=== PATIENT | female | born 1950 | race Caucasian/White ===

== ENCOUNTER → 2017-07-10 12:02 | Outpatient (CLI) | payer MEDICARE, OTHER, SELFPAY ==
[2017-07-10 13:43] LABS: BUN Creatinine Ratio 22.9 (6-22); Blood Urea Nitrogen 16 mg/dL (7-17); Calcium 11.1 mg/dL (8.4-10.2); Carbon Dioxide 28 mmol/L (22-32); Chloride 105 mmol/L (98-107); Estimated Glomerular Filt Rate > 60.0 mL/min (>60); Glucose 100 mg/dL (80-110); HEMOLYSIS < 15 (0-50); Potassium 4.1 mmol/L (3.4-5.1); Sodium 143 mmol/L (137-145)
[2017-07-10 14:09] LABS: Thyroid Stimulating Hormone 0.54 uIU/mL (0.47-4.68)
[2017-07-12 15:15] LABS: Parathyroid Hormone Int 102 pg/mL (14-64)
== END ==
PROVIDERS: Family Provider Internal Medicine; PCP Internal Medicine; Visit Provider Internal Medicine Endocrinology, Diabetes & Metabolism
DX: E21.3 Hyperparathyroidism, unspecified (principal); E03.9 Hypothyroidism, unspecified
CPT/HCPCS: 36415; 80048; 83970; 84443

== ENCOUNTER → 2017-07-12 10:10 | Outpatient (CLI) | payer MEDICARE, OTHER, SELFPAY ==
[2017-07-12 15:09] LABS: Collection Time Urine 24 Hours; Creatinine 24 Hour Urine 1167 mg/day (800-1800); Creatinine Urine Random 116.7 mg/dL; Total Volume Urine 1000 mL
[2017-07-12 15:15] LABS: Calcium 24 Hour Urine 318 mg/day (100-300); Calcium Urine Random 31.8; Collection Time Urine 24 Hours; Total Volume Urine 1000 mL
== END ==
PROVIDERS: PCP Internal Medicine; Visit Provider Internal Medicine Endocrinology, Diabetes & Metabolism
DX: E03.9 Hypothyroidism, unspecified (principal)
CPT/HCPCS: 82340; 82570

== ENCOUNTER → 2017-09-03 07:07 | Outpatient (CLI) | payer MEDICARE, OTHER, SELFPAY ==
[2017-09-03 09:19] LABS: Hematocrit 38.4 % (36-46); Hemoglobin 12.9 g/dL (12.0-16.0); Mean Corpuscular HGB Conc 33.6 % (30-36); Mean Corpuscular Hemoglobin 30.3 PG (26-34); Mean Corpuscular Volume 90.1 fL (80-100); Platelet Count 134 X10^3/uL (150-400); Red Blood Cell Count 4.26 X10^6/uL (4.0-5.2); Red Cell Distribution Width 13.8 % (11.6-14.8); White Blood Cell Count 13.1 X10^3/uL (4.5-11.0)
[2017-09-03 09:20] LABS: Add Manual Diff / Slide Review YES
[2017-09-03 09:42] LABS: Alanine Aminotransferase 40 IU/L (9-52); Albumin 4.2 g/dL (3.5-5.0); Albumin Globulin Ratio 1.9 (1.0-2.8); Alkaline Phosphatase 64 U/L (38-126); Aspartate Aminotransferase 39 IU/L (14-36); Bilirubin Total 0.4 mg/dL (0.2-1.3); Blood Urea Nitrogen 14 mg/dL (7-17); Calcium 10.1 mg/dL (8.4-10.2); Carbon Dioxide 31 mmol/L (22-32); Chloride 105 mmol/L (98-107); Estimated Glomerular Filt Rate > 60.0 mL/min (>60); Globulin 2.2 g/dL (1.7-4.1); Glucose 108 mg/dL (80-110); HEMOLYSIS < 15 (0-50); Lactate Dehydrogenase 479 U/L (313-618); Sodium 141 mmol/L (137-145); Total Protein 6.4 g/dL (6.3-8.2)
[2017-09-03 10:03] LABS: Neutrophils Absolute Manual 3275 /uL (3000-5900); Total Cells Counted 100
[2017-09-03 10:04] LABS: Anisocytosis 1+
== END ==
PROVIDERS: PCP Internal Medicine; Visit Provider Internal Medicine
DX: D69.6 Thrombocytopenia, unspecified (principal); D69.3 Immune thrombocytopenic purpura
CPT/HCPCS: 36415; 80053; 83615; 85025

== ENCOUNTER → 2017-09-07 07:03 | Outpatient (CLI) | payer MEDICARE, OTHER, SELFPAY ==
--- NOTE | 2017-09-07 08:29 | DI.CT.S_ITS ---
PROCEDURE: CT CHEST ABD PEL W CON INDICATIONS: staging for CLL/SLL TECHNIQUE: After the administration of oral and intravenous contrast, 5 mm thick sections acquired from the lung apices to the symphysis. 5 mm coronal and sagittal reformats were performed, with additional 7 mm coronal MIP reformats through the lungs. For radiation dose reduction, the following was used: automated exposure control, adjustment of mA and/or kV according to patient size. COMPARISON: [facility], , PELVIC COMPLETE, 03/12/2015, 8:25. Outside Facility, , CT NECK W/WO CONTRAST, 08/13/2017, 14:43. FINDINGS: Image quality: Excellent. CHEST: Lungs and pleura: No acute airspace opacities. No pleural effusions or pneumothorax. Central and peripheral airways appear patent and normal in caliber. Mediastinum: Heart size is normal. No pericardial effusion. No mediastinal or hilar adenopathy by size criteria. Thoracic aorta and central pulmonary arteries are normal in size. Esophagus is normal in caliber. No hiatal hernia. Chest wall: No axillary or supraclavicular adenopathy by size criteria. Thyroid gland appears normal where well visualized. ABDOMEN: Solid organs: Liver is normal in size and enhancement. Gallbladder appears normal. Biliary system is non dilated. Pancreas enhances normally. Spleen is normal in size and enhancement. No adrenal nodules. Kidneys demonstrate normal size and enhancement, without hydronephrosis. Bilateral renal calculi present, nonobstructive, with the largest calculi seen on the left located at the lower third collecting system measuring up to 6 x 13 mm. Peritoneum and bowel: Bowel loops demonstrate normal wall thickness and caliber. No free fluid or air. Nodes and vessels: No retroperitoneal or mesenteric adenopathy by size criteria. Aorta and inferior vena cava are normal in size. Miscellaneous: No ventral hernias. PELVIS: Genitourinary: Bladder wall thickness is normal. Miscellaneous: No inguinal hernias or adenopathy. Bones: No suspicious bony lesions. No vertebral body compression fractures. IMPRESSION: No adenopathy seen, no visceral involvement by leukemia/lymphoma. Note is made of bilateral nonobstructed renal collecting system calculi, the largest measuring up to 6 x 13 mm at the lower third collecting system of the left kidney. Dictated by: Levar Donaldson M.D. on 09/07/2017 at 12:40 Approved by: Levar Donaldson M.D. on 09/07/2017 at 12:44
--- NOTE | 2017-09-11 15:56 | PC.NURSE ---
Pt called, asking to talk to Dr Rich about her CT results. Results printed and placed on Dr Rich's desk. Per Dr Rich, pt needs to come in to see a provider if she has any questions. This was relayed to the patient, who expressed unhappiness with this as I was told by both Dr Rich and a radiology equipment servicer that I could have a phone conversation with Dr Rich. She was upset because what I was saying and what she was told previously are not consistent. Pt states she is on vacation and is unable to come in to see a provider at this time. Encouraged her to make an appt with one of the other providers, after apologizing for the miscommunication. She states she'll call back once she's researched the other providers to make an appt.
== END ==
PROVIDERS: Family Provider Internal Medicine; PCP Internal Medicine; Visit Provider Internal Medicine Hematology & Oncology
DX: C91.10 Chronic lymphocytic leukemia of B-cell type not having achieved remission (principal); D69.6 Thrombocytopenia, unspecified; N20.0 Calculus of kidney
CPT/HCPCS: 71260; 74177; Q9967

== ENCOUNTER → 2017-09-20 08:57 | Outpatient (CLI) | payer MEDICARE, OTHER, SELFPAY ==
--- NOTE | 2017-09-20 | DI.MG.S_ITS ---
BILATERAL DIGITAL SCREENING MAMMOGRAM 3D/2D WITH CAD: 09/20/2017 CLINICAL: Routine screening. Comparison is made to exams dated: 08/30/2016 mammogram, 04/02/2014 mammogram, and 01/27/2013 mammogram - [facility]. There are scattered fibroglandular elements in both breasts. Current study was also evaluated with a Computer Aided Detection (CAD) system. No significant masses, calcifications, or other findings are seen in either breast. There has been no significant interval change. IMPRESSION: NEGATIVE There is no mammographic evidence of malignancy. A 1 year screening mammogram is recommended. This exam was interpreted at Station ID: [id number]. NOTE: For mammograms, a report in lay terms will be sent to the patient. Approximately 15% of breast malignancies will not be visualized mammographically. In the management of a palpable breast mass, a negative mammogram must not discourage biopsy of a clinically suspicious lesion. Electronically Signed By: Desi benson/ava:09/20/2017 10:36:56 letter sent: Normal Exam ACR BI-RADS Category 1: Negative [id number]
== END ==
PROVIDERS: Family Provider Internal Medicine; PCP Internal Medicine; Visit Provider Internal Medicine
DX: Z12.31 Encounter for screening mammogram for malignant neoplasm of breast (principal)
CPT/HCPCS: 77063; 77067

== ENCOUNTER → 2017-10-13 11:27 | Outpatient (CLI) | payer MEDICARE, OTHER, SELFPAY ==
[2017-10-13 12:41] LABS: Free T4, Direct Thyroxine 1.23 ng/dL (0.78-2.19)
[2017-10-13 12:55] LABS: Thyroid Stimulating Hormone 1.32 uIU/mL (0.47-4.68)
== END ==
PROVIDERS: Family Provider Internal Medicine; PCP Internal Medicine; Visit Provider Internal Medicine Endocrinology, Diabetes & Metabolism
DX: E03.9 Hypothyroidism, unspecified (principal)
CPT/HCPCS: 36415; 84439; 84443

== ENCOUNTER → 2017-10-21 11:09 | Outpatient (CLI) | payer MEDICARE, OTHER, SELFPAY | PROVIDERS: Family Provider Internal Medicine; PCP Internal Medicine; Visit Provider Physician Assistant | DX: J02.9 Acute pharyngitis, unspecified (principal) | CPT/HCPCS: 87070 ==

== ENCOUNTER → 2018-01-21 09:34 | Outpatient (CLI) | payer MEDICARE, OTHER, SELFPAY ==
[2018-01-21 10:12] LABS: Hematocrit 39.3 % (36-46); Hemoglobin 13.1 g/dL (12.0-16.0); Mean Corpuscular HGB Conc 33.4 % (30-36); Mean Corpuscular Hemoglobin 29.9 PG (26-34); Mean Corpuscular Volume 89.5 fL (80-100); Platelet Count 232 X10^3/uL (150-400); Red Blood Cell Count 4.39 X10^6/uL (4.0-5.2); Red Cell Distribution Width 13.7 % (11.6-14.8); White Blood Cell Count 16.6 X10^3/uL (4.5-11.0)
[2018-01-21 10:13] LABS: Add Manual Diff / Slide Review YES
[2018-01-21 10:49] LABS: Alanine Aminotransferase 26 IU/L (9-52); Albumin 4.3 g/dL (3.5-5.0); Albumin Globulin Ratio 1.7 (1.0-2.8); Alkaline Phosphatase 61 U/L (38-126); Aspartate Aminotransferase 31 IU/L (14-36); BUN Creatinine Ratio 21.4 (6-22); Bilirubin Total 0.3 mg/dL (0.2-1.3); Blood Urea Nitrogen 15 mg/dL (7-17); Calcium 10.7 mg/dL (8.4-10.2); Carbon Dioxide 28 mmol/L (22-32); Chloride 108 mmol/L (98-107); Estimated Glomerular Filt Rate > 60.0 mL/min (>60); Globulin 2.6 g/dL (1.7-4.1); Glucose 87 mg/dL (80-110); HEMOLYSIS < 15 (0-50); Lactate Dehydrogenase 473 U/L (313-618); Potassium 4.3 mmol/L (3.4-5.1); Sodium 147 mmol/L (137-145); Total Protein 6.9 g/dL (6.3-8.2)
[2018-01-21 10:54] LABS: Neutrophils Absolute Manual 3984 /uL (3000-5900); Smudge Cells 1+; Total Cells Counted 100
== END ==
PROVIDERS: PCP Internal Medicine; Visit Provider Internal Medicine
DX: D69.6 Thrombocytopenia, unspecified (principal); D69.3 Immune thrombocytopenic purpura
CPT/HCPCS: 36415; 80053; 83615; 85025

== ENCOUNTER → 2018-05-08 10:07 | Outpatient (CLI) | payer MEDICARE, OTHER, SELFPAY ==
--- NOTE | 2018-05-08 | DI.RAD.S_ITS ---
PROCEDURE: XR FOOT LT MIN 3V INDICATIONS: PLANTAR FASCIITIS/OCCULT FRACTURE TECHNIQUE: 3 views of the foot were acquired. COMPARISON: [facility], , FOOT 3V LEFT, 12/14/2015, 9:13. FINDINGS: Bones: Stable postsurgical changes are present within the first metatarsal. Hardware is intact without evidence of fracture or loosening. Soft tissues: No tibiotalar joint effusion. Achilles tendon appears normal. Slight prominence of soft tissues along the plantar aspect which are unchanged compared to 2016. IMPRESSION: No visualized acute fracture or dislocation. However, if clinical concern and/or pain persist, short interval imaging followup in 7-10 days is recommended, as occult injury cannot be definitively excluded. Dictated by: Marjorie Hidalgo M.D. on 05/08/2018 at 12:19 Approved by: Marjorie Hidalgo M.D. on 05/08/2018 at 12:20
== END ==
PROVIDERS: Visit Provider Internal Medicine
DX: M72.2 Plantar fascial fibromatosis (principal)
CPT/HCPCS: 73630

== ENCOUNTER → 2018-07-22 09:51 | Outpatient (CLI) | payer MEDICARE, OTHER, SELFPAY ==
--- NOTE | 2018-07-22 | DI.MRI.S_ITS ---
PROCEDURE: MR KNEE RT WO CON INDICATIONS: JOINT INJURY OF RIGHT KNEE TECHNIQUE: Noncontrast sagittal PD fast spin echo and T2 fast spin echo with fat saturation, sagittal 3-D FLASH with fat saturation; coronal T1 spin echo and PD fast spin echo with fat saturation, and axial PD fast spin echo with fat saturation through the knee. COMPARISON: None. FINDINGS: Image quality: Excellent. Menisci: Myxoid degeneration involving the body of the medial meniscus. Lateral meniscal tear involving the body with abnormal signal extending to the superior articular surface. There is also partial extrusion. Cruciate ligaments: The anterior and posterior cruciate ligaments appear intact. Medial structures: The medial collateral ligament appears intact. The posterior oblique ligament, semimembranosus tendon insertions, oblique popliteal ligament, and meniscocapsular junction appear intact. Visualized portions of the pes anserinus tendons appear normal. No abnormal bursal fluid. Lateral structures: Age indeterminate low-grade sprain of the proximal lateral collateral ligament. The long and short heads of the biceps femoris tendon appear intact. The popliteus tendon appears normal; the popliteofibular ligament appears intact. The posterosuperior and anteroinferior popliteomeniscal fascicles appear intact. The arcuate and fabellofibular ligaments appear intact, on either side of the lateral inferior geniculate artery. Iliotibial band appears normal. Anterior structures: The quadriceps and patellar tendons appear intact. Patellar alignment is normal. No femoral trochlear dysplasia or ventral trochlear prominence. No edema in the infrapatellar fat pad. Bones and cartilage: No focal marrow contusion or discrete low signal fracture line. Within the medial compartment, diffuse partial-thickness loss of femoral and tibial articular cartilage. Within the lateral compartment, near full-thickness loss of the central weightbearing tibial cartilage. There is diffuse partial-thickness loss of the femoral cartilage. Within the patellofemoral compartment, full-thickness loss of the cartilage overlying the medial patellar ridge with underlying subchondral marrow signal changes and edema. There is partial-thickness loss of the femoral trochlear cartilage. Joint space: Large joint effusion. No intra-articular loose bodies identified. No Umana's cyst IMPRESSION: Lateral meniscal tear involving the body with partial extrusion. Large joint effusion. Tricompartmental joint degeneration as above, most pronounced in the lateral and patellofemoral compartments. Dictated by: Bharath Cardenas M.D. on 07/22/2018 at 13:11 Approved by: Bharath Cardenas M.D. on 07/22/2018 at 13:18
== END ==
PROVIDERS: Family Provider Internal Medicine; PCP Internal Medicine; Visit Provider Internal Medicine
DX: S83.281A Other tear of lateral meniscus, current injury, right knee, initial encounter (principal); M25.461 Effusion, right knee; M17.11 Unilateral primary osteoarthritis, right knee; X58.XXXA Exposure to other specified factors, initial encounter
CPT/HCPCS: 73721

== ENCOUNTER 2019-01-14 11:52 | Day surgery (SDC) | payer MEDICARE, OTHER, SELFPAY ==
[2019-01-14] VITALS (9 sets, daily range): BP systolic 90–119; BP diastolic 57–81; PULSE 80–98; RESP 12–16; TEMP 36.3–37.1; O2SAT 96–99; BMI 21.5
[2019-01-14] MEDS: SODIUM CHLORIDE 0.9% 1,000 ML 200 ML IV ×2 (12:30→14:25)
--- NOTE | 2019-01-14 12:57 | PM.HP.1 ---
History of Present Illness History of Present Illness Date Patient Seen: 01/14/19 Time Patient Seen: 12:57 Chief complaint: 16403 SCREENING COLONOSCOPY Narrative: This is a 68-year-old woman who had her 1st screening colonoscopy at age 50, and was told it was normal. Since then she denies any symptoms of melena, hematochezia, or other GI complaints. She has history of CLL and thrombocytopenia, but most recently has had normal platelets and has never been treated for the CLL. She has cyst under surveillance. He also has hypothyroid for which she takes levothyroxine. Her sister recently had a colonoscopy in which many polyps were found and she was told to tell all of her family members to go with a colonoscopy. ROS: ROS positive for recent cold, ankle swelling at the end of the day, heart murmur, thirteen system review is otherwise negative other than as mentioned below and in HPI. Patient History Surgical History History of thyroidectomy Family & Social History Social History: household members spouse Tobacco & Substance use: Smoking Status Never smoker Meds Home Medications and Allergies Home Medications Medication Instructions Recorded Confirmed Type levothyroxine 100 mcg PO DAILY 09/04/17 01/14/19 History Allergies Allergy/AdvReac Type Severity Reaction Status Date / Time No Known Drug Allergies Allergy Verified 01/14/19 12:16 Exam Vital Signs (past 8 hours): - 01/14/19 12:23 Temperature 97.6 F Pulse Rate 98 H Respiratory Rate 16 Blood Pressure 119/81 Pulse Oximetry 99 Oxygen Delivery Method Room Air Assessment & Plan Assessment and plan (1) CLL (chronic lymphocytic leukemia): Current visit: Yes Status: Acute (2) Encounter for screening colonoscopy: Current visit: Yes Status: Acute Assessment & Plan narrative: Risks and benefits of screening colonoscopy and possible polypectomy were discussed with the patient including risk of bleeding, perforation, need for additional procedures, risks of anesthesia. The patient desires to proceed with her colonoscopy procedure Time Spent With Patient Time with patient: 15-24 minutes Quality VTE Deep Vein Thrombosis/Pulmonary Embolism Present on Admission: No
--- NOTE | 2019-01-14 13:26 | PM.OP.ENDO ---
Operative Date/Time/Diagnoses Date of procedure: 01/14/19 Time of procedure: 13:26 Pre-op diagnosis: Average risk for colon cancer Post-op diagnosis: same Procedure & Clinicians Study performed: Screening colonoscopy Same procedure as scheduled: Yes Surgeon: Cheyenne Hernández Procedure Notes SCOAP/Timeout: Performed Procedure in detail: The patient was brought to the room and placed in left lateral decubitus position with all bony prominences padded. A time-out was performed and then the patient was given procedural sedation starting with 4 mg of Versed and 100 mcg of fentanyl. Vitals were monitored throughout the procedure and remained stable. Once adequately sedated the procedure was begun. A rectal exam was performed revealing no abnormalities. The colonoscope was then introduced to the rectum and advanced to the cecum in the usual fashion. The cecum was identified by the appendiceal orifice, the mucosal try fold, and the ileocecal valve. The scope was then retracted while rotating side to side and examining each mucosal fold. At the conclusion procedure retroflexion was performed and small grade 2 internal hemorrhoids without stigmata of bleeding were seen. The scope was then withdrawn from the rectum the procedure was concluded. The patient tolerated the procedure well was transferred to the PACU in stable condition. Scope withdrawal time: 8 Sedation minutes: 23 Findings: internal hemorrhoids Specimen(s): none sent Complications: none Impression: Normal colon Post-procedure Recommendations: Colonscopy in 10 years Follow up: as needed Disposition: PACU
[2019-01-14] MEDS: fentaNYL 250 MCG/5 ML INJ IV (13:27)
[2019-01-14] MEDS: MIDAZOLAM 5 MG/5 ML VIAL IV (13:28)
== END 2019-01-14 15:02 | disposition home or self-care (01) ==
PROVIDERS: Family Provider Internal Medicine; PCP Internal Medicine; Visit Provider Surgery
PROC: 0DJD8ZZ Inspection of Lower Intestinal Tract, Via Natural or Artificial Opening Endoscopic (ICD-10-PCS; CPT 45378; principal; 2019-01-14 13:00)
DX: Z12.11 Encounter for screening for malignant neoplasm of colon (principal); E03.9 Hypothyroidism, unspecified; C91.10 Chronic lymphocytic leukemia of B-cell type not having achieved remission; K64.1 Second degree hemorrhoids
CPT/HCPCS: G0121; 99152; J2250; J3010

== ENCOUNTER → 2019-06-06 14:07 | Outpatient (CLI) | payer MEDICARE, OTHER, SELFPAY ==
[2019-06-06 17:05] LABS: Alanine Aminotransferase 24 IU/L (<35); Albumin 4.6 g/dL (3.5-5.0); Albumin Globulin Ratio 1.8 (1.0-2.8); Alkaline Phosphatase 77 U/L (38-126); Aspartate Aminotransferase 34 IU/L (14-36); BUN Creatinine Ratio 26.5 (6-22); Bilirubin Total 0.3 mg/dL (0.2-1.3); Blood Urea Nitrogen 18 mg/dL (7-17); Calcium 10.7 mg/dL (8.4-10.2); Carbon Dioxide 26 mmol/L (22-32); Chloride 106 mmol/L (98-107); Estimated Glomerular Filt Rate > 60.0 mL/min (>60); Globulin 2.5 g/dL (1.7-4.1); Glucose 83 mg/dL (80-110); HEMOLYSIS < 15 (0-50); Potassium 4.3 mmol/L (3.4-5.1); Sodium 139 mmol/L (137-145); Total Protein 7.1 g/dL (6.3-8.2)
[2019-06-07 08:40] LABS: Calcium 10.5 mg/dL (8.7-10.3); Parathyroid Hormone, Intact 117 pg/mL (15-65)
== END ==
PROVIDERS: Family Provider Internal Medicine; PCP Internal Medicine; Referring Provider Internal Medicine Endocrinology, Diabetes & Metabolism; Visit Provider Internal Medicine Endocrinology, Diabetes & Metabolism
DX: E21.3 Hyperparathyroidism, unspecified (principal)
CPT/HCPCS: 36415; 80053; 82306; 82310; 83970

== ENCOUNTER → 2019-08-01 13:42 | Outpatient (CLI) | payer MEDICARE, OTHER, SELFPAY | PROVIDERS: Family Provider Internal Medicine; PCP Internal Medicine; Referring Provider Internal Medicine; Visit Provider Internal Medicine | DX: M85.852 Other specified disorders of bone density and structure, left thigh (principal); Z78.0 Asymptomatic menopausal state; E21.1 Secondary hyperparathyroidism, not elsewhere classified | CPT/HCPCS: 77080 ==

== ENCOUNTER → 2019-08-16 12:41 | Outpatient (CLI) | payer MEDICARE, OTHER, SELFPAY ==
--- NOTE | 2019-08-16 12:54 | DI.MG.S_ITS ---
Patient Name: JOSE REID date: 1950 Sex: F Attending Physician: Stanley Indications: Date: 08/16/2019 12:48 At the request of: STEVEN HENNESSY Procedure: MM screening mammo BI BILATERAL DIGITAL SCREENING MAMMOGRAM 3D/2D WITH CAD: 08/16/2019 CLINICAL: Routine screening. Comparison is made to exams dated: 09/20/2017 mammogram, 08/30/2016 mammogram, and 04/02/2014 mammogram - [facility]. There are scattered fibroglandular elements in both breasts. Current study was also evaluated with a Computer Aided Detection (CAD) system. There is an oval lymph node with uniform cortical thickening in the right breast at 9 o'clock middle depth. This is increased in size. There are multiple enlarged lymph nodes in the left breast posterior depth superior region seen on the mediolateral oblique view only. These are more prominent and increased in size. No other significant masses or calcifications are seen in either breast. IMPRESSION: INCOMPLETE: NEEDS ADDITIONAL IMAGING EVALUATION The oval lymph node with uniform cortical thickening in the right breast at 9 o'clock middle depth is indeterminate. A diagnostic mammogram and ultrasound is recommended. The multiple enlarged lymph nodes in the left breast posterior depth superior region seen on the mediolateral oblique view only are indeterminate. An ultrasound is recommended. This exam was interpreted at Station ID: [id number]. NOTE: For mammograms, a report in lay terms will be sent to the patient. Approximately 15% of breast malignancies will not be visualized mammographically. In the management of a palpable breast mass, a negative mammogram must not discourage biopsy of a clinically suspicious lesion. Electronically Signed By: Hoa hunt/:08/18/2019 10:12:55 Continued Report - Page 2 of 2 Patient Name: JOSE REID date: 1950 Sex: F Attending Physician: Stanley Indications: Date: 08/16/2019 12:48 At the request of: STEVEN HENNESSY Procedure: MM screening mammo BI letter sent: Additional Imaging Needed ACR BI-RADS Category 0: Incomplete [id number]
== END ==
PROVIDERS: Family Provider Internal Medicine; PCP Internal Medicine; Referring Provider Internal Medicine; Visit Provider Internal Medicine
DX: Z12.31 Encounter for screening mammogram for malignant neoplasm of breast (principal)
CPT/HCPCS: 77063; 77067

== ENCOUNTER → 2019-08-26 08:44 | Outpatient (CLI) | payer MEDICARE, OTHER, SELFPAY ==
--- NOTE | 2019-08-26 | DI.MG.S_ITS ---
UNILATERAL RIGHT DIGITAL DIAGNOSTIC MAMMOGRAM 3D/2D WITH ADDITIONAL VIEWS: 08/26/2019 CLINICAL: Additional evaluation requested from prior study. Comparison is made to exams dated: 08/16/2019 mammogram, 09/20/2017 mammogram, and 08/30/2016 mammogram - [facility]. There are scattered fibroglandular elements in right breast. There is an 8 mm oval high density bilobed asymmetry with a circumscribed margin in the right breast at 9 o'clock middle depth. This is seen in additional views. This is increased in size. No other significant masses or calcifications are seen in the breast. IMPRESSION: INCOMPLETE: NEEDS ADDITIONAL IMAGING EVALUATION The 8 mm oval high density asymmetry in the right breast at 9 o'clock middle depth remains indeterminate, and may be an increasingly prominent lymph node or cyst. An ultrasound is recommended. This was performed immediately following this exam. This exam was interpreted at Station ID: [id number]. NOTE: For mammograms, a report in lay terms will be sent to the patient. Approximately 15% of breast malignancies will not be visualized mammographically. In the management of a palpable breast mass, a negative mammogram must not discourage biopsy of a clinically suspicious lesion. Electronically Signed By: Hoa hunt/:08/26/2019 09:17:05 ACR BI-RADS Category 0: Incomplete [id number]
--- NOTE | 2019-08-26 | DI.US.S_ITS ---
ULTRASOUND OF LEFT AXILLA: 08/26/2019 CLINICAL: Lt breast abnormal Mammo. Comparison is made to exams dated: 08/26/2019 mammogram, 08/16/2019 mammogram, 09/20/2017 mammogram, and 08/30/2016 mammogram - [facility]. Color flow and real-time ultrasound of the left axilla were performed. Cope scale images of the real-time examination were reviewed. There are multiple enlarged lymph nodes with eccentric cortical thickening in the left axillary tail. These abnormalities are increased in size and more prominent and correlate with mammography findings. Color flow imaging demonstrates that there is increased vascularity. IMPRESSION: SUSPICIOUS OF MALIGNANCY The multiple enlarged lymph nodes with eccentric cortical thickening are suspicious of malignancy. Per report, the patient has a diagnosis of early stage CLL, however, these lymph nodes have become larger since the prior study and biopsy may be warranted. An ultrasound guided biopsy and/or a surgical oncologic consultation are recommended. Findings and recommendations were discussed with the patient by Dr. Malcolm at time of exam. This exam was interpreted at Station ID: [id number]. Electronically Signed By: Hoa hunt/:08/26/2019 11:13:52 letter sent: Biopsy Required Ultrasound BI-RADS: 4 Suspicious for malignancy
--- NOTE | 2019-08-26 | DI.US.S_ITS ---
LIMITED ULTRASOUND OF RIGHT BREAST AND AXILLA: 08/26/2019 CLINICAL: Right breast abnormal Mammo. Comparison is made to exams dated: 08/26/2019 mammogram, 08/16/2019 mammogram, 09/20/2017 mammogram, 08/30/2016 mammogram, and 04/02/2014 mammogram - [facility]. Color flow and real-time ultrasound of the right breast 9 o'clock, and axilla regions were performed. Cope scale images of the real-time examination were reviewed. There are multiple enlarged lymph nodes with eccentric cortical thickening in the right axillary tail. These enlarged lymph nodes are hypoechoic, some without fatty hilum. Color flow imaging demonstrates that there is vascularity present. There also is a 0.7 cm x 0.5 cm x 0.4 cm irregular, circumscribed mass in the right breast at 9 o'clock middle depth 5 cm from the nipple. This irregular mass is hypoechoic and correlates with mammography findings. Color flow imaging demonstrates that there is vascularity present. IMPRESSION: SUSPICIOUS OF MALIGNANCY The multiple enlarged lymph nodes with eccentric cortical thickening in the right axillary tail are at a moderate suspicion for malignancy. Per report, the patient has a history of CLL which is consistent with this finding. The 0.7 cm x 0.5 cm x 0.4 cm irregular mass in the right breast at 10 o'clock middle depth is possibly an enlarged intramammary lymph node and is suspicious of malignancy in the setting of abnormal axillary nodes. An ultrasound guided biopsy of the 9:00 right breast mass is recommended. Because the patient has bilateral abnormal axillary nodes, the contralateral side is recommended for biopsy, as detailed in the accompanying left axilla report. Findings and recommendations were discussed with the patient by Dr. Malcolm at time of exam. This exam was interpreted at Station ID: [id number]. Electronically Signed By: Hoa hunt/:08/26/2019 11:21:39 letter sent: Biopsy Required Ultrasound BI-RADS: 4b Moderate suspicion of malignancy
== END ==
PROVIDERS: Family Provider Internal Medicine; PCP Internal Medicine; Referring Provider Internal Medicine; Visit Provider Internal Medicine
DX: R92.8 Other abnormal and inconclusive findings on diagnostic imaging of breast (principal); N63.11 Unspecified lump in the right breast, upper outer quadrant; R59.0 Localized enlarged lymph nodes; C91.10 Chronic lymphocytic leukemia of B-cell type not having achieved remission
CPT/HCPCS: 76642; 77065; G0279

== ENCOUNTER → 2019-09-15 09:14 | Outpatient (CLI) | payer MEDICARE, OTHER, SELFPAY ==
--- NOTE | 2019-09-15 | DI.MG.S_ITS ---
UNILATERAL RIGHT DIGITAL DIAGNOSTIC MAMMOGRAM POST-NEEDLE BIOPSY: 09/15/2019 CLINICAL: Right breast mass. No prior exams were available for comparison. There are scattered fibroglandular elements in right breast. There is a marker clip in the appropriate position in the right breast at 9 o'clock anterior depth. This marker clip placement is at the biopsy site. IMPRESSION: POST PROCEDURE MAMMOGRAM FOR MARKER PLACEMENT There was a successful marker clip placement in the right breast anterior depth. This exam was interpreted at Station ID: [id number]. NOTE: For mammograms, a report in lay terms will be sent to the patient. Approximately 15% of breast malignancies will not be visualized mammographically. In the management of a palpable breast mass, a negative mammogram must not discourage biopsy of a clinically suspicious lesion. Electronically Signed By: Bharath estrada/:09/15/2019 15:49:37 ACR BI-RADS Category Post-procedure mammogram for marker placement
--- NOTE | 2019-09-15 | PATH_ITS ---
[facility] Accession Number: [id number] . 01 Material submitted: . breast - RT BREAST 9:00 5 CM FN . 01 Diagnosis: A) BREAST, RIGHT, 9:00, NEEDLE BIOPSY: ---- Light microscopic and immunohistochemical features of Chronic Lymphocytic Leukemia / Small Lymphocytic Lymphoma (CLL/SLL) --- Benign breast parenchyma -- See comment [facility] 09/18/2019 1520 Local . 01 Comment: The patient history of chronic lymphocytic leukemia/small lymphocytic lymphoma (CLL/SLL) identified in flow cytometric analysis of a peripheral blood sample on 11/15/2016 ( [id number] from 11/15/2016); FISH demonstrated 13q deletion in 31% of cells at that time. . 01 Electronically signed: . Chelly Rm MD, Pathologist NPI- [id number] . 01 Gross description: . Received in formalin, labeled right breast, are six pieces of parker adipose tissue measuring 1.5 x 0.5 x 0.3 cm to 0.5 x 0.3 x 0.3 cm. All six pieces are entirely submitted in cassettes A1 and A2, with three pieces per cassette. Collection date and time are listed as September 15, 2019 at 9:00, presuming to be 9:00 a.m., for a total fixation time of approximately 19 hours. ([id number]) /[facility] 09/16/2019 0246 Local . 01 Microscopic: . H/E levels demonstrate fragments of benign breast tissue, clotted blood, and accumulations of lymphoid tissue. Focally, there appears to be an intact lymph node capsule. Other foci do not demonstrate association with a capsule, however, there is no evidence of infiltration into the adjacent fibroadipose tissue. The lymphoid infiltrate comprises small mature appearing lymphoid cells. There is no evidence of follicular architecture, pseudofollicles, granulomata, active inflammation or carcinoma. . In order to more fully characterize this process, immunohistochemical stains were indicated. The controls reacted appropriately. . Findings: CD3: Scattered small T-cells present; diffuse distribution (Membranous/strong) CD5: Essentially all cells positive; diffuse distribution (membranous/strong) CD10: Negative CD23: Essentially all cells positive; diffuse distribution (membranous/strong) CD20: Essentially all cells positive; diffuse distribution (membranous/strong) CyclinD1: Negative BCL2: Essentially all cells positive; diffuse distribution (membranous/strong) BCL6: Negative Ki67: Less than 3% positive (nuclear) . Interpretation: compatible with CLL/SLL . Technical Note: The immunohistochemistry stains reported were performed at [facility] ([address] [place] [address]e [address], [facility] [address]). They were developed and their performance characteristics determined by [facility]. They have not been cleared or approved by the U.S. Food and Drug Administration, although such approval is not required for analyte-specific reagents of this type. . 01 Pathologist provided ICD-10: C91.12 . 01 CPT . 412974, Z02594, C65974, 807907 Performed at: 01 [facility] [address] [place] [address] [address], [place], [place] [id number] MD Cecil Guevara MD Phone: [phone]
--- NOTE | 2019-09-15 | DI.US.S_ITS ---
ULTRASOUND GUIDED BIOPSY RIGHT BREAST WITH MARKING DEVICE INSERTED: 09/15/2019 CLINICAL: Right breast mass. PATIENT CONSENT: Risks (minor bleeding, infection, vasovagal reaction and repeat procedure), benefits and alternatives were explained to the patient and written informed consent was obtained. Correlation is made to exams dated: 09/15/2019 mammogram, 08/26/2019 ultrasound, 08/26/2019 ultrasound, 08/26/2019 mammogram, 08/16/2019 mammogram, and 09/20/2017 mammogram - [facility]. An ultrasound guided biopsy using real-time ultrasound was performed for the mass located in the right breast at 9 o'clock middle depth. The skin was prepped in the usual manner. Local anesthetic was administered to the access site. A small incision was made in the breast. The abnormality was approached from the lateral aspect. A biopsy needle was placed adjacent to the abnormality under ultrasound guidance. Once the needle was documented to be in the correct location, four specimens were obtained using an automated biopsy gun. A clip was inserted into the biopsy cavity. The specimens were sent to the laboratory for pathological analysis. IMPRESSION: ULTRASOUND GUIDED BIOPSY MALIGNANT Ultrasound guided biopsy of the mass in the right breast at 9 o'clock middle depth was successful. 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 Pathology results are concordant with imaging findings. The patient also had bilateral axillary lymphadenopathy prior to this biopsy. Given the pathology results, ultrasound guided biopsies of both axilla may be warranted. A surgical/oncologic consultation is recommended for further evaluation. This exam was interpreted at Station ID: [id number]. Bharath estrada,aty/:09/22/2019 18:18:07
== END ==
PROVIDERS: Family Provider Internal Medicine; PCP Internal Medicine; Referring Provider Internal Medicine; Visit Provider Internal Medicine
DX: C91.10 Chronic lymphocytic leukemia of B-cell type not having achieved remission (principal); N63.15 Unspecified lump in the right breast, overlapping quadrants; R59.0 Localized enlarged lymph nodes
CPT/HCPCS: 19083; 77065

== ENCOUNTER → 2020-01-08 08:10 | Outpatient (CLI) | payer MEDICARE, OTHER, SELFPAY | PROVIDERS: Family Provider Internal Medicine; PCP Internal Medicine; Referring Provider Internal Medicine; Visit Provider Internal Medicine | DX: Z03.818 Encounter for observation for suspected exposure to other biological agents ruled out (principal) | CPT/HCPCS: 36415; 86769 ==

== ENCOUNTER → 2020-03-29 07:09 | Outpatient (CLI) | payer MEDICARE, OTHER, SELFPAY ==
[2020-03-29 07:38] LABS: Hematocrit 40.1 % (36-46); Mean Corpuscular HGB Conc 32.3 % (30-36); Mean Corpuscular Hemoglobin 29.3 PG (26-34); Mean Corpuscular Volume 90.7 fL (80-100); Platelet Count 173 X10^3/uL (150-400); Red Blood Cell Count 4.42 X10^6/uL (4.0-5.2); Red Cell Distribution Width 14.5 % (11.6-14.8)
[2020-03-29 08:24] LABS: Add Manual Diff / Slide Review YES; Alanine Aminotransferase 21 IU/L (<35); Albumin 4.1 g/dL (3.5-5.0); Albumin Globulin Ratio 1.9 (1.0-2.8); Alkaline Phosphatase 64 U/L (38-126); Aspartate Aminotransferase 29 IU/L (14-36); BUN Creatinine Ratio 17.6 (6-22); Bilirubin Total 0.2 mg/dL (0.2-1.3); Bilirubin Unconjugated 0.3 mg/dL (0.0-1.1); Blood Urea Nitrogen 12 mg/dL (7-17); Calcium 10.4 mg/dL (8.4-10.2); Carbon Dioxide 31 mmol/L (22-32); Chloride 109 mmol/L (98-107); Estimated Glomerular Filt Rate > 60.0 mL/min (>60); Globulin 2.2 g/dL (1.7-4.1); Glucose 112 mg/dL (80-110); HEMOLYSIS < 15 (0-50); Lactate Dehydrogenase 450 U/L (313-618); Magnesium 2.2 mg/dL (1.6-2.3); Potassium 4.7 mmol/L (3.4-5.1); Sodium 140 mmol/L (137-145); Total Protein 6.3 g/dL (6.3-8.2); Uric Acid 5.3 mg/dL (2.5-6.2); White Blood Cell Count 44.4 X10^3/uL (4.5-11.0)
[2020-03-29 08:29] LABS: Neutrophils Absolute Manual 4440 /uL (3000-5900); RBC Morphology Normal Morphology; Total Cells Counted 100
== END ==
PROVIDERS: Family Provider Internal Medicine; PCP Internal Medicine; Referring Provider Internal Medicine Hematology & Oncology; Visit Provider Internal Medicine Hematology & Oncology
DX: C91.10 Chronic lymphocytic leukemia of B-cell type not having achieved remission (principal)
CPT/HCPCS: 36415; 80069; 80076; 83615; 83735; 84550; 85007; 85025

== ENCOUNTER → 2020-04-19 15:03 | Outpatient (CLI) | payer MEDICARE, OTHER, SELFPAY ==
--- NOTE | 2020-04-19 15:05 | DI.RAD.S_ITS ---
PROCEDURE: XR KNEE RT 3V INDICATIONS: right knee, distal thigh pain TECHNIQUE: 3 views of the knee were acquired. COMPARISON: None. FINDINGS: Bones: No acute fracture. Scattered degenerative subchondral sclerosis and spurring. Diffuse mild narrowing of the joint spaces. Sub 5 mm lucency projects in patella on the lateral view only possibly cyst or erosion. Soft tissues: Small joint effusion. Chronic corticated appearing ossicle projecting adjacent to the lateral patellofemoral joint space. IMPRESSION: Mild degenerative joint disease. Possible cyst versus erosion involving the subchondral patella. Small joint effusion If the patient's pain or other symptoms persist, consider further evaluation with MRI Dictated by: Bharath Cardenas M.D. on 04/19/2020 at 16:19 Approved by: Bharath Cardenas M.D. on 04/19/2020 at 16:21
== END ==
PROVIDERS: Family Provider Internal Medicine; PCP Family Medicine; Referring Provider Family Medicine; Visit Provider Family Medicine
DX: M79.651 Pain in right thigh (principal); M17.11 Unilateral primary osteoarthritis, right knee; M25.461 Effusion, right knee
CPT/HCPCS: 73562

== ENCOUNTER 2020-06-16 07:30 | Outpatient (RCR) | payer MEDICARE, OTHER, SELFPAY ==
--- NOTE | 2020-05-07 15:37 | PT.OIE ---
Current Diagnoses Cervicalgia (05/10/20) Pain in right leg (05/10/20) Past Medical History (Last Updated 04/08/20 @ 17:01 by Kev Mckinley MD) Hyperlipidemia Hyperparathyroidism Hypothyroidism Lower back pain Neck muscle spasm Past Surgical History (Last Reviewed 04/08/20 @ 16:57 by Kev Mckinley MD) History of thyroidectomy Visit Care Team Role Provider Type Kev Mckinley MD Attending Provider Physician Family Provider Primary Care Provider Referring Provider Specialty: Family Practice Address: [address] [place] [address], [facility] Email: [email or web address] Physical Therapy Initial Evaluation PT-OP-A Visit Information Start: 05/07/20 07:49 Freq: Status: Active Protocol: Document 05/07/20 08:15 AMB (Rec: 05/10/20 08:39 AMB [email or web address]) Out-Patient Physical Therapy Visit Information Visit Information Visit Type Initial Evaluation Visit Start Time 08:15 Visit Stop Time 09:00 Total Visit Minutes 45 Visit Number 1 PT-OP-B Current Condition Start: 05/07/20 07:49 Freq: Status: Active Protocol: Document 05/07/20 08:15 AMB (Rec: 05/07/20 08:28 AMB [id number]) Current Condition History of Current Condition Onset Date 1 year ago- progressively worsening Current Complaints R knee/neck History of Current Condition R knee- lateral quad sharp pain in lateral knee getting off of toilet. Likes to bike and gets pain, does note clicking 40% of the time with stairs. Squatting is painful- standing up from a low chair gardening is limited. 4 months ago noticed in the yard trying to climb over boulders can't step up as well. Tripped and tore R meniscus 2 years ago. Fiddles - but not necessarily painful, but driving is and rotating neck is painful- chiropractor helped for the past few years, and then stopped helping. Looking up is also painful with birding. Is getting medical acupuncture. Treatment Goals Patient/Caregiver Goals Bird, drive without neck pain. Get off low surfaces with sit to stand and bike without knee pain. Prior Functional Status Baseline Function- ADL's Independent Baseline Function- Mobility Independent Current Functional Impairments (Reported) Functional Limitations- ADL's yardwork is limited due to knee pain, driving notices having to rotate thoracic spine Personal Factors Other Personal Factors That May Effect CLL Therapy/Recovery PT-OP-C Subjective Start: 05/07/20 07:49 Freq: Status: Active Protocol: Document 05/07/20 08:15 AMB (Rec: 05/10/20 08:39 AMB [email or web address]) Patient Questionnaires Lower Extremity Functional Scale LEFS Score 52 LEFS Impairment 20 to 39% Impaired (Score 48- 62) Neck Disability Index NDI Score 13 Neck Disability Index Impairment 20 to 39% Impaired (Score 10- 19) OP-PT Pain Assessment Comments Pain Comments 6/10 lateral knee, 6-7/10 neck PT-OP-G Mobility & Gait Start: 05/07/20 07:49 Freq: Status: Active Protocol: Document 05/07/20 08:15 AMB (Rec: 05/10/20 08:54 AMB [email or web address]) OP Gait Assessment Comments Gait Comments pt ambulates in community without AD, no antalgia seen for short distances over smooth terrain PT-OP-J Posture/Palpation/Skin Start: 05/07/20 07:49 Freq: Status: Active Protocol: Document 05/07/20 08:15 AMB (Rec: 05/10/20 08:54 AMB [email or web address]) Palpation Assessment Location One Palpation Location neck Palpation Details tenderness at suboccipitals bilat, but more sore at upper traps/levator scap PT-OP-K Range of Motion Start: 05/07/20 07:49 Freq: Status: Active Protocol: Document 05/07/20 08:15 AMB (Rec: 05/10/20 08:49 AMB [email or web address]) Cervical Spine Range of Motion Cervical Spine Active Degrees Testing Position Sitting Flexion 60 Extension 15 Rotation Left 50 Rotation Right 40 Lateral Flexion Left 12 Lateral Flexion Right 20 ROM Limitations Pain PT-OP-L Special Tests Start: 05/07/20 07:49 Freq: Status: Active Protocol: Document 05/07/20 08:15 AMB (Rec: 05/10/20 08:49 AMB [email or web address]) Special Tests Knee Special Tests Shoshana Test Test Results - Anterior Draw Test Results - Posterior Draw Test Results - PT-OP-M Strength Start: 05/07/20 07:49 Freq: Status: Active Protocol: Document 05/07/20 08:15 AMB (Rec: 05/10/20 08:49 AMB [email or web address]) Knee Strength Knee Manual Muscle Testing Right Flexion (S2) 4- Good- Extension (L3) 4+ Good+ Comments slight pain with knee flexion, none with extension Left Flexion (S2) 5 Normal Extension (L3) 5 Normal PT-OP-T Assessment and Plan Start: 05/07/20 07:49 Freq: Status: Active Protocol: Document 05/07/20 08:15 AMB (Rec: 05/10/20 08:58 AMB [email or web address]) Physical Therapy Assessment Rehab Potential Rehabilitation Potential Good Evaluation Complexity Number of Personal Factors/Comorbidities 1-2 Number of Body Systems Impaired 3 Clinical Presentation at Evaluation Evolving Impairments Impairments Pain,ROM,Strength Goals Three Impairment HEP Short Term Goal (STG) Jayla will be independent and consistent with a HEP for her neck and R leg. STG Duration 5 weeks Two Impairment knee Short Term Goal (STG) Jayla will perform a partial squat (to 90 degrees of knee flexion) without knee pain. 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 LTG Duration 10 weeks One Impairment neck Short Term Goal (STG) Jayla will improve her cervical ROM to 55 degrees of rotation bilaterally. STG Duration 5 weeks Senior Care Goal (LTG) Jayla will perform all driving with 3/10 pain or less. LTG Duration 10 weeks Assessment Summary Assessment Jayla attends physical therapy with neck pain and cervical spine stiffness, and right knee pain with bending the knee to approximately 70 degrees of flexion. Both insidious onset, although previous history of R meniscus injury is interesting, but pain is more over lateral quad than at joint line. She will be traveling out of state for about a month, so her PT will be broken up, but she will benefit from stretching and manual therapy for the cervical spine and strengthening within pain free ROM of the knee. Physical Therapy Plan Frequency and Duration Frequency of Treatment 2x/Week Duration of Treatment 10 weeks Plan of Care Start Date 05/07/20 Plan of Care End Date 07/16/20 Therapeutic Interventions Therapeutic Interventions Gait Training,Home Exercise Program,Joint Mobilizations, Manual Therapy,Neuromuscular Re-education,Self-Care/Home Management,Therapeutic Activities,Therapeutic Exercises Modalities Cold Pack/Ice Massage,Electric Stimulation,Hot Packs, Ultrasound Next Visit Focus/Plan Next Note Type Treatment Note
--- NOTE | 2020-05-07 15:42 | PT.OPPOC ---
Physical, Occupational & Speech Therapy At [facility] Current Diagnoses Cervicalgia (05/10/20) Pain in right leg (05/10/20) Visit Care Team Role Provider Type Kev Mckinley MD Attending Provider Physician Family Provider Primary Care Provider Referring Provider Specialty: Family Practice Address: [address] [place] [address] Email: [email or web address] Plan Of Care PT-OP-T Assessment and Plan Start: 05/07/20 07:49 Freq: Status: Active Protocol: Document 05/07/20 08:15 AMB (Rec: 05/10/20 08:58 AMB [email or web address]) Physical Therapy Assessment Rehab Potential Rehabilitation Potential Good Evaluation Complexity Number of Personal Factors/Comorbidities 1-2 Number of Body Systems Impaired 3 Clinical Presentation at Evaluation Evolving Impairments Impairments Pain,ROM,Strength Goals Three Impairment HEP Short Term Goal (STG) Jayla will be independent and consistent with a HEP for her neck and R leg. STG Duration 5 weeks Two Impairment knee Short Term Goal (STG) Jayla will perform a partial squat (to 90 degrees of knee flexion) without knee pain. 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 LTG Duration 10 weeks One Impairment neck Short Term Goal (STG) Jayla will improve her cervical ROM to 55 degrees of rotation bilaterally. STG Duration 5 weeks Biology Faculty Member Goal (LTG) Jayla will perform all driving with 3/10 pain or less. LTG Duration 10 weeks Assessment Summary Assessment Jayla attends physical therapy with neck pain and cervical spine stiffness, and right knee pain with bending the knee to approximately 70 degrees of flexion. Both insidious onset, although previous history of R meniscus injury is interesting, but pain is more over lateral quad than at joint line. She will be traveling out of state for about a month, so her PT will be broken up, but she will benefit from stretching and manual therapy for the cervical spine and strengthening within pain free ROM of the knee. Physical Therapy Plan Frequency and Duration Frequency of Treatment 2x/Week Duration of Treatment 10 weeks Plan of Care Start Date 05/07/20 Plan of Care End Date 07/16/20 Therapeutic Interventions Therapeutic Interventions Gait Training,Home Exercise Program,Joint Mobilizations, Manual Therapy,Neuromuscular Re-education,Self-Care/Home Management,Therapeutic Activities,Therapeutic Exercises Modalities Cold Pack/Ice Massage,Electric Stimulation,Hot Packs, Ultrasound Next Visit Focus/Plan Next Note Type Treatment Note Plan of Care Dates Plan of Care Start Date 05/07/20 Plan of Care End Date 07/16/20 Electronically Signed by: Fifi Vázquez, PT 05/10/20 0493 Please Sign and Return: I have reviewed this Plan of Care and certify that the skilled therapy services above are required to meet the patient?s needs. Physician Signature Date Printed Name and Credentials Clinical Instructor Signature Printed Name and Credentials
--- NOTE | 2020-05-10 16:04 | PT.OTN ---
Current Diagnoses Cervicalgia (05/10/20) Pain in right leg (05/10/20) Physical Therapy Treatment Note PT-OP-A Visit Information Start: 05/07/20 07:49 Freq: Status: Active Protocol: Document 05/10/20 13:30 AMB (Rec: 05/10/20 16:04 AMB [id number]) Out-Patient Physical Therapy Visit Information Visit Information Visit Type Treatment Note Visit Start Time 13:30 Visit Stop Time 14:15 Total Visit Minutes 45 Visit Number 2 PT-OP-B Current Condition Start: 05/07/20 07:49 Freq: Status: Active Protocol: Document 05/07/20 08:15 AMB (Rec: 05/07/20 08:28 AMB [id number]) Current Condition History of Current Condition Onset Date 1 year ago- progressively worsening Current Complaints R knee/neck History of Current Condition R knee- lateral quad sharp pain in lateral knee getting off of toilet. Likes to bike and gets pain, does note clicking 40% of the time with stairs. Squatting is painful- standing up from a low chair gardening is limited. 4 months ago noticed in the yard trying to climb over boulders can't step up as well. Tripped and tore R meniscus 2 years ago. Fiddles - but not necessarily painful, but driving is and rotating neck is painful- chiropractor helped for the past few years, and then stopped helping. Looking up is also painful with birding. Is getting medical acupuncture. Treatment Goals Patient/Caregiver Goals Bird, drive without neck pain. Get off low surfaces with sit to stand and bike without knee pain. Prior Functional Status Baseline Function- ADL's Independent Baseline Function- Mobility Independent Current Functional Impairments (Reported) Functional Limitations- ADL's yardwork is limited due to knee pain, driving notices having to rotate thoracic spine Personal Factors Other Personal Factors That May Effect CLL Therapy/Recovery PT-OP-C Subjective Start: 05/07/20 07:49 Freq: Status: Active Protocol: Document 05/10/20 13:30 AMB (Rec: 05/10/20 16:04 AMB [id number]) OP-PT Subjective Patient Comments Patient Comments Pt has been doing squat HEP- holding it before pain starts. PT-OP-G Mobility & Gait Start: 05/07/20 07:49 Freq: Status: Active Protocol: Document 05/07/20 08:15 AMB (Rec: 05/10/20 08:54 AMB [email or web address]) OP Gait Assessment Comments Gait Comments pt ambulates in community without AD, no antalgia seen for short distances over smooth terrain PT-OP-J Posture/Palpation/Skin Start: 05/07/20 07:49 Freq: Status: Active Protocol: Document 05/07/20 08:15 AMB (Rec: 05/10/20 08:54 AMB [email or web address]) Palpation Assessment Location One Palpation Location neck Palpation Details tenderness at suboccipitals bilat, but more sore at upper traps/levator scap PT-OP-K Range of Motion Start: 05/07/20 07:49 Freq: Status: Active Protocol: Document 05/07/20 08:15 AMB (Rec: 05/10/20 08:49 AMB [email or web address]) Cervical Spine Range of Motion Cervical Spine Active Degrees Testing Position Sitting Flexion 60 Extension 15 Rotation Left 50 Rotation Right 40 Lateral Flexion Left 12 Lateral Flexion Right 20 ROM Limitations Pain PT-OP-L Special Tests Start: 05/07/20 07:49 Freq: Status: Active Protocol: Document 05/07/20 08:15 AMB (Rec: 05/10/20 08:49 AMB [email or web address]) Special Tests Knee Special Tests Shoshana Test Test Results - Anterior Draw Test Results - Posterior Draw Test Results - PT-OP-M Strength Start: 05/07/20 07:49 Freq: Status: Active Protocol: Document 05/07/20 08:15 AMB (Rec: 05/10/20 08:49 AMB [email or web address]) Knee Strength Knee Manual Muscle Testing Right Flexion (S2) 4- Good- Extension (L3) 4+ Good+ Comments slight pain with knee flexion, none with extension Left Flexion (S2) 5 Normal Extension (L3) 5 Normal PT-OP-Q Treatments Start: 05/07/20 07:49 Freq: Status: Active Protocol: Document 05/10/20 13:30 AMB (Rec: 05/10/20 16:04 AMB [id number]) Gym Equipment Shuttle Recovery Bilateral Squats Details partial ROM to avoid pain- to 70 degs Resistance 100 Shuttle Recovery Platform Stable Reps/Time 2x12 Therapeutic Exercises Sitting Exercises 1 Sitting Exercise Name upper trap stretch Reps/Minutes 30x2 Manual Therapy Treatment Soft Tissue Mobilization 1 Body Location bilat upper traps Mobilization Type Myofascial Release Comments with contract relax for rotation Taping 1 Body Location kinesiotape Comments around knee superior to lateral quad over painful area PT-OP-T Assessment and Plan Start: 05/07/20 07:49 Freq: Status: Active Protocol: Document 05/10/20 13:30 AMB (Rec: 05/10/20 16:04 AMB [email or web address]) Physical Therapy Assessment Assessment Summary Assessment Jayla will likely be out of the state for the next month, so will resume therapy in a month. At that point continue with quad/hamstring strengthening and neck stretching. Physical Therapy Plan Next Visit Focus/Plan Next Note Type Treatment Note Next Visit Plan Ask about kineseiotape tolerance, review HEP: hold squat, neck stretching
--- NOTE | 2020-06-07 11:58 | PT.OTN ---
Current Diagnoses Cervicalgia (06/07/20) Pain in right leg (06/07/20) Physical Therapy Treatment Note PT-OP-A Visit Information Start: 05/07/20 07:49 Freq: Status: Active Protocol: Document 06/07/20 07:30 AMB (Rec: 06/07/20 08:14 AMB [id number]) Out-Patient Physical Therapy Visit Information Visit Information Visit Type Treatment Note Visit Start Time 07:30 Visit Stop Time 08:15 Total Visit Minutes 45 Visit Number 3 PT-OP-B Current Condition Start: 05/07/20 07:49 Freq: Status: Active Protocol: Document 05/07/20 08:15 AMB (Rec: 05/07/20 08:28 AMB [id number]) Current Condition History of Current Condition Onset Date 1 year ago- progressively worsening Current Complaints R knee/neck History of Current Condition R knee- lateral quad sharp pain in lateral knee getting off of toilet. Likes to bike and gets pain, does note clicking 40% of the time with stairs. Squatting is painful- standing up from a low chair gardening is limited. 4 months ago noticed in the yard trying to climb over boulders can't step up as well. Tripped and tore R meniscus 2 years ago. Fiddles - but not necessarily painful, but driving is and rotating neck is painful- chiropractor helped for the past few years, and then stopped helping. Looking up is also painful with birding. Is getting medical acupuncture. Treatment Goals Patient/Caregiver Goals Bird, drive without neck pain. Get off low surfaces with sit to stand and bike without knee pain. Prior Functional Status Baseline Function- ADL's Independent Baseline Function- Mobility Independent Current Functional Impairments (Reported) Functional Limitations- ADL's yardwork is limited due to knee pain, driving notices having to rotate thoracic spine Personal Factors Other Personal Factors That May Effect CLL Therapy/Recovery PT-OP-C Subjective Start: 05/07/20 07:49 Freq: Status: Active Protocol: Document 06/07/20 07:30 AMB (Rec: 06/07/20 11:56 AMB [email or web address]) OP-PT Subjective Patient Comments Patient Comments Pt returns to physical therapy after camping trip. She notices that her neck is getting better with more rotation, it is still painful looking up, her right leg is about the same. PT-OP-G Mobility & Gait Start: 05/07/20 07:49 Freq: Status: Active Protocol: Document 05/07/20 08:15 AMB (Rec: 05/10/20 08:54 AMB [email or web address]) OP Gait Assessment Comments Gait Comments pt ambulates in community without AD, no antalgia seen for short distances over smooth terrain PT-OP-J Posture/Palpation/Skin Start: 05/07/20 07:49 Freq: Status: Active Protocol: Document 05/07/20 08:15 AMB (Rec: 05/10/20 08:54 AMB [email or web address]) Palpation Assessment Location One Palpation Location neck Palpation Details tenderness at suboccipitals bilat, but more sore at upper traps/levator scap PT-OP-K Range of Motion Start: 05/07/20 07:49 Freq: Status: Active Protocol: Document 05/07/20 08:15 AMB (Rec: 05/10/20 08:49 AMB [email or web address]) Cervical Spine Range of Motion Cervical Spine Active Degrees Testing Position Sitting Flexion 60 Extension 15 Rotation Left 50 Rotation Right 40 Lateral Flexion Left 12 Lateral Flexion Right 20 ROM Limitations Pain PT-OP-L Special Tests Start: 05/07/20 07:49 Freq: Status: Active Protocol: Document 05/07/20 08:15 AMB (Rec: 05/10/20 08:49 AMB [email or web address]) Special Tests Knee Special Tests Shoshana Test Test Results - Anterior Draw Test Results - Posterior Draw Test Results - PT-OP-M Strength Start: 05/07/20 07:49 Freq: Status: Active Protocol: Document 05/07/20 08:15 AMB (Rec: 05/10/20 08:49 AMB [email or web address]) Knee Strength Knee Manual Muscle Testing Right Flexion (S2) 4- Good- Extension (L3) 4+ Good+ Comments slight pain with knee flexion, none with extension Left Flexion (S2) 5 Normal Extension (L3) 5 Normal PT-OP-Q Treatments Start: 05/07/20 07:49 Freq: Status: Active Protocol: Document 06/07/20 07:30 AMB (Rec: 06/07/20 11:56 AMB [email or web address]) Therapeutic Exercises Sitting Exercises 3 Sitting Exercise Name partial forward lunge Comments cues to avoid knee forward of toes 2 Sitting Exercise Name sit<>stand Reps/Minutes cues for glute facilitation Comments pt plops- unable to control through full rom 1 Sitting Exercise Name upper trap stretch Reps/Minutes 30x2 Manual Therapy Treatment Soft Tissue Mobilization 1 Body Location bilat upper traps, R SCM Mobilization Type Myofascial Release Comments with contract relax for rotation PT-OP-T Assessment and Plan Start: 05/07/20 07:49 Freq: Status: Active Protocol: Document 06/07/20 07:30 AMB (Rec: 06/07/20 11:58 AMB [email or web address]) Physical Therapy Assessment Assessment Summary Assessment Jayla did well with sit to stand training, does tend to use quads more than glutes, and doesn't have good eccentric control so unable to perform without UE support. 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
--- NOTE | 2020-06-09 15:00 | PT.OTN ---
Current Diagnoses Cervicalgia (06/09/20) Pain in right leg (06/09/20) Physical Therapy Treatment Note PT-OP-A Visit Information Start: 05/07/20 07:49 Freq: Status: Active Protocol: Document 06/09/20 07:30 AMB (Rec: 06/09/20 08:14 AMB [id number]) Out-Patient Physical Therapy Visit Information Visit Information Visit Type Treatment Note Visit Start Time 07:30 Visit Stop Time 08:15 Total Visit Minutes 45 Visit Number 4 PT-OP-B Current Condition Start: 05/07/20 07:49 Freq: Status: Active Protocol: Document 05/07/20 08:15 AMB (Rec: 05/07/20 08:28 AMB [id number]) Current Condition History of Current Condition Onset Date 1 year ago- progressively worsening Current Complaints R knee/neck History of Current Condition R knee- lateral quad sharp pain in lateral knee getting off of toilet. Likes to bike and gets pain, does note clicking 40% of the time with stairs. Squatting is painful- standing up from a low chair gardening is limited. 4 months ago noticed in the yard trying to climb over boulders can't step up as well. Tripped and tore R meniscus 2 years ago. Fiddles - but not necessarily painful, but driving is and rotating neck is painful- chiropractor helped for the past few years, and then stopped helping. Looking up is also painful with birding. Is getting medical acupuncture. Treatment Goals Patient/Caregiver Goals Bird, drive without neck pain. Get off low surfaces with sit to stand and bike without knee pain. Prior Functional Status Baseline Function- ADL's Independent Baseline Function- Mobility Independent Current Functional Impairments (Reported) Functional Limitations- ADL's yardwork is limited due to knee pain, driving notices having to rotate thoracic spine Personal Factors Other Personal Factors That May Effect CLL Therapy/Recovery PT-OP-C Subjective Start: 05/07/20 07:49 Freq: Status: Active Protocol: Document 06/09/20 07:30 AMB (Rec: 06/09/20 08:14 AMB [id number]) OP-PT Subjective Patient Comments Patient Comments Pt is feeling about the same PT-OP-G Mobility & Gait Start: 05/07/20 07:49 Freq: Status: Active Protocol: Document 05/07/20 08:15 AMB (Rec: 05/10/20 08:54 AMB [email or web address]) OP Gait Assessment Comments Gait Comments pt ambulates in community without AD, no antalgia seen for short distances over smooth terrain PT-OP-J Posture/Palpation/Skin Start: 05/07/20 07:49 Freq: Status: Active Protocol: Document 05/07/20 08:15 AMB (Rec: 05/10/20 08:54 AMB [email or web address]) Palpation Assessment Location One Palpation Location neck Palpation Details tenderness at suboccipitals bilat, but more sore at upper traps/levator scap PT-OP-K Range of Motion Start: 05/07/20 07:49 Freq: Status: Active Protocol: Document 05/07/20 08:15 AMB (Rec: 05/10/20 08:49 AMB [email or web address]) Cervical Spine Range of Motion Cervical Spine Active Degrees Testing Position Sitting Flexion 60 Extension 15 Rotation Left 50 Rotation Right 40 Lateral Flexion Left 12 Lateral Flexion Right 20 ROM Limitations Pain PT-OP-L Special Tests Start: 05/07/20 07:49 Freq: Status: Active Protocol: Document 05/07/20 08:15 AMB (Rec: 05/10/20 08:49 AMB [email or web address]) Special Tests Knee Special Tests Shoshana Test Test Results - Anterior Draw Test Results - Posterior Draw Test Results - PT-OP-M Strength Start: 05/07/20 07:49 Freq: Status: Active Protocol: Document 05/07/20 08:15 AMB (Rec: 05/10/20 08:49 AMB [email or web address]) Knee Strength Knee Manual Muscle Testing Right Flexion (S2) 4- Good- Extension (L3) 4+ Good+ Comments slight pain with knee flexion, none with extension Left Flexion (S2) 5 Normal Extension (L3) 5 Normal PT-OP-Q Treatments Start: 05/07/20 07:49 Freq: Status: Active Protocol: Document 06/09/20 07:30 AMB (Rec: 06/09/20 14:58 AMB [email or web address]) Therapeutic Exercises Sidelying Exercises 2 Sidelying Exercise Name hip abd-SLR Reps/Minutes 10 1 Sidelying Exercise Name clamshell Resistance #3 t band Reps/Minutes 10 Comments L weaker than R Sitting Exercises 3 Sitting Exercise Name partial forward lunge Comments cues to avoid knee forward of toes 2 Sitting Exercise Name sit<>stand Reps/Minutes cues for glute facilitation Comments band for glut med Manual Therapy Treatment Soft Tissue Mobilization 1 Body Location bilat upper traps, R SCM Mobilization Type Myofascial Release Comments with contract relax for rotation Manual Traction Cervical Body Position Hooklying Reps/Duration 5' PT-OP-T Assessment and Plan Start: 05/07/20 07:49 Freq: Status: Active Protocol: Document 06/09/20 07:30 AMB (Rec: 06/09/20 08:14 AMB [id number]) Physical Therapy Assessment Assessment Summary Assessment Jayla does tend to have a little valgus with sit to stand. 25 chair can do without compensating. Physical Therapy Plan Next Visit Focus/Plan Next Note Type Treatment Note Next Visit Plan Progress squat/sit to stand posture and cervical R rotation
--- NOTE | 2020-06-16 08:57 | PT.OTN ---
Current Diagnoses Cervicalgia (06/16/20) Pain in right leg (06/16/20) Physical Therapy Treatment Note PT-OP-A Visit Information Start: 05/07/20 07:49 Freq: Status: Active Protocol: Document 06/16/20 07:30 AMB (Rec: 06/16/20 08:56 AMB [id number]) Out-Patient Physical Therapy Visit Information Visit Information Visit Type Treatment Note Visit Start Time 07:30 Visit Stop Time 08:15 Total Visit Minutes 45 Visit Number 5 PT-OP-B Current Condition Start: 05/07/20 07:49 Freq: Status: Active Protocol: Document 05/07/20 08:15 AMB (Rec: 05/07/20 08:28 AMB [id number]) Current Condition History of Current Condition Onset Date 1 year ago- progressively worsening Current Complaints R knee/neck History of Current Condition R knee- lateral quad sharp pain in lateral knee getting off of toilet. Likes to bike and gets pain, does note clicking 40% of the time with stairs. Squatting is painful- standing up from a low chair gardening is limited. 4 months ago noticed in the yard trying to climb over boulders can't step up as well. Tripped and tore R meniscus 2 years ago. Fiddles - but not necessarily painful, but driving is and rotating neck is painful- chiropractor helped for the past few years, and then stopped helping. Looking up is also painful with birding. Is getting medical acupuncture. Treatment Goals Patient/Caregiver Goals Bird, drive without neck pain. Get off low surfaces with sit to stand and bike without knee pain. Prior Functional Status Baseline Function- ADL's Independent Baseline Function- Mobility Independent Current Functional Impairments (Reported) Functional Limitations- ADL's yardwork is limited due to knee pain, driving notices having to rotate thoracic spine Personal Factors Other Personal Factors That May Effect CLL Therapy/Recovery PT-OP-C Subjective Start: 05/07/20 07:49 Freq: Status: Active Protocol: Document 06/16/20 07:30 AMB (Rec: 06/16/20 08:56 AMB [id number]) OP-PT Subjective Patient Comments Patient Comments Pt is feeling better. Still stiff with turning head to the right, leg is feeling better, but left leg is starting to be painful. PT-OP-G Mobility & Gait Start: 05/07/20 07:49 Freq: Status: Active Protocol: Document 05/07/20 08:15 AMB (Rec: 05/10/20 08:54 AMB [email or web address]) OP Gait Assessment Comments Gait Comments pt ambulates in community without AD, no antalgia seen for short distances over smooth terrain PT-OP-J Posture/Palpation/Skin Start: 05/07/20 07:49 Freq: Status: Active Protocol: Document 05/07/20 08:15 AMB (Rec: 05/10/20 08:54 AMB [email or web address]) Palpation Assessment Location One Palpation Location neck Palpation Details tenderness at suboccipitals bilat, but more sore at upper traps/levator scap PT-OP-K Range of Motion Start: 05/07/20 07:49 Freq: Status: Active Protocol: Document 05/07/20 08:15 AMB (Rec: 05/10/20 08:49 AMB [email or web address]) Cervical Spine Range of Motion Cervical Spine Active Degrees Testing Position Sitting Flexion 60 Extension 15 Rotation Left 50 Rotation Right 40 Lateral Flexion Left 12 Lateral Flexion Right 20 ROM Limitations Pain PT-OP-L Special Tests Start: 05/07/20 07:49 Freq: Status: Active Protocol: Document 05/07/20 08:15 AMB (Rec: 05/10/20 08:49 AMB [email or web address]) Special Tests Knee Special Tests Shoshana Test Test Results - Anterior Draw Test Results - Posterior Draw Test Results - PT-OP-M Strength Start: 05/07/20 07:49 Freq: Status: Active Protocol: Document 05/07/20 08:15 AMB (Rec: 05/10/20 08:49 AMB [email or web address]) Knee Strength Knee Manual Muscle Testing Right Flexion (S2) 4- Good- Extension (L3) 4+ Good+ Comments slight pain with knee flexion, none with extension Left Flexion (S2) 5 Normal Extension (L3) 5 Normal PT-OP-Q Treatments Start: 05/07/20 07:49 Freq: Status: Active Protocol: Document 06/16/20 07:30 AMB (Rec: 06/16/20 08:56 AMB [id number]) Therapeutic Exercises Sidelying Exercises 3 Sidelying Exercise Name IT band/ hip flexor stretch 2 Sidelying Exercise Name hip abd-SLR Reps/Minutes 10 Manual Therapy Treatment Soft Tissue Mobilization 2 Body Location bilat IT Band Intensity/Depth Moderate 1 Body Location bilat upper traps, R SCM Mobilization Type Myofascial Release Comments with contract relax for rotation Manual Traction Cervical Body Position Hooklying Reps/Duration 5' Manual Techniques 1 Type MWM cervical rotation Comments instruction in HEP PT-OP-T Assessment and Plan Start: 05/07/20 07:49 Freq: Status: Active Protocol: Document 06/16/20 07:30 AMB (Rec: 06/16/20 08:56 AMB [id number]) Physical Therapy Assessment Assessment Summary Assessment Jayla had left sided IT band pain today, most likely from trying to use the left leg more as it has been her weak leg. Rotation is coming along . Physical Therapy Plan Next Visit Focus/Plan Next Note Type Treatment Note Next Visit Plan Progress squat/sit to stand posture and cervical R rotation, recheck IT band rolling and MWM cervical rotation
--- NOTE | 2020-06-22 08:59 | PT.OPDS ---
Current Diagnoses Cervicalgia (06/16/20) Pain in right leg (06/16/20) Visit Care Team Role Provider Type Kev Mckinley MD Attending Provider Physician Family Provider Primary Care Provider Referring Provider Specialty: Family Practice Address: [address] [place] [address], [facility] Email: [email or web address] Visit Number Visit Number 5 Discharge Summary PT-OP-B Current Condition Start: 05/07/20 07:49 Freq: Status: Active Protocol: Document 05/07/20 08:15 AMB (Rec: 05/07/20 08:28 AMB [id number]) Current Condition History of Current Condition Onset Date 1 year ago- progressively worsening Current Complaints R knee/neck History of Current Condition R knee- lateral quad sharp pain in lateral knee getting off of toilet. Likes to bike and gets pain, does note clicking 40% of the time with stairs. Squatting is painful- standing up from a low chair gardening is limited. 4 months ago noticed in the yard trying to climb over boulders can't step up as well. Tripped and tore R meniscus 2 years ago. Fiddles - but not necessarily painful, but driving is and rotating neck is painful- chiropractor helped for the past few years, and then stopped helping. Looking up is also painful with birding. Is getting medical acupuncture. Treatment Goals Patient/Caregiver Goals Bird, drive without neck pain. Get off low surfaces with sit to stand and bike without knee pain. Prior Functional Status Baseline Function- ADL's Independent Baseline Function- Mobility Independent Current Functional Impairments (Reported) Functional Limitations- ADL's yardwork is limited due to knee pain, driving notices having to rotate thoracic spine Personal Factors Other Personal Factors That May Effect CLL Therapy/Recovery PT-OP-C Subjective Start: 05/07/20 07:49 Freq: Status: Active Protocol: Document 06/16/20 07:30 AMB (Rec: 06/16/20 08:56 AMB [id number]) OP-PT Subjective Patient Comments Patient Comments Pt is feeling better. Still stiff with turning head to the right, leg is feeling better, but left leg is starting to be painful. PT-OP-G Mobility & Gait Start: 05/07/20 07:49 Freq: Status: Active Protocol: Document 05/07/20 08:15 AMB (Rec: 05/10/20 08:54 AMB [email or web address]) OP Gait Assessment Comments Gait Comments pt ambulates in community without AD, no antalgia seen for short distances over smooth terrain PT-OP-J Posture/Palpation/Skin Start: 05/07/20 07:49 Freq: Status: Active Protocol: Document 05/07/20 08:15 AMB (Rec: 05/10/20 08:54 AMB [email or web address]) Palpation Assessment Location One Palpation Location neck Palpation Details tenderness at suboccipitals bilat, but more sore at upper traps/levator scap PT-OP-K Range of Motion Start: 05/07/20 07:49 Freq: Status: Active Protocol: Document 05/07/20 08:15 AMB (Rec: 05/10/20 08:49 AMB [email or web address]) Cervical Spine Range of Motion Cervical Spine Active Degrees Testing Position Sitting Flexion 60 Extension 15 Rotation Left 50 Rotation Right 40 Lateral Flexion Left 12 Lateral Flexion Right 20 ROM Limitations Pain PT-OP-L Special Tests Start: 05/07/20 07:49 Freq: Status: Active Protocol: Document 05/07/20 08:15 AMB (Rec: 05/10/20 08:49 AMB [email or web address]) Special Tests Knee Special Tests Shoshana Test Test Results - Anterior Draw Test Results - Posterior Draw Test Results - PT-OP-M Strength Start: 05/07/20 07:49 Freq: Status: Active Protocol: Document 05/07/20 08:15 AMB (Rec: 05/10/20 08:49 AMB [email or web address]) Knee Strength Knee Manual Muscle Testing Right Flexion (S2) 4- Good- Extension (L3) 4+ Good+ Comments slight pain with knee flexion, none with extension Left Flexion (S2) 5 Normal Extension (L3) 5 Normal PT-OP-T Assessment and Plan Start: 05/07/20 07:49 Freq: Status: Active Protocol: Document 06/22/20 08:58 AMB (Rec: 06/22/20 08:59 AMB [email or web address]) Physical Therapy Assessment Goals Three Impairment HEP Short Term Goal (STG) Jayla will be independent and consistent with a HEP for her neck and R leg. STG Duration MET Two Impairment knee Short Term Goal (STG) Jayla will perform a partial squat (to 90 degrees of knee flexion) without knee pain. STG Duration PROGRESS MADE Retirement Goal (LTG) Jayla will be able to ride her bike without knee pain. LTG Duration 10 weeks One Impairment neck Short Term Goal (STG) Jayla will improve her cervical ROM to 55 degrees of rotation bilaterally. STG Duration 5 weeks [employer] Professional Goal (LTG) Jayla will perform all driving with 3/10 pain or less. LTG Duration 10 weeks Assessment Summary Assessment Pt called to cancel her remaining appointments, she had been improving with both range of motion and decreasing pain prior to canceling. Physical Therapy Plan Discharge Physical Therapy Discharge Reasons Patient Request
== END 2020-06-22 13:24 | disposition home or self-care (01) ==
LOC: PHYS 07:30
PROVIDERS: Family Provider Family Medicine; PCP Family Medicine; Referring Provider Family Medicine; Visit Provider Family Medicine
DX: M54.2 Cervicalgia (principal); M79.604 Pain in right leg
CPT/HCPCS: 97110; 97140; 97162

== ENCOUNTER → 2020-07-27 06:52 | Outpatient (CLI) | payer MEDICARE, OTHER, SELFPAY ==
[2020-07-27 07:13] LABS: Hematocrit 39.8 % (36-46); Hemoglobin 12.8 g/dL (12.0-16.0); Mean Corpuscular HGB Conc 32.1 % (30-36); Mean Corpuscular Hemoglobin 29.4 PG (26-34); Mean Corpuscular Volume 91.6 fL (80-100); Platelet Count 132 X10^3/uL (150-400); Red Blood Cell Count 4.35 X10^6/uL (4.0-5.2); Red Cell Distribution Width 14.4 % (11.6-14.8)
[2020-07-27 07:15] LABS: Add Manual Diff / Slide Review YES
[2020-07-27 07:23] LABS: Alanine Aminotransferase 18 IU/L (<35); Albumin 4.1 g/dL (3.5-5.0); Albumin Globulin Ratio 1.8 (1.0-2.8); Alkaline Phosphatase 59 U/L (38-126); Aspartate Aminotransferase 32 IU/L (14-36); BUN Creatinine Ratio 20.6 (6-22); Bilirubin Total 0.4 mg/dL (0.2-1.3); Blood Urea Nitrogen 14 mg/dL (7-17); Calcium 10.3 mg/dL (8.4-10.2); Carbon Dioxide 30 mmol/L (22-32); Chloride 109 mmol/L (98-107); Estimated Glomerular Filt Rate > 60.0 mL/min (>60); Globulin 2.3 g/dL (1.7-4.1); Glucose 101 mg/dL (80-110); HEMOLYSIS < 15 (0-50); Potassium 4.5 mmol/L (3.4-5.1); Sodium 141 mmol/L (137-145); Total Protein 6.4 g/dL (6.3-8.2)
[2020-07-27 07:48] LABS: Neutrophils Absolute Manual 3582 /uL (3000-5900); Total Cells Counted 100
[2020-07-27 07:49] LABS: Platelet Estimate Decreased on smear; RBC Morphology Normal Morphology
[2020-07-27 07:50] LABS: Smudge Cells 3+
[2020-07-27 08:56] LABS: Cholesterol 217 mg/dL (140-199); HDL Cholesterol 72 mg/dL (40-60); LDL Cholesterol Calculated 129 mg/dL (<100); Triglycerides 78 mg/dL (35-150)
[2020-07-27 09:27] LABS: TSH w/ Reflex to FT4 2.68 uIU/mL (0.47-4.68)
[2020-07-27 15:17] LABS: Lactate Dehydrogenase 484 U/L (313-618)
[2020-07-28 09:15] LABS: White Blood Cell Count 59.7 X10^3/uL (4.5-11.0)
[2020-07-29 14:50] LABS: Beta-2-Microglobulin 1.8 mg/L (0.6-2.4)
== END ==
PROVIDERS: Family Provider Family Medicine; PCP Family Medicine; Referring Provider Internal Medicine Hematology & Oncology; Visit Provider Internal Medicine Hematology & Oncology
DX: C91.10 Chronic lymphocytic leukemia of B-cell type not having achieved remission (principal); E78.5 Hyperlipidemia, unspecified; E21.3 Hyperparathyroidism, unspecified; E89.0 Postprocedural hypothyroidism; C91.90 Lymphoid leukemia, unspecified not having achieved remission
CPT/HCPCS: 36415; 80053; 80061; 82232; 83615; 84443; 85007; 85025

== ENCOUNTER → 2020-10-06 10:48 | Outpatient (CLI) | payer MEDICARE, OTHER, SELFPAY ==
--- NOTE | 2020-10-06 | DI.MG.S_ITS ---
BILATERAL DIGITAL SCREENING MAMMOGRAM 3D/2D WITH CAD: 10/06/2020 CLINICAL: Routine screening. Comparison is made to exams dated: 09/15/2019 mammogram, 08/26/2019 mammogram, 08/16/2019 mammogram, and 09/20/2017 mammogram - [facility]. There are scattered fibroglandular elements in both breasts. Current study was also evaluated with a Computer Aided Detection (CAD) system. There are benign lymph nodes in both breasts. There also is a biopsy clip in the right breast. No significant masses, calcifications, or other findings are seen in either breast. There has been no significant interval change. IMPRESSION: BENIGN There is no mammographic evidence of malignancy. A 1 year screening mammogram is recommended. This exam was interpreted at Station ID: [id number]. NOTE: For mammograms, a report in lay terms will be sent to the patient. Approximately 15% of breast malignancies will not be visualized mammographically. In the management of a palpable breast mass, a negative mammogram must not discourage biopsy of a clinically suspicious lesion. Electronically Signed By: Hoa hunt/ava:10/06/2020 15:05:41 letter sent: Normal Exam ACR BI-RADS Category 2: Benign Finding(s) [id number]
== END ==
PROVIDERS: Family Provider Family Medicine; PCP Family Medicine; Referring Provider Family Medicine; Visit Provider Family Medicine
DX: Z12.31 Encounter for screening mammogram for malignant neoplasm of breast (principal)
CPT/HCPCS: 77063; 77067

== ENCOUNTER 2020-10-18 13:14 | Outpatient (RCR) | payer MEDICARE, OTHER, SELFPAY ==
--- NOTE | 2020-10-20 12:34 | ST.OPIE ---
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 Start: 10/18/20 14:17 Freq: Status: Active Protocol: Document 10/18/20 14:30 LNK (Rec: 10/20/20 11:55 [email or web address] [email or web address]) Clinical Swallow Evaluation Session Time Visit Start Time 03:30 Visit Stop Time 14:30 Total Visit Minutes 60 Visit Information Visit Number 1 Plan of Care Dates 10/18/20-01/17/21 Referral Referring Provider Kev Mckinley MD Setting Assessment Location Outpatient Care Visit Type Note Type Initial evaluation Next Note Type Next Note Type Treatment Note Patient Information Identification Type Name,Date of History pt was seen for a swallowing evaluation at the referral of her physician, Dr Mckinley. 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 She also underwent swallow therapy, which she reported to have been helpful to the pt. 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 She had radiation therapy to the right side of her neck as well. She denies reflux and injuries or surgery to her neck. Pt reported that she coughs, chokes easily on solids, liquids, and her saliva. 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 She arrived omn time for her appointment. Reported by Patient Other Symptoms Choking,Coughing Current Diet Regular,Thin liquids Baseline Feeding Method Independent in self-feeding Objective Assessment Mental Status Alert,Responsive,Cooperative Oral Integrity WFL Dentition Within normal limits Lip Function Within normal limits Tongue Function Within normal limits Jaw Function Within normal limits Hard/Soft Palate Function Within normal limits Phonation Within normal limits Food and Liquid Trials Position During Assessment Upright (90 degrees) Liquids Trialed Thin Solids Trialed Regular Administration Type Tea spoon,Cup single sip,Self- feeding Oral Phase Comments Oral structures and function WNL. No oral stasis observed. Good mastication with a rotary chew pattern. Pharyngeal Impairment Within functional limits Pharyngeal Phase Comments Audible swallow noted indicating possible dyscoordination of the laryngopharyngeal structures during swallowing. Adequate hyolaryngeal elevation upon palpation, no choking observed , no cough observed. Throat clear x3. No overt s/sx of aspiration. However, with pt's history of thyroidectomy followed by radiation treatment to the neck area, the epiglottal function is not known. A Modified Barium Swallow Study is recommended to adequately examine the laryngoppharynx and UES, to determine swallow function of the structures, aspiration risk and to assist in developing a treatment plan. Findings Swallowing Function Dysphagia unspecified Swallowing Function Comments Instrumental assessment is indicated to observe laryngopharyngeal function Comments radiation treatment to right neck area Prognosis Good Based on Cognitive status Impact on Safety and Functioning No limitations Recommendations Instrumental Assessment Yes Swallowing Treatment Yes Frequency as indicated Recommended Solids Regular Recommended Liquids Thin Education Patient/Caregiver Education Described results of evaluation,Patient expressed understanding of evaluation, Patient expressed agreement with goals & treatment plans, Patient expressed understanding of safety precautions
--- NOTE | 2020-10-20 12:35 | ST.OPPOC ---
Physical, Occupational & Speech Therapy At [facility] Visit Care Team Role Provider Type Kev Mckinley MD Attending Provider Physician Primary Care Provider Referring Provider Address: [address] [place] [address], [id number] Speech Pathology Plan of Care Plan of Care Dates 10/18/20-01/17/21 Patient History pt was seen for a swallowing evaluation at the referral of her physician, Dr Mckinley. 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 She also underwent swallow therapy, which she reported to have been helpful to the pt. 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 She had radiation therapy to the right side of her neck as well. She denies reflux and injuries or surgery to her neck. Pt reported that she coughs,chokes easily on solids, liquids, and her saliva. Electronically Signed by: GIOVANNA Laughlin 10/20/20 [id number] Please Sign and Return: I have reviewed this Plan of Care and certify that the skilled therapy services above are required to meet the patient?s needs. Physician Signature Date Printed Name and Credentials Clinical Instructor Signature Printed Name and Credentials
--- NOTE | 2021-01-19 11:40 | ST-OP ANOTE ---
Physical, Occupational & Speech Therapy At [facility] Speech Therapy Discharge Summary Pt was seen for a clinical swallow evaluation. Based on the findings, an MBSS was recommended. Pt has requested to change therapists to work with the [employer]SE WORKER that administered MBSS. Pt was discharged.
== END 2020-12-27 10:20 ==
LOC: SP 13:14
PROVIDERS: PCP Family Medicine; Referring Provider Family Medicine; Visit Provider Family Medicine
DX: J38.7 Other diseases of larynx (principal)
CPT/HCPCS: 92610

== ENCOUNTER 2020-12-13 06:55 | Emergency (ER) | payer MEDICARE, OTHER, SELFPAY ==
[2020-12-13 07:23] VITALS: BP 121/56; PULSE 93; RESP 17; TEMP 36.6; O2SAT 97; BMI 22.1
--- NOTE | 2020-12-13 07:26 | DI.RAD.S_ITS ---
PROCEDURE: XR KNEE RT 3V INDICATIONS: twist TECHNIQUE: 3 views of the knee were acquired. COMPARISON: [facility], CR, XR KNEE RT 3V, 04/19/2020, 15:04. FINDINGS: Bones: No acute fracture. Scattered degenerative subchondral sclerosis and spurring. Mild narrowing of the lateral joint space. Chronic ossicle projects adjacent to the lateral aspect of the patellofemoral joint space. Soft tissues: No joint effusion. No suspicious soft tissue calcifications. IMPRESSION: No acute findings. If the patient's pain or other symptoms persist, consider further evaluation with MRI Dictated by: Bharath Cardenas M.D. on 12/13/2020 at 7:53 Approved by: Bharath Cardenas M.D. on 12/13/2020 at 8:19
--- NOTE | 2020-12-13 08:38 | ED_ITS ---
HPI - Extremity Injury (Lower) General Chief Complaint: Extremity Injury, Lower Stated Complaint: twisted leg/knee yesterday Time Seen by Provider: 12/13/20 07:25 Source: patient and family Mode of arrival: Wheelchair History of Present Illness HPI Narrative: The patient was pursuing a 3-year-old grandchild around her car yesterday afternoon. In her actions to wild the child, she twisted her right knee. She is uncertain exactly the action/motion because the pain. She did not sense a pop or snap sensation. She presents now with right lateral knee pain. There is no associated erythema or edema. She denies right hip, thigh, or calf pain. She is ambulatory with knee pain. She has no prior history of issues with the right knee. There were no other injuries. Related Data Home Medications Medication Instructions Recorded Confirmed Flax Seed 1 tab DAILY 07/28/19 09/24/20 cholecalciferol (vitamin D3) 50 50 mcg PO DAILY 07/28/19 09/24/20 mcg (2,000 unit) capsule (Vitamin D3) Previous Rx's Medication Instructions Recorded levothyroxine 100 mcg capsule 100 mcg PO DAILY #90 cap 08/02/20 acetaminophen 300 mg-codeine 15 mg 2 tab PO Q4-6H PRN #20 tab 12/13/20 tablet Allergies Allergy/AdvReac Type Severity Reaction Status Date / Time No Known Drug Allergies Allergy Verified 12/13/20 07:26 Review of Systems Constitutional Constitutional: Denies weakness Comments: No recent illness, no other injuries. Musculoskeletal Musculoskeletal: Reports as per HPI Integumentary/Breasts Skin/Breast: Denies lesions and Denies rash Neurologic Neurologic: Denies sensory deficit and Denies weakness Patient History Medical History Cervicalgia Hyperparathyroidism Hypothyroidism Lower back pain Neck muscle spasm Surgical History History of thyroidectomy Family History Father Heart disease Family/Other Uterine cancer Social History marital status: household members: spouse occupational status: employed Smoking Status: Never smoker alcohol intake: current substance use type: does not use Smoking Status: Never smoker alcohol intake frequency: a few times a month Substance Use Type: does not use Exam Initial Vital Signs Initial Vital Signs: Vital Signs Temperature 98 F 12/13/20 07:23 Pulse Rate 93 H 12/13/20 07:23 Respiratory Rate 17 12/13/20 07:23 Blood Pressure 121/56 L 12/13/20 07:23 Pulse Oximetry 97 12/13/20 07:23 Const General: cooperative, healthy appearing, comfortable and No disheveled Skin General: no rashes or lesions noted Neuro General: patient alert, patient oriented x3 and no focal motor deficits Extrem Other: Right knee ROM 0-90 degrees. Anterior drawer is negative. Tenderness at the insertion of the LCL ligament. No joint line tenderness. No MCL tenderness. No laxity. No patellar or subpatellar pain. The right calf is nontender with no edema. Psych Mental Status: mental status grossly normal Procedures Orthopedic Splinting/Casting Injury #1: Side: right Lower Extremity Injury Location: knee Lower Extremity Immobilizer: knee immobilizer Post splinting neuro exam: intact Post splinting vascular exam: intact Placed by: Nursing Course Orders Ordered: ED Orders 12/13/20 07:26 XR knee RT 3V Stat Vital Signs Vital signs: Vital Signs - 8 hr 12/13/20 07:23 Temperature 98 F Pulse Rate 93 H Respiratory Rate 17 Blood Pressure 121/56 L Pulse Oximetry 97 MDM - Extremity Injury (Lower) Imaging Data Right knee XR:: Radiologist's Impression: [address] [address] XRay Report Signed Patient: Jayla Trevino MR#: [id number] : 1950 Acct:[id number] Age/Sex: 70 / F Date of Service: 12/13/20 Loc: ED Accession Number: [id number] ?? Procedure: XR knee RT 3V Ordering Provider: Torsten Wells MD PROCEDURE:? XR KNEE RT 3V ? INDICATIONS:? twist ? TECHNIQUE:? 3 views of the knee were acquired.? ? COMPARISON:? [facility], , XR KNEE RT 3V, 04/19/2020, 15:04. ? FINDINGS:? ? Bones:? No acute fracture. Scattered degenerative subchondral sclerosis and spurring.? Mild narrowing of the lateral joint space.? Chronic ossicle projects adjacent to the lateral aspect of the patellofemoral joint space. ? Soft tissues:? No joint effusion.? No suspicious soft tissue calcifications.? ? ? IMPRESSION:? ? No acute findings. If the patient's pain or other symptoms persist, consider further evaluation with MRI ? ? ? Dictated by: Bharath Cardenas M.D. on 12/13/2020 at 7:53 ? ? Approved by: Bharath Cardenas M.D. on 12/13/2020 at 8:19?? Discharge Plan Departure Patient Disposition: Home Clinical Impression: Sprain of lateral collateral ligament of right knee Qualifiers: Encounter type: initial encounter Qualified Code(s): S83.421A - Sprain of lateral collateral ligament of right knee, initial encounter Instructions: DI for Knee Sprain Activity Restrictions/Additional Instructions: Use the splint when up and about. You may take the splint off for rest, bathing, etc. Tylenol or Tylenol with codeine every 4 hours as needed for pain. If not improved within 3 weeks follow-up with her PCM. Return here as needed. Prescriptions: New acetaminophen-codeine 300-15 mg tablet 2 tab PO Q4-6H PRN (Reason: pain) Qty: 20 RF: 0 No Action levothyroxine 100 mcg capsule 100 mcg PO DAILY Qty: 90 RF: 3 cholecalciferol (vitamin D3) [Vitamin D3] 50 mcg (2,000 unit) Capsule 50 mcg PO DAILY RF: 0 Flax Seed 1 tab DAILY RF: 0 Referrals: Kev Mckinley MD [Primary Care Provider] -
== END 2020-12-13 09:10 | disposition home or self-care (01) ==
PROVIDERS: Emergency Provider Emergency Medicine; PCP Family Medicine
DX: S83.421A Sprain of lateral collateral ligament of right knee, initial encounter (principal); X50.1XXA Overexertion from prolonged static or awkward postures, initial encounter
CPT/HCPCS: 73562; 99282; 99283

== ENCOUNTER → 2020-12-14 10:10 | Outpatient (CLI) | payer MEDICARE, OTHER, SELFPAY ==
--- NOTE | 2020-12-14 | DI.RAD.S_ITS ---
PROCEDURE: FL BARIUM SWALLOW W SPEECH INDICATIONS: Epigastric pain COMPARISON: None. TECHNIQUE: Examination was conducted in conjunction with speech pathology per standard protocol. In the lateral projection, filming was performed of the patient swallowing. AP projection filming may also be performed with patient swallowing. COMPARISON: FINDINGS: Function: The oral preparatory phase appears normal, with proper containment. The subsequent oral propulsive phase, pharyngeal phase, and esophageal phase of swallowing also appear normal with all proffered substances. No laryngotracheal penetration or aspiration. No pathologic vallecular pooling. Morphology: Anterior cervical spine osteophytes flatten and indent the posterior esophagus. No cricopharyngeal bar is identified. No cervical esophageal webs. No Zenker's diverticulum. No strictures. IMPRESSION: Cervical osteophytes which indent the posterior esophagus, of unknown clinical significance. Please see speech pathology report for more details. Dictated by: Ambrosio Ma M.D. on 12/16/2020 at 10:10 Approved by: Ambrosio Ma M.D. on 12/16/2020 at 10:11
--- NOTE | 2020-12-14 16:02 | ST.SWALLOW ---
Visit Care Team Role Provider Type Kev Mckinley MD Primary Care Provider Physician Specialty: Family Practice Address: [address] [place] [address], [id number] Email: [email or web address] Alin Le MD Attending Provider Physician Referring Provider Specialty: Ear, Nose, Throat Address: [address] [place] [address], [address] Email: [email or web address] Modified Barium Swallow Study [employer]NI [employer]ATIONS OFFICER Modified Barium Swallow Study Start: 12/14/20 12:05 Freq: Status: Active Protocol: Document 12/14/20 12:05 FRANCESCA (Rec: 12/14/20 12:29 FRANCESCA [email or web address]) Modified Barium Swallow Study Total Time Visit Start Time 10:30 Visit Stop Time 11:10 Total Visit Minutes [address] Alin Le Reason for Referral Dysphagia Setting Setting Outpatient Care Patient Information Identification Type Name,ID Card Patient History The pt is a 70-yr-old female with a hx of dysphagia. She reported having completed MBSS ~4 yrs ago with results showing epiglottis impairment. She stated she was told by an ENT at that time that this was associated with aging. Outpatient swallow therapy was effective at the time, per pt report; however, now she again has complaints of coughing/choking on liquids, particularly when distracted during oral intake. Additionally, at nights she often feels that her airway is blocked, requiring her to sit up and cough in order to open it again. This seems to be worse when lying on her left side. 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 The pt was seen 10/18/[address] Noemi Judge, [employer]UM[employer]ATIONS OFFICER, in outpatient care for clinical bedside swallow evaluation. MBS was recommended for more thorough evaluation to guide POC. Note: The pt thought the prior MBSS was completed at [facility] and was interested in comparison, but no record of the study was found. Subjective Observations Pt arrived on time via wheelchair d/t a knee injury she sustained yesterday. She was able to bear weight for a minimal time, sufficient for A /P viewing. She was informed of purpose and procedure of the study and was agreeable to proceeding. Patient Positioning Position View Lat-A/P Imaging Lateral View Textures Administered Trials Presented Thin Liquid via Spoon,Thin Liquid via Cup,Plumwood Liquid via Spoon,Plumwood Liquid via Cup,Honey Liquid via Spoon, Dysphagia Blenderized Textures ,Regular Textures Oral Phase Source: MBSIMP (TM) (C) Bolus Specific Scoring Grid Lip Closure No Impairment (WNL) Tongue Control During Bolus Hold No Impairment (WNL) Bolus Prep/Mastication No Impairment (WNL) Bolus Transport/Lingual Motion No Impairment (WNL) A/P Lingual Propulsion Delay No Oral Residue WFL Residue Clearing No Impairment (WNL) Nasal Regurgitation No Additional Oral Phase Observations The pt has symmetrical features, WNL of strength, coordination and ROM. Dentition is complete, natural , and in good condition. Oral phase is WNL. Pharyngeal Phase Source: MBSIMP (TM) (C) Bolus Specific Scoring Grid Delayed Initiation of Pharyngeal Swallow No Soft Palate Elevation No Impairment (WNL) Tongue Base Strength/Range of Motion Minimal Impairment Residue Along the Tongue Base Yes: Trace Clearance of Residue Along Tongue Base No Impairment (WNL) Laryngeal Elevation No Impairment (WNL) Epiglottic Range of Motion Moderate Impairment Vallecular Residue Yes: Trace to moderate, increases with bolus bulk Clearance of Vallecular Residue Mild Impairment Laryngeal Vestibular Closure Minimal Impairment Pharyngeal Stripping Wave Mild Impairment Pharyngeal Contraction Minimal Impairment Posterior Pharyngeal Wall Residue Yes: Trace Clearance of Posterior Pharyngeal Wall WFL Residue Upper Esophageal Sphincter Opening Mild Impairment Residue in the Pyriform Sinuses Yes: Trace to moderate, impacted by osteophytes Clearance of Residue in the Pyriform Mild Impairment Sinuses Esophageal Clearance Upright Position Mild Impairment Pharyngoesophageal Backflow Observed No Additional Pharyngeal Phase Observations Narrow column of air was occasionally observed in the laryngeal inlet at the height of swallow, which likely accounts for the pt's experience of coughing when distracted during intake. No laryngeal penetration or tracheal aspiration was observed during this study. Hyolaryngeal elevation was WNL, but anterior propulsion was reduced. Epiglottis inverted to horizontal position with all boluses but cookie trial, during which full inversion was observed. Vallecular residue was noted with all boluses, greater with increased bolus bulk including cookie, despite improved inversion. Subsequent dry swallows were minimally effective in clearing this residue. The extension of the UES opening appeared to be complete but was reduced in duration, impacted by presence of osteophytes and resulting in trace to moderate residue at pyriform sinuses. Subsequent swallows were effective at clearing this residue. Osteophytes at C4-C5, C5-C6, and C6-C7 distorted and slowed bolus flow to and through the UES, resulting in residue at pyriform sinuses and below UES. The latter cleared independently within ~4 sec. A/P View Textures Administered Trials Presented Plumwood Liquid via Cup, Dysphagia Blenderized Textures ,Barium Tablet A/P View Observations Pharyngeal Contraction Mild Impairment Esophageal Function Slowed Clearing Additional Observations Mild left side pharyngeal bulging was observed in A/P view, indicating mild left side muscular weakness. Residue in pyriform sinuses was equal bilaterally. Slow esophageal clearing of barium paste was observed, which mostly but not entirely cleared with multiple swallows of water. A 13mm barium tablet passed quickly through the esophagus but remained above the UES, even after multiple swallows of water. While the tablet was in this position, the pt reported a sticking sensation at lower throat/upper sternum area, though the pharynx and upper esophagus were clear. Esophageal Observations Esophageal Function Mild residue of NTL. Moderate residue and slow clearing of barium paste requiring multiple swallows of water. Clinical Impressions Dysphagia Type Mild Pharyngeal Dysphagia Findings The pt presents with mild pharyngeal dysphagia secondary to reduced strength of suprahyoid and pharyngeal musculature and presence of significant osteophytes. Reduced hyolaryngeal anterior propulsion contributes to intermittent incomplete airway closure, reduced epiglottic inversion, and shortened duration of UES opening. This increases the pt's risk of aspiration, though none was observed during this study. It also contributes to pharyngeal residue. Reduced pharyngeal stripping wave was observed, which, in conjunction with impingement of osteophytes at C4-C5, C5-C6, and C6-C7, further contributes to residue in the pyriform sinuses and below the UES. Esophageal dysphagia may also be present, as slowed esophageal clearing of NTL, pudding and barium tablet was observed. Consider referral to GI for further evaluation. Rehabilitation Potential Good Patient Appropriate for Therapy Yes Recommendations Diet Liquids Order Thin Diet Order Regular Medication Recommendation As Tolerated Aspiration Precautions Recommended Precautions Upright at 90 Degrees, Alternate Liquids/Solids,Small Bites/Sips,Effortful Swallow, Double Swallow Treatment Plan Therapy Recommendations Outpatient Speech Therapy Recommended Referrals GI Consult Compensatory Strategies Recommendations Sitting Upright (90 deg), Double Swallow,Small Bites and Sips,Alternate Liquids/Solids Short Term Goals The pt will participate in outpatient dysphagia therapy targeting exercises to increase strength, coordination, and ROM of swallow musculature and safe swallow strategies to improve pharyngeal clearance and reduce risk of aspiration. Penitentiary Goals The pt will safely tolerate the least restrictive diet to meet her nutrition and hydration needs. Placement Recommendation After Discharge Outpatient Therapy
== END ==
PROVIDERS: PCP Family Medicine; Referring Provider Otolaryngology; Visit Provider Otolaryngology
DX: R13.10 Dysphagia, unspecified (principal); R10.13 Epigastric pain
CPT/HCPCS: 74230; 92611

== ENCOUNTER → 2020-12-31 09:13 | Outpatient (CLI) | payer MEDICARE, OTHER, SELFPAY ==
--- NOTE | 2020-12-31 09:19 | DI.MRI.S_ITS ---
PROCEDURE: MR BRAIN (IAC) WWO CON INDICATIONS: SUDDEN HEARLING LOSS, LEFT TECHNIQUE: Noncontrast sagittal T1 spin echo, axial FLAIR, axial gradient echo, axial diffusion and ADC through the brain. Axial thin-slice 3D CISS, coronal TruFISP, axial T1 spin echo with fat saturation through the internal auditory canals. After the administration of contrast, thin slice axial and coronal T1 spin echo with fat saturation through the internal auditory canals, and axial T1 spin echo with fat saturation through the brain. COMPARISON: None. FINDINGS: Image quality: Excellent. Cerebellopontine angles: Within the left internal auditory canal, there is an ovoid enhancing mass seen, as on series 13, image 7 and on series 14, image 7 that measures 11 mm transversely by 7 mm AP, with a craniocaudal extent of 5 mm. No additional internal auditory canal or cerebellopontine angle cistern masses can be seen. CSF spaces: Ventricles are normal in size and shape. No extra-axial fluid collections. Basal cisterns are patent. Brain: No intracranial bleeds or mass effects. Cope-white matter interface is intact. No abnormal intracranial enhancement. Diffusion weighted images demonstrate no acute ischemic insults. Brainstem appears normal. Normal intravascular flow voids are present. Skull and face: Calvarial marrow signal is normal. Orbits appear normal. Sinuses: Sinuses and mastoids are clear. 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 Dictated by: Pramod Mandujano M.D. on 12/31/2020 at 9:28 Approved by: Pramod Mandujano M.D. on 12/31/2020 at 9:32
== END ==
PROVIDERS: Family Provider Family Medicine; PCP Family Medicine; Referring Provider Otolaryngology; Visit Provider Otolaryngology
DX: D33.3 Benign neoplasm of cranial nerves (principal); H91.22 Sudden idiopathic hearing loss, left ear
CPT/HCPCS: 70553

== ENCOUNTER → 2021-01-06 12:42 | Outpatient (CLI) | payer MEDICARE, OTHER, SELFPAY ==
--- NOTE | 2021-01-06 12:49 | DI.US.S_ITS ---
PROCEDURE: US SOFT TISSUE HEAD AND NECK INDICATIONS: LEFT SUPRACLAVICULAR LUMP Additional history: Palpable supraclavicular lump. Left arm COVID-19 booster 1 month ago. TECHNIQUE: Real-time scanning was performed of the neck region of interest, with image documentation. COMPARISON: Outside Facility, RG, CT NECK W/WO CONTRAST, 08/13/2017, 14:43. FINDINGS: Enlarged lateral left supraclavicular node measuring 2.3 x 1.1 x 0.9 cm. Fatty hilum is effaced. Node is hypervascular. Enlarged medial left supraclavicular node measuring 2.4 x 1.4 x 0.8 cm. Several additional supraclavicular nodes. IMPRESSION: Enlarged left supraclavicular nodes. 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 Metastatic disease or other neoplastic process is also in the differential diagnosis. Recommend ultrasound-guided biopsy. PET/CT should also be considered. Comment: Findings were discussed with Omer on behalf of Dr. Mckinley at the time of dictation. Dictated by: Huan Garcia M.D. on 01/06/2021 at 13:47 Approved by: Huan Garcia M.D. on 01/06/2021 at 13:57
== END ==
PROVIDERS: Family Provider Family Medicine; PCP Family Medicine; Referring Provider Family Medicine; Visit Provider Family Medicine
DX: R59.0 Localized enlarged lymph nodes (principal)
CPT/HCPCS: 76536

== ENCOUNTER → 2021-01-17 16:53 | Outpatient (CLI) | payer MEDICARE, OTHER, SELFPAY ==
[2021-01-17 18:15] LABS: Hemoglobin 10.6 g/dL (12.0-16.0); Mean Corpuscular HGB Conc 31.2 % (30-36); Mean Corpuscular Hemoglobin 30.6 PG (26-34); Mean Corpuscular Volume 97.9 fL (80-100); Platelet Count 182 X10^3/uL (150-400); Red Blood Cell Count 3.48 X10^6/uL (4.0-5.2); Red Cell Distribution Width 13.8 % (11.6-14.8)
[2021-01-17 18:17] LABS: Add Manual Diff / Slide Review YES
[2021-01-17 19:07] LABS: Neutrophils Absolute Manual 5650 /uL (3000-5900); Total Cells Counted 100
[2021-01-17 19:08] LABS: RBC Morphology Normal Morphology; Smudge Cells 3+
== END ==
PROVIDERS: Family Provider Family Medicine; PCP Family Medicine; Referring Provider Internal Medicine Hematology & Oncology; Visit Provider Internal Medicine Hematology & Oncology
DX: C91.10 Chronic lymphocytic leukemia of B-cell type not having achieved remission (principal)
CPT/HCPCS: 36415; 85007; 85025

== ENCOUNTER 2021-01-18 09:17 | Outpatient (RCR) | payer MEDICARE, OTHER, SELFPAY ==
--- NOTE | 2020-12-23 16:48 | ST.OPDS ---
Visit Care Team Role Provider Type Kev Mckinley MD Family Provider Physician Primary Care Provider Address: [address] [place] [address], [id number] Alin Le MD Attending Provider Physician Referring Provider Address: [address] [place] [address], [id number] TUBE CUTTER Treatment Note TUBE CUTTER Treatment Note Start: 12/23/20 16:45 Freq: Status: Active Protocol: Document 12/23/20 16:46 LNK (Rec: 12/23/20 16:47 LNK [id number]) Speech Pathology Treatment Note Visit Type Note Type Discharge Summary General Information General Information pt was seen for a clinical swallow evaluation. based on the findings, an MBSS was recommended. Pt has requested to change therapists to work with the TUBE CUTTER that administered MBSS. Will discharge this file. Subjective Chief Complaint(s) Swallowing Assessment Progress Towards Goals Appropriate for Discharge Plan Therapy Recommendations Discharge from Speech Therapy
--- NOTE | 2021-01-18 13:41 | ST.OPIE ---
Visit Care Team Role Provider Type Kev Mckinley MD Family Provider Physician Primary Care Provider Specialty: Family Practice Address: [address] [place] [address], [address] Email: [email or web address] Alin Le MD Attending Provider Physician Referring Provider Specialty: Ear, Nose, Throat Address: [address] [place] [address], [address] Email: [email or web address] Speech-Language Pathology Initial Evaluation HOUSEKEEPING/LAUNDRY Clinical Swallow Evaluation Start: 01/19/21 13:02 Freq: Status: Active Protocol: Document 01/19/21 13:02 FRANCESCA (Rec: 01/19/21 13:40 FRANCESCA [email or web address]) Clinical Swallow Evaluation Session Time Visit Start Time 09:30 Visit Stop Time 10:15 Total Visit Minutes 45 Visit Information Visit Number [id number] Plan of Care Dates 01/18/21 - 03/21/21 Insurance Information Medicare Referral Referring Provider Dr. Alin Le Reason for Referral Dysphagia Setting Assessment Location Outpatient Care Visit Type Note Type Initial evaluation Next Note Type Next Note Type Treatment Note Patient Information Identification Type Name,ID Card History The pt is a 70-yr-old female known to this HOUSEKEEPING/LAUNDRY from MBSS administered 12/14/20, which revealed mild pharyngeal dysphagia secondary to reduced strength of suprahyoid and pharyngeal musculature and presence of significant osteophytes at C4-C7. No airway penetration or aspiration was observed, although a thin column of air was noted at the laryngeal inlet, which indicates reduced airway closure. The pt has a hx of dysphagia, having completed MBSS ~4 yrs ago with results showing epiglottis impairment. She stated she was told by an ENT at that time that this was associated with aging. Outpatient swallow therapy was effective at the time, per pt report; however, now she again has complaints of coughing/choking on liquids, particularly when distracted during oral intake. Additionally, at nights she often feels that her airway is blocked, requiring her to sit up and cough in order to open it again. This seems to be worse when lying on her left side. The pt has distant past medical history of radiation tx of enlarged thymus gland as an ; partial thyroidectomy at 19 yrs of age , which was completed in 1994; and paratid gland removal in ~1992. Subjective Observations The pt arrived on time. No new complaints or changes in swallow since date of MBSS. Reported by Patient Other Symptoms Choking,Coughing,Difficulty swallowing liquids,Food gets stuck Current Diet Regular,Thin liquids Baseline Feeding Method Independent in self-feeding Objective Assessment Mental Status Alert,Responsive,Cooperative Comment MBSS results serve as clinical evaluation of swallow. Today's session focused on review of findings, including review of MBSS video. All questions were answered and POC discussed. Pt was in agreement with targeting strengthening of pharyngeal and laryngeal musculature to improve UES opening, pharyngeal bolus clearance, and epiglottic inversion. Initiated training in exercises. Instructions were provided orally, with demonstration, and in writing. The pt returned demonstration of all and verbalized understanding. Will f/u in ~3wks, as the pt is leaving for a holiday vacation out of state tomorrow. Food and Liquid Trials Oral Phase Comments No oral trials were administered. Findings Swallowing Function Pharyngeal phase dysphagia Severity of Swallow Impairment Mildly impaired Contributing Factors to Swallow Impaired airway protection, Impairment Excessive pharyngeal residue Prognosis Good Based on Cognitive status,Family support,Duration of symptoms/ severity,Other (comment) Comment Successful dysphagia treatment in the past. Progress may be limited by the presence of osteophytes that alter and reduce bolus flow and contribute to pharyngeal residue. Impact on Safety and Functioning Risk for aspiration Recommendations Instrumental Assessment No Swallowing Treatment Yes Frequency 5 visits Duration over 3 mos Recommended Solids Regular Recommended Liquids Thin Safety Precautions/Swallowing Reduce distractions,Remain Recommendations upright (90 degrees) during all oral intake,Small bites and sips when eating,Slow rate ; swallow between bites, Multiple swallows,Alternate liquids and solids Medication Recommendations As Tolerated Education Patient/Caregiver Education Described results of evaluation,Patient expressed understanding of evaluation, Patient expressed agreement with goals & treatment plans, Patient expressed understanding of safety precautions,Patient expressed understanding of feeding recommendations Goals Short-term Goals 1. The pt will perform exercises independently to increase strength, coordination, and ROM of pharyngeal and laryngeal musculature to decrease pharyngeal residue and risk of aspiration. 2. The pt will employ safe swallow strategies independently to reduce risk of aspiration and reduce pharyngeal residue. Long-term Goals The pt will tolerate regular textures and thin liquids without overt s/sx of aspiration to improve safety and comfort with oral intake.
== END 2021-07-19 12:17 ==
LOC: SP 09:17
PROVIDERS: Family Provider Family Medicine; PCP Family Medicine; Referring Provider Otolaryngology; Visit Provider Otolaryngology
DX: R13.13 Dysphagia, pharyngeal phase (principal)
CPT/HCPCS: 92610

== ENCOUNTER → 2021-02-07 13:34 | Outpatient (CLI) | payer MEDICARE, OTHER, SELFPAY ==
[2021-02-07 16:56] LABS: COVID19 -Nasal RAPID Negative (Negative)
== END ==
PROVIDERS: Family Provider Family Medicine; PCP Family Medicine; Visit Provider Physician Assistant
DX: Z20.822 Contact with and (suspected) exposure to COVID-19 (principal); J02.9 Acute pharyngitis, unspecified
CPT/HCPCS: 87635

== ENCOUNTER → 2021-02-28 14:03 | Outpatient (CLI) | payer MEDICARE, OTHER, SELFPAY ==
[2021-02-28 16:52] LABS: Iron 63 ug/dL (37-170)
[2021-02-28 18:01] LABS: Folate > 20.0 ng/mL (2.76-20.0); Vitamin B12 392 pg/mL (239-931)
[2021-03-01 19:11] LABS: Zinc 72 ug/dL (44-115)
== END ==
PROVIDERS: Family Provider Family Medicine; PCP Family Medicine; Referring Provider Dentist; Visit Provider Dentist
DX: R68.2 Dry mouth, unspecified (principal); K14.6 Glossodynia; D64.9 Anemia, unspecified
CPT/HCPCS: 36415; 82607; 82746; 83540; 84630

== ENCOUNTER 2021-03-14 10:17 | Emergency (ER) | payer MEDICARE, OTHER, SELFPAY ==
[2021-03-14 10:36] VITALS: BP 132/61; PULSE 66; RESP 18; TEMP 36.1; O2SAT 100; BMI 22.4
[2021-03-14] MEDS: ONDANSETRON 4 MG/2 ML INJ IV (10:58)
[2021-03-14] MEDS: KETOROLAC 30 MG/ML VIAL IV (10:58)
[2021-03-14] MEDS: SODIUM CHLORIDE 0.9% 1,000 ML 1000 ML IV (10:58)
[2021-03-14 11:00] LABS: Hematocrit 35.7 % (36-46); Hemoglobin 11.1 g/dL (12.0-16.0); Mean Corpuscular HGB Conc 31.1 % (30-36); Mean Corpuscular Volume 99.9 fL (80-100); Platelet Count 167 X10^3/uL (150-400); Red Blood Cell Count 3.57 X10^6/uL (4.0-5.2); Red Cell Distribution Width 13.7 % (11.6-14.8)
[2021-03-14 11:01] LABS: Add Manual Diff / Slide Review YES; White Blood Cell Count 139.9 X10^3/uL (4.5-11.0)
[2021-03-14 11:16] LABS: Anisocytosis 1+; Neutrophils Absolute Manual 13990 /uL (3000-5900); Total Cells Counted 100
[2021-03-14 11:17] LABS: Alanine Aminotransferase 16 IU/L (<35); Albumin 4.1 g/dL (3.5-5.0); Albumin Globulin Ratio 1.7 (1.0-2.8); Alkaline Phosphatase 67 U/L (38-126); Aspartate Aminotransferase 28 IU/L (14-36); BUN Creatinine Ratio 24.1 (6-22); Bilirubin Total 0.3 mg/dL (0.2-1.3); Blood Urea Nitrogen 19 mg/dL (7-17); Calcium 10.8 mg/dL (8.4-10.2); Carbon Dioxide 25 mmol/L (22-32); Chloride 110 mmol/L (98-107); Estimated Glomerular Filt Rate > 60.0 mL/min (>60); Globulin 2.4 g/dL (1.7-4.1); Glucose 147 mg/dL (80-110); HEMOLYSIS 17 (0-50); Lipase 430 U/L (23-300); Potassium 4.8 mmol/L (3.4-5.1); Sodium 139 mmol/L (137-145); Total Protein 6.5 g/dL (6.3-8.2)
--- NOTE | 2021-03-14 12:50 | ED_ITS ---
HPI - Female Genitourinary <Zuleika Ordonez PA-C - Last Filed: 03/14/21 14:19> General Chief complaint: Urogenital-Female Stated complaint: Severe pain lower right back/ vomiting Time Seen by Provider: 03/14/21 11:01 Source: patient Mode of arrival: Wheelchair History of Present Illness HPI Narrative: 71-year-old female with past medical history CLL, hypothyroidism presents to the ED with 2 days of right-sided flank pain wrapping around to the right lower abdomen. Patient also endorses nausea, vomiting. Patient denies fever, chills, chest pain, shortness of breath, dysuria, urinary urgency, urinary frequency, diarrhea, constipation, lightheadedness, dizziness, syncope. Patient has a known diagnosis of CLL with her last WBC that she reports at 129. Patient denies history of kidney stones. Patient denies prior abdominal surgeries. Related Data Home Medications Medication Instructions Recorded Confirmed Flax Seed 1 tab DAILY 07/28/19 02/22/21 cholecalciferol (vitamin D3) 50 50 mcg PO DAILY 07/28/19 02/22/21 mcg (2,000 unit) capsule (Vitamin D3) Previous Rx's Medication Instructions Recorded levothyroxine 100 mcg capsule 100 mcg PO DAILY #90 cap 02/22/21 ondansetron 4 mg disintegrating 4 mg PO Q8H PRN 5 Days tab 03/14/21 tablet tamsulosin 0.4 mg capsule 0.4 mg PO BEDTIME #30 cap 03/14/21 tramadol 100 mg tablet 100 mg PO Q6H PRN 4 Days tab 03/14/21 Allergies Allergy/AdvReac Type Severity Reaction Status Date / Time No Known Drug Allergies Allergy Verified 03/14/21 10:41 Review of Systems <Zuleika Ordonez PA-C - Last Filed: 03/14/21 14:19> Review of Systems ROS Unobtainable: All systems reviewed & are unremarkable except as noted in HPI and below Constitutional Constitutional: Denies chills, Denies fatigue, Denies fever(s), Denies frequent falls, Denies lethargy and Denies weakness Eyes Eyes: Denies change in vision, Denies eye discharge, Denies irritation and Denies loss of vision ENT Ears, Nose, Mouth, and Throat: Denies change in voice, Denies dizziness, Denies neck pain, Denies sore throat and Denies throat swelling Cardiovascular Cardiovascular: Denies chest pain, Denies irregular heart rhythm, Denies lightheadedness, Denies palpitations, Denies dyspnea, Denies dyspnea on exertion and Denies orthopnea Respiratory Respiratory: Denies cough, Denies dyspnea, Denies dyspnea on exertion and Denies wheezing Gastrointestinal Gastrointestinal: Reports abdominal pain, Denies change in bowel habits, Denies diarrhea, Reports nausea and Reports vomiting Comments: Right-sided flank pain Genitourinary Genitourinary: Denies hematuria, Denies difficulty voiding, Denies dysuria, Denies dysuria, Denies flank pain, Denies urinary incontinence and Denies urinary urgency Musculoskeletal Musculoskeletal: Reports back pain, Denies muscle weakness, Denies neck pain, Denies numbness and Denies tingling Integumentary/Breasts Skin/Breast: Denies pruritus, Denies erythema, Denies rash and Denies wounds Neurologic Neurologic: Denies behavioral changes, Denies confusion, Denies dizziness, Denies frequent falls, Denies loss of vision, Denies numbness, Denies tingling and Denies weakness Psychiatric Psychiatric: Denies anxiety, Denies behavioral changes, Denies confusion, Denies depression, Denies homicidal ideation and Denies suicidal ideation Endocrine Endocrine: Denies fatigue, Denies flushing and Denies palpitations Hematologic/Lymphatic Hematologic/Lymphatic: Denies easy bruising Allergic/Immunologic Allergic/Immunologic: Denies urticaria, Denies throat swelling and Denies wheez ing Patient History <Zuleika Ordonez PA-C - Last Filed: 03/14/21 14:19> Medical History (Updated 03/14/21 @ 14:16 by Zuleika Ordonez PA-C) Cervicalgia Hyperparathyroidism Hypothyroidism Lower back pain Neck muscle spasm Osteoarthritis of right knee Surgical History History of thyroidectomy Family History Father Heart disease Family/Other Uterine cancer alcohol intake frequency: a few times a month Substance Use Type: does not use Exam <Zuleika Ordonez PA-C - Last Filed: 03/14/21 14:19> Initial Vital Signs Initial Vital Signs: Vital Signs Temperature 97.0 F L 03/14/21 10:36 Pulse Rate 66 03/14/21 10:36 Respiratory Rate 18 03/14/21 10:36 Blood Pressure 132/61 03/14/21 10:36 Pulse Oximetry 100 03/14/21 10:36 Const General: cooperative, healthy appearing and comfortable [facility] Head: normal to inspection Eyes General: appearance normal, both eyes and all related structures Neck Neck: normal visual inspection Chest Chest: normal inspection of the chest Resp Effort & Inspection: normal respiratory effort Auscultation: clear to auscultation bilaterally Cardio Rate: regular rate Rhythm: regular rhythm GI Inspection: normal to inspection Other: Abdomen is soft, nondistended, mildly tender to palpation in the right lower quadrant. Positive right-sided CVA tenderness. General: CVA tenderness (Right-sided) Back/Spine/Pelvis Back: normal to inspection Other: No midline tenderness to palpation. Skin General: no rashes or lesions noted Neuro General: patient alert, patient awake and patient oriented x3 Psych Appearance: grossly normal <Shelli Madsen DO - Last Filed: 03/15/21 07:07> Initial Vital Signs Initial Vital Signs: Vital Signs Temperature 97.0 F L 03/14/21 10:36 Pulse Rate 66 03/14/21 10:36 Respiratory Rate 18 03/14/21 10:36 Blood Pressure 132/61 03/14/21 10:36 Pulse Oximetry 100 03/14/21 10:36 Course <Zuleika Ordonez PA-C - Last Filed: 03/14/21 14:19> Orders Ordered: Discontinued Medications Sodium Chloride (Normal Saline 0.9%) 1,000 mls @ 1,000 mls/hr IV BOLUS ONE Stop: 03/14/21 11:48 Last Infusion: 03/14/21 13:03 Dose: 0 mls/hr Documented by: Admin: 03/14/21 10:58 Dose: 1,000 mls/hr Documented by: VEENA Ketorolac Tromethamine (Ketorolac 30 Mg/Ml Vial) 30 mg IV NOW ONE Stop: 03/14/21 10:50 Last Admin: 03/14/21 10:58 Dose: 30 mg Documented by: VEENA Ondansetron HCl (Ondansetron 4 Mg/2 Ml Inj) 4 mg IV NOW ONE Stop: 03/14/21 10:42 Last Admin: 03/14/21 10:58 Dose: 4 mg Documented by: VEENA Vital Signs Vital signs: Vital Signs - 8 hr 03/14/21 14:26 Pulse Rate 76 Respiratory Rate 98 H Blood Pressure 98/53 L Pulse Oximetry 99 <Shelli Madsen DO - Last Filed: 03/15/21 07:07> Orders Ordered: Discontinued Medications Sodium Chloride (Normal Saline 0.9%) 1,000 mls @ 1,000 mls/hr IV BOLUS ONE Stop: 03/14/21 11:48 Last Infusion: 03/14/21 13:03 Dose: 0 mls/hr Documented by: Admin: 03/14/21 10:58 Dose: 1,000 mls/hr Documented by: VEENA Ketorolac Tromethamine (Ketorolac 30 Mg/Ml Vial) 30 mg IV NOW ONE Stop: 03/14/21 10:50 Last Admin: 03/14/21 10:58 Dose: 30 mg Documented by: VEENA Ondansetron HCl (Ondansetron 4 Mg/2 Ml Inj) 4 mg IV NOW ONE Stop: 03/14/21 10:42 Last Admin: 03/14/21 10:58 Dose: 4 mg Documented by: VEENA Vital Signs Vital signs: Vital Signs - 8 hr 03/14/21 14:26 Pulse Rate 76 Respiratory Rate 98 H Blood Pressure 98/53 L Pulse Oximetry 99 MDM - Female Genitourinary <Zuleika Ordonez PA-C - Last Filed: 03/14/21 14:19> Lab Data Lab results narrative: WBC elevated to 139, known diagnosis of CLL. UA negative for UTI Result diagrams: 03/14/21 10:41 03/14/21 11:00 Labs: Lab Results 03/14/21 03/14/21 03/14/21 Range/Units 10:41 11:00 13:00 WBC 139.9 H* (4.5-11.0) X10^3/uL RBC 3.57 L (4.0-5.2) X10^6/uL Hgb 11.1 L (12.0-16.0) g/dL Hct 35.7 L (36-46) % MCV 99.9 (80-100) fL MCH 31.0 (26-34) PG MCHC 31.1 (30-36) % RDW 13.7 (11.6-14.8) % Plt Count 167 (150-400) X10^3/uL Neut % (Auto) Not Reportable Lymph % (Auto) Not Reportable [place] % (Auto) Not Reportable Eos % (Auto) Not Reportable Baso % (Auto) Not Reportable Lymph # (Auto) Not Reportable [place] # (Auto) Not Reportable Baso # (Auto) Not Reportable Total Counted 100 Seg Neutrophils % 10.0 L (38-70) % Lymphocytes % (Manual) 81.0 H (25-45) % Atypical Lymphs % 9.0 H ( - 0) % Neutrophils # (Manual) 84845 H (4572-5050) /uL RBC Morphology Not Reportable Anisocytosis 1+ H Sodium 139 (137-145) mmol/L Potassium 4.8 (3.4-5.1) mmol/L Chloride 110 H (98-107) mmol/L Carbon Dioxide 25 (22-32) mmol/L BUN 19 H (7-17) mg/dL Creatinine 0.79 (0.52-1.04) mg/dL Estimated GFR > 60.0 (>60) mL/min BUN/Creatinine Ratio 24.1 H (6-22) Glucose 147 H (80-110) mg/dL Calcium 10.8 H (8.4-10.2) mg/dL Total Bilirubin 0.3 (0.2-1.3) mg/dL AST 28 (14-36) IU/L ALT 16 (<35) IU/L Alkaline Phosphatase 67 (38-126) U/L Total Protein 6.5 (6.3-8.2) g/dL Albumin 4.1 (3.5-5.0) g/dL Globulin 2.4 (1.7-4.1) g/dL Albumin/Globulin Ratio 1.7 (1.0-2.8) Lipase 430 H (23-300) U/L Urine RBC 30-100/hpf H (0-5/HPF) Urine WBC 1-5/hpf (0-5/HPF) Ur Squamous Epith Cells None seen (0-5/HPF) Urine Bacteria None seen (None) Ur Culture Indicated? Cult not indicated Urine Dip Bedside Urine Glucose Negative Bedside Urine Bilirubin - Negative Bedside Urine Ketone +/- 5 Urine Specific [place] 1.025 Bedside Urine Occult Blood +++ Bedside Urine pH 6.0 Bedside Urine Protein + 30 Bedside Urine Urobilinogen - Negative Bedside Urine Nitrite - Negative Bedside Urine Leukocytes - Negative Esterase Imaging Data CT scan - abdomen/pelvis: Radiologist's Impression: PROCEDURE:? CT ABDOMEN PELVIS W CON ? INDICATIONS:? Right flank pain ? TECHNIQUE:? After the administration of oral and IV contrast, axial sections were acquired from the lung bases to the pubic symphysis.? Coronal and sagittal reformats were performed.? For radiation dose reduction, the following was used:? automated exposure control, adjustment of mA and/or kV according to patient size. ? COMPARISON:? Located Within [facility], CT, CT CHEST ABD PEL W CON, 09/07/2017, 8:07. ? FINDINGS:? Image quality:? Excellent.? ? Lung bases:? Unremarkable.? ? Heart:? No significant findings.? Small hiatal hernia. ? ? ABDOMEN: Liver:? Unremarkable.? ? Gallbladder:? Unremarkable.? ? Biliary ducts:? Unremarkable.? ? Pancreas:? Unremarkable.? ? Spleen:? Unremarkable.? ? Adrenal Glands:? Unremarkable.? ? Kidneys and Ureters:? Moderate right hydronephrosis.? Trace free fluid adjacent to the right kidney.? Obstructing calculus in the distal right ureter measuring 0.5 cm, (69).? No left hydronephrosis.? There is a nonobstructing calculus in the left renal pelvis measuring 0.9 cm.? Additional bilateral nonobstructing kidney stones.? Largest on the right measures 0.9 cm; and on the left 0.9 cm.? ? ? Stomach and Bowel:? Stomach, small bowel loops, and colon are unremarkable.? Peritoneum:? No abnormal intraperitoneal fluid.? No free air.? ? Ventral Wall: ? No hernia.? Abdominal Nodes:? No retroperitoneal or mesenteric adenopathy by size criteria.? Shotty mesenteric and retroperitoneal nodes.? For example right lower quadrant measuring 0.8 cm, (4/29).? Left periaortic node measuring 0.7 cm, (247).? These are more prominent. Vessels:? Aorta and inferior vena cava are normal in size.? [id number] pl aque.? ? PELVIS: Pelvic Organs:? Unremarkable.? ? Bladder:? Decompressed.? No stones.? ? Pelvic Nodes:? -Left external iliac node measuring 1.2 cm, ().? -Right pelvic sidewall node measuring 1.4 cm, ().? Additional enlarged pelvic sidewall lymph nodes.? Miscellaneous: No inguinal hernias are seen. ? ? ? Bones:? No suspicious lesion.? DDD. ? ? IMPRESSION:? 1. Obstructing calculus at the distal right ureter measuring 0.5 cm.? Moderate right hydroureteronephrosis.? ? 2. Additional nonobstructing kidney stones bilaterally. ? 3. Enlarged pelvic lymph nodes.? Shotty mesenteric and retroperitoneal lymph nodes.? These are new or increased compared to the prior CT from 2018.? These are suspic ious in this patient with history of lymphoma. ? Comment: Findings were discussed with Zuleika Ordonez at the time of dictation. ? Dictated by: Huan Garcia M.D. on 03/14/2021 at 13:15 ? ? Approved by: Huan Garcia M.D. on 03/14/2021 at 13:33 ? MDM Narrative Medical decision making narrative: 71-year-old female with past medical history CLL, hypothyroidism presents to the ED with 2 days of right-sided flank pain wrapping around to the right lower abdomen. Concern for UTI versus nephrolithiasis versus appendicitis versus musculoskeletal sprain/strain. Will order labs, lipase, UA, CT abdomen pelvis. Will give Zofran, ketorolac, IV fluids for symptoms. Will reassess. CT shows obstructing 5 mm stone in right distal ureter. UA negative for UTI. WBC 139, known diagnosis CLL, last WBC 129. Nausea and pain well controlled in the ED with ketorolac and Zofran. Will discharge patient with pain and nausea control, tamsulosin. Strict ED return precautions discussed with patient. Patient verbalized understanding. <Shelli Madsen DO - Last Filed: 03/15/21 07:07> Lab Data Labs: Lab Results 03/14/21 03/14/21 03/14/21 Range/Units 10:41 11:00 13:00 WBC 139.9 H* (4.5-11.0) X10^3/uL RBC 3.57 L (4.0-5.2) X10^6/uL Hgb 11.1 L (12.0-16.0) g/dL Hct 35.7 L (36-46) % MCV 99.9 (80-100) fL MCH 31.0 (26-34) PG MCHC 31.1 (30-36) % RDW 13.7 (11.6-14.8) % Plt Count 167 (150-400) X10^3/uL Neut % (Auto) Not Reportable Lymph % (Auto) Not Reportable [place] % (Auto) Not Reportable Eos % (Auto) Not Reportable Baso % (Auto) Not Reportable Lymph # (Auto) Not Reportable [place] # (Auto) Not Reportable Baso # (Auto) Not Reportable Total Counted 100 Seg Neutrophils % 10.0 L (38-70) % Lymphocytes % (Manual) 81.0 H (25-45) % Atypical Lymphs % 9.0 H ( - 0) % Neutrophils # (Manual) 01227 H (5910-3468) /uL RBC Morphology Not Reportable Anisocytosis 1+ H Sodium 139 (137-145) mmol/L Potassium 4.8 (3.4-5.1) mmol/L Chloride 110 H (98-107) mmol/L Carbon Dioxide 25 (22-32) mmol/L BUN 19 H (7-17) mg/dL Creatinine 0.79 (0.52-1.04) mg/dL Estimated GFR > 60.0 (>60) mL/min BUN/Creatinine Ratio 24.1 H (6-22) Glucose 147 H (80-110) mg/dL Calcium 10.8 H (8.4-10.2) mg/dL Total Bilirubin 0.3 (0.2-1.3) mg/dL AST 28 (14-36) IU/L ALT 16 (<35) IU/L Alkaline Phosphatase 67 (38-126) U/L Total Protein 6.5 (6.3-8.2) g/dL Albumin 4.1 (3.5-5.0) g/dL Globulin 2.4 (1.7-4.1) g/dL Albumin/Globulin Ratio 1.7 (1.0-2.8) Lipase 430 H (23-300) U/L Urine RBC 30-100/hpf H (0-5/HPF) Urine WBC 1-5/hpf (0-5/HPF) Ur Squamous Epith Cells None seen (0-5/HPF) Urine Bacteria None seen (None) Ur Culture Indicated? Cult not indicated Urine Dip Bedside Urine Glucose Negative Bedside Urine Bilirubin - Negative Bedside Urine Ketone +/- 5 Urine Specific [place] 1.025 Bedside Urine Occult Blood +++ Bedside Urine pH 6.0 Bedside Urine Protein + 30 Bedside Urine Urobilinogen - Negative Bedside Urine Nitrite - Negative Bedside Urine Leukocytes - Negative Esterase Discharge Plan Departure Patient Disposition: Home Clinical Impression: Kidney stone Instructions: DI for Kidney Stones Activity Restrictions/Additional Instructions: You were evaluated in the ED today for right-sided flank pain and abdominal pain. Your CT abdomen pelvis shows a 5 mm obstructing stone in the right-sided distal ureter, which is likely causing her symptoms today. You may continue to take Zofran, tramadol, tamsulosinfor your symptoms. Please return to the ED if you have worsening symptoms including pain, nausea, vomiting, fever, chills. Prescriptions: New tamsulosin 0.4 mg capsule 0.4 mg PO BEDTIME Qty: 30 0RF tramadol 100 mg tablet 100 mg PO Q6H PRN (Reason: pain) 4 Days 0RF ondansetron 4 mg tablet,disintegrating 4 mg PO Q8H PRN (Reason: nausea and vomiting) 5 Days 0RF No Action levothyroxine 100 mcg capsule 100 mcg PO DAILY Qty: 90 3RF cholecalciferol (vitamin D3) [Vitamin D3] 50 mcg (2,000 unit) Capsule 50 mcg PO DAILY 0RF Flax Seed 1 tab DAILY 0RF Referrals: Kev Mckinley MD [Primary Care Provider] - <Shelli Madsen DO - Last Filed: 03/15/21 07:07> Cosign ED Attending Juliaature Attestation: I was immediately available in the department for consultation. Documentation has been reviewed.
--- NOTE | 2021-03-14 12:53 | DI.CT.S_ITS ---
PROCEDURE: CT ABDOMEN PELVIS W CON INDICATIONS: Right flank pain TECHNIQUE: After the administration of oral and IV contrast, axial sections were acquired from the lung bases to the pubic symphysis. Coronal and sagittal reformats were performed. For radiation dose reduction, the following was used: automated exposure control, adjustment of mA and/or kV according to patient size. COMPARISON: [facility], CT, CT CHEST ABD PEL W CON, 09/07/2017, 8:07. FINDINGS: Image quality: Excellent. Lung bases: Unremarkable. Heart: No significant findings. Small hiatal hernia. ABDOMEN: Liver: Unremarkable. Gallbladder: Unremarkable. Biliary ducts: Unremarkable. Pancreas: Unremarkable. Spleen: Unremarkable. Adrenal Glands: Unremarkable. Kidneys and Ureters: Moderate right hydronephrosis. Trace free fluid adjacent to the right kidney. Obstructing calculus in the distal right ureter measuring 0.5 cm, (2/69). No left hydronephrosis. There is a nonobstructing calculus in the left renal pelvis measuring 0.9 cm. Additional bilateral nonobstructing kidney stones. Largest on the right measures 0.9 cm; and on the left 0.9 cm. Stomach and Bowel: Stomach, small bowel loops, and colon are unremarkable. Peritoneum: No abnormal intraperitoneal fluid. No free air. Ventral Wall: No hernia. Abdominal Nodes: No retroperitoneal or mesenteric adenopathy by size criteria. Shotty mesenteric and retroperitoneal nodes. For example right lower quadrant measuring 0.8 cm, (4/29). Left periaortic node measuring 0.7 cm, (2/47). These are more prominent. Vessels: Aorta and inferior vena cava are normal in size. [id number] plaque. PELVIS: Pelvic Organs: Unremarkable. Bladder: Decompressed. No stones. Pelvic Nodes: -Left external iliac node measuring 1.2 cm, (2/71). -Right pelvic sidewall node measuring 1.4 cm, (2/72). Additional enlarged pelvic sidewall lymph nodes. Miscellaneous: No inguinal hernias are seen. Bones: No suspicious lesion. DDD. IMPRESSION: 1. Obstructing calculus at the distal right ureter measuring 0.5 cm. Moderate right hydroureteronephrosis. 2. Additional nonobstructing kidney stones bilaterally. 3. Enlarged pelvic lymph nodes. Shotty mesenteric and retroperitoneal lymph nodes. These are new or increased compared to the prior CT from 2018. These are suspicious in this patient with history of lymphoma. Comment: Findings were discussed with Zuleika Ordonez at the time of dictation. Dictated by: Huan Garcia M.D. on 03/14/2021 at 13:15 Approved by: Huan Garcia M.D. on 03/14/2021 at 13:33
[2021-03-14 13:30] LABS: Bacteria Urine None Seen; Culture Indicated Urine Cult Not Indicated; RBC Urine 30-100/HPF (0-5/HPF); Squamous Epithelial Cell Urine None Seen (0-5/HPF); WBC Urine 1-5/HPF (0-5/HPF)
[2021-03-14 14:26] VITALS: BP 98/53; PULSE 76; RESP 98; O2SAT 99
== END 2021-03-14 14:27 | disposition home or self-care (01) ==
PROVIDERS: Emergency Medicine; Emergency Provider Student in an Organized Health Care Education/Training Program; Family Provider Family Medicine; PCP Family Medicine
DX: N13.2 Hydronephrosis with renal and ureteral calculous obstruction (principal)
CPT/HCPCS: 36415; 74177; 80053; 81003; 81015; 83690; 85007; 85025; 96361; 96374; 96375; 99284; J1885; J2405

== ENCOUNTER 2021-03-15 09:13 | Emergency (ER) | payer MEDICARE, OTHER, SELFPAY ==
[2021-03-15 09:17] VITALS: BP 116/56; PULSE 72; RESP 15; TEMP 36.9; O2SAT 99; BMI 22.4
--- NOTE | 2021-03-15 09:41 | ED_ITS ---
HPI - Female Genitourinary General Chief complaint: Urogenital-Female Stated complaint: Kidney stone- getting worse. Here yesterday Time Seen by Provider: 03/15/21 09:39 Source: patient Mode of arrival: Wheelchair Limitations: no limitations History of Present Illness HPI Narrative: This is a 71-year-old female comes emergency department with complaint of right flank pain that is worsening. Patient was seen here yesterday diagnosed with a 5 mm stone without hydro, no signs of infection in her urine and normal renal function. Patient does have a history of CLL and hypothyroidism. Her white count was noted to be that 139 trending upwards and had been 1 29 most recently according to patient and 119 in our system. Patient denies fevers or chills overnight. She states her pain was well controlled when she left it was present but low level at 2-3 and tolerable into the evening she took her tamsulosin and tramadol 2 tablets at every 4-6 hour intervals but that about 3:00 a.m. woke up and was not able to control her pain. She has been nauseated but not had vomiting. She has been afebrile. She denies any chest pain or shortness of breath. Her pain has consented to be in the right flank without any change in location. She has been urinating without issue no dysuria urgency or frequency. No issues with bowel movements or urination. Patient states she came his she could not control her pain at home. She has not had prior kidney stones. Related Data Home Medications Medication Instructions Recorded Confirmed Flax Seed 1 tab DAILY 07/28/19 02/22/21 cholecalciferol (vitamin D3) 50 50 mcg PO DAILY 07/28/19 02/22/21 mcg (2,000 unit) capsule (Vitamin D3) Previous Rx's Medication Instructions Recorded levothyroxine 100 mcg capsule 100 mcg PO DAILY #90 cap 02/22/21 ondansetron 4 mg disintegrating 4 mg PO Q8H PRN 5 Days tab 03/14/21 tablet tamsulosin 0.4 mg capsule 0.4 mg PO BEDTIME #30 cap 03/14/21 tramadol 100 mg tablet 100 mg PO Q6H PRN 4 Days tab 03/14/21 meloxicam 7.5 mg tablet 7.5 mg PO BID #20 tab 03/15/21 oxycodone 5 mg tablet 5 mg PO Q4H PRN #10 tab 03/15/21 Allergies Allergy/AdvReac Type Severity Reaction Status Date / Time No Known Drug Allergies Allergy Verified 03/15/21 09:22 Review of Systems Review of Systems ROS Unobtainable: All systems reviewed & are unremarkable except as noted in HPI and below Patient History Medical History Cervicalgia Hyperparathyroidism Hypothyroidism Lower back pain Neck muscle spasm Osteoarthritis of right knee Surgical History History of thyroidectomy Family History Father Heart disease Family/Other Uterine cancer alcohol intake frequency: a few times a month Substance Use Type: does not use Exam Narrative Exam Narrative: GENERAL: Alert and oriented x three, female in moderate distress. HEENT: Head normocephalic, atraumatic, EOMI, pupils reactive, face symmetric, moist mucous membranes NECK: Supple, full range of motion CARDIOVASCULAR: Regular rate and rhythm without murmurs, rubs or gallops. RESPIRATORY: Breath sounds equal bilaterally, no wheezes rales or rhonchi. ABDOMEN: Soft, nontender. Nondistended. Normoactive bowel sounds all 4 quadrants. No guarding or rebound, rigidity, no mass : No CVA tenderness EXTREMITIES: Normal range of motion, no clubbing or edema. Neurovascularly intact NEUROLOGICAL: Cranial nerves II through XII grossly intact. Moving all extremities SKIN: Warm, dry, no petechiae, no rashes or lesions. Initial Vital Signs Initial Vital Signs: Vital Signs Temperature 98.4 F 03/15/21 09:17 Pulse Rate 72 03/15/21 09:17 Respiratory Rate 15 03/15/21 09:17 Blood Pressure 116/56 L 03/15/21 09:17 Pulse Oximetry 99 03/15/21 09:17 Course Orders Ordered: ED Orders 03/15/21 10:45 US abdomen limited Stat Discontinued Medications Ketorolac Tromethamine (Ketorolac 30 Mg/Ml Vial) 30 mg IV NOW ONE Stop: 03/15/21 09:56 Last Admin: 03/15/21 10:16 Dose: 30 mg Documented by: MELIA Ondansetron HCl (Ondansetron 4 Mg/2 Ml Inj) 4 mg IV Q6HR PRN PRN Reason: Nausea And Vomiting Last Admin: 03/15/21 10:17 Dose: 4 mg Documented by: MELIA Reevaluation(s) Reevaluation #1: Patient feels much better after pain medications. Noted that her pancreatic enzyme had elevated but she is asymptomatic her ultrasound does not show any acute changes she has had prior cholecystectomy. We discussed that this could be related to her CLL and elevated leukocytosis and she is going to follow up with her oncologist regarding this. We discussed ways to better manage her pain and some different options for pain management at home which patient is comfortable with. Vital Signs Vital signs: Vital Signs - 8 hr 03/15/21 12:19 Pulse Rate 71 Blood Pressure 107/56 L Pulse Oximetry 98 MDM - Female Genitourinary Lab Data Result diagrams: 03/15/21 09:45 03/15/21 09:45 Labs: Lab Results 03/15/21 03/15/21 Range/Units 09:45 09:45 WBC 123.6 H* (4.5-11.0) X10^3/uL RBC 3.21 L (4.0-5.2) X10^6/uL Hgb 9.9 L (12.0-16.0) g/dL Hct 32.0 L (36-46) % MCV 99.7 (80-100) fL MCH 31.0 (26-34) PG MCHC 31.1 (30-36) % RDW 13.6 (11.6-14.8) % Plt Count 163 (150-400) X10^3/uL Neut % (Auto) Not Reportable Lymph % (Auto) Not Reportable Converse % (Auto) Not Reportable Eos % (Auto) Not Reportable Baso % (Auto) Not Reportable Lymph # (Auto) Not Reportable Converse # (Auto) Not Reportable Baso # (Auto) Not Reportable Total Counted 100 Seg Neutrophils % 8.0 L (38-70) % Lymphocytes % (Manual) 87.0 H (25-45) % Atypical Lymphs % 4.0 H ( - 0) % Monocytes % (Manual) 1.0 L (2-11) % Neutrophils # (Manual) 9888 H (3637-0490) /uL Smudge Cells 3+ H RBC Morphology Normal morphology Sodium 139 (137-145) mmol/L Potassium 4.2 (3.4-5.1) mmol/L Chloride 108 H (98-107) mmol/L Carbon Dioxide 29 (22-32) mmol/L BUN 18 H (7-17) mg/dL Creatinine 0.85 (0.52-1.04) mg/dL Estimated GFR > 60.0 (>60) mL/min BUN/Creatinine Ratio 21.2 (6-22) Glucose 127 H (80-110) mg/dL Calcium 10.5 H (8.4-10.2) mg/dL Total Bilirubin 0.3 (0.2-1.3) mg/dL AST 24 (14-36) IU/L ALT 14 (<35) IU/L Alkaline Phosphatase 52 (38-126) U/L Total Protein 5.9 L (6.3-8.2) g/dL Albumin 3.8 (3.5-5.0) g/dL Globulin 2.1 (1.7-4.1) g/dL Albumin/Globulin Ratio 1.8 (1.0-2.8) Lipase 1131 H D (23-300) U/L Imaging Data renal US: Radiologist's Impression: [address] [address] Ultrasound Report Signed Patient: Jayla Trevino MR#: [id number] : 1950 Acct:[id number] Age/Sex: 71 / F Date of Service: 03/15/21 Loc: ED Accession Number: [id number] ?? Procedure: US renal complete Ordering Provider: Shelli Madsen D.O. PROCEDURE:? US RENAL COMPLETE ? INDICATIONS:? KNOWN HYDRONEPHROSIS/OBSTRUCTING STONE. WORSENING SYMPTOMS. ? TECHNIQUE:? Real-time scanning was performed of the kidneys and bladder, with image documentation.? ? COMPARISON:? [facility], CT, CT ABDOMEN PELVIS W CON, 03/14/2021, 12:53. ? FINDINGS:? ? Kidneys:? Kidneys are normal in size.? Right kidney measures 11.4 cm long; left kidney measures 10.4 cm long.? Right renal cortical thickness is 1.3 cm; left renal cortical thickness is 1.2 cm.? Renal cortical echotexture is normal.? ? Multiple punctate right-sided kidney stones are seen.? On the left, there also several stones seen, with the largest measuring 1 cm. ? There is moderate right-sided hydronephrosis.? The right proximal ureter is dilated to 2.7 cm.? The mid right ureter is dilated to 1 cm. There is trace to mild right kidney perinephric fluid seen.? ? No left-sided hydronephrosis is seen. ? On the left, there is a potential cyst seen.? However, no cysts can be seen on the recent prior CT examination and this is regarded to be artifactual.? ? Bladder:? Pre-void bladder volume is 14 mL.? Post-void residual measurement was not obtained.? Pre-void images demonstrate no intraluminal masses or stones.? On pre-void images, neither of the ureteral jets are noted with color Doppler int errogation.? (Of note, ureteral jets may not be detectable in up to 25% of cases due to insufficient differences in specific gravity between ureteral and bladder urine).? ? Miscellaneous:? No free pelvic fluid.? IMPRESSION:? Moderate right-sided hydronephrosis, with hydronephrosis also seen. ? Bilateral nonobstructing kidney stones are seen. ? ? Dictated by: Pramod Mandujano M.D. on 03/15/2021 at 10:13 ? ? Approved by: Pramod Mandujano M.D. on 03/15/2021 at 10:17?? US - abdomen: Radiologist's Impression: Close Abdomen Ultrasound (Signed) Pramod Mandujano - 03/15/21 Renal Ultrasound (Signed) Pramod Mandujano - 03/15/21 Abdomen/Pelvis CT (Signed) Huan Garcia - 03/14/21 Head/Neck Ultrasound (Signed) Huan Garcia - 01/06/21 MRI Orbit/Face/Neck/IAC (Signed) Pramod Mandujano - 12/31/20 Modified Barium Swallow (Signed) Ambrosio Ma - 12/14/20 Knee X-Ray (Signed) Bharath Cardenas - 12/13/20 Mammogram Screening (Signed) Hoa Sloan - 10/06/20 Knee X-Ray (Signed) Bharath Cardenas - 04/19/20 Outside DI 09/26/19 Outside DI 09/26/19 Mammogram Diagnostic (Signed) Bharath Cardenas - 09/15/19 Breast Biopsy Ultrasound (Signed) Bharath Cardenas - 09/15/19 Mammogram, Additional Views (Signed) Hoa Sloan - 08/26/19 Breast Ultrasound (Signed) LutherHoa - 08/26/19 Breast Ultrasound (Signed) LutherHoa - 08/26/19 Mammogram Screening (Signed) LutherHoa - 08/16/19 Bone Densitometry 08/01/19 Telemetry Strips 01/14/19 Knee MRI (Signed) Bharath Cardenas - 07/22/18 Foot X-Ray (Signed) HidalgoMarjorie - 05/08/18 Mammogram Screening (Signed) Desi Sung - 09/20/17 Chest/Abdomen/Pelvis CT (Signed) Levar Donaldson - 09/07/17 Oncology Outside DI 08/13/17 Oncology Outside DI 08/13/17 Launch?Image [address] [address] Ultrasound Report Signed Patient: Jayla Trevino MR#: [id number] : 1950 Acct:[id number] Age/Sex: 71 / F Date of Service: 03/15/21 Loc: ED Accession Number: [id number] ?? Procedure: US abdomen limited Ordering Provider: Shelli Madsen D.O. PROCEDURE: US ABDOMEN LIMITED ? INDICATIONS:? pancreatitis ? TECHNIQUE:? Real-time focused scanning was performed of the abdomen, with image documentat ion.? ? COMPARISON:? [facility], US, US RENAL COMPLETE, 03/15/2021, 10:15.? [facility], CT, CT ABDOMEN PELVIS W CON, 03/14/2021, 12:53. ? FINDINGS:? The liver is normal in size and demonstrates no focal lesions. ? No findings of gallstones or sludge are seen.? The gallbladder wall is not thi ckened, measuring 3 mm or less.? No specific pericholecystic fluid is seen.? The sonographic Gill sign is negative. ? There is no biliary dilatation, the common bile duct measures 5 mm.? ? The pancreas is not well seen, yet demonstrates no significant abnormality. ? IMPRESSION:? Pancreas not well seen, yet demonstrating no significant ultrasound abnormality. ? ? Dictated by: Pramod Mandujano M.D. on 03/15/2021 at 10:54 ? ? Approved by: Pramod Mandujano M.D. on 03/15/2021 at 10:55?? [facility] Narrative Medical decision making narrative: This is a 71-year-old female with known kidney stone yesterday that was [address] KUB without hydro. Patient had normal renal function urine was negative for any signs of infection. Patient has had trouble with pain management at home. She was given prescription Zofran but the pharmacy was out. She has been taking tamsulosin and tramadol 2 tablets every 4-6 hours without ability to control her pain. Plan to repeat labs, renal ultrasound to avoid radiation and if these are all stable adjustments in her medication for pain management. Patient's renal function is stable. Her white count is slightly improved. Lipase has increased but she does not have any symptoms. Abdominal ultrasound shows no acute changes for right upper quadrant and her CT renal ultrasound andreia ws some mild hydro. Patient is pain managed with a single dose of Toradol. She states she often does not respond well to narcotics so discussed trying Tylenol, meloxicam and oxycodone p.o. as needed for pain management with plan to return if worsening. She is also going to reach out to her oncologist to update them about her elevated lipase and white count to see if they would like to see her s ooner. Discharge Plan Departure Patient Disposition: Home Clinical Impression: Kidney stone on right side, Elevated pancreatic enzyme Instructions: DI for Kidney Stones Activity Restrictions/Additional Instructions: Follow-up with Urology recheck. Referral is included below. Your pancreatic enzyme or lipase is elevated today. Discuss share this information with your oncologist, your white blood cell count is also quite elevated. We did perform ultrasound today of the abdomen which did not show any blockage or changes to the pancreas, ducts or gallbladder region. CT KUB yesterday also did not show any changes. You may take Tylenol up to a 1000 mg every 8 hours. You may take meloxicam 1 tablet every 12 hours as needed for pain. If in adequate add 1-2 tablets of oxycodone every 6 hours. This medication can make you sleepy do not drive, perform hazardous activities or make any major decisions while taking it. This medication will make you constipated please take a stool softener once to twice daily until stools are soft and regular. Take Zofran 1 tablet every 6 hours as needed. Continue tamsulosin daily. Please return for fevers, worsening pain or inability to control your back or abdominal pain, persistent vomiting, lightheadedness or passing out, black or bloody or other new or concerning symptoms. Prescriptions: New meloxicam 7.5 mg tablet 7.5 mg PO BID Qty: 20 0RF oxycodone 5 mg tablet 5 mg PO Q4H PRN (Reason: pain) Qty: 10 0RF No Action levothyroxine 100 mcg capsule 100 mcg PO DAILY Qty: 90 3RF cholecalciferol (vitamin D3) [Vitamin D3] 50 mcg (2,000 unit) Capsule 50 mcg PO DAILY 0RF Flax Seed 1 tab DAILY 0RF tamsulosin 0.4 mg capsule 0.4 mg PO BEDTIME Qty: 30 0RF tramadol 100 mg tablet 100 mg PO Q6H PRN (Reason: pain) 4 Days 0RF ondansetron 4 mg tablet,disintegrating 4 mg PO Q8H PRN (Reason: nausea and vomiting) 5 Days 0RF Referrals: Kev Mckinley MD [Primary Care Provider] - Henok Shipley MD [Physician] -
--- NOTE | 2021-03-15 09:55 | DI.US.S_ITS ---
PROCEDURE: US RENAL COMPLETE INDICATIONS: KNOWN HYDRONEPHROSIS/OBSTRUCTING STONE. WORSENING SYMPTOMS. TECHNIQUE: Real-time scanning was performed of the kidneys and bladder, with image documentation. COMPARISON: [facility], CT, CT ABDOMEN PELVIS W MIRELLA, 03/14/2021, 12:53. FINDINGS: Kidneys: Kidneys are normal in size. Right kidney measures 11.4 cm long; left kidney measures 10.4 cm long. Right renal cortical thickness is 1.3 cm; left renal cortical thickness is 1.2 cm. Renal cortical echotexture is normal. Multiple punctate right-sided kidney stones are seen. On the left, there also several stones seen, with the largest measuring 1 cm. There is moderate right-sided hydronephrosis. The right proximal ureter is dilated to 2.7 cm. The mid right ureter is dilated to 1 cm. There is trace to mild right kidney perinephric fluid seen. No left-sided hydronephrosis is seen. On the left, there is a potential cyst seen. However, no cysts can be seen on the recent prior CT examination and this is regarded to be artifactual. Bladder: Pre-void bladder volume is 14 mL. Post-void residual measurement was not obtained. Pre-void images demonstrate no intraluminal masses or stones. On pre-void images, neither of the ureteral jets are noted with color Doppler interrogation. (Of note, ureteral jets may not be detectable in up to 25% of cases due to insufficient differences in specific gravity between ureteral and bladder urine). Miscellaneous: No free pelvic fluid. IMPRESSION: Moderate right-sided hydronephrosis, with hydronephrosis also seen. Bilateral nonobstructing kidney stones are seen. Dictated by: Pramod Mandujano M.D. on 03/15/2021 at 10:13 Approved by: Pramod Mandujano M.D. on 03/15/2021 at 10:17
[2021-03-15 10:11] LABS: Hemoglobin 9.9 g/dL (12.0-16.0); Mean Corpuscular HGB Conc 31.1 % (30-36); Mean Corpuscular Volume 99.7 fL (80-100); Platelet Count 163 X10^3/uL (150-400); Red Blood Cell Count 3.21 X10^6/uL (4.0-5.2); Red Cell Distribution Width 13.6 % (11.6-14.8)
[2021-03-15 10:13] LABS: Add Manual Diff / Slide Review YES; White Blood Cell Count 123.6 X10^3/uL (4.5-11.0)
[2021-03-15 10:16] LABS: Alanine Aminotransferase 14 IU/L (<35); Albumin 3.8 g/dL (3.5-5.0); Albumin Globulin Ratio 1.8 (1.0-2.8); Alkaline Phosphatase 52 U/L (38-126); Aspartate Aminotransferase 24 IU/L (14-36); BUN Creatinine Ratio 21.2 (6-22); Bilirubin Total 0.3 mg/dL (0.2-1.3); Blood Urea Nitrogen 18 mg/dL (7-17); Calcium 10.5 mg/dL (8.4-10.2); Carbon Dioxide 29 mmol/L (22-32); Chloride 108 mmol/L (98-107); Estimated Glomerular Filt Rate > 60.0 mL/min (>60); Globulin 2.1 g/dL (1.7-4.1); Glucose 127 mg/dL (80-110); HEMOLYSIS < 15 (0-50); Potassium 4.2 mmol/L (3.4-5.1); Sodium 139 mmol/L (137-145); Total Protein 5.9 g/dL (6.3-8.2)
[2021-03-15] MEDS: KETOROLAC 30 MG/ML VIAL IV (10:16)
[2021-03-15] MEDS: ONDANSETRON 4 MG/2 ML INJ IV (10:17)
[2021-03-15 10:34] LABS: Lipase 1131 U/L (23-300)
[2021-03-15 10:36] LABS: Neutrophils Absolute Manual 9888 /uL (3000-5900); Total Cells Counted 100
[2021-03-15 10:37] LABS: RBC Morphology Normal Morphology; Smudge Cells 3+
--- NOTE | 2021-03-15 10:45 | DI.US.S_ITS ---
PROCEDURE: US ABDOMEN LIMITED INDICATIONS: pancreatitis TECHNIQUE: Real-time focused scanning was performed of the abdomen, with image documentation. COMPARISON: [facility], US, US RENAL COMPLETE, 03/15/2021, 10:15. [facility], CT, CT ABDOMEN PELVIS W CON, 03/14/2021, 12:53. FINDINGS: The liver is normal in size and demonstrates no focal lesions. No findings of gallstones or sludge are seen. The gallbladder wall is not thickened, measuring 3 mm or less. No specific pericholecystic fluid is seen. The sonographic Gill sign is negative. There is no biliary dilatation, the common bile duct measures 5 mm. The pancreas is not well seen, yet demonstrates no significant abnormality. IMPRESSION: Pancreas not well seen, yet demonstrating no significant ultrasound abnormality. Dictated by: Pramod Mandujano M.D. on 03/15/2021 at 10:54 Approved by: Pramod Mandujano M.D. on 03/15/2021 at 10:55
[2021-03-15 12:19] VITALS: BP 107/56; PULSE 71; O2SAT 98
== END 2021-03-15 12:19 | disposition home or self-care (01) ==
PROVIDERS: Emergency Provider Emergency Medicine; Family Provider Family Medicine; PCP Family Medicine
DX: N13.2 Hydronephrosis with renal and ureteral calculous obstruction (principal); R74.8 Abnormal levels of other serum enzymes
CPT/HCPCS: 76705; 76770; 80053; 83690; 85007; 85025; 96374; 96375; 99283; 99284; J1885; J2405

== ENCOUNTER → 2021-03-17 12:18 | Outpatient (CLI) | payer MEDICARE, OTHER, SELFPAY ==
--- NOTE | 2021-03-17 12:24 | DI.RAD.S_ITS ---
PROCEDURE: XR KUB INDICATIONS: possible kidney stones. TECHNIQUE: One view of the abdomen acquired. COMPARISON: [facility], CT, CT ABDOMEN PELVIS W CON, 03/14/2021, 12:53. FINDINGS: Surgical changes and devices: None. Bowel: Bowel gas pattern is normal. Soft tissues: The obstructing calculus at the distal right ureter is probably seen and appears unchanged in position. Bilateral kidney stones are again seen. These appear to be unchanged in location. No suspicious abdominal calcifications. Visualized solid organ contours appear normal in size. Bones: No suspicious bony lesions. Minimal scoliosis. IMPRESSION: Suspect persistent obstructing distal right ureteral calculus. Additional nonobstructing kidney stones. If clinically indicated consider CT KUB for further evaluation. Dictated by: Huan Garcia M.D. on 03/17/2021 at 15:34 Approved by: Huan Garcia M.D. on 03/17/2021 at 15:38
== END ==
PROVIDERS: Family Provider Family Medicine; PCP Family Medicine; Referring Provider Specialist; Visit Provider Specialist
DX: N20.2 Calculus of kidney with calculus of ureter (principal)
CPT/HCPCS: 74018

== ENCOUNTER → 2021-03-18 08:40 | Outpatient (CLI) | payer MEDICARE, OTHER, SELFPAY ==
[2021-03-18 09:30] LABS: COVID19 -Nasal RAPID Negative (Negative)
== END ==
PROVIDERS: Family Provider Family Medicine; PCP Family Medicine; Visit Provider Specialist
DX: Z20.822 Contact with and (suspected) exposure to COVID-19 (principal)
CPT/HCPCS: 87635; C9803

== ENCOUNTER 2021-03-19 10:58 | Emergency (ER) | payer MEDICARE, OTHER, SELFPAY ==
[2021-03-19 11:11] VITALS: BP 124/58; PULSE 79; RESP 18; TEMP 36.8; O2SAT 98; BMI 22.4
--- NOTE | 2021-03-19 11:12 | ED.ABDPAIN ---
HPI - Abdominal Pain General Chief Complaint: Urogenital-Female Stated Complaint: Kidney stone Time Seen by Provider: 03/19/21 11:06 History of Present Illness HPI narrative: 71-year-old female history of CLL hypothyroidism recently diagnosed with 5 mm right-sided kidney stone on 03/14/2021. She was seen again the following day on March 15 for increasing pain. She is scheduled to have a stent with Urology in 2 days. She has been taking oxycodone meloxicam tramadol parker yellow sign. She has been given nausea medication as well. She said that she has only been taking the oxycodone and meloxicam to help with pain but this morning it is no longer helping. She said the previous 2 days she had mild ache but and is tolerable. This morning it is not. She took 1 oxycodone morning around 7:30 a.m. and she says it did not help. She has known CLL with a rising WBC Related Data Home Medications Medication Instructions Recorded Confirmed Flax Seed 1 tab DAILY 07/28/19 02/22/21 cholecalciferol (vitamin D3) 50 50 mcg PO DAILY 07/28/19 02/22/21 mcg (2,000 unit) capsule (Vitamin D3) Previous Rx's Medication Instructions Recorded levothyroxine 100 mcg capsule 100 mcg PO DAILY #90 cap 02/22/21 tamsulosin 0.4 mg capsule 0.4 mg PO BEDTIME #30 cap 03/14/21 meloxicam 7.5 mg tablet 7.5 mg PO BID #20 tab 03/15/21 oxycodone 5 mg tablet 5 mg PO Q4H PRN #10 tab 03/15/21 oxycodone 5 mg tablet 5 mg PO Q6H PRN #12 tab 03/18/21 sulfamethoxazole 800 1 tab PO BID 7 Days #14 tab 03/19/21 mg-trimethoprim 160 mg tablet (Bactrim DS) Allergies Allergy/AdvReac Type Severity Reaction Status Date / Time No Known Drug Allergies Allergy Verified 03/19/21 11:14 Review of Systems Review of Systems Narrative: GENERAL: Denies chills, fatigue, malaise, fever, sweats, travel HEENT: Denies sinus pain, ear pain, sore throat, difficulty swallowing, neck pain RESPIRATORY: Denies dyspnea, cough, wheezing, hemoptysis, sputum. CARDIOVASCULAR: Denies chest pain, palpitations, orthopnea, edema GASTROINTESTINAL: Denies nausea, vomiting, abdominal pain, diarrhea, constipation, melena. : See HPI MUSCULOSKELETAL: Denies weakness, joint pain, or bony pain SKIN: No rash, no erythema, no pruritus NEUROLOGIC: Denies weakness, dizziness, headache, numbness, change in speech, confusion PSYCHIATRIC: No concerning psychosocial issues. 12 point review of systems is negative except for those stated above and HPI Patient History Medical History Cervicalgia Hyperparathyroidism Hypothyroidism Lower back pain Neck muscle spasm Osteoarthritis of right knee Surgical History History of thyroidectomy Family History Father Heart disease Family/Other Uterine cancer Social History marital status: household members: spouse occupational status: employed Smoking Status: Never smoker alcohol intake: current substance use type: does not use Smoking Status: Never smoker alcohol intake frequency: a few times a month Substance Use Type: does not use Exam Initial Vital Signs Initial Vital Signs: Vital Signs Temperature 98.2 F 03/19/21 11:11 Pulse Rate 79 03/19/21 11:11 Respiratory Rate 18 03/19/21 11:11 Blood Pressure 124/58 L 03/19/21 11:11 Pulse Oximetry 98 03/19/21 11:11 GENERAL: 71-year-old female and in no acute distress. HEENT: Head atraumatic,EOMI, pupils reactive, face symmetric, moist mucous membranes CARDIOVASCULAR: Regular rate and rhythm without murmurs, rubs or gallops. RESPIRATORY: Breath sounds equal bilaterally, no wheezes rales or rhonchi. ABDOMEN: Soft, nontender. Normoactive bowel sounds all 4 quadrants. No guarding or rebound. EXTREMITIES: Normal range of motion, no clubbing or edema. Neurovascularly intact : Right flank pain tender to touch NEUROLOGICAL: Alert and oriented x4.Normal gait and speech. SKIN: Warm, dry, no laceration, no petechiae, no rashes or lesions. Course Orders Ordered: ED Orders 03/19/21 11:30 Complete Blood Count AUTO DIFF Stat Comprehensive Metabolic Panel Stat LDH [Lactate Dehydrogenase] Stat Lipase Stat Uric Acid Stat 03/19/21 12:35 Urine Culture Stat Urine Microscopic Stat Discontinued Medications Hydromorphone HCl (Hydromorphone 0.5 Mg Inj) 0.5 mg IV NOW ONE Stop: 03/19/21 15:13 Last Admin: 03/19/21 15:31 Dose: Not Given Documented by: TRENTON Sodium Chloride (Normal Saline 0.9%) 1,000 mls @ 1,000 mls/hr IV CONT NEIL Last Infusion: 03/19/21 13:36 Dose: 0 mls/hr Documented by: Admin: 03/19/21 11:23 Dose: 1,000 mls/hr Documented by: SULAIMAN Ketorolac Tromethamine (Ketorolac 30 Mg/Ml Vial) 30 mg IV NOW ONE Stop: 03/19/21 11:14 Last Admin: 03/19/21 11:22 Dose: 30 mg Documented by: SULAIMAN Ondansetron HCl (Ondansetron 4 Mg/2 Ml Inj) 4 mg IV NOW ONE Stop: 03/19/21 11:15 Last Admin: 03/19/21 11:23 Dose: 4 mg Documented by: SULAIMAN Vital Signs Vital signs: Vital Signs - 8 hr 03/19/21 11:11 03/19/21 11:44 03/19/21 12:00 Temperature 98.2 F Pulse Rate 79 75 79 Respiratory Rate 18 Blood Pressure 124/58 L 111/58 L Pulse Oximetry 98 98 96 03/19/21 12:30 03/19/21 15:29 Temperature Pulse Rate 72 74 Respiratory Rate 18 Blood Pressure 103/54 L 103/57 L Pulse Oximetry 97 99 MDM - Abdominal Pain Lab Data Result diagrams: 03/19/21 11:30 03/19/21 11:30 Labs: Lab Results 03/19/21 03/19/21 03/19/21 Range/Units 11:30 11:30 11:30 WBC 122.9 H* (4.5-11.0) X10^3/uL RBC 3.40 L (4.0-5.2) X10^6/uL Hgb 10.5 L (12.0-16.0) g/dL Hct 33.7 L (36-46) % MCV 99.1 (80-100) fL MCH 30.8 (26-34) PG MCHC 31.1 (30-36) % RDW 13.6 (11.6-14.8) % Plt Count 194 (150-400) X10^3/uL Neut % (Auto) Not Reportable Lymph % (Auto) Not Reportable Bledsoe % (Auto) Not Reportable Eos % (Auto) Not Reportable Baso % (Auto) Not Reportable Lymph # (Auto) Not Reportable Bledsoe # (Auto) Not Reportable Baso # (Auto) Not Reportable Total Counted 100 Seg Neutrophils % 6.0 L (38-70) % Lymphocytes % (Manual) 93.0 H (25-45) % Monocytes % (Manual) 1.0 L (2-11) % Eosinophils % (Manual) 0.0 L (2-4) % Basophils % (Manual) 0.0 (0-1) % Neutrophils # (Manual) 7374 H (5199-4938) /uL Smudge Cells 3+ H RBC Morphology Not Reportable Sodium 138 (137-145) mmol/L Potassium 4.7 (3.4-5.1) mmol/L Chloride 107 (98-107) mmol/L Carbon Dioxide 29 (22-32) mmol/L BUN 20 H (7-17) mg/dL Creatinine 0.98 (0.52-1.04) mg/dL Estimated GFR 55.9 L (>60) mL/min BUN/Creatinine Ratio 20.4 (6-22) Glucose 122 H (80-110) mg/dL Uric Acid 5.4 (2.5-6.2) mg/dL Calcium 11.0 H (8.4-10.2) mg/dL Total Bilirubin 0.4 (0.2-1.3) mg/dL AST 31 (14-36) IU/L ALT 17 (<35) IU/L Alkaline Phosphatase 65 (38-126) U/L Lactate Dehydrogenase (313-618) U/L Total Protein 6.2 L (6.3-8.2) g/dL Albumin 3.9 (3.5-5.0) g/dL Globulin 2.3 (1.7-4.1) g/dL Albumin/Globulin Ratio 1.7 (1.0-2.8) Lipase 67 D (23-300) U/L Urine RBC (0-5/HPF) Urine WBC (0-5/HPF) Urine Bacteria (None) Urine Mucus (Negative) Ur Culture Indicated? 03/19/21 03/19/21 Range/Units 11:30 12:35 WBC (4.5-11.0) X10^3/uL RBC (4.0-5.2) X10^6/uL Hgb (12.0-16.0) g/dL Hct (36-46) % MCV (80-100) fL MCH (26-34) PG MCHC (30-36) % RDW (11.6-14.8) % Plt Count (150-400) X10^3/uL Neut % (Auto) Lymph % (Auto) Bledsoe % (Auto) Eos % (Auto) Baso % (Auto) Lymph # (Auto) Bledsoe # (Auto) Baso # (Auto) Total Counted Seg Neutrophils % (38-70) % Lymphocytes % (Manual) (25-45) % Monocytes % (Manual) (2-11) % Eosinophils % (Manual) (2-4) % Basophils % (Manual) (0-1) % Neutrophils # (Manual) (1764-8516) /uL Smudge Cells RBC Morphology Sodium (137-145) mmol/L Potassium (3.4-5.1) mmol/L Chloride (98-107) mmol/L Carbon Dioxide (22-32) mmol/L BUN (7-17) mg/dL Creatinine (0.52-1.04) mg/dL Estimated GFR (>60) mL/min BUN/Creatinine Ratio (6-22) Glucose (80-110) mg/dL Uric Acid (2.5-6.2) mg/dL Calcium (8.4-10.2) mg/dL Total Bilirubin (0.2-1.3) mg/dL AST (14-36) IU/L ALT (<35) IU/L Alkaline Phosphatase (38-126) U/L Lactate Dehydrogenase 425 (313-618) U/L Total Protein (6.3-8.2) g/dL Albumin (3.5-5.0) g/dL Globulin (1.7-4.1) g/dL Albumin/Globulin Ratio (1.0-2.8) Lipase (23-300) U/L Urine RBC 30-100/hpf H (0-5/HPF) Urine WBC 5-10/hpf H (0-5/HPF) Urine Bacteria Occasional (0-1) (None) Urine Mucus 1+ H (Negative) Ur Culture Indicated? Specimen cultured Point of care testing: Urine Dip Bedside Urine Glucose Negative Bedside Urine Bilirubin - Negative Bedside Urine Ketone +/- 5 Urine Specific Peggs 1.030 Bedside Urine Occult Blood +++ Bedside Urine pH 6.0 Bedside Urine Protein +/- 15 Bedside Urine Urobilinogen - Negative Bedside Urine Nitrite - Negative Bedside Urine Leukocytes - Negative Esterase MDM Narrative Medical decision making narrative: PATIENT INITIALLY SAID TORADOL WAS WORKING FOR PAIN WITH AND TOLD NURSING STAFF HER PAIN WITH OUT OF CONTROL OFFER DILAUDID AND DECLINED. Patient is found have mild UTI. She has CLL which seems to be closely followed with her home administrator she is quite aware that her WBC count is rising. She has appointment with oncology next week. Discussed case with Dr. Laboy on-call Urology, states that she called the office yesterday he still to prescription of oxycodone 12 tablets yesterday. She is scheduled to have a stent in 2 days. I discussed with her that I will not be giving her any more pain medications. She says that she has 8 tablets he left. We did discuss proper pain management recommend that she take the medication every 4 hours I think maybe she was behind on her pain medicine today. She understands and agrees. She has already had ultrasound and CT this week at this time no need for reimaging. Kidney function remained stable. Discharge Plan Departure Patient Disposition: Home Clinical Impression: Kidney stone, Acute UTI Instructions: DI for Kidney Stones, DI for Urinary Tract Infection (UTI) Activity Restrictions/Additional Instructions: *You have been diagnosed with kidney stone, UTI *What to do: At this time recommend pain control with medication in till your stent on Sunday. It is also noted that have a mild infection. Please continue to follow-up with your oncologist in regards to your CLL *Continue to take medications as directed Bactrim 1 tab twice a day for 7 days--> SENT TO [facility], PLEASE START TODAY *Follow up with your primary care provider in 2-3 days or call [phone] Follow-up with urology on Sunday as scheduled *Return to ER if you should have increasing pain, fever, or any new, worsening or concerning symptoms Prescriptions: New sulfamethoxazole-trimethoprim [Bactrim DS] 800-160 mg tablet 1 tab PO BID 7 Days Qty: 14 0RF No Action oxycodone 5 mg tablet 5 mg PO Q6H PRN (Reason: pain) Qty: 12 0RF levothyroxine 100 mcg capsule 100 mcg PO DAILY Qty: 90 3RF cholecalciferol (vitamin D3) [Vitamin D3] 50 mcg (2,000 unit) Capsule 50 mcg PO DAILY 0RF Flax Seed 1 tab DAILY 0RF tamsulosin 0.4 mg capsule 0.4 mg PO BEDTIME Qty: 30 0RF meloxicam 7.5 mg tablet 7.5 mg PO BID Qty: 20 0RF oxycodone 5 mg tablet 5 mg PO Q4H PRN (Reason: pain) Qty: 10 0RF Referrals: Kev Mckinley MD [Primary Care Provider] - Henok Shipley MD [Physician] - Wade Laboy MD [Physician] -
[2021-03-19] MEDS: KETOROLAC 30 MG/ML VIAL IV (11:22)
[2021-03-19] MEDS: ONDANSETRON 4 MG/2 ML INJ IV (11:23)
[2021-03-19] MEDS: SODIUM CHLORIDE 0.9% 1,000 ML 1000 ML IV (11:23)
[2021-03-19 11:44] VITALS: PULSE 75; O2SAT 98
[2021-03-19 11:47] LABS: Hematocrit 33.7 % (36-46); Hemoglobin 10.5 g/dL (12.0-16.0); Mean Corpuscular HGB Conc 31.1 % (30-36); Mean Corpuscular Hemoglobin 30.8 PG (26-34); Mean Corpuscular Volume 99.1 fL (80-100); Platelet Count 194 X10^3/uL (150-400); Red Cell Distribution Width 13.6 % (11.6-14.8)
[2021-03-19 12:00] VITALS: BP 111/58; PULSE 79; O2SAT 96
[2021-03-19 12:04] LABS: Add Manual Diff / Slide Review YES
[2021-03-19 12:05] LABS: White Blood Cell Count 122.9 X10^3/uL (4.5-11.0)
[2021-03-19 12:14] LABS: Lactate Dehydrogenase 425 U/L (313-618)
[2021-03-19 12:15] LABS: Uric Acid 5.4 mg/dL (2.5-6.2)
[2021-03-19 12:16] LABS: Alanine Aminotransferase 17 IU/L (<35); Albumin 3.9 g/dL (3.5-5.0); Albumin Globulin Ratio 1.7 (1.0-2.8); Alkaline Phosphatase 65 U/L (38-126); Aspartate Aminotransferase 31 IU/L (14-36); BUN Creatinine Ratio 20.4 (6-22); Bilirubin Total 0.4 mg/dL (0.2-1.3); Blood Urea Nitrogen 20 mg/dL (7-17); Carbon Dioxide 29 mmol/L (22-32); Chloride 107 mmol/L (98-107); Estimated Glomerular Filt Rate 55.9 mL/min (>60); Globulin 2.3 g/dL (1.7-4.1); Glucose 122 mg/dL (80-110); HEMOLYSIS < 15 (0-50); Lipase 67 U/L (23-300); Potassium 4.7 mmol/L (3.4-5.1); Sodium 138 mmol/L (137-145); Total Protein 6.2 g/dL (6.3-8.2)
[2021-03-19 12:30] VITALS: BP 103/54; PULSE 72; O2SAT 97
[2021-03-19 12:54] LABS: Neutrophils Absolute Manual 7374 /uL (3000-5900); Total Cells Counted 100
[2021-03-19 12:55] LABS: Smudge Cells 3+
[2021-03-19 13:23] LABS: Bacteria Urine Occasional (0-1); Mucus Urine 1+ (Negative); RBC Urine 30-100/HPF (0-5/HPF); WBC Urine 5-10/HPF (0-5/HPF)
[2021-03-19 13:24] LABS: Culture Indicated Urine Specimen Cultured
[2021-03-19 15:29] VITALS: BP 103/57; PULSE 74; RESP 18; O2SAT 99
== END 2021-03-19 15:32 | disposition home or self-care (01) ==
PROVIDERS: Emergency Provider Emergency Medicine; Family Provider Family Medicine; PCP Family Medicine
DX: N20.0 Calculus of kidney (principal); N39.0 Urinary tract infection, site not specified
CPT/HCPCS: 36415; 80053; 81003; 81015; 83615; 83690; 84550; 85007; 85025; 87086; 96361; 96374; 96375; 99284; J1885; J2405

== ENCOUNTER 2021-03-21 07:38 | Day surgery (SDC) | payer MEDICARE, OTHER, SELFPAY ==
[2021-03-21] VITALS (9 sets, daily range): BP systolic 113–129; BP diastolic 63–83; PULSE 75–96; RESP 12–16; TEMP 36.7–37.1; O2SAT 96–100; BMI 49.9
--- NOTE | 2021-03-21 | DI.RAD.S_ITS ---
PROCEDURE: XR ABDOMEN 1V INDICATIONS: RIGHT STENT TECHNIQUE: Single fluoroscopic spot film of the right upper quadrant was obtained COMPARISON: None. FINDINGS: Single low resolution intraoperative fluoroscopic spot film shows the renal portion of a double-J ureteral stent projecting over the renal shadow with guidewire in place. IMPRESSION: Fluoroscopic guidance Approved by: Timbo Roman M.D. on 03/21/2021 at 12:04
[2021-03-21] MEDS: LACTATED RINGERS 1,000 ML 42 ML IV (08:15)
--- NOTE | 2021-03-21 09:36 | PM.PREOP ---
Pre-operative Note COVID-19 Criteria for continued procedure: Expected advancement of disease process, Possibility delay results in more complex future surgery or treatment, Continuing or worsening of significant or severe pain, Deterioration of the patient's condition or overall health, Delay expected to result in less-positive ultimate med/surg outcome and Non-surgical alternatives not available or appropriate per current SOC Interval Note History & Physical reviewed/Exam performed by Physician: Yes Changes to H&P: No
--- NOTE | 2021-03-21 09:39 | P.HP_ITS ---
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 She presented to [facility] Emergency Department for further evaluation. CT KUB indicated that there was an obstructing 5 mm right distal ureteral calculus. Also seen, were bilateral 9 mm nonobstructing renal calculi. Urinalysis was clear. She struggled with recurrent colic and presented again on 03/19/2021. Urinalysis again was negative in subsequent culture was negative. And set an opioid pain medication regimens were adjusted and patient was counseled accordingly in preparation for presentation today for definitive intervention. Explained radiographic findings and for rationale for ureteroscopic laser lithotripsy (see below). Patient History Medical History (Updated 03/21/21 @ 09:41 by Henok Shipley MD) Bilateral nephrolithiasis Cervicalgia Hyperparathyroidism Hypothyroidism Lower back pain Neck muscle spasm Osteoarthritis of right knee Renal colic on right side Right ureteral calculus Surgical History History of thyroidectomy Family & Social History Family History Father Heart disease Family/Other Uterine cancer Social History: household members spouse Tobacco & Substance use: Smoking Status Never smoker alcohol intake current alcohol intake frequency a few times a month Substance Use Type does not use Meds Home Medications and Allergies Home Medications Medication Instructions Recorded Confirmed Type Flax Seed 1 tab DAILY 07/28/19 02/22/21 History cholecalciferol (vitamin D3) 50 50 mcg PO DAILY 07/28/19 02/22/21 History mcg (2,000 unit) capsule (Vitamin D3) levothyroxine 100 mcg capsule 100 mcg PO DAILY #90 cap 02/22/21 02/22/21 Rx tamsulosin 0.4 mg capsule 0.4 mg PO BEDTIME #30 cap 03/14/21 Rx meloxicam 7.5 mg tablet 7.5 mg PO BID #20 tab 03/15/21 Rx oxycodone 5 mg tablet 5 mg PO Q4H PRN #10 tab 03/15/21 Rx oxycodone 5 mg tablet 5 mg PO Q6H PRN #12 tab 03/18/21 Rx sulfamethoxazole 800 1 tab PO BID 7 Days #14 tab 03/19/21 Rx mg-trimethoprim 160 mg tablet (Bactrim DS) Allergies Allergy/AdvReac Type Severity Reaction Status Date / Time No Known Drug Allergies Allergy Verified 03/21/21 07:49 Review of Systems Review of Systems ROS: Yes All systems reviewed with the patient and are negative except as otherwise documented Exam Vital Signs (past 8 hours): - 03/21/21 08:01 Temperature 98.5 F Pulse Rate 80 Respiratory Rate 16 Blood Pressure 123/83 Pulse Oximetry 100 Oxygen Delivery Method Room Air Assessment & Plan Assessment and plan (1) Right ureteral calculus: Status: Acute (2) Renal colic on right side: Status: Acute (3) Bilateral nephrolithiasis: Status: Acute Plan 1. Cystoscopy/right ureteroscopic laser lithotripsy/possible placement right ureteral stent. 2. Consideration and discussion of treatment of bilateral 9 mm ureteral calculi- future. Reviewed findings and discussed impression and options. Explained rationale and indications for ureteroscopy and laser lithotripsy of stone remains in distal ureter. Explained the common side effects, possible complications, perioperative limitations/restrictions, and reasonable expectations of outcomes and recovery following ureteroscopic laser lithotripsy. The patient had several appropriate clarifying questions and concerns which were addressed to her satisfaction at the encounter. She indicates a desire to proceed. Time Spent With Patient Critical Care time: I spent a total of [] minutes of critical care time on this patient's care today; this time is exclusive of procedural time.
[2021-03-21] MEDS: CEFAZOLIN 2 GM/20 ML SYRINGE IV (09:44)
--- NOTE | 2021-03-21 09:56 | SUR.OPER ---
Lithotomy on padded OR bed, head on pillow, arms secured on padded arm boards at <90 degrees abduction. Legs secured in padded yellow fins stirrups.
[2021-03-21] MEDS: IOPAMIDOL 15 ML VIAL INJ (10:08)
[2021-03-21] MEDS: BELLADONNA/OPIUM SUPPOSITORIES 1 EACH PR (10:08)
--- NOTE | 2021-03-21 10:31 | SUR.OPER ---
LASER ENERGY 1.279, FREQ 40/14 POWER 8 TIME 2.40
--- NOTE | 2021-03-21 10:46 | P.OP_ITS ---
Operative Date/Time/Diagnoses Date of procedure: 03/21/21 Time of procedure: 10:46 Pre-op diagnosis: 1. Obstructing 5 mm right distal ureteral calculus. 2. Intractable right renal colic. Procedure & Clinicians Procedure: 1. Cystoscopy/right ureteroscopic laser lithotripsy/. 2. Cystoscopy placement right ureteral stent (6 Cuban by 22-32 cm multi- length). Same procedure as scheduled: Yes Indications: 1. Obstructing 5 mm right distal ureteral calculus. 2. Intractable right renal colic. Surgeon: Henok Shipley Click Yes if Unassisted: Yes Anesthesia Type: General Operative Notes Findings: 1. Urethra-moderate cortical was surrounding atrophic vaginitis. 2. Bladder-Normal bladder urothelium. Normal ureteral orifices bilaterally. 3. Right ureter-index calculus encountered just above the right ureterovesical junction. There was moderately severe surrounding edema and mucosal inflammation. Closure Type: not applicable Specimen(s): none sent Applied: other (Six Cuban by 22-32 cm multi-length stent.) Estimated Blood Loss (mL): 0 Blood products transfused: none Procedure in detail: The patient was positioned supine was administered general anesthesia. She was then repositioned semi lithotomy and the lower abdomen, genitalia, and groin were then prepped and draped in sterile fashion. Twenty-two Cuban panendoscope with impassable urinary tract with the findings as described above. A 0.35 hybrid guidewire was then selected and advanced in the right collecting system under direct and fluoroscopic guidance. Over this, a 12 Cuban by 6 cm balloon dilating catheter was a selected and advanced over the guidewire, again under direct and fluoroscopic guidance. The balloon was positioned across the right ureterovesical junction and was inflated 18 atmospheres and maintained for 5 minutes. After which the balloon was deflated and backloaded off the guidewire. The panendoscope was then backloaded off the guidewire. Next, semi rigid ureteral scope was repaired advanced lower urinary tract and then proximally into the right ureter with the findings as described above. A 200 micron laser fiber was then requested and all operating personnel and patient were fitted with laser safety eyewear. Laser lithotripsy was then commenced and the stone fragmented readily. Most, if not all fragments were cleared from the distal ureter with combined mechanical and hydrostatic forces. The ureteral scope was then removed and the panendoscope was front loaded on the guidewire. A 6 Cuban by 22-32 cm multi-length stent was then selected and advanced over the hybrid guidewire under direct and fluoroscopic guidance. A RETRIEVAL LINE WAS LEFT attached. The bladder is then drained completely and all instrumentation was removed. The patient was repositioned in supine, was awakened, and and then was transported to recovery in stable condition. Complications: none Post-operative Condition: stable Disposition: PACU Plan for aftercare: Discharge home.
[2021-03-21] MEDS: HYDROCODONE/ACET 5/325 TABLET 1 TAB PO (11:02)
--- NOTE | 2021-03-21 12:08 | SUR.PHASEII ---
All nursing care and charted by Erin GIBSON supervised by Sherry Mandujano RN. Dr Shipley in to see patient and update on surgery while patient in PACU
[2021-03-24 15:09] LABS: Ca oxalate dihydrate 90 % (.); Hydroxyapatite 10 % (.)
== END 2021-03-21 11:50 | disposition home or self-care (01) ==
PROVIDERS: Family Provider Family Medicine; PCP Family Medicine; Referring Provider Specialist; Visit Provider Specialist
PROC: (CPT 52356; principal; 2021-03-21 09:15)
DX: N20.1 Calculus of ureter (principal); N95.2 Postmenopausal atrophic vaginitis; E03.9 Hypothyroidism, unspecified
CPT/HCPCS: 52356; 74018; 76000; 82365; C1771; J0690; J1100; J2405; J2704; J3010

== ENCOUNTER → 2021-03-29 11:09 | Outpatient (CLI) | payer MEDICARE, OTHER, SELFPAY ==
[2021-03-29 11:34] LABS: Hematocrit 34.2 % (36-46); Hemoglobin 11.1 g/dL (12.0-16.0); Mean Corpuscular HGB Conc 32.4 % (30-36); Mean Corpuscular Hemoglobin 31.4 PG (26-34); Platelet Count 235 X10^3/uL (150-400); Red Blood Cell Count 3.53 X10^6/uL (4.0-5.2); Red Cell Distribution Width 13.5 % (11.6-14.8)
[2021-03-29 11:42] LABS: Add Manual Diff / Slide Review YES; White Blood Cell Count 151.5 X10^3/uL (4.5-11.0)
[2021-03-29 11:46] LABS: Alanine Aminotransferase 22 IU/L (<35); Albumin 4.3 g/dL (3.5-5.0); Albumin Globulin Ratio 1.7 (1.0-2.8); Alkaline Phosphatase 67 U/L (38-126); Aspartate Aminotransferase 46 IU/L (14-36); BUN Creatinine Ratio 19.8 (6-22); Bilirubin Total 0.4 mg/dL (0.2-1.3); Blood Urea Nitrogen 18 mg/dL (7-17); Calcium 10.8 mg/dL (8.4-10.2); Carbon Dioxide 27 mmol/L (22-32); Chloride 105 mmol/L (98-107); Estimated Glomerular Filt Rate > 60.0 mL/min (>60); Globulin 2.6 g/dL (1.7-4.1); Glucose 96 mg/dL (80-110); HEMOLYSIS 32 (0-50); Lactate Dehydrogenase 660 U/L (313-618); Sodium 134 mmol/L (137-145); Total Protein 6.9 g/dL (6.3-8.2)
[2021-03-29 11:48] LABS: Lipase 104 U/L (23-300)
[2021-03-29 11:48] LABS: Potassium 6.5 mmol/L (3.4-5.1)
[2021-03-29 11:58] LABS: Neutrophils Absolute Manual 7575 /uL (3000-5900); Total Cells Counted 100
[2021-03-29 11:59] LABS: RBC Morphology Normal Morphology; Smudge Cells 2+
--- NOTE | 2021-03-29 12:32 | PC.NURSE ---
critical lab results: Received critical WBC 151.5 from See in lab Received critical potassium result 6.5 This RN informed Sam sales supervisor. Sam notified Dr. Wray. According to Sam, Dr. Wray would like the labs redrawn to verify accuracy and pt to see Dr. Sánchez on . Orders entered. Sam attempted to contact pt, left message with Joe to have pt call [facility] Joe clayton to deliver message.
--- NOTE | 2021-03-29 12:57 | PC.NURSE ---
Critical K+ of 6.5: patient reached by this nurse per cell phone and informed that she needs to come in for a redraw and to wait at the hospital for results. She was informed that K+ is critical for her heart function and if the second lab continues to show high K+ she will have to go to the ER. Patient voiced understanding and that she will come up to [facility] to wait for her results.
--- NOTE | 2021-03-29 13:00 | PC.NURSE ---
WBC 151.5: PATIENT WAS INFORMED OF THIS RESULT AND THAT DR TOSCANO RECOMMENDS SHE COME TO AN APPT WITH DR LIVE ON 04/02. PATIENT RESPONDED THAT SHE IS TRANSFERRING HER CARE TO [facility] AND WILL NOT MEET WITH DR LIVE. SCHEDULERS INFORMED BY ANA M BAEZ TO CANCEL THE APPT.
[2021-03-29 13:39] LABS: Hematocrit 35.4 % (36-46); Hemoglobin 11.3 g/dL (12.0-16.0); Platelet Count 248 X10^3/uL (150-400); Red Blood Cell Count 3.65 X10^6/uL (4.0-5.2); Red Cell Distribution Width 13.5 % (11.6-14.8)
[2021-03-29 13:42] LABS: Add Manual Diff / Slide Review NO; Alanine Aminotransferase 23 IU/L (<35); Albumin 4.6 g/dL (3.5-5.0); Albumin Globulin Ratio 1.8 (1.0-2.8); Alkaline Phosphatase 84 U/L (38-126); Aspartate Aminotransferase 32 IU/L (14-36); Bilirubin Total 0.3 mg/dL (0.2-1.3); Blood Urea Nitrogen 16 mg/dL (7-17); Calcium 11.2 mg/dL (8.4-10.2); Carbon Dioxide 27 mmol/L (22-32); Chloride 106 mmol/L (98-107); Estimated Glomerular Filt Rate > 60.0 mL/min (>60); Globulin 2.5 g/dL (1.7-4.1); Glucose 118 mg/dL (80-110); HEMOLYSIS < 15 (0-50); Potassium 4.9 mmol/L (3.4-5.1); Sodium 136 mmol/L (137-145); Total Protein 7.1 g/dL (6.3-8.2); White Blood Cell Count 159.9 X10^3/uL (4.5-11.0)
== END ==
PROVIDERS: Internal Medicine Hematology & Oncology; Internal Medicine Medical Oncology; Family Provider Family Medicine; PCP Family Medicine; Referring Provider Family Medicine; Visit Provider Family Medicine
DX: R74.8 Abnormal levels of other serum enzymes (principal); C91.10 Chronic lymphocytic leukemia of B-cell type not having achieved remission; N20.1 Calculus of ureter
CPT/HCPCS: 36415; 80053; 83615; 83690; 85007; 85025; 99211

== ENCOUNTER → 2021-05-07 08:41 | Outpatient (CLI) | payer MEDICARE, OTHER, SELFPAY ==
[2021-05-07 09:34] LABS: Calcium 10.7 mg/dL (8.4-10.2); Uric Acid 5.5 mg/dL (2.5-6.2)
[2021-05-09 13:20] LABS: Calcium 10.9 mg/dL (8.7-10.3); Parathyroid Hormone, Intact 117 pg/mL (15-65)
== END ==
PROVIDERS: Family Provider Family Medicine; PCP Family Medicine; Referring Provider Specialist; Visit Provider Specialist
DX: N20.1 Calculus of ureter (principal); N20.0 Calculus of kidney
CPT/HCPCS: 36415; 82310; 83970; 84550

== ENCOUNTER → 2021-05-09 09:42 | Outpatient (CLI) | payer MEDICARE, OTHER, SELFPAY ==
--- NOTE | 2021-05-09 09:45 | DI.RAD.S_ITS ---
PROCEDURE: XR KUB INDICATIONS: Kidney stone TECHNIQUE: One view of the abdomen acquired. COMPARISON: [facility], CT, CT ABDOMEN PELVIS W CON, 03/14/2021, 12:53. [facility], CR, XR KUB, 03/17/2021, 12:20. [facility], CR, XR ABDOMEN 1V, 03/21/2021, 11:40. FINDINGS: Surgical changes and devices: None. Bowel: Bowel gas pattern is normal. Soft tissues: Calcific densities projecting over the left renal pelvis in the inferior pole of the left kidney which correspond to stones identified by prior CT scan obtained March 14, 2021 are not significantly changed in position compared to prior exams. Calcific density projecting over the upper pole of the right kidney which corresponds to stone identified by prior CT scan is not significantly changed compared to prior examinations. Stone projecting over the expected course of the distal right ureter is stable compared to prior exams. Visualized solid organ contours appear normal in size. Bones: No suspicious bony lesions. IMPRESSION: Stable examination. Distal right ureteral stone, left renal pelvic stone and bilateral renal cortical stones are unchanged in position compared to prior exams. Dictated by: Sahara Guzmán MD, PhD on 05/09/2021 at 10:27 Approved by: Sahara Guzmán MD, PhD on 05/09/2021 at 10:33
== END ==
PROVIDERS: Family Provider Family Medicine; PCP Family Medicine; Referring Provider Specialist; Visit Provider Specialist
DX: N20.2 Calculus of kidney with calculus of ureter (principal)
CPT/HCPCS: 74018

== ENCOUNTER → 2021-05-16 11:14 | Outpatient (CLI) | payer MEDICARE, OTHER, SELFPAY ==
[2021-05-16 12:31] LABS: Hematocrit 35.5 % (36-46); Mean Corpuscular Hemoglobin 30.3 PG (26-34); Mean Corpuscular Volume 97.8 fL (80-100); Platelet Count 196 X10^3/uL (150-400); Red Blood Cell Count 3.63 X10^6/uL (4.0-5.2); Red Cell Distribution Width 13.9 % (11.6-14.8)
[2021-05-16 12:34] LABS: Add Manual Diff / Slide Review YES
[2021-05-16 12:44] LABS: Alanine Aminotransferase 20 IU/L (<35); Albumin 4.4 g/dL (3.5-5.0); Albumin Globulin Ratio 1.9 (1.0-2.8); Alkaline Phosphatase 77 U/L (38-126); Aspartate Aminotransferase 31 IU/L (14-36); BUN Creatinine Ratio 16.7 (6-22); Bilirubin Total 0.3 mg/dL (0.2-1.3); Blood Urea Nitrogen 12 mg/dL (7-17); Calcium 10.6 mg/dL (8.4-10.2); Carbon Dioxide 29 mmol/L (22-32); Chloride 106 mmol/L (98-107); Estimated Glomerular Filt Rate > 60.0 mL/min (>60); Globulin 2.3 g/dL (1.7-4.1); Glucose 95 mg/dL (80-110); HEMOLYSIS < 15 (0-50); Lactate Dehydrogenase 465 U/L (313-618); Potassium 3.7 mmol/L (3.4-5.1); Sodium 141 mmol/L (137-145); Total Protein 6.7 g/dL (6.3-8.2); Uric Acid 5.1 mg/dL (2.5-6.2)
[2021-05-16 12:52] LABS: Neutrophils Absolute Manual 8082 /uL (3000-5900); RBC Morphology Normal Morphology; Smudge Cells 2+; Total Cells Counted 50
[2021-05-16 13:35] LABS: White Blood Cell Count 134.7 X10^3/uL (4.5-11.0)
== END ==
PROVIDERS: Family Provider Family Medicine; PCP Family Medicine; Referring Provider Internal Medicine Hematology & Oncology; Visit Provider Internal Medicine Hematology & Oncology
DX: C91.10 Chronic lymphocytic leukemia of B-cell type not having achieved remission (principal)
CPT/HCPCS: 36415; 80053; 83615; 84550; 85007; 85025

== ENCOUNTER → 2021-06-02 11:29 | Outpatient (CLI) | payer MEDICARE, OTHER, SELFPAY ==
--- NOTE | 2021-06-02 | DI.RAD.S_ITS ---
PROCEDURE: XR ABDOMEN 1V INDICATIONS: Calculus of kidney TECHNIQUE: One view of the abdomen acquired. COMPARISON: [facility], CR, XR KUB, 03/17/2021, 12:20. [facility], CR, XR ABDOMEN 1V, 03/21/2021, 11:40. FINDINGS: Left inferior pole renal calculi, one measuring 1.2 cm and the other measuring 1.0 cm. No renal calculi on the right. No evidence of ureteral calculus.. IMPRESSION: 2 lower pole calculi in the left kidney. Dictated by: Ambrosio Ma M.D. on 06/02/2021 at 15:27 Approved by: Ambrosio Ma M.D. on 06/02/2021 at 15:29
== END ==
PROVIDERS: Family Provider Family Medicine; PCP Family Medicine; Referring Provider Physician Assistant Surgical; Visit Provider Physician Assistant Surgical
DX: N20.0 Calculus of kidney (principal)
CPT/HCPCS: 74018

== ENCOUNTER → 2021-06-08 09:00 | Outpatient (CLI) | payer MEDICARE, OTHER, SELFPAY ==
[2021-06-08 13:50] LABS: COVID-19 CEPHEID PCR (VTM/NP) Negative (Negative)
== END ==
PROVIDERS: Family Provider Family Medicine; PCP Family Medicine; Visit Provider Family Medicine Sleep Medicine
DX: Z20.822 Contact with and (suspected) exposure to COVID-19 (principal)
CPT/HCPCS: C9803; U0003; U0005

== ENCOUNTER → 2021-06-22 11:02 | Outpatient (CLI) | payer MEDICARE, OTHER, SELFPAY ==
--- NOTE | 2021-06-22 | DI.MRI.S_ITS ---
PROCEDURE: MR BRAIN (IAC) WWO CON INDICATIONS: Benign neoplasm of cranial nerves TECHNIQUE: Noncontrast sagittal T1 spin echo, axial FLAIR, axial gradient echo, axial diffusion and ADC through the brain. Axial thin-slice 3D CISS, coronal TruFISP, axial T1 spin echo with fat saturation through the internal auditory canals. After the administration of contrast, thin slice axial and coronal T1 spin echo with fat saturation through the internal auditory canals, and axial T1 spin echo with fat saturation through the brain. COMPARISON: [facility], MR, MR BRAIN (IAC) WWO CON, 12/31/2020, 9:34. FINDINGS: Image quality: Excellent. Cerebellopontine angles: Stable enhancing mass lesion in the left IAC meatus measuring 11 x 7 x 5 mm. Right internal auditory canal and 7th and 8th cranial nerve complex unremarkable. CSF spaces: Ventricles are normal in size and shape. No extra-axial fluid collections. Basal cisterns are patent. Brain: No intracranial bleeds or mass effects. Cope-white matter interface is intact. No abnormal intracranial enhancement. Diffusion weighted images demonstrate no acute ischemic insults. Brainstem appears normal. Normal intravascular flow voids are present. Skull and face: Calvarial marrow signal is normal. Orbits appear normal. Sinuses: Sinuses and mastoids are clear. IMPRESSION: Stable left vestibular schwannoma Approved by: Timbo Roman M.D. on 06/22/2021 at 13:36
== END ==
PROVIDERS: Family Provider Family Medicine; PCP Family Medicine; Referring Provider Otolaryngology; Visit Provider Otolaryngology
DX: D33.3 Benign neoplasm of cranial nerves (principal)
CPT/HCPCS: 70553; A9579

== ENCOUNTER → 2021-08-16 08:21 | Outpatient (CLI) | payer MEDICARE, OTHER, SELFPAY ==
--- NOTE | 2021-08-16 | DI.US.S_ITS ---
PROCEDURE: US RETROPERITONEAL COMP INDICATIONS: CALCULUS OF KIDNEY TECHNIQUE: Real-time scanning was performed of the kidneys and bladder, with image documentation. COMPARISON: [facility], CR, XR ABDOMEN 1V, 06/02/2021, 11:43. [facility], CT, CT ABDOMEN PELVIS W CON, 03/14/2021, 12:53. [facility], CR, XR ABDOMEN 1V, 08/16/2021, 8:48. [facility], US, US ABDOMEN LIMITED, 03/15/2021, 11:34. FINDINGS: Kidneys: Kidneys are normal in size. Right kidney measures 10.6 cm long; left kidney measures 11 cm long. Right renal cortical thickness is 1.6 cm; left renal cortical thickness is 1.5 cm. Renal cortical echotexture is normal. No hydronephrosis. No suspicious solid mass lesions. There is a 9 mm lateral right kidney stone seen. Bladder: Pre-void bladder volume is 72 mL. Post-void residual is 5 mL. Pre-void images demonstrate no intraluminal masses or stones. On pre-void images, both ureteral jets are noted with color Doppler interrogation. (Of note, ureteral jets may not be detectable in up to 25% of cases due to insufficient differences in specific gravity between ureteral and bladder urine). Miscellaneous: No free pelvic fluid. IMPRESSION: 9 mm nonobstructing right-sided kidney stone. Negative for hydronephrosis on either side. Dictated by: Pramod Mandujano M.D. on 08/16/2021 at 9:01 Approved by: Pramod Mandujano M.D. on 08/16/2021 at 9:03
== END ==
PROVIDERS: Family Provider Family Medicine; PCP Family Medicine; Referring Provider Urology; Visit Provider Urology
DX: N20.0 Calculus of kidney (principal)
CPT/HCPCS: 76770

== ENCOUNTER → 2021-08-16 08:51 | Outpatient (CLI) | payer MEDICARE, OTHER, SELFPAY ==
--- NOTE | 2021-08-16 | DI.RAD.S_ITS ---
PROCEDURE: XR ABDOMEN 1V INDICATIONS: Calculus of kidney TECHNIQUE: One view of the abdomen acquired. COMPARISON: [facility], CR, XR ABDOMEN 1V, 06/02/2021, 11:43. FINDINGS: Surgical changes and devices: None. Bowel: Bowel gas pattern is normal. Soft tissues: The calcifications visualized over the expected location of the left kidney on the comparison plain film dated June 02, 2021 are no longer visualized. A 7 mm calcification is projected over the right upper quadrant which may represent a right renal calculus. No calcifications are visualized in the expected course of the lower renal tracks or the bladder. Bones: No suspicious bony lesions. IMPRESSION: 1. Previously visualized left upper quadrant calcifications no longer visualized. 2. Questionable 7 mm right renal calculus. Dictated by: Desi Sung M.D. on 08/16/2021 at 12:57 Approved by: Desi Sung M.D. on 08/16/2021 at 12:57
== END ==
PROVIDERS: Family Provider Family Medicine; PCP Family Medicine; Referring Provider Physician Assistant Surgical; Visit Provider Physician Assistant Surgical
DX: N20.0 Calculus of kidney (principal)
CPT/HCPCS: 74018; 76770

== ENCOUNTER → 2021-09-20 06:58 | Outpatient (CLI) | payer MEDICARE, OTHER, SELFPAY ==
[2021-09-21 07:10] LABS: Calcium 9.1 mg/dL (8.7-10.3); Parathyroid Hormone, Intact 63 pg/mL (15-65)
== END ==
PROVIDERS: Family Provider Family Medicine; PCP Family Medicine; Referring Provider Physician Assistant; Visit Provider Physician Assistant
DX: E21.0 Primary hyperparathyroidism (principal)
CPT/HCPCS: 36415; 82310; 83970

== ENCOUNTER → 2021-10-11 07:54 | Outpatient (CLI) | payer MEDICARE, OTHER, SELFPAY ==
--- NOTE | 2021-10-11 | DI.MG.S_ITS ---
BILATERAL DIGITAL SCREENING MAMMOGRAM 3D/2D WITH CAD POST LUMPECTOMY: 10/11/2021 CLINICAL: Routine screening. Comparison is made to exams dated: 10/06/2020 mammogram, 08/16/2019 mammogram, and 09/20/2017 mammogram - [facility]. There are scattered areas of fibroglandular density in both breasts (category b / 25%-50% glandular tissue). Current study was also evaluated with a Computer Aided Detection (CAD) system. There are irregular shaped axillary nodes in axillae that are increased in size and increased in number. The right breast has post-operative findings. No significant masses, calcifications, or other findings are seen in either breast. IMPRESSION: BENIGN There is no mammographic evidence of breast malignancy in the breast tissue. A 1 year screening mammogram is recommended. There are irregular shaped axillary nodes in axillae that are increased in size and increased in number. Recommend clinical evaluation and if needed, CT chest for this patient with history of lymphoma. This exam was interpreted at Station ID: [id number]. NOTE: For mammograms, a report in lay terms will be sent to the patient. Approximately 15% of breast malignancies will not be visualized mammographically. In the management of a palpable breast mass, a negative mammogram must not discourage biopsy of a clinically suspicious lesion. Electronically Signed By: Immanuel Reddy M.D. lc/:10/11/2021 09:11:43 letter sent: Clinical Evaluation ACR BI-RADS Category 2: Benign Finding(s) 3342F
== END ==
PROVIDERS: Family Provider Family Medicine; PCP Family Medicine; Referring Provider Family Medicine; Visit Provider Family Medicine
DX: Z12.31 Encounter for screening mammogram for malignant neoplasm of breast (principal)
CPT/HCPCS: 77063; 77067

== ENCOUNTER → 2021-10-31 08:00 | Outpatient (CLI) | payer MEDICARE, OTHER, SELFPAY ==
--- NOTE | 2021-10-31 08:02 | DI.ECHO.S_ITS ---
[place] +---------+ [facility] +---------+ : : [address] : : : : [id number] : : : : Phone: [phone]+ Echocardiogram Report + + :Name: JOSE REID Study Date: 10/31/2021 Height: 70 in : :[facility] ReadingLocation: Weight: 155 lb : : Gender: Female BSA: 1.9 m2 : :: 1950 Age: 71 yrs BP: 123/72 mmHg: :Reason For Study: SYSTOLIC MURMUR : :Ordering Physician: ADEBAYO, : :STEVEN Performed By: Latrice Kuo : :Referring: STEVEN FIORE : + + Interpretation Summary The ejection fraction is estimated to be 60-65%. There is mild tricuspid regurgitation. The right ventricular systolic pressure is estimated to be at least 26 mmHg based on an estimated right atrial pressure of 3 mm Hg. Procedure: A two-dimensional transthoracic echocardiogram with color flow and Doppler was performed. The study quality was technically adequate. There is no prior echocardiogram noted for this patient. The patient was in sinus rhythm with heart rates between 76-85 bpm during the exam. Left Ventricle: The left ventricle is normal in size and wall thickness. The ejection fraction is estimated to be 60-65%. Left ventricular wall motion is normal. Right Ventricle: The right ventricle is normal in size and function. Atria: The left atrium is moderately dilated. Right atrial size is normal. There is no Doppler evidence for an interatrial shunt. Mitral Valve: The mitral valve is normal in structure and function. There is trace mitral regurgitation. Aortic Valve: A bicuspid aortic valve cannot be excluded. There is no aortic valve stenosis. No aortic regurgitation is present. Tricuspid Valve: The tricuspid valve is normal in structure and function. There is mild tricuspid regurgitation. The right ventricular systolic pressure is estimated to be at least 26 mmHg based on an estimated right atrial pressure of 3 mm Hg. Pulmonic Valve: The pulmonic valve leaflets are thin and pliable; valve motion is normal. There is trace pulmonic regurgitation. Great Vessels: The aortic root is normal size. The ascending aorta is moderately enlarged. The IVC is of normal diameter and collapses greater than 50% with a sniff. This suggests a low right atrial pressure of 3 mm Hg. Pericardium/ Pleura There is no pericardial effusion. There is no pleural effusion. MMode/2D Measurements & Calculations LVIDd: 4.0 cm LVOT diam: 2.3 cm LVIDs: 2.8 cm Ao root diam: 3.6 cm FS: 30.0 % asc Aorta Diam: 4.2 cm IVSd: 1.1 cm Ao Arch Diam (Prox Trans): 2.8 cm LVPWd: 0.81 cm LV rivero. diameter/BSA (cm/m^2): 2.1 LV sys. diameter/BSA (cm/m^2): 1.5 LA A2 area: 24.8 cm2 RA long axis: 4.9 cm LA A4 area: 20.3 cm2 RA area: 13.4 cm2 LA length (vol): 5.3 cm RA vol: 31.3 ml LA vol: 81.0 ml RA : 16.7 ml/m2 LA vol index: 43.3 ml/m2 IVC diam: 1.7 cm RVD1 (basal): 2.7 cm TAPSE: 2.4 cm Doppler Measurements & Calculations Ao V2 max: 319.7 cm/sec LVOT Max Eligio: 111.9 cm/sec Ao V2 mean: 236.9 cm/sec LV V1 max P.0 mmHg Ao max P.9 mmHg LV V1 VTI: 24.7 cm Ao mean P.9 mmHg MARK(I,D): 1.3 cm2 Ao V2 VTI: 76.3 cm MARK(V,D): 1.5 cm2 sev ratio: 0.32 MARK indexed to BSA (cm^2/m^2): 0.72 MV E max eligio: 101.3 cm/sec TR max eligio: 241.4 cm/sec MV A max eligio: 97.7 cm/sec TR max P.3 mmHg MV E/A: 1.0 PA V2 max: 98.9 cm/sec Med Peak E' Eligio: 6.1 cm/sec PA V2 mean: 69.6 cm/sec E/E' med: 16.7 PA mean P.2 mmHg Lat Peak E' Eligio: 4.8 cm/sec PA pr(Accel): 31.0 mmHg E/E' lat: 21.1 E/e' average: 18.9 MV dec time: 0.24 sec SV(LVOT): 102.5 ml Reading Physician:02:57 PM
== END ==
PROVIDERS: Family Provider Family Medicine; PCP Family Medicine; Referring Provider Family Medicine; Visit Provider Family Medicine
DX: I07.1 Rheumatic tricuspid insufficiency (principal); I77.89 Other specified disorders of arteries and arterioles; R01.1 Cardiac murmur, unspecified
CPT/HCPCS: 93306

== ENCOUNTER → 2021-11-14 10:09 | Outpatient (CLI) | payer MEDICARE, OTHER, SELFPAY ==
[2021-11-14 12:40] LABS: Hematocrit 32.7 % (36-46); Hemoglobin 10.1 g/dL (12.0-16.0); Mean Corpuscular Hemoglobin 30.8 PG (26-34); Mean Corpuscular Volume 99.6 fL (80-100); Platelet Count 231 X10^3/uL (150-400); Red Blood Cell Count 3.28 X10^6/uL (4.0-5.2); Red Cell Distribution Width 14.4 % (11.6-14.8)
[2021-11-14 12:43] LABS: Add Manual Diff / Slide Review YES; White Blood Cell Count 129.5 X10^3/uL (4.5-11.0)
[2021-11-14 12:54] LABS: Anisocytosis 2+; Neutrophils Absolute Manual 14245 /uL (3000-5900); Total Cells Counted 100
[2021-11-14 13:08] LABS: Alanine Aminotransferase 16 IU/L (<35); Albumin 4.3 g/dL (3.5-5.0); Albumin Globulin Ratio 1.8 (1.0-2.8); Alkaline Phosphatase 73 U/L (38-126); Aspartate Aminotransferase 29 IU/L (14-36); BUN Creatinine Ratio 21.5 (6-22); Bilirubin Total 0.4 mg/dL (0.2-1.3); Blood Urea Nitrogen 17 mg/dL (7-17); Calcium 9.2 mg/dL (8.4-10.2); Carbon Dioxide 27 mmol/L (22-32); Chloride 107 mmol/L (98-107); Estimated Glomerular Filt Rate > 60 mL/min (>60); Globulin 2.4 g/dL (1.7-4.1); Glucose 90 mg/dL (80-110); HEMOLYSIS < 15 (0-50); Lactate Dehydrogenase 524 U/L (313-618); Potassium 3.8 mmol/L (3.4-5.1); Sodium 141 mmol/L (137-145); Total Protein 6.7 g/dL (6.3-8.2)
[2021-11-14 15:46] LABS: Vitamin D 25 Hydroxy (D3) 52.4 ng/mL (30.0-100.0)
[2021-11-14 16:03] LABS: TSH w/ Reflex to FT4 2.46 uIU/mL (0.47-4.68)
[2021-11-16 14:48] LABS: Calcium 8.8 mg/dL (8.7-10.3); Parathyroid Hormone, Intact 61 pg/mL (15-65)
== END ==
PROVIDERS: Family Provider Family Medicine; PCP Family Medicine; Referring Provider Family Medicine; Visit Provider Family Medicine
DX: E89.0 Postprocedural hypothyroidism (principal); E21.3 Hyperparathyroidism, unspecified; C91.10 Chronic lymphocytic leukemia of B-cell type not having achieved remission; E83.52 Hypercalcemia; N20.0 Calculus of kidney
CPT/HCPCS: 36415; 80053; 82306; 82310; 83615; 83970; 84443; 84550; 85007; 85025

== ENCOUNTER → 2021-12-28 09:53 | Outpatient (CLI) | payer MEDICARE, OTHER, SELFPAY ==
--- NOTE | 2021-12-28 | DI.RAD.S_ITS ---
PROCEDURE: XR ABDOMEN MIN 2V INDICATIONS: Calculus of kidney TECHNIQUE: 2 views of the abdomen were acquired. COMPARISON: [facility], , XR ABDOMEN 1V, 08/16/2021, 8:48. FINDINGS: Surgical changes and devices: None. Bowel: No pneumoperitoneum. The bowel gas pattern is normal. Mildly increased quantity of solid stool. Soft tissues: There is 8 mm calcification projecting over the upper pole of the right kidney, stable in morphology and position compared to the prior study. No other definite intrarenal calculi. Organ shadows are normal size. Bones: No suspicious bony abnormalities. IMPRESSION: 1. Stable right upper pole intrarenal calculus. Dictated by: Hoa Sloan M.D. on 12/28/2021 at 16:36 Approved by: Hoa Sloan M.D. on 12/28/2021 at 16:39
== END ==
PROVIDERS: Family Provider Family Medicine; PCP Family Medicine; Referring Provider Urology; Visit Provider Urology
DX: N20.0 Calculus of kidney (principal)
CPT/HCPCS: 74019

== ENCOUNTER → 2022-01-25 12:43 | Outpatient (CLI) | payer MEDICARE, OTHER, SELFPAY ==
--- NOTE | 2022-01-25 12:47 | DI.RAD.S_ITS ---
PROCEDURE: XR FOOT LT MIN 3V INDICATIONS: Left foot pain TECHNIQUE: 3 views of the foot were acquired. COMPARISON: [facility], CR, XR FOOT LT MIN 3V, 05/08/2018, 10:15. [facility], CR, FOOT 3V LEFT, 12/14/2015, 9:13. FINDINGS: Bones: 5th digit proximal phalanx shaft fracture. Possible fracture at the 3rd digit proximal phalanx distal aspect seen only on 1 projection. Screws at the 1st metatarsal. No suspicious bony lesions. Small plantar calcaneal spur. Soft tissues: No tibiotalar joint effusion. Achilles tendon appears normal. IMPRESSION: 5th digit proximal phalanx fracture. Possible fracture at the 3rd digit proximal phalanx. Follow-up radiographs in 10-14 days would be helpful. Dictated by: Huan Garcia M.D. on 01/25/2022 at 13:15 Approved by: Huan Garcia M.D. on 01/25/2022 at 13:18
== END ==
PROVIDERS: Family Provider Family Medicine; PCP Family Medicine; Referring Provider Physician Assistant Medical; Visit Provider Physician Assistant Medical
DX: S92.512A Displaced fracture of proximal phalanx of left lesser toe(s), initial encounter for closed fracture (principal); M77.32 Calcaneal spur, left foot; X58.XXXA Exposure to other specified factors, initial encounter
CPT/HCPCS: 73630

== ENCOUNTER → 2022-02-28 06:55 | Outpatient (CLI) | payer MEDICARE, OTHER, SELFPAY ==
[2022-02-28 07:38] LABS: Hematocrit 26.7 % (36-46); Hemoglobin 8.8 g/dL (12.0-16.0); Mean Corpuscular HGB Conc 32.9 % (30-36); Mean Corpuscular Hemoglobin 34.4 PG (26-34); Mean Corpuscular Volume 104.5 fL (80-100); Platelet Count 206 X10^3/uL (150-400); Red Blood Cell Count 2.55 X10^6/uL (4.0-5.2)
[2022-02-28 07:39] LABS: Add Manual Diff / Slide Review YES
[2022-02-28 08:09] LABS: Neutrophils Absolute Manual 7280 /uL (3000-5900); RBC Morphology Normal Morphology; Smudge Cells 2+; Total Cells Counted 100
[2022-02-28 08:11] LABS: White Blood Cell Count 145.6 X10^3/uL (4.5-11.0)
[2022-02-28 08:31] LABS: Reticulocyte Count, Percent 2.9 % (1.1-2.6)
== END ==
PROVIDERS: Family Provider Family Medicine; PCP Family Medicine; Referring Provider Family Medicine; Visit Provider Family Medicine
DX: R06.9 Unspecified abnormalities of breathing (principal); R06.09 Other forms of dyspnea
CPT/HCPCS: 36415; 85007; 85025; 85045; 86880

== ENCOUNTER → 2022-03-06 06:57 | Outpatient (CLI) | payer MEDICARE, OTHER, SELFPAY ==
[2022-03-06 09:05] LABS: Reticulocyte Count, Percent 2.9 % (1.1-2.6)
[2022-03-06 09:08] LABS: Hematocrit 26.4 % (36-46); Hemoglobin 8.5 g/dL (12.0-16.0); Mean Corpuscular HGB Conc 32.1 % (30-36); Mean Corpuscular Hemoglobin 33.5 PG (26-34); Mean Corpuscular Volume 104.4 fL (80-100); Platelet Count 250 X10^3/uL (150-400); Red Blood Cell Count 2.53 X10^6/uL (4.0-5.2); Red Cell Distribution Width 13.9 % (11.6-14.8)
[2022-03-06 09:10] LABS: Add Manual Diff / Slide Review YES
[2022-03-06 09:21] LABS: Alanine Aminotransferase 20 IU/L (<35); Albumin 4.1 g/dL (3.5-5.0); Albumin Globulin Ratio 2.2 (1.0-2.8); Alkaline Phosphatase 65 U/L (38-126); Aspartate Aminotransferase 21 IU/L (14-36); BUN Creatinine Ratio 22.1 (6-22); Bilirubin Total 0.4 mg/dL (0.2-1.3); Blood Urea Nitrogen 17 mg/dL (7-17); Calcium 8.9 mg/dL (8.4-10.2); Carbon Dioxide 28 mmol/L (22-32); Chloride 106 mmol/L (98-107); Estimated Glomerular Filt Rate > 60 mL/min (>60); Globulin 1.9 g/dL (1.7-4.1); Glucose 78 mg/dL (80-110); HEMOLYSIS < 15 (0-50); Lactate Dehydrogenase 182 U/L (120-246); Potassium 3.8 mmol/L (3.4-5.1); Sodium 141 mmol/L (137-145)
[2022-03-06 09:24] LABS: White Blood Cell Count 170.6 X10^3/uL (4.5-11.0)
[2022-03-06 09:27] LABS: Macrocytosis 1+; Neutrophils Absolute Manual 6824 /uL (3000-5900); Smudge Cells 1+; Total Cells Counted 100
[2022-03-08 08:18] LABS: Haptoglobin 69 mg/dL (42-346)
== END ==
PROVIDERS: Family Provider Family Medicine; PCP Family Medicine; Referring Provider Internal Medicine Hematology & Oncology; Visit Provider Internal Medicine Hematology & Oncology
DX: C91.10 Chronic lymphocytic leukemia of B-cell type not having achieved remission (principal)
CPT/HCPCS: 36415; 80053; 83010; 83615; 85007; 85025; 85045

== ENCOUNTER → 2022-03-09 07:39 | Outpatient (CLI) | payer MEDICARE, OTHER, SELFPAY ==
[2022-03-09 08:07] LABS: Reticulocyte Count, Percent 2.9 % (1.1-2.6)
[2022-03-09 08:10] LABS: Hematocrit 31.3 % (36-46); Hemoglobin 9.3 g/dL (12.0-16.0); Mean Corpuscular HGB Conc 29.6 % (30-36); Mean Corpuscular Hemoglobin 31.8 PG (26-34); Mean Corpuscular Volume 107.3 fL (80-100); Platelet Count 258 X10^3/uL (150-400); Red Blood Cell Count 2.91 X10^6/uL (4.0-5.2)
[2022-03-09 08:12] LABS: Add Manual Diff / Slide Review YES; White Blood Cell Count 185.1 X10^3/uL (4.5-11.0)
[2022-03-09 08:19] LABS: Alanine Aminotransferase 24 IU/L (<35); Albumin Globulin Ratio 1.8 (1.0-2.8); Alkaline Phosphatase 69 U/L (38-126); Aspartate Aminotransferase 31 IU/L (14-36); BUN Creatinine Ratio 27.8 (6-22); Bilirubin Total 0.3 mg/dL (0.2-1.3); Blood Urea Nitrogen 20 mg/dL (7-17); Calcium 8.9 mg/dL (8.4-10.2); Carbon Dioxide 30 mmol/L (22-32); Chloride 108 mmol/L (98-107); Estimated Glomerular Filt Rate > 60 mL/min (>60); Globulin 2.2 g/dL (1.7-4.1); Glucose 83 mg/dL (80-110); HEMOLYSIS < 15 (0-50); Lactate Dehydrogenase 213 U/L (120-246); Potassium 4.6 mmol/L (3.4-5.1); Sodium 141 mmol/L (137-145); Total Protein 6.2 g/dL (6.3-8.2)
[2022-03-09 08:26] LABS: Neutrophils Absolute Manual 12957 /uL (3000-5900); Total Cells Counted 100
[2022-03-09 08:27] LABS: Macrocytosis 1+
[2022-03-10 04:19] LABS: Haptoglobin 94 mg/dL (42-346)
== END ==
PROVIDERS: Family Provider Family Medicine; PCP Family Medicine; Referring Provider Internal Medicine Hematology & Oncology; Visit Provider Internal Medicine Hematology & Oncology
DX: D64.9 Anemia, unspecified (principal); C91.10 Chronic lymphocytic leukemia of B-cell type not having achieved remission; R06.09 Other forms of dyspnea
CPT/HCPCS: 36415; 80053; 83010; 83615; 85007; 85025; 85045; 86880

== ENCOUNTER → 2022-03-13 06:54 | Outpatient (CLI) | payer MEDICARE, OTHER, SELFPAY ==
[2022-03-13 08:21] LABS: Hemoglobin 9.3 g/dL (12.0-16.0); Mean Corpuscular HGB Conc 32.2 % (30-36); Mean Corpuscular Hemoglobin 33.4 PG (26-34); Mean Corpuscular Volume 103.9 fL (80-100); Platelet Count 227 X10^3/uL (150-400); Red Blood Cell Count 2.79 X10^6/uL (4.0-5.2); Red Cell Distribution Width 13.9 % (11.6-14.8)
[2022-03-13 08:23] LABS: Add Manual Diff / Slide Review YES
[2022-03-13 08:28] LABS: Reticulocyte Count, Percent 2.4 % (1.1-2.6)
[2022-03-13 08:39] LABS: White Blood Cell Count 179.2 X10^3/uL (4.5-11.0)
[2022-03-13 09:06] LABS: Macrocytosis 1+; Neutrophils Absolute Manual 14336 /uL (3000-5900); Smudge Cells 1+; Total Cells Counted 100
[2022-03-13 09:10] LABS: Alanine Aminotransferase 35 IU/L (<35); Albumin 3.9 g/dL (3.5-5.0); Alkaline Phosphatase 58 U/L (38-126); Aspartate Aminotransferase 24 IU/L (14-36); BUN Creatinine Ratio 19.4 (6-22); Bilirubin Total 0.4 mg/dL (0.2-1.3); Blood Urea Nitrogen 18 mg/dL (7-17); Calcium 9.3 mg/dL (8.4-10.2); Carbon Dioxide 31 mmol/L (22-32); Chloride 99 mmol/L (98-107); Estimated Glomerular Filt Rate > 60 mL/min (>60); Glucose 70 mg/dL (80-110); HEMOLYSIS < 15 (0-50); Lactate Dehydrogenase 183 U/L (120-246); Potassium 3.7 mmol/L (3.4-5.1); Sodium 141 mmol/L (137-145); Total Protein 5.9 g/dL (6.3-8.2)
[2022-03-14 19:06] LABS: Haptoglobin 102 mg/dL (42-346)
== END ==
PROVIDERS: Family Provider Family Medicine; PCP Family Medicine; Referring Provider Internal Medicine Hematology & Oncology; Visit Provider Internal Medicine Hematology & Oncology
DX: C91.10 Chronic lymphocytic leukemia of B-cell type not having achieved remission (principal)
CPT/HCPCS: 36415; 80053; 83010; 83615; 85007; 85025; 85045

== ENCOUNTER → 2022-03-16 06:54 | Outpatient (CLI) | payer MEDICARE, OTHER, SELFPAY ==
[2022-03-16 08:20] LABS: Hematocrit 30.2 % (36-46); Hemoglobin 9.6 g/dL (12.0-16.0); Mean Corpuscular HGB Conc 31.9 % (30-36); Mean Corpuscular Volume 103.7 fL (80-100); Platelet Count 202 X10^3/uL (150-400); Red Blood Cell Count 2.91 X10^6/uL (4.0-5.2)
[2022-03-16 08:32] LABS: Add Manual Diff / Slide Review YES; White Blood Cell Count 185.1 X10^3/uL (4.5-11.0)
[2022-03-16 08:41] LABS: Reticulocyte Count, Percent 1.4 % (1.1-2.6)
[2022-03-16 08:44] LABS: Alanine Aminotransferase 25 IU/L (<35); Alkaline Phosphatase 64 U/L (38-126); Aspartate Aminotransferase 22 IU/L (14-36); BUN Creatinine Ratio 22.1 (6-22); Bilirubin Total 0.3 mg/dL (0.2-1.3); Blood Urea Nitrogen 19 mg/dL (7-17); Calcium 9.3 mg/dL (8.4-10.2); Carbon Dioxide 28 mmol/L (22-32); Chloride 104 mmol/L (98-107); Estimated Glomerular Filt Rate > 60 mL/min (>60); Glucose 70 mg/dL (80-110); HEMOLYSIS < 15 (0-50); Lactate Dehydrogenase 195 U/L (120-246); Potassium 3.6 mmol/L (3.4-5.1); Sodium 138 mmol/L (137-145)
[2022-03-16 08:51] LABS: Neutrophils Absolute Manual 16659 /uL (3000-5900); RBC Morphology Normal Morphology; Total Cells Counted 100
[2022-03-17 07:10] LABS: Haptoglobin 111 mg/dL (42-346)
== END ==
PROVIDERS: Family Provider Family Medicine; PCP Family Medicine; Referring Provider Internal Medicine Hematology & Oncology; Visit Provider Internal Medicine Hematology & Oncology
DX: C91.10 Chronic lymphocytic leukemia of B-cell type not having achieved remission (principal)
CPT/HCPCS: 36415; 80053; 83010; 83615; 85007; 85025; 85045

== ENCOUNTER → 2022-03-20 06:50 | Outpatient (CLI) | payer MEDICARE, OTHER, SELFPAY ==
[2022-03-20 08:32] LABS: Reticulocyte Count, Percent 1.1 % (1.1-2.6)
[2022-03-20 08:51] LABS: Hemoglobin 10.2 g/dL (12.0-16.0); Mean Corpuscular HGB Conc 31.8 % (30-36); Mean Corpuscular Hemoglobin 32.8 PG (26-34); Platelet Count 176 X10^3/uL (150-400); Red Cell Distribution Width 13.7 % (11.6-14.8)
[2022-03-20 08:54] LABS: Alanine Aminotransferase 23 IU/L (<35); Albumin Globulin Ratio 1.7 (1.0-2.8); Alkaline Phosphatase 63 U/L (38-126); Aspartate Aminotransferase 23 IU/L (14-36); Bilirubin Total 0.3 mg/dL (0.2-1.3); Blood Urea Nitrogen 20 mg/dL (7-17); Calcium 9.1 mg/dL (8.4-10.2); Carbon Dioxide 28 mmol/L (22-32); Chloride 103 mmol/L (98-107); Estimated Glomerular Filt Rate > 60 mL/min (>60); Globulin 2.3 g/dL (1.7-4.1); Glucose 77 mg/dL (80-110); HEMOLYSIS < 15 (0-50); Lactate Dehydrogenase 175 U/L (120-246); Potassium 3.5 mmol/L (3.4-5.1); Sodium 139 mmol/L (137-145); Total Protein 6.3 g/dL (6.3-8.2)
[2022-03-20 09:23] LABS: Add Manual Diff / Slide Review YES
[2022-03-20 09:30] LABS: Neutrophils Absolute Manual 8800 /uL (3000-5900); Total Cells Counted 100
[2022-03-20 09:31] LABS: Smudge Cells 2+
[2022-03-20 09:32] LABS: RBC Morphology See
[2022-03-21 20:09] LABS: Haptoglobin 114 mg/dL (42-346)
== END ==
PROVIDERS: Family Provider Family Medicine; PCP Family Medicine; Referring Provider Internal Medicine Hematology & Oncology; Visit Provider Internal Medicine Hematology & Oncology
DX: C91.10 Chronic lymphocytic leukemia of B-cell type not having achieved remission (principal)
CPT/HCPCS: 36415; 80053; 83010; 83615; 85007; 85025; 85045

== ENCOUNTER → 2022-03-21 06:51 | Outpatient (CLI) | payer MEDICARE, OTHER, SELFPAY ==
[2022-03-21 07:25] LABS: Hematocrit 31.3 % (36-46); Hemoglobin 10.1 g/dL (12.0-16.0); Mean Corpuscular HGB Conc 32.3 % (30-36); Mean Corpuscular Hemoglobin 33.1 PG (26-34); Mean Corpuscular Volume 102.4 fL (80-100); Platelet Count 162 X10^3/uL (150-400); Red Blood Cell Count 3.05 X10^6/uL (4.0-5.2); Red Cell Distribution Width 13.8 % (11.6-14.8)
[2022-03-21 07:49] LABS: Add Manual Diff / Slide Review YES; White Blood Cell Count 175.9 X10^3/uL (4.5-11.0)
[2022-03-21 07:51] LABS: Anisocytosis 1+; Neutrophils Absolute Manual 14072 /uL (3000-5900); Total Cells Counted 100
== END ==
PROVIDERS: Family Provider Family Medicine; PCP Family Medicine; Referring Provider Internal Medicine Hematology & Oncology; Visit Provider Internal Medicine Hematology & Oncology
DX: D64.9 Anemia, unspecified (principal); C91.10 Chronic lymphocytic leukemia of B-cell type not having achieved remission
CPT/HCPCS: 36415; 85007; 85025

== ENCOUNTER → 2022-03-27 07:14 | Outpatient (CLI) | payer MEDICARE, OTHER, SELFPAY ==
--- NOTE | 2022-03-27 07:20 | DI.NM.S_ITS ---
PROCEDURE: NM AVIS PERF SPECT REST & STR Rest and exercise myocardial perfusion SPECT with gated imaging and ejection fraction RADIOPHARMACEUTICAL: 11.4 mCi Tc-99m sestamibi IV at rest and 25.2 mCi Tc-99m sestamibi IV at peak exercise. A 3-gbc-utkxzkid was performed. INDICATIONS: Exertional dyspnea TECHNIQUE: Radiopharmaceutical was injected at peak stress test, and also at rest. SPECT images were obtained. SPECT myocardial perfusion images were displayed in short axis, horizontal long axis, and vertical long axis views. Gated images were reviewed using Mobile [employer]ie software. COMPARISON: None. CARDIAC STRESS: A standard José Luis treadmill exercise tolerance test was performed by the patient under the supervision of an attending staff. The patient exercised for 5 minutes and 01 seconds; 7.0 METS; functional aerobic impairment (KIMBERLI) is +10% %. Hemodynamic data: There is normal blood pressure and heart rate response to exercise stress. Patient achieved 99% of maximum predicted heart rate at peak exercise. Maximum blood pressure 148/92. Symptoms: Patient denied chest pain during exercise. EKG: No diagnostic EKG changes of ischemia; no ectopy. FINDINGS: Raw data: There is good myocardial labeling by radiotracer. No significant motion artifacts. Gean-wq-koven ratio is 0.43 (normal is less than 0.38 for sestamibi tracer, and less than 0.50 for thallium tracer). Left ventricle function: Gated images demonstrate normal left ventricle wall thickening. No segmental wall motion abnormality. No transient ischemic dilation; TID is 0.83 (normal less than 1.3). The left ventricle resting end-diastolic volume is 74 mL. Left ventricle stress ejection fraction is >75%; normal values are above 45%. Myocardial perfusion: There is normal distribution of activity in the left and right ventricular myocardium. No fixed or reversible perfusion defects. IMPRESSION: Low risk study. No evidence of exercise-induced ischemia or scar on ECG and SPECT imaging. Hyperdynamic LV function. Normal hemodynamic response. Slightly reduced exercise capacity. Dictated by: Erica Richey D.O. on 03/27/2022 at 16:49 Approved by: Erica Richey D.O. on 03/27/2022 at 16:54
[2022-03-27 08:25] LABS: Hemoglobin 10.4 g/dL (12.0-16.0); Mean Corpuscular HGB Conc 31.6 % (30-36); Mean Corpuscular Hemoglobin 32.2 PG (26-34); Mean Corpuscular Volume 101.7 fL (80-100); Platelet Count 174 X10^3/uL (150-400); Red Blood Cell Count 3.24 X10^6/uL (4.0-5.2); Red Cell Distribution Width 13.7 % (11.6-14.8)
[2022-03-27 08:27] LABS: Add Manual Diff / Slide Review YES; White Blood Cell Count 156.7 X10^3/uL (4.5-11.0)
[2022-03-27 08:31] LABS: Reticulocyte Count, Percent 0.8 % (1.1-2.6)
[2022-03-27 08:44] LABS: Neutrophils Absolute Manual 9402 /uL (3000-5900); Smudge Cells 1+; Total Cells Counted 100
[2022-03-27 08:53] LABS: Alanine Aminotransferase 26 IU/L (<35); Albumin 4.1 g/dL (3.5-5.0); Alkaline Phosphatase 69 U/L (38-126); Aspartate Aminotransferase 24 IU/L (14-36); BUN Creatinine Ratio 30.8 (6-22); Bilirubin Total 0.2 mg/dL (0.2-1.3); Blood Urea Nitrogen 24 mg/dL (7-17); Calcium 9.5 mg/dL (8.4-10.2); Carbon Dioxide 30 mmol/L (22-32); Chloride 103 mmol/L (98-107); Estimated Glomerular Filt Rate > 60 mL/min (>60); Globulin 2.1 g/dL (1.7-4.1); Glucose 103 mg/dL (80-110); HEMOLYSIS < 15 (0-50); Lactate Dehydrogenase 232 U/L (120-246); Potassium 4.3 mmol/L (3.4-5.1); Sodium 138 mmol/L (137-145); Total Protein 6.2 g/dL (6.3-8.2)
[2022-03-28 03:36] LABS: Haptoglobin 116 mg/dL (42-346)
== END ==
PROVIDERS: Family Provider Family Medicine; PCP Family Medicine; Referring Provider Family Medicine; Visit Provider Family Medicine
DX: C91.10 Chronic lymphocytic leukemia of B-cell type not having achieved remission (principal); R06.09 Other forms of dyspnea
CPT/HCPCS: 36415; 78452; 80053; 83010; 83615; 85007; 85025; 85045; 93017; A9502

== ENCOUNTER → 2022-03-31 07:01 | Outpatient (CLI) | payer MEDICARE, OTHER, SELFPAY ==
[2022-03-31 08:17] LABS: Hematocrit 34.8 % (36-46); Hemoglobin 11.1 g/dL (12.0-16.0); Mean Corpuscular Hemoglobin 32.3 PG (26-34); Platelet Count 189 X10^3/uL (150-400); Red Blood Cell Count 3.44 X10^6/uL (4.0-5.2); Red Cell Distribution Width 13.7 % (11.6-14.8)
[2022-03-31 08:20] LABS: Alanine Aminotransferase 23 IU/L (<35); Albumin 4.2 g/dL (3.5-5.0); Albumin Globulin Ratio 1.9 (1.0-2.8); Alkaline Phosphatase 63 U/L (38-126); Aspartate Aminotransferase 24 IU/L (14-36); BUN Creatinine Ratio 23.9 (6-22); Bilirubin Total 0.3 mg/dL (0.2-1.3); Blood Urea Nitrogen 22 mg/dL (7-17); Calcium 9.1 mg/dL (8.4-10.2); Carbon Dioxide 32 mmol/L (22-32); Chloride 102 mmol/L (98-107); Estimated Glomerular Filt Rate > 60 mL/min (>60); Globulin 2.2 g/dL (1.7-4.1); Glucose 69 mg/dL (80-110); HEMOLYSIS < 15 (0-50); Potassium 3.8 mmol/L (3.4-5.1); Sodium 139 mmol/L (137-145); Total Protein 6.4 g/dL (6.3-8.2)
[2022-03-31 08:27] LABS: Lactate Dehydrogenase 269 U/L (120-246)
[2022-03-31 08:28] LABS: Reticulocyte Count, Percent 0.6 % (1.1-2.6)
[2022-03-31 09:01] LABS: White Blood Cell Count 177.4 X10^3/uL (4.5-11.0)
[2022-03-31 09:02] LABS: Add Manual Diff / Slide Review YES
[2022-03-31 10:53] LABS: Neutrophils Absolute Manual 7096 /uL (3000-5900); Total Cells Counted 100
[2022-03-31 10:55] LABS: Smudge Cells 1+
[2022-04-02 05:13] LABS: Haptoglobin 113 mg/dL (42-346)
== END ==
PROVIDERS: Family Provider Family Medicine; PCP Family Medicine; Referring Provider Internal Medicine Hematology & Oncology; Visit Provider Internal Medicine Hematology & Oncology
DX: C91.10 Chronic lymphocytic leukemia of B-cell type not having achieved remission (principal)
CPT/HCPCS: 36415; 80053; 83010; 83615; 85007; 85025; 85045

== ENCOUNTER → 2022-04-03 06:56 | Outpatient (CLI) | payer MEDICARE, OTHER, SELFPAY ==
[2022-04-03 08:03] LABS: Hematocrit 36.4 % (36-46); Hemoglobin 11.7 g/dL (12.0-16.0); Mean Corpuscular HGB Conc 32.2 % (30-36); Mean Corpuscular Volume 99.6 fL (80-100); Platelet Count 159 X10^3/uL (150-400); Red Blood Cell Count 3.66 X10^6/uL (4.0-5.2); Red Cell Distribution Width 13.4 % (11.6-14.8)
[2022-04-03 08:04] LABS: Add Manual Diff / Slide Review YES
[2022-04-03 08:25] LABS: Neutrophils Absolute Manual 6996 /uL (3000-5900); Total Cells Counted 100
[2022-04-03 08:26] LABS: RBC Morphology Normal Morphology; Smudge Cells 1+
[2022-04-03 08:29] LABS: White Blood Cell Count 174.9 X10^3/uL (4.5-11.0)
== END ==
PROVIDERS: Family Provider Family Medicine; PCP Family Medicine; Referring Provider Internal Medicine Hematology & Oncology; Visit Provider Internal Medicine Hematology & Oncology
DX: C91.10 Chronic lymphocytic leukemia of B-cell type not having achieved remission (principal)
CPT/HCPCS: 36415; 85007; 85025

== ENCOUNTER → 2022-04-06 07:14 | Outpatient (CLI) | payer MEDICARE, OTHER, SELFPAY ==
[2022-04-06 08:36] LABS: Hematocrit 37.3 % (36-46); Mean Corpuscular HGB Conc 32.2 % (30-36); Mean Corpuscular Hemoglobin 31.9 PG (26-34); Platelet Count 129 X10^3/uL (150-400); Red Blood Cell Count 3.77 X10^6/uL (4.0-5.2); Red Cell Distribution Width 13.6 % (11.6-14.8)
[2022-04-06 08:52] LABS: Add Manual Diff / Slide Review YES; White Blood Cell Count 153.3 X10^3/uL (4.5-11.0)
[2022-04-06 09:27] LABS: Neutrophils Absolute Manual 4599 /uL (3000-5900); Total Cells Counted 100
[2022-04-06 09:28] LABS: RBC Morphology Normal Morphology
[2022-04-06 09:29] LABS: Smudge Cells 2+
== END ==
PROVIDERS: Family Provider Family Medicine; PCP Family Medicine; Referring Provider Internal Medicine Hematology & Oncology; Visit Provider Internal Medicine Hematology & Oncology
DX: C91.10 Chronic lymphocytic leukemia of B-cell type not having achieved remission (principal)
CPT/HCPCS: 36415; 85007; 85025

== ENCOUNTER → 2022-04-10 06:57 | Outpatient (CLI) | payer MEDICARE, OTHER, SELFPAY ==
[2022-04-10 08:10] LABS: Add Manual Diff / Slide Review YES; Hematocrit 37.6 % (36-46); Hemoglobin 11.7 g/dL (12.0-16.0); Mean Corpuscular HGB Conc 31.1 % (30-36); Mean Corpuscular Hemoglobin 30.8 PG (26-34); Mean Corpuscular Volume 98.9 fL (80-100); Platelet Count 93 X10^3/uL (150-400); Red Cell Distribution Width 13.5 % (11.6-14.8)
[2022-04-10 08:25] LABS: Neutrophils Absolute Manual 2668 /uL (3000-5900); RBC Morphology Normal Morphology; Smudge Cells 1+; Total Cells Counted 100
[2022-04-10 08:57] LABS: White Blood Cell Count 133.4 X10^3/uL (4.5-11.0)
== END ==
PROVIDERS: Family Provider Family Medicine; PCP Family Medicine; Referring Provider Internal Medicine Hematology & Oncology; Visit Provider Internal Medicine Hematology & Oncology
DX: C91.10 Chronic lymphocytic leukemia of B-cell type not having achieved remission (principal)
CPT/HCPCS: 36415; 85007; 85025

== ENCOUNTER → 2022-04-11 14:14 | Outpatient (CLI) | payer MEDICARE, OTHER, SELFPAY ==
--- NOTE | 2022-04-11 14:22 | DI.CT.S_ITS ---
PROCEDURE: CT KIDNEY URETER BLADDER (KUB) INDICATIONS: lleft sided kidney pain TECHNIQUE: Axial sections were acquired from the lung bases to the pubic symphysis. Coronal and sagittal reformats were performed. For radiation dose reduction, the following was used: automated exposure control, adjustment of mA and/or kV according to patient size. COMPARISON: , CT, CT CHEST ABD PEL W CON, 09/07/2017, 8:07. CT, CT ABDOMEN PELVIS W CON, 03/14/2021, 12:53. FINDINGS: Image quality: Excellent. Lung bases: Left lower lobe nodule measuring 1 cm on series 3 image 10. It is new since 2021. Heart: No significant findings. URINARY: Right Kidney: Right superior renal pole calcification 9 mm Hounsfield units 691. 3 mm mid pole calcification is present, 5 mm inferior pole calcification 429 Hounsfield units. No obstruction. Right Ureter: No hydroureter. Left Kidney: There are 2 punctate inferior pole calcifications. No obstruction. Left Ureter: No hydroureter. Bladder: Normal wall thickness. No stones. ABDOMEN: Liver: Unremarkable. Gallbladder: Unremarkable. Biliary ducts: Unremarkable. Pancreas: Unremarkable. Spleen: Unremarkable. Adrenal Glands: Unremarkable. Stomach and Bowel: Stomach, small bowel loops, and colon are unremarkable. Peritoneum: No abnormal intraperitoneal fluid. No free air. Ventral Wall: No hernia. Abdominal Nodes: Multiple lymph nodes are present within the right lower quadrant, the largest measuring 1 cm in short axis. They are minimally more prominent in size (approximately 1 mm) and number. There are scattered retroaortic and aortic caval lymph nodes appearing slightly more prominent and numerous compared to prior exam. The largest measures 10 mm on series 2, image 36 in the posterior left periaortic region previously measuring 7 mm. .. Vessels: Aorta and inferior vena cava are normal in size. PELVIS: Pelvic Organs: Unremarkable. Pelvic Nodes: There is a left iliac node on series 2, image 77 measuring 1.9 cm compared to 1.7 cm. The anterior left iliac node on series 2, image 73 measures 1.6 cm compared to 1.2 cm. Right pelvic sidewall node on series 2, image 74 is increased in size measuring 5.4 cm compared to 1.4 cm. Miscellaneous: No inguinal hernias are seen. Bones: Punctate foci of sclerosis are noted within the lumbar spine as well as sacrum, unchanged. IMPRESSION: Interval development of left lower lobe pulmonary nodule since 2021. In addition, there is shoddy lymph nodes as well as defined adenopathy within the abdomen and pelvis which has overall increased in size and number compared to prior exam. Findings are concerning with malignancy with interval development of possible pulmonary metastatic focus. Dictated by: Marjorie Hidalgo M.D. on 04/11/2022 at 16:10 Approved by: Marjorie Hidalgo M.D. on 04/11/2022 at 16:25
== END ==
PROVIDERS: Family Provider Family Medicine; PCP Family Medicine; Referring Provider Family Medicine; Visit Provider Family Medicine
DX: N20.0 Calculus of kidney (principal)
CPT/HCPCS: 74176

== ENCOUNTER → 2022-04-17 06:46 | Outpatient (CLI) | payer MEDICARE, OTHER, SELFPAY ==
[2022-04-17 07:34] LABS: Hematocrit 36.7 % (36-46); Hemoglobin 11.3 g/dL (12.0-16.0); Mean Corpuscular HGB Conc 30.9 % (30-36); Mean Corpuscular Volume 97.2 fL (80-100); Platelet Count 189 X10^3/uL (150-400); Red Blood Cell Count 3.77 X10^6/uL (4.0-5.2); Red Cell Distribution Width 13.7 % (11.6-14.8)
[2022-04-17 07:36] LABS: Add Manual Diff / Slide Review YES
[2022-04-17 08:19] LABS: RBC Morphology Normal Morphology; Smudge Cells 1+; White Blood Cell Count 115.8 X10^3/uL (4.5-11.0)
[2022-04-17 09:46] LABS: Neutrophils Absolute Manual 1158 /uL (3000-5900); Total Cells Counted 100
== END ==
PROVIDERS: Family Provider Family Medicine; PCP Family Medicine; Referring Provider Internal Medicine Hematology & Oncology; Visit Provider Internal Medicine Hematology & Oncology
DX: C91.10 Chronic lymphocytic leukemia of B-cell type not having achieved remission (principal)
CPT/HCPCS: 36415; 85007; 85025

== ENCOUNTER → 2022-04-21 10:47 | Outpatient (CLI) | payer MEDICARE, OTHER, SELFPAY ==
--- NOTE | 2022-04-21 10:48 | DI.CT.S_ITS ---
PROCEDURE: CT CHEST W CON INDICATIONS: pulmonary nodule TECHNIQUE: After the administration of intravenous contrast, 5 mm thick sections acquired from the pulmonary apices to the posterior costophrenic angles. 1 mm axial lung, 5 mm thick coronal and sagittal reformats and 7 mm axial MIP were acquired. For radiation dose reduction, the following was used: automated exposure control, adjustment of mA and/or kV according to patient size. COMPARISON: [facility], CT, CT ABDOMEN PELVIS W CON, 03/14/2021, 12:53. [facility], CT, CT KIDNEY URETER BLADDER (KUB), 04/11/2022, 14:16. FINDINGS: Image quality: Excellent. Lungs and pleura: -Left lower lobe nodular opacities, (3/294). -Left lower lobe pulmonary nodule or nodular opacity 0.8 cm, (3/256). Minimal thickening at the right minor fissure. Central airways are clear. No pleural effusions or pneumothorax. Mediastinum: Heart size is normal. Aortic valvular calcifications. Mild coronary artery calcifications. No pericardial effusion. Enlarged mediastinal and hilar at lymph nodes. For example: -Precarinal lymph node 1.2 cm, (2/28). -Left hilar node measuring 1.3 cm, (2/33). Ascending aorta measures 3.9 cm, (5/24). Esophagus is normal in caliber. Tiny hiatal hernia. Bones and chest wall: No suspicious bony lesions. No vertebral body compression fractures. Thyroid gland appears atrophic. Small nodules posterior to the right upper back, (2/4). Left breast clip. Supraclavicular and bilateral axillary adenopathy. -Left supraclavicular node measuring 1.3 cm, (2/9). -Right axillary node measuring 1.5 cm, (2/28). -Left axillary node measuring 1.2 cm, (2/17). Abdomen: Upper abdominal adenopathy. Midline upper abdominal node measuring at 0.9 cm, (2/63). Right kidney stones. IMPRESSION: 1. Axillary, supraclavicular, mediastinal, hilar, and upper abdominal adenopathy. Etiology is uncertain. Lymphoma could have this appearance. Ultrasound guided axillary biopsy could be considered. 2. Nodular opacities or pulmonary nodules in the left lung. Indeterminate for metastatic disease. Infectious/inflammatory etiology could have a similar appearance. Dictated by: Huan Garcia M.D. on 04/21/2022 at 13:54 Approved by: Huan Garcia M.D. on 04/21/2022 at 14:11
== END ==
PROVIDERS: Family Provider Family Medicine; PCP Family Medicine; Referring Provider Family Medicine; Visit Provider Family Medicine
DX: R91.8 Other nonspecific abnormal finding of lung field (principal); R59.1 Generalized enlarged lymph nodes
CPT/HCPCS: 71260; Q9967

== ENCOUNTER → 2022-05-02 07:23 | Outpatient (CLI) | payer MEDICARE, OTHER, SELFPAY ==
[2022-05-02 08:34] LABS: Hematocrit 37.5 % (36-46); Mean Corpuscular Hemoglobin 30.1 PG (26-34); Mean Corpuscular Volume 93.9 fL (80-100); Platelet Count 129 X10^3/uL (150-400); Red Blood Cell Count 3.99 X10^6/uL (4.0-5.2); Red Cell Distribution Width 13.7 % (11.6-14.8)
[2022-05-02 08:37] LABS: Add Manual Diff / Slide Review YES
[2022-05-02 08:41] LABS: White Blood Cell Count 109.4 X10^3/uL (4.5-11.0)
[2022-05-02 08:53] LABS: Neutrophils Absolute Manual 5470 /uL (3000-5900); Total Cells Counted 100
[2022-05-02 08:54] LABS: RBC Morphology Normal Morphology; Smudge Cells 1+
== END ==
PROVIDERS: Family Provider Family Medicine; PCP Family Medicine; Referring Provider Internal Medicine Hematology & Oncology; Visit Provider Internal Medicine Hematology & Oncology
DX: C91.10 Chronic lymphocytic leukemia of B-cell type not having achieved remission (principal)
CPT/HCPCS: 36415; 85007; 85025

== ENCOUNTER → 2022-06-09 07:15 | Outpatient (CLI) | payer MEDICARE, OTHER, SELFPAY ==
--- NOTE | 2022-06-09 | DI.MRI.S_ITS ---
PROCEDURE: MR BRAIN (IAC) WWO CON INDICATIONS: Benign neoplasm of cranial nerves TECHNIQUE: Noncontrast sagittal T1 spin echo, axial FLAIR, axial gradient echo, axial diffusion and ADC through the brain. Axial thin-slice 3D CISS, coronal TruFISP, axial T1 spin echo with fat saturation through the internal auditory canals. After the administration of contrast, thin slice axial and coronal T1 spin echo with fat saturation through the internal auditory canals, and axial and coronal and sagittal T1 spin echo with fat saturation through the brain. COMPARISON: [facility], MR, MR BRAIN (IAC) WWO CON, 12/31/2020, 9:34. [facility], MR, MR IAC (BRAIN) WWO CON, 06/22/2021, 11:10. FINDINGS: Image quality: Excellent. Cerebellopontine angles: There is again seen an enhancing mass centered within the left internal auditory canal and emanating into the left cerebellopontine angle cistern. This measures 14 x 11 mm in greatest axial dimension, with extent of 10 mm. This is increased in size compared to prior, when measured 11 x 7 x 5 mm. CSF spaces: Ventricles are normal in size and shape. No extra-axial fluid collections. Basal cisterns are patent. Brain: No intracranial bleeds or mass effects. Cope-white matter interface is intact. No abnormal intracranial enhancement. Diffusion weighted images demonstrate no acute ischemic insults. Brainstem appears normal. Normal intravascular flow voids are present. Skull and face: Calvarial marrow signal is normal. Orbits appear normal. Sinuses: Sinuses and mastoids are clear. IMPRESSION: Growing left vestibular schwannoma. Dictated by: Pramod Mandujano M.D. on 06/09/2022 at 9:33 Approved by: Pramod Mandujano M.D. on 06/09/2022 at 9:35
== END ==
PROVIDERS: Family Provider Family Medicine; PCP Family Medicine; Referring Provider Otolaryngology; Visit Provider Otolaryngology
DX: D33.3 Benign neoplasm of cranial nerves (principal)
CPT/HCPCS: 70553; A9579

== ENCOUNTER → 2022-06-26 11:24 | Outpatient (CLI) | payer MEDICARE, OTHER, SELFPAY ==
[2022-06-26 13:04] LABS: Hematocrit 33.6 % (36-46); Hemoglobin 10.5 g/dL (12.0-16.0); Mean Corpuscular HGB Conc 31.2 % (30-36); Mean Corpuscular Hemoglobin 32.7 PG (26-34); Mean Corpuscular Volume 104.6 fL (80-100); Platelet Count 225 X10^3/uL (150-400); Red Blood Cell Count 3.21 X10^6/uL (4.0-5.2); Red Cell Distribution Width 15.7 % (11.6-14.8)
[2022-06-26 13:06] LABS: Add Manual Diff / Slide Review YES
[2022-06-26 13:08] LABS: White Blood Cell Count 113.2 X10^3/uL (4.5-11.0)
[2022-06-26 13:40] LABS: Neutrophils Absolute Manual 9056 /uL (3000-5900); Total Cells Counted 100
[2022-06-26 13:41] LABS: Macrocytosis 1+
[2022-06-26 13:42] LABS: Smudge Cells 2+
== END ==
PROVIDERS: Family Provider Family Medicine; PCP Family Medicine; Referring Provider Family Medicine; Visit Provider Family Medicine
DX: C91.10 Chronic lymphocytic leukemia of B-cell type not having achieved remission (principal); D64.9 Anemia, unspecified
CPT/HCPCS: 36415; 85007; 85025

== ENCOUNTER → 2022-06-27 13:56 | Outpatient (CLI) | payer MEDICARE, OTHER, SELFPAY ==
[2022-06-27 15:01] LABS: Alanine Aminotransferase 19 IU/L (<35); Albumin 4.1 g/dL (3.5-5.0); Alkaline Phosphatase 72 U/L (38-126); Aspartate Aminotransferase 30 IU/L (14-36); Bilirubin Direct 0.1 mg/dL (0.0-0.4); Bilirubin Total 0.5 mg/dL (0.2-1.3); Bilirubin Unconjugated 0.4 mg/dL (0.0-1.1); Globulin 2.1 g/dL (1.7-4.1); HEMOLYSIS < 15 (0-50); Lactate Dehydrogenase 233 U/L (120-246); Total Protein 6.2 g/dL (6.3-8.2)
[2022-06-28 04:12] LABS: Haptoglobin < 10 mg/dL (42-346)
== END ==
PROVIDERS: Family Provider Family Medicine; PCP Family Medicine; Referring Provider Internal Medicine Hematology & Oncology; Visit Provider Internal Medicine Hematology & Oncology
DX: C91.10 Chronic lymphocytic leukemia of B-cell type not having achieved remission (principal)
CPT/HCPCS: 36415; 80076; 82248; 83010; 83615; 85045

== ENCOUNTER → 2022-06-28 15:20 | Outpatient (CLI) | payer MEDICARE, OTHER, SELFPAY ==
[2022-06-29 22:03] LABS: Hep C Virus Ab w/Reflex Quant NEGATIVE s/c (NEGATIVE)
== END ==
PROVIDERS: Family Provider Family Medicine; PCP Family Medicine; Referring Provider Internal Medicine Hematology & Oncology; Visit Provider Internal Medicine Hematology & Oncology
DX: C91.10 Chronic lymphocytic leukemia of B-cell type not having achieved remission (principal)
CPT/HCPCS: 36415; 86704; 86706; 86803; 87340

== ENCOUNTER → 2022-06-29 13:29 | Outpatient (CLI) | payer MEDICARE, OTHER, SELFPAY ==
[2022-06-29 14:01] LABS: Estimated Glomerular Filt Rate > 60 mL/min (>60)
== END ==
PROVIDERS: Family Provider Family Medicine; PCP Family Medicine; Referring Provider Radiology Diagnostic Radiology; Visit Provider Radiology Diagnostic Radiology
DX: R91.1 Solitary pulmonary nodule (principal)
CPT/HCPCS: 36415; 82565

== ENCOUNTER → 2022-06-30 09:52 | Outpatient (CLI) | payer MEDICARE, OTHER, SELFPAY ==
--- NOTE | 2022-06-30 | DI.CT.S_ITS ---
PROCEDURE: CT CHEST ABD PEL W CON INDICATIONS: Chronic lymphocytic leukemia of B-cell type TECHNIQUE: After the administration of oral and intravenous contrast, axial sections acquired from the supraclavicular neck to the pubic symphysis. Coronal and sagittal reformats were performed. For radiation dose reduction, the following was used: automated exposure control, adjustment of mA and/or kV according to patient size. COMPARISON: [facility], CT, CT KIDNEY URETER BLADDER (KUB), 04/11/2022, 14:16. [facility], CT, CT CHEST ABD PEL W CON, 09/07/2017, 8:07. FINDINGS: Image quality: Excellent. CHEST: Lower Neck: Bilateral supraclavicular adenopathy. Left supraclavicular node measuring 1.1 cm, (2/7). Thyroid: Within normal limits. Axillae: Bilateral axillary adenopathy. -Right axillary node measuring 1.3 cm, (2/23). -Left axillary node measuring 1.4 cm, (2/19). Chest Wall: Right breast clip. Lungs and Airways: Right minor fissure nodules x2 measuring 0.4 cm, unchanged since 2018 suggesting a benign etiology. No acute airspace opacity. Airways are clear. Pleura: No pneumothorax or pleural effusions. Heart: Heart size is normal. LAD coronary artery calcifications. No pericardial effusion. Thoracic Vessels: Ascending aorta measures 3.6 cm, (3/23). Mediastinum and Aydee: Subcarinal node measuring 1.3 cm, (2/26). Esophagus: No wall thickening. Small hiatal hernia. ABDOMEN: Liver: No focal lesion. Gallbladder: Unremarkable. Biliary ducts: Unremarkable. Pancreas: Unremarkable. Spleen: Within normal limits. Measures 11.5 cm. Adrenal Glands: Unremarkable. Kidneys and Ureters: No hydronephrosis. At least 3 nonobstructing at right kidney stones and 1 on the left. Small low-density right renal cysts. Stomach and Bowel: Stomach is not distended. No small bowel obstruction. Normal appendix. Peritoneum: No abnormal intraperitoneal fluid. No free air. Ventral Wall: No hernia. Abdominal Nodes: Mesenteric and retroperitoneal adenopathy. -Enlarged right lower quadrant node measuring 1.1 cm, (2/92), unchanged. -Intra-aortic caval node measuring 0.9 cm, (2/77), unchanged. Vessels: Aorta and inferior vena cava are normal in size. Moderate plaque. PELVIS: Pelvic Organs: Unremarkable. Bladder: Unremarkable. Pelvic Nodes: Adenopathy is present. -Right pelvic sidewall node measuring 1.7 cm, (2/113), previously 1.6 cm. -Left pelvic sidewall node measuring 1.7 cm, (2/113), previously 1.6 cm. Miscellaneous: No inguinal hernias are seen. Bones: No suspicious lesion. IMPRESSION: 1. Supraclavicular, axillary, and mediastinal adenopathy. 2. Retroperitoneal and mesenteric adenopathy, unchanged. 3. Pelvic adenopathy is slightly increased in size. Dictated by: Huan Garcia M.D. on 06/30/2022 at 14:44 Approved by: Huan Garcia M.D. on 06/30/2022 at 15:03
== END ==
PROVIDERS: Family Provider Family Medicine; PCP Family Medicine; Referring Provider Internal Medicine Hematology & Oncology; Visit Provider Internal Medicine Hematology & Oncology
DX: C91.10 Chronic lymphocytic leukemia of B-cell type not having achieved remission (principal); R59.1 Generalized enlarged lymph nodes
CPT/HCPCS: 71260; 74177; Q9967

== ENCOUNTER → 2022-08-01 06:47 | Outpatient (CLI) | payer MEDICARE, OTHER, SELFPAY ==
[2022-08-01 07:59] LABS: Hematocrit 37.3 % (36-46); Hemoglobin 12.1 g/dL (12.0-16.0); Mean Corpuscular HGB Conc 32.5 % (30-36); Mean Corpuscular Hemoglobin 31.9 PG (26-34); Mean Corpuscular Volume 98.2 fL (80-100); Platelet Count 206 X10^3/uL (150-400)
[2022-08-01 09:11] LABS: Add Manual Diff / Slide Review YES; White Blood Cell Count 40.9 X10^3/uL (4.5-11.0)
[2022-08-01 09:13] LABS: Neutrophils Absolute Manual 4090 /uL (3000-5900); Total Cells Counted 100
[2022-08-01 09:15] LABS: RBC Morphology Normal Morphology; Smudge Cells 1+
== END ==
PROVIDERS: Family Provider Family Medicine; PCP Family Medicine; Referring Provider Internal Medicine Hematology & Oncology; Visit Provider Internal Medicine Hematology & Oncology
DX: C91.10 Chronic lymphocytic leukemia of B-cell type not having achieved remission (principal)
CPT/HCPCS: 36415; 85007; 85025

== ENCOUNTER → 2022-08-04 06:30 | Outpatient (CLI) | payer MEDICARE, OTHER, SELFPAY ==
[2022-08-04 08:04] LABS: Hematocrit 36.3 % (36-46); Hemoglobin 12.1 g/dL (12.0-16.0); Mean Corpuscular HGB Conc 33.3 % (30-36); Mean Corpuscular Hemoglobin 32.1 PG (26-34); Mean Corpuscular Volume 96.5 fL (80-100); Platelet Count 196 X10^3/uL (150-400); Red Blood Cell Count 3.76 X10^6/uL (4.0-5.2); Red Cell Distribution Width 14.1 % (11.6-14.8)
[2022-08-04 08:15] LABS: Add Manual Diff / Slide Review YES; White Blood Cell Count 32.2 X10^3/uL (4.5-11.0)
[2022-08-04 08:35] LABS: Neutrophils Absolute Manual 3220 /uL (3000-5900); Total Cells Counted 100
[2022-08-04 08:37] LABS: Smudge Cells 1+
[2022-08-04 08:38] LABS: RBC Morphology Norm
== END ==
PROVIDERS: Family Provider Family Medicine; PCP Family Medicine; Referring Provider Internal Medicine Hematology & Oncology; Visit Provider Internal Medicine Hematology & Oncology
DX: C91.10 Chronic lymphocytic leukemia of B-cell type not having achieved remission (principal)
CPT/HCPCS: 36415; 85007; 85025

== ENCOUNTER → 2022-08-09 06:38 | Outpatient (CLI) | payer MEDICARE, OTHER, SELFPAY ==
[2022-08-09 07:17] LABS: Hematocrit 38.6 % (36-46); Hemoglobin 12.7 g/dL (12.0-16.0); Mean Corpuscular HGB Conc 32.9 % (30-36); Mean Corpuscular Hemoglobin 31.8 PG (26-34); Mean Corpuscular Volume 96.4 fL (80-100); Platelet Count 180 X10^3/uL (150-400); Red Cell Distribution Width 13.9 % (11.6-14.8); White Blood Cell Count 24.1 X10^3/uL (4.5-11.0)
[2022-08-09 07:20] LABS: Add Manual Diff / Slide Review YES
[2022-08-09 08:34] LABS: Neutrophils Absolute Manual 4820 /uL (3000-5900); RBC Morphology Normal Morphology; Total Cells Counted 100
== END ==
PROVIDERS: Family Provider Family Medicine; PCP Family Medicine; Referring Provider Internal Medicine Hematology & Oncology; Visit Provider Internal Medicine Hematology & Oncology
DX: C91.10 Chronic lymphocytic leukemia of B-cell type not having achieved remission (principal)
CPT/HCPCS: 36415; 85007; 85025

== ENCOUNTER → 2022-08-15 06:49 | Outpatient (CLI) | payer MEDICARE, OTHER, SELFPAY ==
[2022-08-15 08:15] LABS: Hemoglobin 12.5 g/dL (12.0-16.0); Mean Corpuscular HGB Conc 33.6 % (30-36); Mean Corpuscular Hemoglobin 31.5 PG (26-34); Mean Corpuscular Volume 93.6 fL (80-100); Platelet Count 123 X10^3/uL (150-400); Red Blood Cell Count 3.95 X10^6/uL (4.0-5.2); Red Cell Distribution Width 13.9 % (11.6-14.8); White Blood Cell Count 14.1 X10^3/uL (4.5-11.0)
[2022-08-15 08:23] LABS: Add Manual Diff / Slide Review YES
[2022-08-15 08:39] LABS: Neutrophils Absolute Manual 2679 /uL (3000-5900); RBC Morphology Normal Morphology; Total Cells Counted 100
== END ==
PROVIDERS: Family Provider Family Medicine; PCP Family Medicine; Referring Provider Internal Medicine Hematology & Oncology; Visit Provider Internal Medicine Hematology & Oncology
DX: C91.10 Chronic lymphocytic leukemia of B-cell type not having achieved remission (principal)
CPT/HCPCS: 36415; 85007; 85025

== ENCOUNTER → 2022-09-09 10:48 | Outpatient (CLI) | payer MEDICARE, OTHER, SELFPAY | PROVIDERS: Family Provider Family Medicine; PCP Family Medicine; Visit Provider Physician Assistant | DX: J02.9 Acute pharyngitis, unspecified (principal); R55 Syncope and collapse | CPT/HCPCS: 87070 ==

== ENCOUNTER → 2022-10-19 07:29 | Outpatient (CLI) | payer MEDICARE, OTHER, SELFPAY ==
--- NOTE | 2022-10-19 | DI.MG.S_ITS ---
BILATERAL DIGITAL SCREENING MAMMOGRAM 3D/2D WITH CAD: 10/19/2022 CLINICAL: Routine screening. Comparison is made to exams dated: 10/11/2021 mammogram, 10/06/2020 mammogram, and 08/16/2019 mammogram - [facility]. There are scattered areas of fibroglandular density in both breasts (category b / 25%-50% glandular tissue). Current study was also evaluated with a Computer Aided Detection (CAD) system. There is a biopsy clip in the right breast. There are enlarged and morphologically abnormal lymph nodes seen in the bilateral axilla, left greater than right, which have increased in size since prior mammogram. No significant masses, calcifications, or other findings are seen in either breast. IMPRESSION: BENIGN Status post right breast needle biopsy. No mammographic evidence of malignancy. A 1 year screening mammogram is recommended. Morphologically abnormal lymph nodes in the axillae, increased since prior mammogram and consistent with history of lymphoma. Recommend clinical evaluation. Based on the Tyrer Cuzick model (a risk assessment model) the patient's lifetime risk is 3.1% and her 10 year risk is 2.3%. According to the ACR, ACS, and NCCN guidelines, an annual breast MRI exam along with mammogram is recommended if the patient's lifetime risk is 20% or greater. This exam was interpreted at Station ID: [id number]. NOTE: For mammograms, a report in lay terms will be sent to the patient. Approximately 15% of breast malignancies will not be visualized mammographically. In the management of a palpable breast mass, a negative mammogram must not discourage biopsy of a clinically suspicious lesion. Electronically Signed By: Fioan garciab/:10/19/2022 09:53:08 letter sent: Normal Exam ACR BI-RADS Category 2: Benign Finding(s) 3342F
== END ==
PROVIDERS: Family Provider Family Medicine; PCP Family Medicine; Referring Provider Family Medicine; Visit Provider Family Medicine
DX: Z12.31 Encounter for screening mammogram for malignant neoplasm of breast (principal)
CPT/HCPCS: 77063; 77067

== ENCOUNTER → 2022-11-21 06:32 | Outpatient (CLI) | payer MEDICARE, OTHER, SELFPAY ==
[2022-11-21 08:26] LABS: Hematocrit 38.1 % (36-46); Hemoglobin 12.7 g/dL (12.0-16.0); Mean Corpuscular HGB Conc 33.2 % (30-36); Mean Corpuscular Hemoglobin 29.7 PG (26-34); Mean Corpuscular Volume 89.5 fL (80-100); Platelet Count 131 X10^3/uL (150-400); Red Blood Cell Count 4.26 X10^6/uL (4.0-5.2); Red Cell Distribution Width 15.4 % (11.6-14.8); White Blood Cell Count 15.9 X10^3/uL (4.5-11.0)
[2022-11-21 08:32] LABS: Add Manual Diff / Slide Review YES
[2022-11-21 08:50] LABS: Alanine Aminotransferase 18 IU/L (<35); Albumin 3.9 g/dL (3.5-5.0); Albumin Globulin Ratio 2.2 (1.0-2.8); Alkaline Phosphatase 53 U/L (38-126); Aspartate Aminotransferase 24 IU/L (14-36); BUN Creatinine Ratio 21.6 (6-22); Bilirubin Total 0.2 mg/dL (0.2-1.3); Blood Urea Nitrogen 16 mg/dL (7-17); Calcium 9.6 mg/dL (8.4-10.2); Carbon Dioxide 29 mmol/L (22-32); Chloride 109 mmol/L (98-107); Estimated Glomerular Filt Rate > 60 mL/min (>60); Globulin 1.8 g/dL (1.7-4.1); Glucose 61 mg/dL (80-110); HEMOLYSIS < 15 (0-50); Lactate Dehydrogenase 183 U/L (120-246); Potassium 3.9 mmol/L (3.4-5.1); Sodium 141 mmol/L (137-145); Total Protein 5.7 g/dL (6.3-8.2); Uric Acid 5.1 mg/dL (2.5-6.2)
[2022-11-21 08:56] LABS: Neutrophils Absolute Manual 2862 /uL (3000-5900); RBC Morphology Normal Morphology; Total Cells Counted 100
== END ==
PROVIDERS: Family Provider Family Medicine; PCP Family Medicine; Referring Provider Internal Medicine Hematology & Oncology; Visit Provider Internal Medicine Hematology & Oncology
DX: D59.10 Autoimmune hemolytic anemia, unspecified (principal); C91.10 Chronic lymphocytic leukemia of B-cell type not having achieved remission
CPT/HCPCS: 36415; 80053; 83615; 84550; 85007; 85025

== ENCOUNTER 2023-01-26 02:59 | Inpatient (IN) | payer MEDICARE, OTHER, SELFPAY ==
[2023-01-26] VITALS (22 sets, daily range): BP systolic 88–131; BP diastolic 51–70; PULSE 61–96; RESP 7–21; TEMP 36.1–36.6; O2SAT 91–100; BMI 22.1
[2023-01-26] MEDS: HYDROMORPHONE 0.5 MG INJ IV (03:26)
[2023-01-26] MEDS: ONDANSETRON 4 MG/2 ML INJ IV ×3 (03:26→20:07)
[2023-01-26 03:28] LABS: Hematocrit 41.1 % (36-46); Hemoglobin 13.8 g/dL (12.0-16.0); Mean Corpuscular HGB Conc 33.5 % (30-36); Mean Corpuscular Hemoglobin 29.5 PG (26-34); Platelet Count 156 X10^3/uL (150-400); Red Blood Cell Count 4.67 X10^6/uL (4.0-5.2); Red Cell Distribution Width 14.2 % (11.6-14.8); White Blood Cell Count 28.4 X10^3/uL (4.5-11.0)
[2023-01-26 03:29] LABS: Add Manual Diff / Slide Review YES
[2023-01-26 03:50] LABS: Alanine Aminotransferase 54 IU/L (<35); Albumin 4.3 g/dL (3.5-5.0); Albumin Globulin Ratio 1.8 (1.0-2.8); Alkaline Phosphatase 75 U/L (38-126); Aspartate Aminotransferase 105 IU/L (14-36); BUN Creatinine Ratio 26.3 (6-22); Blood Urea Nitrogen 20 mg/dL (7-17); Calcium 10.1 mg/dL (8.4-10.2); Carbon Dioxide 26 mmol/L (22-32); Chloride 105 mmol/L (98-107); Estimated Glomerular Filt Rate > 60 mL/min (>60); Globulin 2.4 g/dL (1.7-4.1); Glucose 178 mg/dL (80-110); HEMOLYSIS < 15 (0-50); Sodium 140 mmol/L (137-145); Total Protein 6.7 g/dL (6.3-8.2)
[2023-01-26 03:59] LABS: Neutrophils Absolute Manual 7668 /uL (3000-5900); Platelet Estimate Adequate on smear; RBC Morphology Normal Morphology; Smudge Cells 3+; Total Cells Counted 100
--- NOTE | 2023-01-26 04:05 | DI.CT.S_ITS ---
PROCEDURE: CT ABDOMEN PELVIS W CON INDICATIONS: abd and flank pain TECHNIQUE: After the administration of oral and IV contrast, axial sections were acquired from the lung bases to the pubic symphysis. Coronal and sagittal reformats were performed. For radiation dose reduction, the following was used: automated exposure control, adjustment of mA and/or kV according to patient size. COMPARISON: [facility], CT, CT ABDOMEN PELVIS W CON, 03/14/2021, 12:53. FINDINGS: Image quality: Excellent. Lung bases: Unremarkable. Heart: No significant findings. ABDOMEN: Liver: A mildly heterogeneous enhancement, with peripheral regions of hyperattenuation. Gallbladder: The gallbladder is distended, without radiopaque stones. Biliary ducts: No biliary dilation. Pancreas: Diffuse peripancreatic fat stranding adjacent free fluid. No ductal dilation. Homogeneous enhancement. Spleen: Size is within normal limits. Adrenal Glands: No adrenal nodules. Kidneys and Ureters: No hydronephrosis. No solid mass. No complex renal cystic lesion which requires follow up. Small burden of bilateral nonobstructing nephrolithiasis. Stomach and Bowel: Normal colonic caliber, without significant wall thickening. Peritoneum: No abnormal intraperitoneal fluid. No free air. Ventral Wall: No hernia. Abdominal Nodes: Enlarged right lower quadrant lymph nodes, slightly progressed from prior. Enlarging retroperitoneal lymph nodes. Vessels: Aorta and inferior vena cava are normal in size. PELVIS: Pelvic Organs: Unremarkable. Bladder: Unremarkable. Pelvic Nodes: Pelvic adenopathy, progressed from prior. Miscellaneous: No inguinal hernias are seen. Bones: No aggressive osseous abnormality. IMPRESSION: Acute interstitial pancreatitis. No vascular complication. No acute peripancreatic collection. Progressed lymphoma, with growing retroperitoneal, right lower quadrant and pelvic adenopathy. Dictated by: Nabeel Dorado M.D. on 01/26/2023 at 8:36 Approved by: Nabeel Dorado M.D. on 01/26/2023 at 8:41
[2023-01-26] MEDS: HYDROMORPHONE 1 MG INJ IV (04:12)
[2023-01-26 04:22] LABS: Bacteria Urine None Seen; Culture Indicated Urine Cult Not Indicated; Hyaline Casts Urine 1-5/LPF; RBC Urine 1-5/HPF (0-5/HPF); Squamous Epithelial Cell Urine 0-1 /HPF (0-5/HPF); WBC Urine 1-5/HPF (0-5/HPF)
--- NOTE | 2023-01-26 04:38 | ED.ABDPAIN ---
HPI - Abdominal Pain General Chief Complaint: Abdominal Pain Stated Complaint: abd pain, vomiting, back pain, possible kidney sto Time Seen by Provider: 01/26/23 03:06 Source: patient and family Mode of arrival: Ambulatory History of Present Illness HPI narrative: This is a 72-year-old female with a history of CLL and kidney stones. She presents with 5 hours of right flank pain and epigastric pain. It is accompanied by nausea and vomiting. She is not had fever. Has not had any changes in her bowel habits or urinary symptoms. Patient is concerned that she may have a recurrence of kidney stones. Says that she drinks only small amounts of alcohol. Patient still has a gallbladder. Related Data Home Medications Medication Instructions Recorded Confirmed Flax Seed 1 tab DAILY 07/28/19 09/09/22 Previous Rx's Medication Instructions Recorded levothyroxine 100 mcg tablet See Rx Instructions .Route 08/07/22 .COMPLEX #90 tabs Allergies Allergy/AdvReac Type Severity Reaction Status Date / Time cinnamon Allergy Intermediate swelling, Uncoded 09/09/22 10:46 tingling, rash, burning kiwi Allergy Mild rash Uncoded 09/09/22 10:46 Patient History Medical History Bilateral nephrolithiasis Cervicalgia Hyperparathyroidism Hypothyroidism Lower back pain Neck muscle spasm Osteoarthritis of right knee Renal colic on right side Right ureteral calculus Schwannoma of cranial nerve Surgical History History of thyroidectomy Family History Father Heart disease Family/Other Uterine cancer Social History marital status: household members: spouse occupational status: employed Smoking Status: Never smoker alcohol intake: current substance use type: does not use Smoking Status: Never smoker alcohol intake frequency: a few times a month Substance Use Type: does not use Exam Initial Vital Signs Initial Vital Signs: Vital Signs Pulse Rate 94 H 01/26/23 03:06 Blood Pressure 131/69 01/26/23 03:06 Pulse Oximetry 98 01/26/23 03:06 Oxygen Delivery Method Room Air 01/26/23 03:06 Const General: acute distress HENMT Head: normocephalic and atraumatic Mouth: moist mucous membranes Neck Neck: supple Resp Effort & Inspection: normal respiratory effort Auscultation: clear to auscultation bilaterally Cardio Rate: regular rate Rhythm: regular rhythm Heart Sounds: S1 normal, S2 normal and no murmurs GI Inspection: normal to inspection Palpation: soft, No pulsatile mass and tender (Epigastrium is tender with voluntary guarding, has right-sided CVAT) Back/Spine/Pelvis Back: normal to inspection Skin General: no rashes or lesions noted, dry skin and warm Neuro General: patient alert, patient oriented x3 and moves all extremities Psych Appearance: grossly normal Course Orders Ordered: ED Orders 01/26/23 03:17 Complete Blood Count AUTO DIFF Stat Comprehensive Metabolic Panel Stat Lipase Stat 01/26/23 03:59 Urine Microscopic Stat 01/26/23 04:05 CT abdomen pelvis w con Stat Sodium Chloride (Normal Saline 0.9%) 1,000 mls @ 125 mls/hr IV CONT NEIL Last Admin: 01/26/23 05:50 Dose: 125 mls/hr Discontinued Medications Hydromorphone HCl (Hydromorphone 0.5 Mg Inj) 0.5 mg IV NOW ONE Stop: 01/26/23 03:14 Last Admin: 01/26/23 03:26 Dose: 0.5 mg Documented By: OLINDA Hydromorphone HCl (Hydromorphone 1 Mg Inj) 1 mg IV NOW ONE Stop: 01/26/23 04:06 Last Admin: 01/26/23 04:12 Dose: 1 mg Documented By: OLINDA Ondansetron HCl (Ondansetron 4 Mg/2 Ml Inj) 4 mg IV NOW ONE Stop: 01/26/23 03:14 Last Admin: 01/26/23 03:26 Dose: 4 mg Documented By: OLINDA Reevaluation(s) Reevaluation #1: After IV fluids Dilaudid and ondansetron the patient is feeling better. Advised her of workup findings and recommendation for admission she is in agreement Consultations Consultation #1: D/W Hospitalist Dr Garcia at 0600. Accepts admission Vital Signs Vital signs: Vital Signs - 8 hr 01/26/23 03:06 01/26/23 03:06 01/26/23 03:09 Temperature 97 F L Pulse Rate 94 H 93 H Respiratory Rate 18 Blood Pressure 131/69 131/69 Pulse Oximetry 98 97 Oxygen Delivery Method Room Air Room Air Oxygen Flow Rate 01/26/23 03:30 01/26/23 03:30 01/26/23 04:00 Temperature Pulse Rate 96 H 72 Respiratory Rate 15 Blood Pressure 125/68 Pulse Oximetry 95 91 Oxygen Delivery Method Room Air Nasal Cannula Oxygen Flow Rate 2 01/26/23 04:30 01/26/23 05:02 01/26/23 05:03 Temperature Pulse Rate 67 68 69 Respiratory Rate 21 12 Blood Pressure Pulse Oximetry 95 95 96 Oxygen Delivery Method Nasal Cannula Nasal Cannula Nasal Cannula Oxygen Flow Rate 2 2 2 01/26/23 05:03 01/26/23 05:30 01/26/23 05:30 Temperature Pulse Rate 73 Respiratory Rate 14 Blood Pressure 109/63 107/64 Pulse Oximetry 100 Oxygen Delivery Method Oxygen Flow Rate 01/26/23 06:00 Temperature Pulse Rate 66 Respiratory Rate 16 Blood Pressure Pulse Oximetry 100 Oxygen Delivery Method Oxygen Flow Rate MDM - Abdominal Pain Medical Records Medical records narrative: Reviewed previous abdominopelvic CT from June of 2025 Lab Data Lab results narrative: WBCs 28.4, this is consistent with her known CLL, has a platelet count of 156 and normal hemoglobin. Chemistries normal bilirubin and alkaline phosphatase transaminases only slightly elevated, lipase is greater than 51,000. Dip urinalysis is unremarkable. 01/26/23 03:17 01/26/23 03:17 Labs: Lab Results 01/26/23 01/26/23 Range/Units 03:17 03:59 WBC 28.4 H (4.5-11.0) X10^3/uL RBC 4.67 (4.0-5.2) X10^6/uL Hgb 13.8 (12.0-16.0) g/dL Hct 41.1 (36-46) % MCV 88.0 (80-100) fL MCH 29.5 (26-34) PG MCHC 33.5 (30-36) % RDW 14.2 (11.6-14.8) % Plt Count 156 (150-400) X10^3/uL Neut % (Auto) Not Reportable Lymph % (Auto) Not Reportable [place] % (Auto) Not Reportable Eos % (Auto) Not Reportable Baso % (Auto) Not Reportable Lymph # (Auto) Not Reportable [place] # (Auto) Not Reportable Baso # (Auto) Not Reportable Total Counted 100 Seg Neutrophils % 27.0 L (38-70) % Lymphocytes % (Manual) 61.0 H (25-45) % Atypical Lymphs % 10.0 H ( - 0) % Monocytes % (Manual) 2.0 (2-11) % Neutrophils # (Manual) 7668 H (1988-9684) /uL Smudge Cells 3+ H Platelet Estimate Adequate on smear RBC Morphology Normal morphology Sodium 140 (137-145) mmol/L Potassium 4.0 (3.4-5.1) mmol/L Chloride 105 (98-107) mmol/L Carbon Dioxide 26 (22-32) mmol/L BUN 20 H (7-17) mg/dL Creatinine 0.76 (0.52-1.04) mg/dL Estimated GFR > 60 (>60) mL/min BUN/Creatinine Ratio 26.3 H (6-22) Glucose 178 H (80-110) mg/dL Calcium 10.1 (8.4-10.2) mg/dL Total Bilirubin 1.0 (0.2-1.3) mg/dL AST 105 H (14-36) IU/L ALT 54 H (<35) IU/L Alkaline Phosphatase 75 (38-126) U/L Total Protein 6.7 (6.3-8.2) g/dL Albumin 4.3 (3.5-5.0) g/dL Globulin 2.4 (1.7-4.1) g/dL Albumin/Globulin Ratio 1.8 (1.0-2.8) Lipase 40587 H (23-300) U/L Urine RBC 1-5/hpf D (0-5/HPF) Urine WBC 1-5/hpf (0-5/HPF) Ur Squamous Epith Cells 0-1 /hpf (0-5/HPF) Urine Bacteria None seen (None) Hyaline Casts 1-5/lpf (None) Ur Culture Indicated? Cult not indicated Point of care testing: Urine Dip Bedside Urine Glucose Negative Bedside Urine Bilirubin - Negative Bedside Urine Ketone - Negative Urine Specific [place] 1.025 Bedside Urine Occult Blood + Bedside Urine pH 6.0 Bedside Urine Protein + 30 Bedside Urine Urobilinogen - Negative Bedside Urine Nitrite - Negative Bedside Urine Leukocytes - Negative Esterase Imaging Data CT scan - abdomen/pelvis: My Impression: Independent review of CT abdomen and pelvis, inflammatory changes around the pancreas Radiologist's Impression: Preliminary radiology read? extensive peripancreatic inflammatory changes compatible with acute pancreatitis. No CT findings of pancreatic necrosis or secondary complications at present. Enlarged right lower quadrant lymph nodes. This is a nonspecific finding which can be seen in the setting of mesenteric adenitis. No evidence of colitis, diverticulitis, bowel obstruction, obstructive uropathy or acute appendicitis.? MDM Narrative Medical decision making narrative: 72-year-old his female with a history of CLL and kidney stones presenting with epigastric and right flank pain as well as nausea and vomiting. Differential diagnosis includes cholecystitis, pancreatitis, ureteral stone, pyelonephritis for bowel obstruction. Aortic aneurysm was also considered. Workup is remarkable for inflammatory changes around the pancreas on CT without gallstones and a very elevated lipase. Clinical picture is consistent with acute pancreatitis. Patient is presently nontoxic appearing, she had been given IV fluids Dilaudid ondansetron. She will be admitted to the hospitalist service for further evaluation. Of note, at this point the etiology of her pancreatitis is unclear as she reports only minimal alcohol use and gallstones are not seen on imaging today. Patient will be admitted to the hospitalist service for further evaluation and care. Discharge Plan Departure Patient Disposition: Admitted As Inpatient Clinical Impression: Acute pancreatitis Qualifiers: Pancreatitis type: idiopathic Acute pancreatitis complication: no infection or necrosis Qualified Code(s): K85.00 - Idiopathic acute pancreatitis without necrosis or infection Admit Date/Time: 01/26/23 06:02 Admit Provider: Juan Hollingsworth
[2023-01-26 04:56] LABS: Lipase 51880 U/L (23-300)
[2023-01-26] MEDS: SODIUM CHLORIDE 0.9% 1,000 ML 125 ML IV (05:50)
--- NOTE | 2023-01-26 06:19 | PM.HP.1 ---
History of Present Illness History of Present Illness Date Patient Seen: 01/26/23 Chief complaint: abd pain, vomiting, back pain, poss kidney stone Narrative: 72 y/o presented to ED with epigastric pain, nausea, and was diagnosed with acute pancreatitis. Doesn't appear to be gallstone and denies ETOH. No prior Hx of pancreatitis. [facility] Medical History Bilateral nephrolithiasis Cervicalgia Hyperparathyroidism Hypothyroidism Lower back pain Neck muscle spasm Osteoarthritis of right knee Renal colic on right side Right ureteral calculus Schwannoma of cranial nerve Surgical History History of thyroidectomy Family History Father Heart disease Family/Other Uterine cancer Social History marital status: household members: spouse occupational status: employed Smoking Status: Never smoker alcohol intake: current substance use type: does not use Meds Home Medications and Allergies Home Medications Medication Instructions Recorded Confirmed Type Flax Seed 1 tab DAILY 07/28/19 09/09/22 History levothyroxine 100 mcg tablet See Rx Instructions .Route 08/07/22 09/09/22 Rx .COMPLEX #90 tabs Allergies Allergy/AdvReac Type Severity Reaction Status Date / Time cinnamon Allergy Intermediate swelling, Uncoded 09/09/22 10:46 tingling, rash, burning kiwi Allergy Mild rash Uncoded 09/09/22 10:46 Review of Systems Review of Systems Narrative: Unable to get ROS , pt not ready for televisit Exam Vital Signs (past 8 hours): - 01/26/23 03:06 01/26/23 03:06 01/26/23 03:09 Temperature 97 F L Pulse Rate 94 H 93 H Respiratory Rate 18 Blood Pressure 131/69 131/69 Pulse Oximetry 98 97 Oxygen Delivery Method Room Air Room Air Oxygen Flow Rate 01/26/23 03:30 01/26/23 03:30 01/26/23 04:00 Temperature Pulse Rate 96 H 72 Respiratory Rate 15 Blood Pressure 125/68 Pulse Oximetry 95 91 Oxygen Delivery Method Room Air Nasal Cannula Oxygen Flow Rate 2 01/26/23 04:30 01/26/23 05:02 01/26/23 05:03 Temperature Pulse Rate 67 68 69 Respiratory Rate 21 12 Blood Pressure Pulse Oximetry 95 95 96 Oxygen Delivery Method Nasal Cannula Nasal Cannula Nasal Cannula Oxygen Flow Rate 2 2 2 01/26/23 05:03 01/26/23 05:30 01/26/23 05:30 Temperature Pulse Rate 73 Respiratory Rate 14 Blood Pressure 109/63 107/64 Pulse Oximetry 100 Oxygen Delivery Method Oxygen Flow Rate 01/26/23 06:00 Temperature Pulse Rate 66 Respiratory Rate 16 Blood Pressure Pulse Oximetry 100 Oxygen Delivery Method Oxygen Flow Rate Oxygen Delivery Method Nasal Cannula Oxygen Flow Rate 2 Narrative Exam Narrative: pt not ready fo televisit Objective Labs 01/26/23 03:17 01/26/23 03:17 Labs: Laboratory Results - last 24 hr 01/26/23 01/26/23 03:17 03:59 WBC 28.4 H RBC 4.67 Hgb 13.8 Hct 41.1 MCV 88.0 MCH 29.5 MCHC 33.5 RDW 14.2 Plt Count 156 Neut % (Auto) Not Reportable Lymph % (Auto) Not Reportable [place] % (Auto) Not Reportable Eos % (Auto) Not Reportable Baso % (Auto) Not Reportable Lymph # (Auto) Not Reportable [place] # (Auto) Not Reportable Baso # (Auto) Not Reportable Total Counted 100 Seg Neutrophils % 27.0 L Lymphocytes % (Manual) 61.0 H Atypical Lymphs % 10.0 H Monocytes % (Manual) 2.0 Neutrophils # (Manual) 7668 H Smudge Cells 3+ H Platelet Estimate Adequate on smear RBC Morphology Normal morphology Sodium 140 Potassium 4.0 Chloride 105 Carbon Dioxide 26 BUN 20 H Creatinine 0.76 Estimated GFR > 60 BUN/Creatinine Ratio 26.3 H Glucose 178 H Calcium 10.1 Total Bilirubin 1.0 AST 105 H ALT 54 H Alkaline Phosphatase 75 Total Protein 6.7 Albumin 4.3 Globulin 2.4 Albumin/Globulin Ratio 1.8 Lipase 89174 H Urine RBC 1-5/hpf D Urine WBC 1-5/hpf Ur Squamous Epith Cells 0-1 /hpf Urine Bacteria None seen Hyaline Casts 1-5/lpf Ur Culture Indicated? Cult not indicated Assessment & Plan Assessment and plan (1) Acute pancreatitis: Qualifiers: Acute pancreatitis complication: no infection or necrosis Pancreatitis type: idiopathic Qualified Code(s): K85.00 - Idiopathic acute pancreatitis without necrosis or infection Status: Acute Plan: IVFs, trial of clear liquids for diner, pain management, antiemetics - checking lipids - likely idiopathic (2) Hypothyroidism: Qualifiers: Hypothyroidism type: postoperative Qualified Code(s): E89.0 - Postprocedural hypothyroidism Status: Acute Plan: levothyroxine (3) CLL (chronic lymphocytic leukemia): Status: Acute
[2023-01-26] MEDS: HYDROMORPHONE 0.5 MG INJ 1 MG IV ×7 (06:43→22:58)
[2023-01-26] MEDS: LACTATED RINGERS 1,000 ML 200 ML IV ×2 (06:45→12:42)
[2023-01-26] MEDS: LEVOTHYROXINE 100 MCG TABLET PO (06:51)
[2023-01-26 07:43] LABS: Cholesterol 240 mg/dL (140-199); HDL Cholesterol 71 mg/dL (40-60); LDL Cholesterol Calculated 153 mg/dL (<100); Triglycerides 79 mg/dL (35-150)
--- NOTE | 2023-01-26 08:06 | P.HP_ITS ---
History of Present Illness History of Present Illness Date Patient Seen: 01/26/23 Chief complaint: abd pain, vomiting, back pain, poss kidney stone Narrative: Jayla Trevino is a 72yo F with PMH of CLL, kidney stones, and hypothyroidism who presented to ED with epigastric pain, nausea, and was diagnosed with acute pancreatitis. She denies alcohol use. Still has her gallbladder. Lipase up to 51,000. CT abd showed peripancreatic inflammation and distended gallbladder. US showed dilated CBD. MRCP showed no choledocholithiasis but cholelithiasis. Dr. Noland general surgery consulted for lap jatinder. Patient currently feeling much better with IV pain meds. She has IVF running. No real appetite. [facility] Medical History Schwannoma of cranial nerve Bilateral nephrolithiasis Renal colic on right side Right ureteral calculus Osteoarthritis of right knee Cervicalgia Hypothyroidism Lower back pain Neck muscle spasm Hyperparathyroidism Surgical History History of thyroidectomy Family History Father Heart disease Family/Other Uterine cancer Social History marital status: household members: spouse occupational status: employed Smoking Status: Never smoker alcohol intake: current substance use type: does not use Meds Home Medications and Allergies Home Medications Medication Instructions Recorded Confirmed Type Flax Seed 1 tab PO DAILY 07/28/19 01/26/23 History levothyroxine 100 mcg tablet See Rx Instructions .Route 08/07/22 01/26/23 Rx .COMPLEX #90 tabs Allergies Allergy/AdvReac Type Severity Reaction Status Date / Time cinnamon Allergy Intermediate swelling, Uncoded 09/09/22 10:46 tingling, rash, burning kiwi Allergy Mild rash Uncoded 09/09/22 10:46 Review of Systems Review of Systems Narrative: All other systems reviewed with the patient and are negative unless otherwise stated. Exam Vital Signs (past 8 hours): - 01/26/23 03:06 01/26/23 03:06 01/26/23 03:09 Temperature 97 F L Pulse Rate 94 H 93 H Respiratory Rate 18 Blood Pressure 131/69 131/69 Pulse Oximetry 98 97 Oxygen Delivery Method Room Air Room Air Oxygen Flow Rate 01/26/23 03:30 01/26/23 03:30 01/26/23 04:00 Temperature Pulse Rate 96 H 72 Respiratory Rate 15 Blood Pressure 125/68 Pulse Oximetry 95 91 Oxygen Delivery Method Room Air Nasal Cannula Oxygen Flow Rate 2 01/26/23 04:30 01/26/23 05:02 01/26/23 05:03 Temperature Pulse Rate 67 68 69 Respiratory Rate 21 12 Blood Pressure Pulse Oximetry 95 95 96 Oxygen Delivery Method Nasal Cannula Nasal Cannula Nasal Cannula Oxygen Flow Rate 2 2 2 01/26/23 05:03 01/26/23 05:30 01/26/23 05:30 Temperature Pulse Rate 73 Respiratory Rate 14 Blood Pressure 109/63 107/64 Pulse Oximetry 100 Oxygen Delivery Method Oxygen Flow Rate 01/26/23 06:00 01/26/23 06:00 01/26/23 06:30 Temperature Pulse Rate 66 Respiratory Rate 16 Blood Pressure 118/65 119/67 Pulse Oximetry 100 Oxygen Delivery Method Oxygen Flow Rate 01/26/23 06:30 01/26/23 07:00 01/26/23 07:00 Temperature Pulse Rate 61 75 Respiratory Rate 13 14 Blood Pressure 101/58 L Pulse Oximetry 100 96 Oxygen Delivery Method Nasal Cannula Nasal Cannula Oxygen Flow Rate 2 2 Oxygen Delivery Method Nasal Cannula Oxygen Flow Rate 2 Narrative Exam Narrative: GEN: no acute distress HEENT: moist mucous membranes, PERRL NECK: trachea midline, no JVD CV: regular rate and rhythm, no murmurs PULM: clear bilaterally ABD: soft, epigastric tenderness, nondistended, no organomegaly EXT: warm and well perfused with no edema NEURO: awake, alert, oriented, no focal deficits Objective Labs 01/26/23 03:17 01/26/23 03:17 Labs: Laboratory Results - last 24 hr 01/26/23 01/26/23 03:17 03:59 WBC 28.4 H RBC 4.67 Hgb 13.8 Hct 41.1 MCV 88.0 MCH 29.5 MCHC 33.5 RDW 14.2 Plt Count 156 Neut % (Auto) Not Reportable Lymph % (Auto) Not Reportable [place] % (Auto) Not Reportable Eos % (Auto) Not Reportable Baso % (Auto) Not Reportable Lymph # (Auto) Not Reportable [place] # (Auto) Not Reportable Baso # (Auto) Not Reportable Total Counted 100 Seg Neutrophils % 27.0 L Lymphocytes % (Manual) 61.0 H Atypical Lymphs % 10.0 H Monocytes % (Manual) 2.0 Neutrophils # (Manual) 7668 H Smudge Cells 3+ H Platelet Estimate Adequate on smear RBC Morphology Normal morphology Sodium 140 Potassium 4.0 Chloride 105 Carbon Dioxide 26 BUN 20 H Creatinine 0.76 Estimated GFR > 60 BUN/Creatinine Ratio 26.3 H Glucose 178 H Calcium 10.1 Total Bilirubin 1.0 AST 105 H ALT 54 H Alkaline Phosphatase 75 Total Protein 6.7 Albumin 4.3 Globulin 2.4 Albumin/Globulin Ratio 1.8 Triglycerides 79 Cholesterol 240 H LDL Cholesterol, Calc 153 H HDL Cholesterol 71 H Lipase 67103 H Urine RBC 1-5/hpf D Urine WBC 1-5/hpf Ur Squamous Epith Cells 0-1 /hpf Urine Bacteria None seen Hyaline Casts 1-5/lpf Ur Culture Indicated? Cult not indicated Assessment & Plan Assessment and plan (1) Acute pancreatitis: Qualifiers: Acute pancreatitis complication: no infection or necrosis Pancreatitis type: idiopathic Qualified Code(s): K85.00 - Idiopathic acute pancreatitis without necrosis or infection Status: Acute Plan: -diagnosed with lipase of 51k and CT with peripancreatic inflammation -MRCP without choledocho but cholelithiasis -Dr. Noland gen surg to possibly do lap jatinder on 01/27 -clear liquid diet -IV pain meds -IVF 150cc/hr -etiology possibly due to passed gallstone, lipids ok, no alcohol use -trend lipase (2) Hypothyroidism: Qualifiers: Hypothyroidism type: postoperative Qualified Code(s): E89.0 - Postprocedural hypothyroidism Status: Acute Plan: levothyroxine TSH normal (3) CLL (chronic lymphocytic leukemia): Status: Acute Plan: followed by Dr. Reyes at [facility] WBC 28 which is pretty good per patient for her CT with enlarged LN's through abdomen consistent with lymphoma Plan Dispo: Home in 2-3 days pending lap jatinder and improvement in pancreatitis.
--- NOTE | 2023-01-26 08:13 | DI.US.S_ITS ---
PROCEDURE: US ABDOMEN LIMITED INDICATIONS: ACUTE PANCREATITIS. ?GALLSTONES/BILIARY DISEASE TECHNIQUE: Real-time scanning was performed of the abdominal and retroperitoneal organs, with image documentation. COMPARISON: [facility], , US ABDOMEN LIMITED, 03/15/2021, 11:34. FINDINGS: Liver: Liver is normal in size and homogeneous in echotexture. Gallbladder: Gallstones are present. No wall thickening. No pericholecystic edema. Negative sonographic Gill's sign. Gallbladder distension. Biliary ducts: Intrahepatic bile ducts are non-dilated. Extrahepatic bile duct caliber measures 9.6 mm. Normal is 6-7 mm or less in diameter, or 10 mm or less post-cholecystectomy. Pancreas: Visualized portions of the pancreas are sonographically normal. Miscellaneous: Peripancreatic fluid. IMPRESSION: Cholelithiasis. Common bile duct distention. Findings may indicate choledocholithiasis. Consider MRCP. Gallbladder distension but no secondary evidence of acute cholecystitis. Early acute cholecystitis not excluded. Dictated by: Nabeel Dorado M.D. on 01/26/2023 at 9:09 Approved by: Nabeel Dorado M.D. on 01/26/2023 at 9:11
--- NOTE | 2023-01-26 09:24 | DI.MRI.S_ITS ---
PROCEDURE: MR ABDOMEN WO/W CON INDICATIONS: r/o choledocho, acute pancreatitis, CBD dilation on US TECHNIQUE: Coronal HASTE, axial 2D FLASH in- and [id number]; axial breath-hold T2 FSE with fat saturation from the hepatic dome to the iliac crests. Oblique coronal thin-slice and radial thick slab HASTE through the biliary system. Dynamic axial VIBE during administration of contrast. Post-contrast coronal VIBE or 2D FLASH with fat saturation from the hepatic dome to the iliac crests. Optional diffusion weighted imaging and ADC may be performed. COMPARISON: None. FINDINGS: Image quality: Diagnostic. Gallbladder: Cholelithiasis. No gallbladder wall thickening. Gallbladder hydrops. Biliary ducts: No biliary dilation. Pancreas: No ductal dilation. Diffuse peripancreatic fat stranding. OTHER: Lung bases: Axillary adenopathy and hilar adenopathy. Liver: No solid mass. Spleen: Enlarged. Adrenal Glands: No adrenal nodules. Kidneys and Ureters: No hydronephrosis. No solid mass. No complex renal cystic lesion which requires follow up. Stomach and Bowel: Normal colonic caliber, without significant wall thickening. Small duodenal diverticulum. Peritoneum: No abnormal intraperitoneal fluid. No free air. Ventral Wall: No hernia. Abdominal Nodes: Retroperitoneal and right lower quadrant lymphadenopathy. Vessels: Aorta and inferior vena cava are normal in size. Bones: Diffuse restricted diffusion of the bones. IMPRESSION: Acute interstitial pancreatitis. Cholelithiasis without choledocholithiasis or definite acute cholecystitis. Axillary, hilar, retroperitoneal and right lower quadrant adenopathy and splenomegaly, consistent with lymphoma. Diffuse restricted diffusion of the bones, suggestive of a pathologic entity such as lymphomatous involvement. Dictated by: Nabeel Dorado M.D. on 01/26/2023 at 11:07 Approved by: Nabeel Dorado M.D. on 01/26/2023 at 11:11
[2023-01-26] MEDS: LORazepam 0.5 MG TABLET PO (09:57)
[2023-01-26 10:06] LABS: TSH w/ Reflex to FT4 2.58 uIU/mL (0.47-4.68)
--- NOTE | 2023-01-26 10:22 | PC.NURSE ---
Patient taken to MRI with DI tech at 1010.
[2023-01-26 12:07] LABS: Magnesium 2.1 mg/dL (1.6-2.3)
--- NOTE | 2023-01-26 14:15 | PM.CN ---
History of Present Illness Consult details Date Patient Seen: 01/26/23 Time Patient Seen: 14:15 Chief complaint: abd pain, vomiting, back pain, poss kidney stone Reason for consult: Gallstone pancreatitis Requesting provider: Fredy Benz Narrative: Sudden onset of N/V/epigastric and back pain. Pain persistent and worse with palpation. Work up included CT abd that shows CT evidence of pancreatitis, MRCP shows no CBD stones, and US shows gallstones but no acute cholecystitis. Meds Home Medications and Allergies Home Medications Medication Instructions Recorded Confirmed Type Flax Seed 1 tab PO DAILY 07/28/19 01/26/23 History levothyroxine 100 mcg tablet See Rx Instructions .Route 08/07/22 01/26/23 Rx .COMPLEX #90 tabs Allergies Allergy/AdvReac Type Severity Reaction Status Date / Time cinnamon Allergy Intermediate swelling, Uncoded 09/09/22 10:46 tingling, rash, burning kiwi Allergy Mild rash Uncoded 09/09/22 10:46 Review of Systems Review of Systems ROS: Yes All systems reviewed with the patient and are negative except as otherwise documented Exam Vital Signs (past 8 hours): - 01/26/23 06:30 01/26/23 06:30 01/26/23 07:00 Temperature Pulse Rate 61 75 Respiratory Rate 13 14 Blood Pressure 119/67 Pulse Oximetry 100 96 Oxygen Delivery Method Nasal Cannula Nasal Cannula Oxygen Flow Rate 2 2 01/26/23 07:00 01/26/23 07:30 01/26/23 07:30 Temperature Pulse Rate 78 Respiratory Rate 12 Blood Pressure 101/58 L 100/58 L Pulse Oximetry 99 Oxygen Delivery Method Nasal Cannula Oxygen Flow Rate 2 01/26/23 08:00 01/26/23 08:00 01/26/23 08:30 Temperature Pulse Rate 75 Respiratory Rate 13 Blood Pressure 98/59 L 108/62 Pulse Oximetry 99 Oxygen Delivery Method Nasal Cannula Oxygen Flow Rate 2 01/26/23 08:30 01/26/23 09:00 01/26/23 09:00 Temperature Pulse Rate 79 74 Respiratory Rate 7 L 18 Blood Pressure 116/69 Pulse Oximetry 99 99 Oxygen Delivery Method Nasal Cannula Nasal Cannula Oxygen Flow Rate 2 2 01/26/23 09:30 01/26/23 09:30 01/26/23 11:03 Temperature Pulse Rate 79 82 Respiratory Rate Blood Pressure 108/61 Pulse Oximetry 96 96 Oxygen Delivery Method Nasal Cannula Nasal Cannula Oxygen Flow Rate 2 2 01/26/23 11:04 01/26/23 11:04 01/26/23 11:36 Temperature 97 F L Pulse Rate 80 82 Respiratory Rate 15 Blood Pressure 88/51 L 103/58 L Pulse Oximetry 98 95 Oxygen Delivery Method Nasal Cannula Oxygen Flow Rate 2 1 Oxygen Delivery Method Nasal Cannula Oxygen Flow Rate 1 Const General: cooperative and ill appearing Nutritional Appearance: average body habitus Orientation: alert, awake and oriented x3 HENMI Head: normocephalic and atraumatic Eyes General: appearance normal, both eyes and all related structures Conjunctivae: conjunctivae normal Sclera: sclerae normal Neck Neck: trachea midline Resp Effort & Inspection: normal respiratory effort and able to speak in complete sentences Cardio Rate: tachycardic Rhythm: regular rhythm GI Inspection: no abdominal wall ecchymosis and distended Palpation: soft and tender Skin General: atrophy Neuro General: patient alert, patient awake and patient oriented x3 Psych Mental Status: mental status grossly normal Affect: normal affect Attitude: cooperative Judgment: judgment good Objective Labs 01/26/23 03:17 01/26/23 03:17 Labs: Laboratory Results - last 24 hr 01/26/23 01/26/23 01/26/23 03:17 03:59 06:18 WBC 28.4 H RBC 4.67 Hgb 13.8 Hct 41.1 MCV 88.0 MCH 29.5 MCHC 33.5 RDW 14.2 Plt Count 156 Neut % (Auto) Not Reportable Lymph % (Auto) Not Reportable [place] % (Auto) Not Reportable Eos % (Auto) Not Reportable Baso % (Auto) Not Reportable Lymph # (Auto) Not Reportable [place] # (Auto) Not Reportable Baso # (Auto) Not Reportable Total Counted 100 Seg Neutrophils % 27.0 L Lymphocytes % (Manual) 61.0 H Atypical Lymphs % 10.0 H Monocytes % (Manual) 2.0 Neutrophils # (Manual) 7668 H Smudge Cells 3+ H Platelet Estimate Adequate on smear RBC Morphology Normal morphology Sodium 140 Potassium 4.0 Chloride 105 Carbon Dioxide 26 BUN 20 H Creatinine 0.76 Estimated GFR > 60 BUN/Creatinine Ratio 26.3 H Glucose 178 H Calcium 10.1 Magnesium 2.1 Total Bilirubin 1.0 AST 105 H ALT 54 H Alkaline Phosphatase 75 Total Protein 6.7 Albumin 4.3 Globulin 2.4 Albumin/Globulin Ratio 1.8 Triglycerides 79 Cholesterol 240 H LDL Cholesterol, Calc 153 H HDL Cholesterol 71 H Lipase 48316 H TSH 2.58 Urine RBC 1-5/hpf D Urine WBC 1-5/hpf Ur Squamous Epith Cells 0-1 /hpf Urine Bacteria None seen Hyaline Casts 1-5/lpf Ur Culture Indicated? Cult not indicated PFSH Medical History Schwannoma of cranial nerve Bilateral nephrolithiasis Renal colic on right side Right ureteral calculus Osteoarthritis of right knee Cervicalgia Hypothyroidism Lower back pain Neck muscle spasm Hyperparathyroidism Surgical History History of thyroidectomy Family History Father Heart disease Family/Other Uterine cancer Social History marital status: household members: spouse occupational status: employed Tobacco & Substance Use Smoking Status: Never smoker alcohol intake: current substance use type: does not use Assessment & Plan Assessment & Plan narrative: Gallstone pancreatitis that is still active Plan: Low fat diet, re evaluate in am for possible lap jatinder. Time Spent With Patient Time with patient: less than 30 minutes
[2023-01-26] MEDS: LACTATED RINGERS 1,000 ML 150 ML IV (19:52)
[2023-01-27] MEDS: LACTATED RINGERS 1,000 ML 150 ML IV ×4 (02:24→23:26)
[2023-01-27] MEDS: HYDROMORPHONE 0.5 MG INJ IV ×8 (02:26→21:23)
[2023-01-27 03:45] VITALS: BP 119/66; PULSE 96; RESP 16; TEMP 36.4; O2SAT 94
[2023-01-27 05:25] LABS: Alanine Aminotransferase 44 IU/L (<35); Albumin 3.4 g/dL (3.5-5.0); Albumin Globulin Ratio 1.8 (1.0-2.8); Alkaline Phosphatase 45 U/L (38-126); Aspartate Aminotransferase 40 IU/L (14-36); BUN Creatinine Ratio 28.6 (6-22); Bilirubin Total 0.7 mg/dL (0.2-1.3); Blood Urea Nitrogen 18 mg/dL (7-17); Calcium 8.8 mg/dL (8.4-10.2); Carbon Dioxide 31 mmol/L (22-32); Chloride 104 mmol/L (98-107); Estimated Glomerular Filt Rate > 60 mL/min (>60); Globulin 1.9 g/dL (1.7-4.1); Glucose 131 mg/dL (80-110); HEMOLYSIS < 15 (0-50); Potassium 4.3 mmol/L (3.4-5.1); Sodium 137 mmol/L (137-145); Total Protein 5.3 g/dL (6.3-8.2)
[2023-01-27 05:26] LABS: Hemoglobin 12.3 g/dL (12.0-16.0); Mean Corpuscular HGB Conc 33.2 % (30-36); Mean Corpuscular Hemoglobin 29.4 PG (26-34); Mean Corpuscular Volume 88.7 fL (80-100); Platelet Count 145 X10^3/uL (150-400); Red Blood Cell Count 4.17 X10^6/uL (4.0-5.2); Red Cell Distribution Width 14.3 % (11.6-14.8); White Blood Cell Count 23.2 X10^3/uL (4.5-11.0)
[2023-01-27 05:40] LABS: Add Manual Diff / Slide Review YES
[2023-01-27 05:42] LABS: Lipase 6622 U/L (23-300)
[2023-01-27 05:47] LABS: RBC Morphology Normal Morphology; Total Cells Counted 100
[2023-01-27 06:06] LABS: Neutrophils Absolute Manual 3944 /uL (3000-5900)
[2023-01-27] MEDS: LEVOTHYROXINE 100 MCG TABLET PO (06:24)
--- NOTE | 2023-01-27 06:37 | PM.CALLCOV.1 ---
Call Coverage Note Note Date of Patient Contact: 01/27/23 Narrative of Care Provided: Pancreatitis still too active to do lap jatinder today. Elevated CBC, lipase with continued pain and tachycardia. Continue supportive care and re evaluate each day.
[2023-01-27 08:00] VITALS: BP 102/59; PULSE 106; RESP 16; TEMP 37; O2SAT 95
--- NOTE | 2023-01-27 12:02 | CM.DANOTE ---
DCP Assessment Note Pt is a 72yo F here following acute pancreatitis. Per surgeon note, pancreatitis too active to do lap jatinder today. PCP Deniz Mckinley Payer Medicare and Martin AREA DEVELOPMENT MANAGER reviewed EMR. Per RN, indep in room. AREA DEVELOPMENT MANAGER entered room and introduced self and role. Pt sitting up in bed. Pt accompanied by spouse Joe ([phone]). Pt is indep with IADLs/ADLs at baseline and drives. 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 Pt is eager to go home. Pt reports no discharge needs at this time. Plan: home with spouse when medically stable. No CM needs identified at this time. CM team will follow as needed. DIANE Bautista Discharge Planning/Care Management CM Discharge Assessment Start: 01/27/23 11:59 Freq: Status: Active Protocol: Document 01/27/23 12:00 (Rec: 01/27/23 12:02 [id number]) Discharge Planning Assessment Assigned Director Validation DIANE Brambila DPOA/Assigned Designee Name Joe Trevino (spouse) Contact Information [phone] Advance Directives? Yes Advance Directives on File No History Provided By Patient,Medical Record Prior Living Arrangements House Household Members spouse Type of transporation used prior to Drives own vehicle admit Independent with ADL's Yes Is patient alert and oriented? Yes Barriers to Discharge No Discharge Plan Home Transportation Arrangement family in POV Referrals Initiated None needed Whiteboard Updated in Patient Room with Yes name and ext. # of Director Validation Review Status In Process Next Review Type Continued Stay Review
--- NOTE | 2023-01-27 13:48 | P.PN_ITS ---
Subjective Subjective Interval history: Patient feeling better today with less abd pain. Lipase down to 6k. Gen surg wants to wait on lap jatinder until pancreatitis more improved. Exam Narrative Exam Narrative: GEN: no acute distress HEENT: moist mucous membranes, PERRL NECK: trachea midline, no JVD CV: regular rate and rhythm, no murmurs PULM: clear bilaterally ABD: soft, epigastric tenderness, nondistended, no organomegaly EXT: warm and well perfused with no edema NEURO: awake, alert, oriented, no focal deficits Objective Labs 01/27/23 04:35 01/27/23 04:35 Labs: Laboratory Results - last 24 hr 01/27/23 04:35 WBC 23.2 H RBC 4.17 Hgb 12.3 Hct 37.0 MCV 88.7 MCH 29.4 MCHC 33.2 RDW 14.3 Plt Count 145 L Neut % (Auto) Not Reportable Lymph % (Auto) Not Reportable [place] % (Auto) Not Reportable Eos % (Auto) Not Reportable Baso % (Auto) Not Reportable Lymph # (Auto) Not Reportable [place] # (Auto) Not Reportable Baso # (Auto) Not Reportable Total Counted 100 Seg Neutrophils % 17.0 L Lymphocytes % (Manual) 78.0 H Atypical Lymphs % 4.0 H Monocytes % (Manual) 1.0 L Neutrophils # (Manual) 3944 WBC Morphology Comment RBC Morphology Normal morphology Sodium 137 Potassium 4.3 Chloride 104 Carbon Dioxide 31 BUN 18 H Creatinine 0.63 Estimated GFR > 60 BUN/Creatinine Ratio 28.6 H Glucose 131 H Calcium 8.8 Total Bilirubin 0.7 AST 40 H ALT 44 H Alkaline Phosphatase 45 Total Protein 5.3 L Albumin 3.4 L Globulin 1.9 Albumin/Globulin Ratio 1.8 Lipase 6622 H [facility] Medical History Schwannoma of cranial nerve Bilateral nephrolithiasis Renal colic on right side Right ureteral calculus Osteoarthritis of right knee Cervicalgia Hypothyroidism Lower back pain Neck muscle spasm Hyperparathyroidism Surgical History History of thyroidectomy Family History Father Heart disease Family/Other Uterine cancer Social History marital status: household members: spouse occupational status: employed Smoking Status: Never smoker alcohol intake: current substance use type: does not use Assessment & Plan Assessment and plan (1) Acute pancreatitis: Qualifiers: Acute pancreatitis complication: no infection or necrosis Pancreatitis type: idiopathic Qualified Code(s): K85.00 - Idiopathic acute pancreatitis without necrosis or infection Status: Acute Plan: -diagnosed with lipase of 51k and CT with peripancreatic inflammation -MRCP without choledocho but cholelithiasis -Dr. Noland gen surg to possibly do lap jatinder this admission -clear liquid diet -IV pain meds -IVF 150cc/hr -etiology possibly due to passed gallstone, lipids ok, no alcohol use -trend lipase, now down to 6k (2) Hypothyroidism: Qualifiers: Hypothyroidism type: postoperative Qualified Code(s): E89.0 - Postprocedural hypothyroidism Status: Acute Plan: levothyroxine TSH normal (3) CLL (chronic lymphocytic leukemia): Status: Acute Plan: followed by Dr. Reyes at [facility] WBC 28 which is pretty good per patient for her CT with enlarged LN's through abdomen consistent with lymphoma patient asked that I speak with on-call leukemia specialist at [facility] to discuss her hospitalization, they were paged but no call back yet Plan Dispo: Home in 2-3 days pending lap jatinder and improvement in pancreatitis. Quality VTE Deep Vein Thrombosis/Pulmonary Embolism Present on Admission: No
[2023-01-27 20:46] VITALS: BP 124/67; PULSE 104; RESP 16; TEMP 37.4; O2SAT 96
[2023-01-27] MEDS: SENNOSIDES 8.6 MG TABLET PO (21:19)
[2023-01-27] MEDS: MELATONIN 3 MG TABLET 6 MG PO (21:19)
[2023-01-28] VITALS (7 sets, daily range): BP systolic 117–138; BP diastolic 65–79; PULSE 103–110; RESP 17–20; TEMP 35.9–38.8; O2SAT 93–96
[2023-01-28] MEDS: HYDROMORPHONE 0.5 MG INJ IV ×4 (01:05→11:27)
[2023-01-28] MEDS: LACTATED RINGERS 1,000 ML 150 ML IV ×3 (04:38→23:23)
[2023-01-28 05:03] LABS: Add Manual Diff / Slide Review NO; Basophils Absolute Auto 300 /uL (0-100); Basophils Percent Auto 1.4 % (0-2); Eosinophils Absolute Auto 0 /uL (0-450); Eosinophils Percent Auto 0.1 % (2-4); Hematocrit 35.3 % (36-46); Hemoglobin 11.7 g/dL (12.0-16.0); Lymphocytes Absolute Auto 9900 /uL (1100-4500); Lymphocytes Percent Auto 42.1 % (25-40); Mean Corpuscular HGB Conc 33.1 % (30-36); Mean Corpuscular Hemoglobin 29.3 PG (26-34); Mean Corpuscular Volume 88.5 fL (80-100); Monocytes Absolute Auto 700 /uL (0-900); Monocytes Percent Auto 2.9 % (3-14); Neutrophils Absolute Auto 12600 /uL (1500-7000); Neutrophils Percent Auto 53.5 % (50-75); Platelet Count 145 X10^3/uL (150-400); Red Blood Cell Count 3.99 X10^6/uL (4.0-5.2); Red Cell Distribution Width 14.3 % (11.6-14.8); White Blood Cell Count 23.6 X10^3/uL (4.5-11.0)
[2023-01-28 05:17] LABS: Alanine Aminotransferase 30 IU/L (<35); Albumin 3.1 g/dL (3.5-5.0); Albumin Globulin Ratio 1.4 (1.0-2.8); Alkaline Phosphatase 44 U/L (38-126); Aspartate Aminotransferase 30 IU/L (14-36); BUN Creatinine Ratio 22.8 (6-22); Bilirubin Total 1.1 mg/dL (0.2-1.3); Blood Urea Nitrogen 13 mg/dL (7-17); Calcium 8.8 mg/dL (8.4-10.2); Carbon Dioxide 30 mmol/L (22-32); Chloride 101 mmol/L (98-107); Estimated Glomerular Filt Rate > 60 mL/min (>60); Globulin 2.2 g/dL (1.7-4.1); Glucose 113 mg/dL (80-110); HEMOLYSIS < 15 (0-50); Lipase 1027 U/L (23-300); Sodium 133 mmol/L (137-145); Total Protein 5.3 g/dL (6.3-8.2)
--- NOTE | 2023-01-28 06:15 | PM.CALLCOV.1 ---
Call Coverage Note Note Date of Patient Contact: 01/28/23 Narrative of Care Provided: clinical indicators continue to demonstrate severe pancreatitis, surgery is contraindicated at this time. Added celebrex and gabapentin for improved pain control. Protonix and low fat diet for nutrition and GI protection. CRP will be a better indicator to trend than CBC given her CLL diagnosis. Should have have repeat CT scan prior to surgery or at 7-10 day interval to eval the condition of the pancreas
[2023-01-28] MEDS: CELECOXIB 200 MG CAPSULE PO ×2 (08:19→20:03)
[2023-01-28] MEDS: PANTOPRAZOLE DR 40 MG TABLET PO (08:19)
[2023-01-28] MEDS: LEVOTHYROXINE 100 MCG TABLET PO (08:19)
--- NOTE | 2023-01-28 11:32 | CM.DPC ---
DCP Cont. Reviewed EMR and team rounds for status updates. Pt continues to have severe pancreatitis, lipase still too high for surgery. Pending possible surgery tomorrow, 01/29. Cont. to monitor for evolving needs.
--- NOTE | 2023-01-28 11:39 | P.PN_ITS ---
Subjective Subjective Date Patient Seen: 01/28/23 Interval history: Pt notes abdominal bloating and moderate discomfort. No N/V. Did not tolerate low fat dieet. D/w Dr Noland states pancreas still too inflamed and timing of lap jatinder remains to be determined (during admission or in1-2 weeks as outpatient) Exam Vital Signs (past 8 hours): - 01/28/23 04:32 Temperature 96.7 F L Pulse Rate 107 H Respiratory Rate 17 Blood Pressure 117/65 Pulse Oximetry 93 Fraction of Inspired Oxygen 21 Oxygen Delivery Method Room Air Oxygen Flow Rate 0 Narrative Exam Narrative: Gen: alert, NAD, sitting in chair Lungs: clear CV: regular, + systolic murmur Abd: sig distended, + bowel sounds, mild tenderness epigastric Ext: no edema neuro: nl affect and speech Objective Labs 01/28/23 04:20 01/28/23 04:20 Labs: Laboratory Results - last 24 hr 01/28/23 04:20 WBC 23.6 H RBC 3.99 L Hgb 11.7 L Hct 35.3 L MCV 88.5 MCH 29.3 MCHC 33.1 RDW 14.3 Plt Count 145 L Neut % (Auto) 53.5 Lymph % (Auto) 42.1 H [place] % (Auto) 2.9 L Eos % (Auto) 0.1 L Baso % (Auto) 1.4 Neut # (Auto) 78536 H Lymph # (Auto) 9900 H [place] # (Auto) 700 Eos # (Auto) 0 Baso # (Auto) 300 H Sodium 133 L Potassium 4.0 Chloride 101 Carbon Dioxide 30 BUN 13 Creatinine 0.57 Estimated GFR > 60 BUN/Creatinine Ratio 22.8 H Glucose 113 H Calcium 8.8 Total Bilirubin 1.1 AST 30 ALT 30 Alkaline Phosphatase 44 Total Protein 5.3 L Albumin 3.1 L Globulin 2.2 Albumin/Globulin Ratio 1.4 Lipase 1027 H D PFSH Medical History Schwannoma of cranial nerve Bilateral nephrolithiasis Renal colic on right side Right ureteral calculus Osteoarthritis of right knee Cervicalgia Hypothyroidism Lower back pain Neck muscle spasm Hyperparathyroidism Surgical History History of thyroidectomy Family History Father Heart disease Family/Other Uterine cancer Social History marital status: household members: spouse occupational status: employed Smoking Status: Never smoker alcohol intake: current substance use type: does not use Assessment & Plan Assessment & Plan narrative: (1) Acute pancreatitis: Qualifiers: Acute pancreatitis complication: no infection or necrosis Pancreatitis type: idiopathic Qualified Code(s): K85.00 - Idiopathic acute pancreatitis without necrosis or infection Status: Acute Plan: -diagnosed with lipase of 51k and CT with peripancreatic inflammation -MRCP without choledocho but cholelithiasis -Dr. Noland gen surg to possibly do lap jatinder this admission -clear liquid diet -IV pain meds -IVF 150cc/hr -etiology possibly due to passed gallstone, lipids ok, no alcohol use -trend lipase, now down to 1k (2) Hypothyroidism: Qualifiers: Hypothyroidism type: postoperative Qualified Code(s): E89.0 - Postprocedural hypothyroidism Status: Acute Plan: levothyroxine TSH normal (3) CLL (chronic lymphocytic leukemia): Status: Acute Plan: followed by Dr. Reyes at [facility] WBC 28 which is pretty good per patient for her CT with enlarged LN's through abdomen consistent with lymphoma DVT prevention: enoxaprin Quality VTE Deep Vein Thrombosis/Pulmonary Embolism Present on Admission: No
[2023-01-28] MEDS: OXYCODONE IR 5 MG TABLET PO ×3 (12:53→20:05)
[2023-01-28] MEDS: polyethylene glycoL 3350 17 GM POWD.PACK PO (12:53)
[2023-01-28] MEDS: ENOXAPARIN 40 MG/0.4 ML SYRINGE SUBCUT (12:54)
[2023-01-28] MEDS: SENNOSIDES 8.6 MG TABLET PO (12:54)
--- NOTE | 2023-01-28 16:33 | P.PN_ITS ---
Subjective Subjective Date Patient Seen: 01/28/23 Time Patient Seen: 16:33 Exam Vital Signs (past 8 hours): - 01/28/23 12:00 01/28/23 16:03 Temperature 98.9 F 98.8 F Pulse Rate 103 H 105 H Respiratory Rate 20 Blood Pressure 120/77 127/79 Pulse Oximetry 93 96 Fraction of Inspired Oxygen 21 Oxygen Delivery Method Room Air Oxygen Flow Rate 0 Narrative Exam Narrative: patient remains uncomfortable, tachy, with abdominal pain. Tolerating liquids. Objective Labs 01/28/23 04:20 01/28/23 04:20 Labs: Laboratory Results - last 24 hr 01/28/23 04:20 WBC 23.6 H RBC 3.99 L Hgb 11.7 L Hct 35.3 L MCV 88.5 MCH 29.3 MCHC 33.1 RDW 14.3 Plt Count 145 L Neut % (Auto) 53.5 Lymph % (Auto) 42.1 H [place] % (Auto) 2.9 L Eos % (Auto) 0.1 L Baso % (Auto) 1.4 Neut # (Auto) 57195 H Lymph # (Auto) 9900 H [place] # (Auto) 700 Eos # (Auto) 0 Baso # (Auto) 300 H Sodium 133 L Potassium 4.0 Chloride 101 Carbon Dioxide 30 BUN 13 Creatinine 0.57 Estimated GFR > 60 BUN/Creatinine Ratio 22.8 H Glucose 113 H Calcium 8.8 Total Bilirubin 1.1 AST 30 ALT 30 Alkaline Phosphatase 44 Total Protein 5.3 L Albumin 3.1 L Globulin 2.2 Albumin/Globulin Ratio 1.4 Lipase 1027 H D PFSH Medical History Schwannoma of cranial nerve Bilateral nephrolithiasis Renal colic on right side Right ureteral calculus Osteoarthritis of right knee Cervicalgia Hypothyroidism Lower back pain Neck muscle spasm Hyperparathyroidism Surgical History History of thyroidectomy Family History Father Heart disease Family/Other Uterine cancer Social History marital status: household members: spouse occupational status: employed Smoking Status: Never smoker alcohol intake: current substance use type: does not use Assessment & Plan Assessment & Plan narrative: Severe case of gallstone pancreatitis. Discussed that the removal of gallbladder is preventive of future episodes but will not quicken the recovery from this episode and might worsen it. Plan: Low fat diet. Ok to discharge home if tolerating po. Follow up Surgery for elective lap jatinder 1-2 weeks. Time Spent With Patient Time with patient: less than 30 minutes Quality VTE Deep Vein Thrombosis/Pulmonary Embolism Present on Admission: No
--- NOTE | 2023-01-28 19:23 | PC.NURSE ---
Spoke with provider before shift change regarding patient's pain, which had been controlled by IV dilaudid and PO oxycodone. At this time, no pharmacies are open. Pt had elevated HR of 110 and fever of 101.9 orally. Provider ordered tylenol and pt not discharged due to VS and pain control. Relayed information to patient.
[2023-01-28] MEDS: ACETAMINOPHEN 325 MG TABLET 650 MG PO (20:02)
[2023-01-29] VITALS: BP 115/71; PULSE 88; RESP 16; TEMP 37; O2SAT 95
[2023-01-29] MEDS: OXYCODONE IR 5 MG TABLET PO ×4 (00:14→09:40)
[2023-01-29] MEDS: ACETAMINOPHEN 325 MG TABLET 650 MG PO ×2 (03:07→09:40)
[2023-01-29 05:13] LABS: Add Manual Diff / Slide Review NO; Basophils Absolute Auto 100 /uL (0-100); Basophils Percent Auto 0.4 % (0-2); Eosinophils Absolute Auto 0 /uL (0-450); Eosinophils Percent Auto 0.1 % (2-4); Hematocrit 32.6 % (36-46); Lymphocytes Absolute Auto 10400 /uL (1100-4500); Lymphocytes Percent Auto 53.4 % (25-40); Mean Corpuscular HGB Conc 33.9 % (30-36); Mean Corpuscular Hemoglobin 29.7 PG (26-34); Mean Corpuscular Volume 87.6 fL (80-100); Monocytes Absolute Auto 600 /uL (0-900); Monocytes Percent Auto 3.2 % (3-14); Neutrophils Absolute Auto 8400 /uL (1500-7000); Neutrophils Percent Auto 42.9 % (50-75); Platelet Count 137 X10^3/uL (150-400); Red Blood Cell Count 3.72 X10^6/uL (4.0-5.2); Red Cell Distribution Width 13.9 % (11.6-14.8); White Blood Cell Count 19.6 X10^3/uL (4.5-11.0)
[2023-01-29 05:22] LABS: Alanine Aminotransferase 22 IU/L (<35); Albumin 2.7 g/dL (3.5-5.0); Albumin Globulin Ratio 1.2 (1.0-2.8); Alkaline Phosphatase 47 U/L (38-126); Aspartate Aminotransferase 23 IU/L (14-36); BUN Creatinine Ratio 19.1 (6-22); Bilirubin Total 1.4 mg/dL (0.2-1.3); Blood Urea Nitrogen 9 mg/dL (7-17); Calcium 8.7 mg/dL (8.4-10.2); Carbon Dioxide 28 mmol/L (22-32); Chloride 103 mmol/L (98-107); Estimated Glomerular Filt Rate > 60 mL/min (>60); Globulin 2.3 g/dL (1.7-4.1); Glucose 105 mg/dL (80-110); HEMOLYSIS < 15 (0-50); Potassium 3.5 mmol/L (3.4-5.1); Sodium 133 mmol/L (137-145)
[2023-01-29 05:23] LABS: Lipase 196 U/L (23-300)
[2023-01-29 06:00] VITALS: BP 114/68; PULSE 16; RESP 16; TEMP 37; O2SAT 93
[2023-01-29] MEDS: LEVOTHYROXINE 100 MCG TABLET PO (06:42)
[2023-01-29] MEDS: LACTATED RINGERS 1,000 ML 150 ML IV (06:42)
[2023-01-29] MEDS: PANTOPRAZOLE DR 40 MG TABLET PO (06:42)
[2023-01-29 08:00] VITALS: BP 113/72; PULSE 89; RESP 16; TEMP 36.3; O2SAT 94
[2023-01-29] MEDS: ENOXAPARIN 40 MG/0.4 ML SYRINGE SUBCUT (09:41)
[2023-01-29] MEDS: CELECOXIB 200 MG CAPSULE PO (09:41)
[2023-01-29] MEDS: POTASSIUM CHLORIDE 20 MEQ TAB 40 MEQ PO (09:41)
--- NOTE | 2023-01-29 10:03 | PM.DS.1 ---
History of Present Illness History of Present Illness Date Patient Seen: 01/29/23 Time Patient Seen: 10:04 Chief complaint: abd pain, vomiting, back pain, poss kidney stone Narrative: Per admitting provider, Jayla Trevino is a 72yo F with PMH of CLL, kidney stones, and hypothyroidism who presented to ED with epigastric pain, nausea, and was diagnosed with acute pancreatitis. She denies alcohol use. Still has her gallbladder. Lipase up to 51,000. CT abd showed peripancreatic inflammation and distended gallbladder. US showed dilated CBD. MRCP showed no choledocholithiasis but cholelithiasis. Dr. Noland general surgery consulted for lap clarissa. Patient currently feeling much better with IV pain meds. She has IVF running. No real appetite. Discharge Providers Provider Date of admission: 01/26/23 06:02 Discharge Date: 01/29/23 Primary care physician: Kev Mckinley MD Consults: 01/26/23 11:35 Consult to General Surgery Routine Comment: Consulting Provider: Yanely Noland Reason for consultation: pancreatitis, gallstones Discharge provider: Santo Sterling DO Summary Hospital Course Discharge Diagnosis: (1) Acute pancreatitis, secondary to gallstones. (2) Hypothyroidism: (3) CLL (chronic lymphocytic leukemia): Hospital Course: This is a 72 year old female who was admitted with gallstone pancreatitis. She was managed conservatively with IV fluids and bowel rest initially. MRCP did not show acute obstruction. She did develop a fever over her admission, though no exact etiology could be found and clinically she was improving. Her pain was adequately controlled on oral mediations and she was tolerating a diet. Patient wished to discharge home on given improvement in pain and diet tolerance. She was given return precautions given slight bilirubin rise on day of discharge. Outpatient follow up is recommended with general surgery, as gallbladder was not removed this admission per their consultation. Time Spent with Patient Time spent: Greater than 30 minutes Exam Vital Signs (past 8 hours): - 01/29/23 06:00 01/29/23 08:00 Temperature 98.6 F 97.4 F L Pulse Rate 16 L 89 Respiratory Rate 16 16 Blood Pressure 114/68 113/72 Pulse Oximetry 93 94 Oxygen Flow Rate 0 0 Fraction of Inspired Oxygen 21 Oxygen Delivery Method Room Air Oxygen Flow Rate 0 Narrative Exam Narrative: Gen: alert, NAD, sitting in chair Lungs: clear CV: regular, + 3-4/6 harsh systolic murmur Abd: soft, non-distended, no tenderness. Ext: no edema neuro: nl affect and speech Objective Labs 01/29/23 04:35 01/29/23 04:35 Labs: Laboratory Results - last 24 hr 01/29/23 04:35 WBC 19.6 H RBC 3.72 L Hgb 11.0 L Hct 32.6 L MCV 87.6 MCH 29.7 MCHC 33.9 RDW 13.9 Plt Count 137 L Neut % (Auto) 42.9 L Lymph % (Auto) 53.[address] [place] % (Auto) 3.2 Eos % (Auto) 0.1 L Baso % (Auto) 0.4 Neut # (Auto) 8400 H Lymph # (Auto) [address] [place] # (Auto) 600 Eos # (Auto) 0 Baso # (Auto) 100 Sodium 133 L Potassium 3.5 Chloride 103 Carbon Dioxide 28 BUN 9 Creatinine 0.47 L Estimated GFR > 60 BUN/Creatinine Ratio 19.1 Glucose 105 Calcium 8.7 Total Bilirubin 1.4 H AST 23 ALT 22 Alkaline Phosphatase 47 C-Reactive Protein 17.0 H Total Protein 5.0 L Albumin 2.7 L Globulin 2.3 Albumin/Globulin Ratio 1.2 Lipase 196 D [facility] Medical History Schwannoma of cranial nerve Bilateral nephrolithiasis Renal colic on right side Right ureteral calculus Osteoarthritis of right knee Cervicalgia Hypothyroidism Lower back pain Neck muscle spasm Hyperparathyroidism Surgical History History of thyroidectomy Family History Father Heart disease Family/Other Uterine cancer Social History marital status: household members: spouse occupational status: employed Smoking Status: Never smoker alcohol intake: current substance use type: does not use Discharge Plan Discharge Plan Patient Disposition: Home Provider Discharge Comment: You were admitted to the hospital with gallstone pancreatitis. You should have your gallbladder removed in the near future, please follow up with surgeons per their instructions. You are tolerating a diet at the moment, but if symptoms worsen again or pain worsens do not hesitate to return for evaluation. Discharge orders & Medications Prescriptions: New oxycodone 5 mg tablet 5 mg PO Q4H PRN (Reason: pain) 1 Days Qty: 6 0RF celecoxib 200 mg capsule 200 mg PO BID 30 Days Qty: 60 0RF gabapentin 300 mg capsule 300 mg PO BEDTIME 30 Days Qty: 30 0RF oxycodone 5 mg tablet 5 mg PO Q4H PRN (Reason: pain) 7 Days Qty: 30 0RF pantoprazole 40 mg tablet,delayed release (DR/EC) 40 mg PO DAILY 30 Days Qty: 30 0RF Continued levothyroxine 100 mcg tablet See Rx Instructions .ROUTE .COMPLEX Qty: 90 0RF Dose Instruction: TAKE ONE TABLET BY MOUTH ONE TIME DAILY Rx Instructions: TAKE ONE TABLET BY MOUTH ONE TIME DAILY Flax Seed 1 tab PO DAILY Follow up/Referrals: Yanely Noland MD [Physician] - 1 Week (Gallstone pancreatitis, for Lap Clarissa) Kev Mckinley MD [Primary Care Provider] - Diet/Activity/Treatments Diet: Diet as Tolerated and Low-fat Activity: As tolerated no restrictions Visit Report/Discharge Packet Instructions: DI for Pancreatitis Stand Alone Forms: Patient Portal/API, Stroke Signs & Symptoms Discharge Data Primary Care Provider: Kev Mckinley Quality VTE Deep Vein Thrombosis/Pulmonary Embolism Present on Admission: No
--- NOTE | 2023-01-29 10:16 | CM.DPNOTE ---
DCP Note SHEET MUSIC SALESPERSON reviewed EMR. Per provider in rounds, likely to dc home today with spouse. SHEET MUSIC SALESPERSON entered room and reintroduced self and role. Pt resting in bed with at bedside. SHEET MUSIC SALESPERSON provided copy of IMM rights. Pt confirms eager to dc home, no CM needs. Plan: dc home today with spouse support. No CM needs. CM team will continue to follow as needed. DIANE Bautista
--- NOTE | 2023-01-30 10:37 | PM.OP.1 ---
Operative Date/Time/Diagnoses Date of procedure: 01/30/23 Time of procedure: 10:37 Pre-op diagnosis: Abscess left thigh Post-op diagnosis: same Procedure & Clinicians Procedure: Incision and drainage of left thigh abscess Same procedure as scheduled: Yes Indications: Left thigh abscess Surgeon: Yanely Noland Click Yes if Unassisted: Yes Anesthesia Type: MAC +/- and Local Operative Notes Findings: Left thigh abscess with predominant necrotic center. Cavity measures 2 cm x 3 cm with a 1 cm depth Closure Type: not applicable Specimen(s): none sent Estimated Blood Loss (mL): 10 Blood products transfused: none Procedure in detail: Preop diagnosis: Left thigh abscess Postop diagnosis: Same Operative procedure: I and D of left thigh abscess and removal of skin tags x1 Surgeon: Marissa Noland MD Anesthetic: Mac local Procedure: Patient placed in a frog-leg supine position prepped and draped in sterile fashion. 0.25% Marcaine with epinephrine was used for local anesthetic. The abscess area was sharply incised for necrotic tissue removal and evacuation of any remaining pus. Hemostasis achieved with direct pressure. Wound is 3 cm x 2 cm x 1 cm packed with dry 2 x 2 gauze and placement of dressing over the top. Patient was awakened and taken to recovery room in stable condition. Needle, instrument, sponge counts were correct Specimen: None Blood loss: 10 mL Complications: none Post-operative Condition: stable Disposition: PACU
== END 2023-01-29 11:40 | disposition home or self-care (01) | DRG 439 ==
LOC: ED 05:37 → AC 06:03
PROVIDERS: Internal Medicine; Student in an Organized Health Care Education/Training Program; Surgery; Admitting Provider Internal Medicine; Emergency Provider Emergency Medicine; Family Provider Family Medicine; PCP Family Medicine; Referring Provider Emergency Medicine; Visit Provider Internal Medicine
DX: K85.10 Biliary acute pancreatitis without necrosis or infection (principal); C91.10 Chronic lymphocytic leukemia of B-cell type not having achieved remission; E89.0 Postprocedural hypothyroidism
CPT/HCPCS: 36415; 74177; 74183; 76705; 80053; 80061; 81003; 81015; 83690; 83735; 84443; 85007; 85025; 86140; 94760; 94762; 96374; 96375; 96376; 99284; 99285; J1170; J1650; J2405; Q9967

== ENCOUNTER 2023-02-02 06:31 | Day surgery (SDC) | payer MEDICARE, OTHER, SELFPAY ==
[2023-01-26 11:35] VITALS: BMI 22.1
[2023-02-02] VITALS (8 sets, daily range): BP systolic 83–127; BP diastolic 53–78; PULSE 78–100; RESP 12–16; TEMP 36.3–37.4; O2SAT 94–100
--- NOTE | 2023-02-02 | PATH_ITS ---
[facility] Accession Number: [id number] No. of containers..01 Tissue . 01 Material submitted: . gallbladder - GALL BLADDER . 01 Diagnosis: Gallbladder, Cholecystectomy: Chronic cholecystitis and cholelithiasis. MRV 02/09/2023 1354 Local . 01 Electronically signed: . Lyndsey Gong MD, Pathologist NPI- [id number] . 01 Gross description: . The specimen is received in formalin and labeled with the patient's name, , and gallbladder, and consists of an intact gallbladder measuring 9.1 x 5.4 x 3.6 cm. The cystic duct margin is inked blue. No pericystic lymph node is identified. The mucosa is filled with dark green viscous bile with multiple yellow bosselated calculi measuring up to 0.3 cm in greatest dimension, not grossly obstructing the cystic duct. The mucosa is green and velvety with yellow areas of discoloration. No polyps or lesions are identified. The piper average 0.2 cm thick. Shader And Toner sections to include the cystic duct margin and full-thickness sections are submitted in cassette A1. ([id number]) /[facility] 02/03/2023 1230 Local . 01 Pathologist provided ICD-10: K80.10 . 01 CPT . 840929 Specimen Comment: A courtesy copy of this report has been sent to [phone] Performed at: 01 [facility] [address] [place] [address], [place], [place] [id number] MD Cecil Guevara MD Phone: [phone]
[2023-02-02] MEDS: LACTATED RINGERS 1,000 ML 42 ML IV ×2 (07:19→08:20)
--- NOTE | 2023-02-02 07:39 | PM.PREOP ---
Pre-operative Note Interval Note History & Physical reviewed/Exam performed by Physician: Yes Changes to H&P: Yes H&P completed within 30 days and has changed as indicated here:: Epigastric pain has resolved.
--- NOTE | 2023-02-02 08:09 | SUR.OPER ---
Supine on padded OR bed, head on pillow, safety belt at thigh, bilateral arms secured on padded arm board <90 degrees abduction. Legs uncrossed. Tape over blanket to secure lower legs.
[2023-02-02] MEDS: BUPIVACAINE 0.5% (PF) 30 ML, EPINEPHrine 0.15 MG INJ (08:21)
[2023-02-02] MEDS: ONDANSETRON 4 MG/2 ML INJ IV (08:49)
--- NOTE | 2023-02-02 08:52 | PM.OP.1 ---
Operative Date/Time/Diagnoses Date of procedure: 02/02/23 Time of procedure: 08:53 Pre-op diagnosis: Gallstone pancreatitis Post-op diagnosis: same Procedure & Clinicians Procedure: Laparoscopic cholecystectomy Same procedure as scheduled: Yes Indications: Gallstone pancreatitis Surgeon: Yanely Noland Click Yes if Unassisted: Yes Anesthesia Type: General and Local Operative Notes Findings: Normal-appearing gallbladder. Mild pancreatic ascites Closure Type: primary Specimen(s): other (Gallbladder) Estimated Blood Loss (mL): 10 Blood products transfused: none Procedure in detail: Preop diagnosis: Gallstone pancreatitis Postop diagnosis: Same Operative procedure: Laparoscopic cholecystectomy Surgeon: Marissa Noland MD Findings: Normal-appearing gallbladder, mild pancreatic ascites Procedure: Patient placed in a supine position. Prepped and draped sterile fashion to expose her abdomen. Infraumbilical port site was placed using open technique a 12 mm port. Insufflation began all other ports were placed under direct vision including a 10 mm port in the midepigastrium and 2 5 mm ports in the right lateral abdomen. Gallbladder was grasped pushed cephalad for exposure. Cystic duct was identified, clipped once distally twice proximally and transected. Cystic artery was identified clipped once distally once proximally and transected. Gallbladder was removed from the fossa bed with electrocautery and excellent hemostasis. There was no entry into the gallbladder during the procedure, no spillage of bile or stones. Gallbladder was placed into an Endo-Catch bag and pulled through the infraumbilical port site intact. I then suctioned and irrigated the right upper quadrant of the abdomen relieving some of the pancreatic ascites, no evidence of necrosis. I then removed all ports and began closure. Closure consisted of interrupted 0 Vicryl for fascial closure. Skin was closed running 4-0 Vicryl. Steri-Strips and sterile dressings were placed. Patient was awakened, extubated, taken to recovery room in stable condition. Needle, instrument, sponge counts were correct. Blood loss: 10 mL Specimen: Gallbladder Complications: none Post-operative Condition: stable Disposition: same day surgery
[2023-02-02] MEDS: OXYCODONE IR 5 MG TABLET PO (09:51)
== END 2023-02-02 10:00 | disposition home or self-care (01) ==
PROVIDERS: Family Provider Family Medicine; PCP Family Medicine; Referring Provider Surgery; Visit Provider Surgery
PROC: 0FT44ZZ Resection of Gallbladder, Percutaneous Endoscopic Approach (ICD-10-PCS; CPT 47562; principal; 2023-02-02 07:45)
DX: K80.10 Calculus of gallbladder with chronic cholecystitis without obstruction (principal); R18.8 Other ascites
CPT/HCPCS: 47562; J0171; J1100; J2405; J2704; J3010; J3490

== ENCOUNTER → 2023-02-13 11:03 | Outpatient (CLI) | payer MEDICARE, OTHER, SELFPAY ==
[2023-01-26 11:35] VITALS: BMI 22.1
[2023-02-13 11:18] LABS: Add Manual Diff / Slide Review YES; Hematocrit 38.9 % (36-46); Hemoglobin 12.9 g/dL (12.0-16.0); Mean Corpuscular HGB Conc 33.1 % (30-36); Mean Corpuscular Hemoglobin 29.6 PG (26-34); Mean Corpuscular Volume 89.3 fL (80-100); Platelet Count 144 X10^3/uL (150-400); Red Blood Cell Count 4.35 X10^6/uL (4.0-5.2); Red Cell Distribution Width 14.5 % (11.6-14.8); White Blood Cell Count 18.7 X10^3/uL (4.5-11.0)
[2023-02-13 11:28] LABS: Alanine Aminotransferase 20 IU/L (<35); Albumin Globulin Ratio 1.6 (1.0-2.8); Alkaline Phosphatase 71 U/L (38-126); Aspartate Aminotransferase 29 IU/L (14-36); BUN Creatinine Ratio 22.4 (6-22); Bilirubin Total 0.5 mg/dL (0.2-1.3); Blood Urea Nitrogen 17 mg/dL (7-17); Calcium 9.7 mg/dL (8.4-10.2); Carbon Dioxide 32 mmol/L (22-32); Chloride 103 mmol/L (98-107); Estimated Glomerular Filt Rate > 60 mL/min (>60); Globulin 2.5 g/dL (1.7-4.1); Glucose 109 mg/dL (80-110); HEMOLYSIS < 15 (0-50); Potassium 4.8 mmol/L (3.4-5.1); Sodium 139 mmol/L (137-145); Total Protein 6.5 g/dL (6.3-8.2)
[2023-02-13 11:30] LABS: Neutrophils Absolute Manual 6171 /uL (3000-5900); RBC Morphology Normal Morphology; Total Cells Counted 100
== END ==
PROVIDERS: Family Provider Family Medicine; PCP Family Medicine; Referring Provider Family Medicine; Visit Provider Family Medicine
DX: D64.9 Anemia, unspecified (principal)
CPT/HCPCS: 36415; 80053; 85007; 85025

== ENCOUNTER → 2023-02-22 09:47 | Outpatient (CLI) | payer MEDICARE, OTHER, SELFPAY ==
[2023-01-26 11:35] VITALS: BMI 22.1
--- NOTE | 2023-02-22 09:49 | DI.RAD.S_ITS ---
Bone Density Report Name: JOSE REID Age: 73 Sex: Female Ethnicity: White Date of : 1950 Indication: osteopenia; history of glucocorticoids; Referring Provider: STEVEN FIORE Study: Bone densitometry was performed. Exam Date: February 22, 2023 Accession number: [id number] Bone Density: Region BMD T-score Z-score Classification AP Spine(L1-L4) 0.858 -1.7 0.6 Osteopenia Femoral Neck (Left) 0.599 -2.3 -0.3 Osteopenia Total Hip (Left) 0.735 -1.7 0.0 Osteopenia Femoral Neck (Right) 0.620 -2.1 -0.1 Osteopenia Total Hip (Right) 0.723 -1.8 -0.1 Osteopenia Total Hip Mean 0.729 -1.8 -0.1 Osteopenia World Health Organization criteria for BMD impression classify patients as: Normal (T-score at or above -1.0), Osteopenia (T-score between -1.0 and -2.5), or Osteoporosis (T-score at or below -2.5). 10-year Fracture Risk(1): Major Osteoporotic Fracture 19% Hip Fracture 5.9% Reported Risk Factors: [place] (), Neck BMD=0.599, BMI=20.8, glucocorticoids (1) FRAX(R) Version 3.08. Fracture probability calculated for an untreated patient. Fracture probability may be lower if the patient has received treatment. Previous Exams: -- Region Exam Age BMD T-score BMD Change BMD Change Date g/cm2 vs Baseline vs Previous -- AP Spine (L1-L4) 02/22/2023 73 0.858 -1.7 -0.163 (-15.9%)# -0.062 (-6.7%)# 08/01/2019 69 0.920 -1.2 -0.101 (-9.9%)* -0.101 (-9.9%)* 06/23/2015 65 1.021 -0.2 Total Hip(Left) 02/22/2023 73 0.735 -1.7 -0.065 (-8.1%)# -0.013 (-1.7%)# 08/01/2019 69 0.748 -1.6 -0.052 (-6.5%)* -0.052 (-6.5%)* 06/23/2015 65 0.800 -1.2 Total Hip(Right) 02/22/2023 73 0.723 -1.8 -0.052 (-6.7%)# -0.014 (-1.9%)# 08/01/2019 69 0.737 -1.7 -0.038 (-4.9%)* -0.038 (-4.9%)* 06/23/2015 65 0.775 -1.4 -- *Denotes significance at 95% confidence level, LSC for AP Spine = 0.022 g/cm2, LSC for Total Hip = 0.027 g/cm2 # Denotes dissimilar scan types or analysis methods Impression: The patient has low bone mass, based on the Left Femoral Neck T-score. The patient has an estimated ten-year risk of hip fracture of 5.9% and an estimated ten-year risk of major fracture of 19%, based on the WHO FRAX algorithm. The patient has risk factors, including: history of glucocorticoid therapy. No significant bone loss was observed. Discussion: BONE DENSITY IS LOW AT ONE OR MORE SKELETAL SITES. THE PATIENT'S BMD AND CLINICAL RISK FACTORS CONTRIBUTE TO THIS PATIENT'S INCREASED RISK OF FRACTURE. This patient's lowest T-score is low at one or more skeletal sites. It meets the World Health Organization's (WHO) criteria for low bone mass (T-score between -1.0 and -2.5). The patient's 10-year risk of hip fracture as calculated by FRAX exceeds the threshold where pharmacological therapy is recommended by the National Osteoporosis Foundation (NOF). However, all treatment decisions require clinical judgment and consideration of individual patient factors, including patient preferences, comorbidities, previous drug use, risk factors not captured in the FRAX model (e.g., frailty, falls, vitamin D deficiency, increased bone turnover, interval significant decline in bone density) and possible under or overestimation of fracture risk by FRAX. The patient should follow a healthful lifestyle (good nutrition with adequate calcium and vitamin D, and appropriate weight-bearing exercise). Follow-Up: Consider a repeat BMD and Vertebral Fracture Assessment (VFA) exam in 2 years or sooner if medically necessary, to reassess this patient's status. Reported by: QUENTIN ESPINOZA M.D. on 02/22/2023 10:16:00 AM.
== END ==
LOC: RAD 09:48
PROVIDERS: Family Provider Family Medicine; PCP Family Medicine; Referring Provider Family Medicine; Visit Provider Family Medicine
DX: C91.10 Chronic lymphocytic leukemia of B-cell type not having achieved remission (principal); M85.89 Other specified disorders of bone density and structure, multiple sites; E21.3 Hyperparathyroidism, unspecified; D59.10 Autoimmune hemolytic anemia, unspecified; Z92.241 Personal history of systemic steroid therapy
CPT/HCPCS: 36415; 77080; 80053; 83615; 84550; 85007; 85025

== ENCOUNTER → 2023-02-22 09:50 | Outpatient (CLI) | payer MEDICARE, OTHER, SELFPAY ==
[2023-01-26 11:35] VITALS: BMI 22.1
[2023-02-22 10:51] LABS: Hematocrit 38.4 % (36-46); Hemoglobin 12.4 g/dL (12.0-16.0); Mean Corpuscular HGB Conc 32.3 % (30-36); Mean Corpuscular Hemoglobin 28.1 PG (26-34); Platelet Count 162 X10^3/uL (150-400); Red Blood Cell Count 4.41 X10^6/uL (4.0-5.2); Red Cell Distribution Width 14.5 % (11.6-14.8); White Blood Cell Count 19.7 X10^3/uL (4.5-11.0)
[2023-02-22 10:56] LABS: Add Manual Diff / Slide Review YES
[2023-02-22 11:34] LABS: Alanine Aminotransferase 26 IU/L (<35); Alkaline Phosphatase 60 U/L (38-126); Aspartate Aminotransferase 30 IU/L (14-36); Bilirubin Total 0.5 mg/dL (0.2-1.3); Blood Urea Nitrogen 18 mg/dL (7-17); Carbon Dioxide 29 mmol/L (22-32); Chloride 107 mmol/L (98-107); Estimated Glomerular Filt Rate > 60 mL/min (>60); Glucose 91 mg/dL (80-110); HEMOLYSIS < 15 (0-50); Lactate Dehydrogenase 185 U/L (120-246); Sodium 140 mmol/L (137-145); Uric Acid 5.1 mg/dL (2.5-6.2)
[2023-02-22 12:31] LABS: Neutrophils Absolute Manual 3546 /uL (3000-5900); Total Cells Counted 100
[2023-02-22 12:32] LABS: RBC Morphology Normal Morphology
== END ==
LOC: LAB 09:53
PROVIDERS: Family Provider Family Medicine; PCP Family Medicine; Referring Provider Internal Medicine Hematology & Oncology; Visit Provider Internal Medicine Hematology & Oncology
DX: D59.10 Autoimmune hemolytic anemia, unspecified (principal); C91.10 Chronic lymphocytic leukemia of B-cell type not having achieved remission
CPT/HCPCS: 36415; 80053; 83615; 84550; 85007; 85025

== ENCOUNTER → 2023-05-25 08:51 | Outpatient (CLI) | payer MEDICARE, OTHER, SELFPAY ==
[2023-01-26 11:35] VITALS: BMI 22.1
--- NOTE | 2023-05-25 | DI.MG.S_ITS ---
UNILATERAL RIGHT DIGITAL DIAGNOSTIC MAMMOGRAM 3D/2D: 05/25/2023 CLINICAL: Right breast lump. Comparison is made to exams dated: 10/19/2022 mammogram, 10/11/2021 mammogram, 10/06/2020 mammogram, and 09/15/2019 ultrasound biopsy - [facility]. There are scattered areas of fibroglandular density in the right breast (category b / 25%-50% glandular tissue). There are multiple enlarged lymph nodes in the right axilla that are increased in size and correlate with palpable abnormalities. These nodes appear to have been slowly increasing in size over multiple prior exams in this patient with known history of CLL. No significant masses, calcifications, or other findings are seen in the breast. IMPRESSION: INCOMPLETE: NEEDS ADDITIONAL IMAGING EVALUATION Targeted ultrasound is recommended for further evaluation of the palpable abnormality, which will be performed immediately following this exam. This exam was interpreted at Station ID: [id number]. NOTE: For mammograms, a report in lay terms will be sent to the patient. Approximately 15% of breast malignancies will not be visualized mammographically. In the management of a palpable breast mass, a negative mammogram must not discourage biopsy of a clinically suspicious lesion. Electronically Signed By: Lopez Sandoval M.D. ar/:05/25/2023 13:16:02 ACR BI-RADS Category 0: Incomplete [id number]
--- NOTE | 2023-05-25 08:52 | DI.US.S_ITS ---
LIMITED ULTRASOUND OF RIGHT BREAST AND AXILLA: 05/25/2023 CLINICAL: Palpable right breast/axillary lump. Comparison is made to exams dated: 05/25/2023 mammogram, 10/19/2022 mammogram, 10/11/2021 mammogram, and 10/06/2020 mammogram - [facility]. Color flow and real-time ultrasound of the right breast 10 o'clock, and axilla regions were performed. Cope scale images of the real-time examination were reviewed. There are multiple benign enlarged right axillary lymph nodes. These correlate as palpated and with mammography findings. The largest axillary lymph node measures 4.3 x 1.9 x 2.9 cm. IMPRESSION: BENIGN There is no sonographic evidence of breast malignancy. The multiple enlarged right axillary lymph nodes are most likely related to patient's history of CLL. They appear symmetric when compared to the contralateral side on prior mammograms and have slowly increased in size over multiple exams. Recommend follow up with Hematology/Oncology. Ultrasound-guided biopsy could be performed if needed to guide the clinical management. Return to annual mammogram screening schedule is recommended. Future imaging is recommended as follows: 11/20/2023 screening mammogram. This exam was interpreted at Station ID: [id number]. Electronically Signed By: Lopez Sandoval M.D. ar/:05/25/2023 13:26:23 letter sent: Clinical Evaluation Ultrasound BI-RADS: 2 Benign
== END ==
LOC: MAMMO 08:51
PROVIDERS: Family Provider Family Medicine; PCP Family Medicine; Referring Provider Family Medicine; Visit Provider Family Medicine
DX: R92.8 Other abnormal and inconclusive findings on diagnostic imaging of breast (principal); N63.10 Unspecified lump in the right breast, unspecified quadrant; R92.321 Mammographic fibroglandular density, right breast; R59.0 Localized enlarged lymph nodes; Z85.6 Personal history of leukemia
CPT/HCPCS: 76642; 77065; G0279

== ENCOUNTER → 2023-06-12 15:50 | Outpatient (CLI) | payer MEDICARE, OTHER, SELFPAY ==
[2023-01-26 11:35] VITALS: BMI 22.1
--- NOTE | 2023-06-12 15:52 | DI.RAD.S_ITS ---
PROCEDURE: XR WRIST RT 2V INDICATIONS: Hard swelling just medial to extensor pollicis lynne TECHNIQUE: 4 views of the wrist were acquired. COMPARISON: [facility], , WRIST MINIMUM 3 VIEWS RIGHT, 07/11/2014, 14:33. FINDINGS: Bones: No fractures or dislocations. No suspicious bony lesions. Soft tissues: No suspicious soft tissue calcifications. IMPRESSION: No acute bony abnormality. Dictated by: Nabeel Dorado M.D. on 06/12/2023 at 16:37 Approved by: Nabeel Dorado M.D. on 06/12/2023 at 16:38
== END ==
PROVIDERS: Family Provider Family Medicine; PCP Family Medicine; Referring Provider Physician Assistant; Visit Provider Physician Assistant
DX: M25.441 Effusion, right hand (principal)
CPT/HCPCS: 73110

== ENCOUNTER → 2023-06-20 06:31 | Outpatient (CLI) | payer MEDICARE, OTHER, SELFPAY ==
[2023-01-26 11:35] VITALS: BMI 22.1
[2023-06-20 07:58] LABS: Mean Corpuscular HGB Conc 33.5 % (30-36); Mean Corpuscular Hemoglobin 35.2 PG (26-34); Mean Corpuscular Volume 105.1 fL (80-100); Platelet Count 224 X10^3/uL (150-400); Red Blood Cell Count 2.57 X10^6/uL (4.0-5.2); Red Cell Distribution Width 15.6 % (11.6-14.8)
[2023-06-20 08:22] LABS: Alanine Aminotransferase 15 IU/L (<35); Albumin 4.2 g/dL (3.5-5.0); Albumin Globulin Ratio 2.3 (1.0-2.8); Alkaline Phosphatase 68 U/L (38-126); Aspartate Aminotransferase 25 IU/L (14-36); BUN Creatinine Ratio 24.7 (6-22); Bilirubin Total 0.7 mg/dL (0.2-1.3); Blood Urea Nitrogen 19 mg/dL (7-17); Calcium 9.5 mg/dL (8.4-10.2); Carbon Dioxide 27 mmol/L (22-32); Chloride 112 mmol/L (98-107); Estimated Glomerular Filt Rate > 60 mL/min (>60); Globulin 1.8 g/dL (1.7-4.1); Glucose 103 mg/dL (80-110); HEMOLYSIS < 15 (0-50); Lactate Dehydrogenase 255 U/L (120-246); Potassium 3.8 mmol/L (3.4-5.1); Sodium 142 mmol/L (137-145); Uric Acid 6.3 mg/dL (2.5-6.2)
[2023-06-20 09:56] LABS: Add Manual Diff / Slide Review YES; White Blood Cell Count 64.4 X10^3/uL (4.5-11.0)
[2023-06-20 10:08] LABS: Anisocytosis 1+; Macrocytosis 1+; Neutrophils Absolute Manual 3220 /uL (3000-5900); Smudge Cells 1+; Total Cells Counted 100
== END ==
PROVIDERS: Family Provider Family Medicine; PCP Family Medicine; Referring Provider Internal Medicine Hematology & Oncology; Visit Provider Internal Medicine Hematology & Oncology
DX: C91.10 Chronic lymphocytic leukemia of B-cell type not having achieved remission (principal)
CPT/HCPCS: 36415; 80053; 83615; 84550; 85007; 85025; 86850; 86860; 86870; 86880; 86900; 86901

== ENCOUNTER → 2023-09-17 07:24 | Outpatient (CLI) | payer MEDICARE, OTHER, SELFPAY ==
[2023-01-26 11:35] VITALS: BMI 22.1
--- NOTE | 2023-09-17 07:26 | DI.MRI.S_ITS ---
PROCEDURE: MR BRAIN (IAC) WWO CON INDICATIONS: vestibular schwannoma TECHNIQUE: Noncontrast sagittal T1 spin echo, axial FLAIR, axial gradient echo, axial diffusion and ADC through the brain. Axial thin-slice 3D CISS, coronal TruFISP, axial T1 spin echo with fat saturation through the internal auditory canals. After the administration of contrast, thin slice axial and coronal T1 spin echo with fat saturation through the internal auditory canals, and axial and coronal and sagittal T1 spin echo with fat saturation through the brain. COMPARISON: [facility], MR, MR IAC (BRAIN) WWO CON, 06/09/2022, 7:28. FINDINGS: Image quality: Excellent. Cerebellopontine angles: Patient is status post removal of a left vestibular schwannoma. There is a 0.4 cm enhancing focus within the left internal auditory canal, previously it measured 1.4 cm. No cerebellopontine angle masses. Inner ear structures appear normally formed. No suspicious enhancement in the right internal auditory canal or along the course of the 7th cranial nerve. CSF spaces: Ventricles are normal in size and shape. No extra-axial fluid collections. Basal cisterns are patent. Brain: No intracranial bleeds or mass effects. Cope-white matter interface is intact. No abnormal intracranial enhancement. Diffusion weighted images demonstrate no acute ischemic insults. Brainstem appears normal. Normal intravascular flow voids are present. Small amount of T2 FLAIR signal hyperintensities within the subcortical and periventricular white matter. Skull and face: Calvarial marrow signal is normal. Orbits appear normal. Sinuses: Trace mucosal thickening within the paranasal sinuses. Small amount of fluid within both mastoid air cells. IMPRESSION: 1. The patient is status post resection of a left vestibular schwannoma. There is a remaining 0.4 cm enhancing focus within the left auditory canal felt to represent residual disease. 2. Small amount of white matter changes within the subcortical and periventricular white matter. These are typically seen in chronic small vessel ischemic changes. Dictated by: Pedro Luis Pacheco M.D. on 09/17/2023 at 10:48 Approved by: Pedro Luis Pacheco M.D. on 09/17/2023 at 11:44
== END ==
PROVIDERS: Family Provider Family Medicine; PCP Family Medicine; Referring Provider Otolaryngology; Visit Provider Otolaryngology
DX: D33.3 Benign neoplasm of cranial nerves (principal); H90.42 Sensorineural hearing loss, unilateral, left ear, with unrestricted hearing on the contralateral side
CPT/HCPCS: 70553; A9579

== ENCOUNTER → 2023-12-07 13:05 | Outpatient (CLI) | payer MEDICARE, OTHER, SELFPAY ==
[2023-01-26 11:35] VITALS: BMI 22.1
--- NOTE | 2023-12-07 13:06 | DI.MG.S_ITS ---
BILATERAL DIGITAL SCREENING MAMMOGRAM 3D/2D WITH CAD: 12/07/2023 CLINICAL: Routine screening. Comparison is made to exams dated: 10/19/2022 mammogram, 10/11/2021 mammogram, 10/06/2020 mammogram, 08/26/2019 mammogram, 08/16/2019 mammogram, and 09/20/2017 mammogram - [facility]. There are scattered areas of fibroglandular density (category b / 25%-50% glandular tissue). Current study was also evaluated with a Computer Aided Detection (CAD) system. There is a biopsy clip in the right breast. No significant masses, calcifications, or other findings are seen in either breast. There has been no significant interval change. IMPRESSION: BENIGN There is no mammographic evidence of malignancy. A 1 year screening mammogram is recommended. Based on the Tyrer Cuzick model (a risk assessment model) the patient's lifetime risk is 2.9% and her 10 year risk is 2.3%. According to the ACR, ACS, and NCCN guidelines, an annual breast MRI exam along with mammogram is recommended if the patient's lifetime risk is 20% or greater. This exam was interpreted at Station ID: [id number]. NOTE: For mammograms, a report in lay terms will be sent to the patient. Approximately 15% of breast malignancies will not be visualized mammographically. In the management of a palpable breast mass, a negative mammogram must not discourage biopsy of a clinically suspicious lesion. Electronically Signed By: Fiona Garcia M.D., Ph.D. dejan/ava:12/07/2023 16:40:00 letter sent: Normal Exam ACR BI-RADS Category 2: Benign
== END ==
PROVIDERS: Family Provider Family Medicine; PCP Family Medicine; Referring Provider Family Medicine; Visit Provider Family Medicine
DX: Z12.31 Encounter for screening mammogram for malignant neoplasm of breast (principal)
CPT/HCPCS: 77063; 77067

== ENCOUNTER → 2024-03-06 09:35 | Outpatient (CLI) | payer MEDICARE, OTHER, SELFPAY ==
[2023-01-26 11:35] VITALS: BMI 22.1
--- NOTE | 2024-03-06 09:38 | DI.RAD.S_ITS ---
PROCEDURE: XR CHEST 2V INDICATIONS: chronic cough TECHNIQUE: 2 views of the chest were acquired. COMPARISON: None. FINDINGS: Heart, mediastinum and pulmonary vascular: Heart is normal in size and configuration. Mediastinum is unremarkable. Pulmonary vascular is normal. Lungs: Scattered calcified granulomas appreciated. A 9 mm calcific granuloma versus chondral calcification overlies the anterior right 5th rib Pleural spaces: Normal-no effusions or pneumothorax. Bones and soft tissues: Normal IMPRESSION: No cardiopulmonary disease. Dictated by: Jim Mendes M.D. on 03/07/2024 at 12:43 Approved by: Jim Mendes M.D. on 03/07/2024 at 12:45
== END ==
PROVIDERS: PCP Family Medicine; Referring Provider Family Medicine; Visit Provider Family Medicine
DX: C91.10 Chronic lymphocytic leukemia of B-cell type not having achieved remission (principal); R05.9 Cough, unspecified; E03.9 Hypothyroidism, unspecified
CPT/HCPCS: 71046

== ENCOUNTER → 2024-03-25 07:01 | Outpatient (CLI) | payer MEDICARE, OTHER, SELFPAY ==
[2023-01-26 11:35] VITALS: BMI 22.1
--- NOTE | 2024-03-25 07:02 | DI.ECHO.S_ITS ---
[facility] : : [address] : : [place] : : [id number] : : Phone: [phone] Echocardiogram Report + + :Name: JOSE REID Study Date: 03/25/2024 Height: 70 in : :Hospital ReadingLocation: Weight: 136 lb: : Gender: Female BSA: 1.8 m2 : :: 1950 Age: 74 yrs BP: 92/62 mmHg: :Reason For Study: SYSTOLIC MURMUR : :Ordering Physician: ADEBAYO, : :STEVEN Performed By: Latrice Kuo : :Referring: STEVEN FIORE : + + Interpretation Summary Left ventricular wall thickness is mildly increased. The ejection fraction is estimated to be 60-65%. Diastolic parameters suggest probable normal left ventricular diastolic function and normal filling pressures. The right ventricle is normal in size and function. The aortic valve is bicuspid. There is severe aortic stenosis. There is mild to moderate tricuspid regurgitation. The right ventricular systolic pressure is estimated to be at least 29 mmHg based on an estimated right atrial pressure of 3 mm Hg. The ascending aorta is moderately enlarged. Compared to the prior study 10/31/2021, aortic valve gradient has increased. Recommend noninvasive angiography of the thoracic aorta to further evaluate for aneurysm and cardiology consultation. Result discussed with on-call covering physician, Dr. Christianson. Procedure: A two-dimensional transthoracic echocardiogram with color flow and Doppler was performed. The study quality was technically adequate. Comparison is made with the echocardiogram of 10/31/2021. The patient was in sinus rhythm with heart rates between 85-99 bpm during the exam. Left Ventricle: The left ventricle is normal in size. Left ventricular wall thickness is mildly increased. The ejection fraction is estimated to be 60- 65%. Diastolic parameters suggest probable normal left ventricular diastolic function and normal filling pressures. Right Ventricle: The right ventricle is normal in size and function. Atria: The left atrial size is normal. The right atrium is normal in size. There is no Doppler evidence for an interatrial shunt. Mitral Valve: The mitral valve leaflets appear moderately thickened, but open well. There is trace mitral regurgitation. Aortic Valve: The aortic valve is bicuspid. The aortic valve is moderately calcified. There is severe aortic stenosis. The peak aortic velocity is 4.3 m/sec. The aortic valve mean gradient is 46 mmHg. The calculated aortic valve area is 0.8 cm2. No aortic regurgitation is present. Tricuspid Valve: Tricuspid leaflets are thickened. There is mild to moderate tricuspid regurgitation. The right ventricular systolic pressure is estimated to be at least 29 mmHg based on an estimated right atrial pressure of 3 mm Hg. Pulmonic Valve: The pulmonic valve leaflets are thin and pliable; valve motion is normal. There is mild pulmonic regurgitation. Great Vessels: The aortic root is normal size. The ascending aorta is moderately enlarged. The IVC is of normal diameter and collapses greater than 50% with a sniff. This suggests a low right atrial pressure of 3 mm Hg. Pericardium/ Pleura There is no pericardial effusion. There is no pleural effusion. MMode/2D Measurements & Calculations LVIDd: 3.3 cm LVOT diam: 2.1 cm LVIDs: 2.1 cm Ao root diam: 3.5 cm FS: 36.6 % asc Aorta Diam: 4.1 cm EPSS: 0.78 cm Ao Arch Diam (Prox Trans): 2.1 cm IVSd: 1.0 cm LVPWd: 1.1 cm LV rivero. diameter/BSA (cm/m^2): 1.8 LV sys. diameter/BSA (cm/m^2): 1.2 LA A2 area: 16.7 cm2 RA long axis: 4.3 cm LA A4 area: 13.4 cm2 RA area: 12.3 cm2 LA length (vol): 4.5 cm RA vol: 29.5 ml LA vol: 42.4 ml RA : 16.6 ml/m2 LA vol index: 23.9 ml/m2 IVC diam: 1.5 cm RVD1 (basal): 3.2 cm RVD2 (mid): 2.0 cm TAPSE: 1.6 cm Doppler Measurements & Calculations Ao V2 max: 427.5 cm/sec LVOT Max Eligio: 101.0 cm/sec Ao V2 mean: 312.9 cm/sec LV V1 max P.1 mmHg Ao max P.9 mmHg LV V1 VTI: 17.3 cm Ao mean P.8 mmHg MARK(I,D): 0.76 cm2 Ao V2 VTI: 80.2 cm MARK(V,D): 0.84 cm2 sev ratio: 0.22 MARK indexed to BSA (cm^2/m^2): 0.43 MV E max eligio: 65.4 cm/sec TR max eligio: 256.9 cm/sec MV A max eligio: 89.7 cm/sec TR max P.4 mmHg MV E/A: 0.73 PA V2 max: 86.1 cm/sec Med Peak E' Eligio: 7.2 cm/sec PA V2 mean: 60.7 cm/sec E/E' med: 9.1 PA mean P.7 mmHg Lat Peak E' Eligio: 4.7 cm/sec PA pr(Accel): 45.6 mmHg E/E' lat: 13.8 E/e' average: 11.5 MV dec time: 0.20 sec SV(LVOT): 61.3 ml Reading Physician:05:45 PM
== END ==
PROVIDERS: PCP Family Medicine; Referring Provider Family Medicine; Visit Provider Family Medicine
DX: I08.2 Rheumatic disorders of both aortic and tricuspid valves (principal); Q23.81 Bicuspid aortic valve; R01.1 Cardiac murmur, unspecified; I77.89 Other specified disorders of arteries and arterioles
CPT/HCPCS: 93306

== ENCOUNTER → 2024-04-15 06:28 | Outpatient (CLI) | payer MEDICARE, OTHER, SELFPAY ==
[2023-01-26 11:35] VITALS: BMI 22.1
[2024-04-15 07:44] LABS: Add Manual Diff / Slide Review NO; Basophils Absolute Auto 0 /uL (0-100); Basophils Percent Auto 0.1 % (0-2); Eosinophils Absolute Auto 0 /uL (0-450); Hematocrit 31.7 % (36-46); Hemoglobin 10.7 g/dL (12.0-16.0); Lymphocytes Absolute Auto 500 /uL (1100-4500); Lymphocytes Percent Auto 7.9 % (25-40); Mean Corpuscular HGB Conc 33.8 % (30-36); Mean Corpuscular Hemoglobin 29.7 PG (26-34); Monocytes Absolute Auto 600 /uL (0-900); Neutrophils Absolute Auto 5300 /uL (1500-7000); Platelet Count 276 X10^3/uL (150-400); Red Cell Distribution Width 14.6 % (11.6-14.8); White Blood Cell Count 6.4 X10^3/uL (4.5-11.0)
== END ==
PROVIDERS: PCP Family Medicine; Referring Provider Nurse Practitioner; Visit Provider Nurse Practitioner
DX: C91.10 Chronic lymphocytic leukemia of B-cell type not having achieved remission (principal)
CPT/HCPCS: 36415; 85025

== ENCOUNTER → 2024-04-23 07:59 | Outpatient (CLI) | payer MEDICARE, OTHER, SELFPAY ==
[2023-01-26 11:35] VITALS: BMI 22.1
[2024-04-23 08:32] LABS: Add Manual Diff / Slide Review NO; Basophils Absolute Auto 0 /uL (0-100); Basophils Percent Auto 0.2 % (0-2); Eosinophils Absolute Auto 0 /uL (0-450); Hemoglobin 10.5 g/dL (12.0-16.0); Lymphocytes Absolute Auto 500 /uL (1100-4500); Mean Corpuscular HGB Conc 33.9 % (30-36); Mean Corpuscular Hemoglobin 29.4 PG (26-34); Mean Corpuscular Volume 86.9 fL (80-100); Monocytes Absolute Auto 600 /uL (0-900); Monocytes Percent Auto 10.1 % (3-14); Neutrophils Absolute Auto 5200 /uL (1500-7000); Neutrophils Percent Auto 81.7 % (50-75); Platelet Count 286 X10^3/uL (150-400); Red Blood Cell Count 3.57 X10^6/uL (4.0-5.2); Red Cell Distribution Width 14.9 % (11.6-14.8); White Blood Cell Count 6.4 X10^3/uL (4.5-11.0)
== END ==
PROVIDERS: PCP Family Medicine; Referring Provider Physician Assistant; Visit Provider Physician Assistant
DX: C91.10 Chronic lymphocytic leukemia of B-cell type not having achieved remission (principal)
CPT/HCPCS: 36415; 85025

== ENCOUNTER → 2024-06-13 14:08 | Outpatient (CLI) | payer MEDICARE, OTHER, SELFPAY ==
[2023-01-26 11:35] VITALS: BMI 22.1
--- NOTE | 2024-06-13 14:09 | DI.RAD.S_ITS ---
PROCEDURE: XR CHEST 2V INDICATIONS: Chest Pain TECHNIQUE: 2 views of the chest were acquired. COMPARISON: [facility], CR, XR CHEST 2V, 03/06/2024, 9:42. FINDINGS: Surgical changes and devices: Sternal wires. Lungs and pleura: Lungs are hyperinflated consistent with COPD. There is an overall appearance of interstitial change progressive compared to prior exam. Mediastinum: Mediastinal contours are normal. Heart size is normal. Bones and chest wall: No suspicious bony abnormalities. Soft tissues appear unremarkable. IMPRESSION: Interval progression of interstitial prominence which could be related to edema. Dictated by: Marjorie Hidalgo M.D. on 06/13/2024 at 14:48 Approved by: Marjorie Hidalgo M.D. on 06/13/2024 at 14:49
== END ==
PROVIDERS: PCP Family Medicine; Referring Provider Family Medicine; Visit Provider Family Medicine
DX: R07.9 Chest pain, unspecified (principal); R05.1 Acute cough
CPT/HCPCS: 0241U; 71046

== ENCOUNTER → 2024-06-13 15:21 | Outpatient (CLI) | payer MEDICARE, OTHER, SELFPAY ==
[2023-01-26 11:35] VITALS: BMI 22.1
[2024-06-13 16:07] LABS: Influenza A - CEPHEID Flu A NEGATIVE (NEGATIVE); Influenza B - CEPHEID Flu B NEGATIVE (NEGATIVE); Respiratory Syncytial Virus Negative (Negative)
[2024-06-13 16:20] LABS: COVID-19 CEPHEID 4-PLEX PCR Negative (Negative)
== END ==
LOC: LAB 15:22
PROVIDERS: PCP Family Medicine; Visit Provider Family Medicine
DX: R05.1 Acute cough (principal)
CPT/HCPCS: 0241U

== ENCOUNTER → 2024-07-04 08:12 | Outpatient (CLI) | payer MEDICARE, OTHER, SELFPAY ==
[2023-01-26 11:35] VITALS: BMI 22.1
--- NOTE | 2024-07-04 08:19 | DI.RAD.S_ITS ---
PROCEDURE: XR CHEST 2V INDICATIONS: HEART VALVE REPLACED TECHNIQUE: 2 views of the chest were acquired. COMPARISON: [facility], CT, CT ANGIO CHEST ABDOMEN PELVIS, 06/13/2024, 17:56. [facility], CR, XR CHEST 1 VIEW, 06/13/2024, 17:36. [facility], CR, XR CHEST 2V, 06/13/2024, 14:05. FINDINGS: Surgical changes and devices: None. Lungs and pleura: The lungs are hyperexpanded. Mild interstitial prominence is seen inferiorly, which is improved compared to the prior examination. Mediastinum: Mediastinal contours are normal. Heart size is normal. Bones and chest wall: No suspicious bony abnormalities. Age-appropriate bony degenerative changes are seen. Soft tissues appear unremarkable. IMPRESSION: Improved interstitial prominence. Hyperexpanded lungs. Postoperative and degenerative changes are seen. Dictated by: Pramod Mandujano M.D. on 07/05/2024 at 9:37 Approved by: Pramod Mandujano M.D. on 07/05/2024 at 9:40
[2024-07-04 09:28] LABS: Add Manual Diff / Slide Review NO; Basophils Absolute Auto 0 /uL (0-100); Basophils Percent Auto 0.6 % (0-2); Eosinophils Absolute Auto 0 /uL (0-450); Eosinophils Percent Auto 0.4 % (2-4); Hematocrit 35.9 % (36-46); Hemoglobin 12.1 g/dL (12.0-16.0); Lymphocytes Absolute Auto 1500 /uL (1100-4500); Lymphocytes Percent Auto 20.7 % (25-40); Mean Corpuscular HGB Conc 33.8 % (30-36); Mean Corpuscular Hemoglobin 30.5 PG (26-34); Mean Corpuscular Volume 90.2 fL (80-100); Monocytes Absolute Auto 700 /uL (0-900); Monocytes Percent Auto 9.9 % (3-14); Neutrophils Absolute Auto 5000 /uL (1500-7000); Neutrophils Percent Auto 68.4 % (50-75); Platelet Count 228 X10^3/uL (150-400); Red Blood Cell Count 3.98 X10^6/uL (4.0-5.2); Red Cell Distribution Width 21.4 % (11.6-14.8); White Blood Cell Count 7.3 X10^3/uL (4.5-11.0)
[2024-07-04 09:35] LABS: INR 3.3 (0.9-1.3)
[2024-07-04 09:38] LABS: Anisocytosis 1+
[2024-07-04 09:47] LABS: Alanine Aminotransferase 17 IU/L (<35); Albumin Globulin Ratio 2.1 (1.0-2.8); Alkaline Phosphatase 98 U/L (38-126); Aspartate Aminotransferase 27 IU/L (14-36); BUN Creatinine Ratio 18.2 (6-22); Bilirubin Total 0.4 mg/dL (0.2-1.3); Blood Urea Nitrogen 12 mg/dL (7-17); Calcium 9.7 mg/dL (8.4-10.2); Carbon Dioxide 29 mmol/L (22-32); Chloride 105 mmol/L (98-107); Estimated Glomerular Filt Rate > 60 mL/min (>60); Globulin 1.9 g/dL (1.7-4.1); Glucose 96 mg/dL (70-99); HEMOLYSIS < 15 (0-50); Potassium 4.6 mmol/L (3.4-5.1); Sodium 140 mmol/L (137-145); Total Protein 5.9 g/dL (6.3-8.2)
== END ==
LOC: LAB 08:16 → RAD 08:18
PROVIDERS: PCP Family Medicine; Referring Provider Physician Assistant; Visit Provider Physician Assistant
DX: C91.10 Chronic lymphocytic leukemia of B-cell type not having achieved remission (principal); Z95.2 Presence of prosthetic heart valve; Z51.81 Encounter for therapeutic drug level monitoring; Z79.01 Long term (current) use of anticoagulants
CPT/HCPCS: 36415; 71046; 80053; 85025; 85610

== ENCOUNTER → 2024-07-28 16:06 | Outpatient (CLI) | payer MEDICARE, OTHER, SELFPAY ==
[2023-01-26 11:35] VITALS: BMI 22.1
[2024-07-28 16:57] LABS: Add Manual Diff / Slide Review NO; Basophils Absolute Auto 0 /uL (0-100); Basophils Percent Auto 0.3 % (0-2); Eosinophils Absolute Auto 0 /uL (0-450); Eosinophils Percent Auto 0.3 % (2-4); Hematocrit 36.6 % (36-46); Hemoglobin 12.3 g/dL (12.0-16.0); Lymphocytes Absolute Auto 1400 /uL (1100-4500); Lymphocytes Percent Auto 13.1 % (25-40); Mean Corpuscular HGB Conc 33.7 % (30-36); Mean Corpuscular Hemoglobin 30.7 PG (26-34); Monocytes Absolute Auto 800 /uL (0-900); Monocytes Percent Auto 7.1 % (3-14); Neutrophils Absolute Auto 8700 /uL (1500-7000); Neutrophils Percent Auto 79.2 % (50-75); Platelet Count 243 X10^3/uL (150-400); Red Blood Cell Count 4.02 X10^6/uL (4.0-5.2)
[2024-07-28 17:09] LABS: D Dimer 533 ng/ml (<500)
[2024-07-28 18:01] LABS: TSH w/ Reflex to FT4 1.25 uIU/mL (0.47-4.68)
== END ==
LOC: LAB 16:07
PROVIDERS: PCP Family Medicine; Referring Provider Family Medicine; Visit Provider Family Medicine
DX: Z79.01 Long term (current) use of anticoagulants (principal); R00.0 Tachycardia, unspecified; Z95.2 Presence of prosthetic heart valve; E89.0 Postprocedural hypothyroidism
CPT/HCPCS: 36415; 84443; 85025; 85379

== ENCOUNTER 2024-07-28 18:04 | Emergency (ER) | payer MEDICARE, OTHER, SELFPAY ==
[2023-01-26 11:35] VITALS: BMI 22.1
[2024-07-28] VITALS (9 sets, daily range): BP systolic 121–152; BP diastolic 61–78; PULSE 105–130; RESP 16–33; TEMP 37.4; O2SAT 92–98; BMI 17.6
--- NOTE | 2024-07-28 18:27 | DI.RAD.S_ITS ---
PROCEDURE: XR CHEST 1V INDICATIONS: Chest Pain TECHNIQUE: One view of the chest was acquired. COMPARISON: [facility], CR, XR CHEST 2V, 07/04/2024, 8:16. [facility], CR, XR CHEST 2V, 06/13/2024, 14:05. FINDINGS AND IMPRESSION: Rxtj-[id number] interstitial thickening likely interstitial fibrotic changes, atypical infection, and/or edema. No dense airspace disease on this single view study. No pleural effusions. Normal heart size. Sternotomy wires. Degenerative osseous changes. Dictated by: Immanuel Reddy M.D. on 07/28/2024 at 19:14 Approved by: Immanuel Reddy M.D. on 07/28/2024 at 19:15
--- NOTE | 2024-07-28 18:34 | EKG_ITS ---
[facility] [address] [place] [address] Test Date: 2024-07-28 Pat Name: Jayla Trevino Department: [facility] Room: Gender: Female Netting Weaver: MARIELOS : 1950 Requested By: Order Number: [id number] Reading MD: Jim Ledbetter MD Measurements Intervals [place] Rate: 120 P: 81 FL: 164 QRS: 91 QRSD: 90 T: 80 QT: 320 QTc: 452 Interpretive Statements Sinus tachycardia Biatrial enlargement Rightward axis Pulmonary disease pattern RSR' or QR pattern in V1 suggests right ventricular conduction delay Nonspecific ST abnormality Electronically Signed On 07-29-2024 7:27:10 PDT by Jim Ledbetter MD
[2024-07-28 19:08] LABS: Add Manual Diff / Slide Review NO; Basophils Absolute Auto 100 /uL (0-100); Basophils Percent Auto 0.5 % (0-2); Eosinophils Absolute Auto 0 /uL (0-450); Eosinophils Percent Auto 0.4 % (2-4); Hematocrit 37.4 % (36-46); Hemoglobin 12.2 g/dL (12.0-16.0); Lymphocytes Absolute Auto 1300 /uL (1100-4500); Lymphocytes Percent Auto 11.9 % (25-40); Mean Corpuscular HGB Conc 32.6 % (30-36); Mean Corpuscular Hemoglobin 29.8 PG (26-34); Mean Corpuscular Volume 91.2 fL (80-100); Monocytes Absolute Auto 700 /uL (0-900); Monocytes Percent Auto 6.4 % (3-14); Neutrophils Absolute Auto 8900 /uL (1500-7000); Neutrophils Percent Auto 80.8 % (50-75); Platelet Count 240 X10^3/uL (150-400); Red Cell Distribution Width 17.8 % (11.6-14.8); White Blood Cell Count 11.1 X10^3/uL (4.5-11.0)
[2024-07-28 19:15] LABS: INR 1.6 (0.9-1.3); Prothrombin Time 18.4 SECONDS (9.4-12.5)
[2024-07-28 19:17] LABS: PTT Partial Thromboplastin Tim 38 SECONDS (25.1-36.5)
[2024-07-28 19:19] LABS: Alanine Aminotransferase 13 IU/L (<35); Albumin 4.1 g/dL (3.5-5.0); Albumin Globulin Ratio 1.8 (1.0-2.8); Alkaline Phosphatase 83 U/L (38-126); Aspartate Aminotransferase 28 IU/L (14-36); BUN Creatinine Ratio 22.4 (6-22); Bilirubin Total 0.2 mg/dL (0.2-1.3); Blood Urea Nitrogen 13 mg/dL (7-17); Calcium 9.5 mg/dL (8.4-10.2); Carbon Dioxide 28 mmol/L (22-32); Chloride 101 mmol/L (98-107); Creatine Kinase 26 U/L (30-135); Estimated Glomerular Filt Rate > 60 mL/min (>60); Globulin 2.3 g/dL (1.7-4.1); Glucose 129 mg/dL (70-99); HEMOLYSIS < 15 (0-50); Lipase 59 U/L (23-300); Magnesium 2.1 mg/dL (1.6-2.3); Potassium 3.6 mmol/L (3.4-5.1); Sodium 136 mmol/L (137-145); Total Protein 6.4 g/dL (6.3-8.2)
[2024-07-28 19:30] LABS: NT-proBNP (BNP-Adult 18+) 362 pg/mL (<125); Troponin I < 0.012 ng/mL (0.01-0.034)
--- NOTE | 2024-07-28 19:57 | DI.CT.S_ITS ---
PROCEDURE: CT ANGIO CHEST PE PROTOCOL INDICATIONS: chest pain, PE protocol TECHNIQUE: After the administration of intravenous contrast, 2 mm thick sections acquired from the pulmonary apices to the posterior costophrenic angles. 3-dimensional maximum intensity projection (MIP) coronal and sagittal reformats were then acquired through the thorax. For radiation dose reduction, the following was used: automated exposure control, adjustment of mA and/or kV according to patient size. COMPARISON: [facility], CT, CT ANGIO CHEST ABDOMEN PELVIS, 06/13/2024, 17:56. [facility], CR, XR CHEST 1V, 07/28/2024, 18:27. FINDINGS: Image quality: Diagnostic. Pulmonary arteries: Pulmonary arteries are normal in size, and demonstrate no intraluminal filling defects to suggest central pulmonary embolism. Lower Neck: No enlarged lymph nodes. Thyroid: Not visualized.. Axillae: No enlarged lymph nodes. Chest Wall: Unremarkable. Bones: Unremarkable. Lungs and Pleura: No pneumothorax or pleural effusions. Scattered multiple punctate nodules within the lungs bilaterally many and tree-in-bud deformity. There overall more prominent when compared to prior exam. Slight appearance of bronchiectasis within the bases. Heart: Heart size is normal. No pericardial effusion. Thoracic Vessels: Ascending thoracic aorta measures 3.6 cm. Mediastinum and Aydee: No enlarged lymph nodes. Esophagus: No wall thickening. Minimal hiatal hernia. Upper Abdomen: Nonobstructing left renal calcification. IMPRESSION: No pulmonary embolus. Interval worsening bilateral pulmonary nodule somewhat tree-in-bud appearance suggestive of infection/inflammation. Atypical etiology such as fungal or mycobacterial should be considered. Dictated by: Marjorie Hidalgo M.D. on 07/28/2024 at 20:57 Approved by: Marjorie Hidalgo M.D. on 07/28/2024 at 21:00
--- NOTE | 2024-07-28 22:07 | ED.ARRPALP ---
HPI - Arrhythmia/Palpitations General Chief Complaint: Arrhythmia/Palpitations Stated Complaint: Dr Mckinley sent possible blood clot in lungs Time Seen by Provider: 07/28/24 19:57 Source: patient Mode of arrival: Ambulatory History of Present Illness HPI narrative: 74-year-old female with history of CLL, status post aortic valve surgery and anterior thoracic aortic aneurysm repair at [facility] 05/30/2024, has ongoing cough, advised to have CT angiogram test by her provider today. No fevers or chills. Denies chest pain except occasionally with cough. No history of blood clots to legs or lungs. She takes warfarin chronic anticoagulation. Related Data Home Medications ?Medication ?Instructions ?Recorded ?Confirmed Flax Seed 1 tab PO DAILY 07/28/19 07/28/24 Held on 06/19/24. Instructions: Until MD review. acetaminophen 500 mg tablet 1,000 mg PO Q6H PRN 06/19/24 07/28/24 acyclovir 5 % topical ointment 1 applic topical ONCE PRN 06/19/24 07/28/24 Previous Rx's ?Medication ?Instructions ?Recorded levothyroxine 100 mcg tablet See Rx Instructions .Route 11/27/23 .COMPLEX #90 tabs warfarin 2 mg tablet See Rx Instructions PO DAILY 07/01/24 anticoagulation #180 tabs doxycycline hyclate 100 mg tablet 100 mg PO BID #20 tabs 07/29/24 Allergies Allergy/AdvReac Type Severity Reaction Status Date / Time cinnamon Allergy Intermediate swelling, Uncoded 07/28/24 15:29 tingling, rash, burning kiwi Allergy Mild rash Uncoded 07/28/24 15:29 Patient History Medical History (Updated 07/29/24 @ 00:10 by Gustavo Wolfe MD) Aortic aneurysm Aortic stenosis Schwannoma of cranial nerve Bilateral nephrolithiasis Renal colic on right side Right ureteral calculus Osteoarthritis of right knee Cervicalgia Hypothyroidism Lower back pain Neck muscle spasm Hyperparathyroidism Surgical History (Updated 06/27/24 @ 09:33 by Felipe Yo LPN) Hx laparoscopic cholecystectomy Hx of cystoscopy (03/21/21) History of incision and drainage (01/30/23) History of thyroidectomy Family History Father Heart disease Family/Other Uterine cancer Social History marital status: household members: spouse occupational status: employed Smoking Status: Never smoker alcohol intake: current substance use type: does not use Smoking Status: Never smoker alcohol intake frequency: a few times a month Exam Narrative Exam Narrative: GENERAL: Well-developed patient, in mild distress. HEAD: Atraumatic. Normocephalic. EYES: Pupils equal round and reactive. Extraocular motions intact. No scleral icterus. No injection or drainage. ENT: Nose without bleeding, purulent drainage. Throat without erythema, tonsillar hypertrophy or exudate. Airway patent. NECK: Trachea midline. Non tender CARDIOVASCULAR: Regular rate and rhythm without murmurs, gallops, or rubs. Well-healed vertical midline scar. RESPIRATORY: Clear to auscultation. Breath sounds equal bilaterally. Slight crackles right base. GASTROINTESTINAL: Abdomen soft, non-tender, nondistended. EXTREMITIES: No edema or joint tenderness. BACK: Nontender without deformity or crepitance. No flank tenderness. NEURO: AOx3. Motor functions grossly nonfocal. SKIN: No rash or erythema of visible areas Initial Vital Signs Initial Vital Signs: Vital Signs Temperature 99.4 F 07/28/24 18:19 Pulse Rate 130 H 07/28/24 18:19 Respiratory Rate 16 07/28/24 18:19 Blood Pressure 127/78 07/28/24 18:19 Pulse Oximetry 95 07/28/24 18:19 Oxygen Delivery Method Room Air 07/28/24 18:19 Course Orders Ordered: ED Orders 07/28/24 18:27 XR chest 1V Stat EKG-12 Lead Stat 07/28/24 19:00 Complete Blood Count AUTO DIFF Stat Comprehensive Metabolic Panel Stat Lipase Stat Magnesium Stat NT-proBNP (BNP-Adult 18+) Stat PTT Partial Thromboplastin Denilson Stat Prothrombin Time INR Stat Troponin & CK Cardiac Panel Stat 07/28/24 19:57 CT angio chest PE protocol Stat Discontinued Medications Aspirin (Aspirin 81 Mg Chew Tab) 324 mg PO NOW ONE Stop: 07/28/24 18:28 Last Admin: 07/28/24 20:20 Dose: Not Given Documented By: SPRING Doxycycline Hyclate (Doxycycline Hyclate 100 Mg Tablet) 100 mg PO NOW ONE Stop: 07/28/24 23:37 Last Admin: 07/29/24 00:11 Dose: 100 mg Documented By: ZAHIRA Vital Signs Vital signs: Vital Signs - 8 hr 07/28/24 20:41 07/28/24 20:41 07/28/24 21:00 Pulse Rate 118 H 117 H Respiratory Rate Blood Pressure 121/65 Pulse Oximetry 92 98 Oxygen Delivery Method 07/28/24 21:00 07/28/24 21:15 07/28/24 21:15 Pulse Rate 118 H Respiratory Rate Blood Pressure 129/71 136/61 Pulse Oximetry 95 Oxygen Delivery Method 07/28/24 21:30 07/28/24 21:30 07/28/24 22:00 Pulse Rate 113 H Respiratory Rate Blood Pressure 136/67 129/69 Pulse Oximetry 96 Oxygen Delivery Method 07/28/24 22:00 07/28/24 22:30 07/28/24 22:30 Pulse Rate 109 H 105 H Respiratory Rate 24 21 Blood Pressure 133/72 Pulse Oximetry 96 98 Oxygen Delivery Method 07/28/24 23:00 07/28/24 23:00 07/28/24 23:30 Pulse Rate 110 H 114 H Respiratory Rate 16 33 H Blood Pressure 152/74 H Pulse Oximetry 96 95 Oxygen Delivery Method Room Air 07/28/24 23:30 07/29/24 00:00 07/29/24 00:14 Pulse Rate 107 H 115 H Respiratory Rate 27 H 16 Blood Pressure 134/70 118/76 Pulse Oximetry 95 96 Oxygen Delivery Method Room Air MDM - Arrhythmia/Palpitations Lab Data Attestation: I reviewed the patient's lab results. Lab results narrative: White blood cell count 11,100, hemoglobin 12.2, platelets adequate. Glucose 129. Renal function adequate. Electrolytes unremarkable. Serum CO2 28. Liver functions normal. Lipase normal. BNP 362. Troponin negative. 07/28/24 19:00 07/28/24 19:00 Labs: Lab Results 07/28/24 Range/Units 19:00 WBC 11.1 H (4.5-11.0) X10^3/uL RBC 4.10 (4.0-5.2) X10^6/uL Hgb 12.2 (12.0-16.0) g/dL Hct 37.4 (36-46) % MCV 91.2 (80-100) fL MCH 29.8 (26-34) PG MCHC 32.6 (30-36) % RDW 17.8 H (11.6-14.8) % Plt Count 240 (150-400) X10^3/uL Neut % (Auto) 80.8 H (50-75) % Lymph % (Auto) 11.9 L (25-40) % [place] % (Auto) 6.4 (3-14) % Eos % (Auto) 0.4 L (2-4) % Baso % (Auto) 0.5 (0-2) % Neut # (Auto) 8900 H (9118-8071) /uL Lymph # (Auto) 1300 (0336-1025) /uL [place] # (Auto) 700 (0-900) /uL Eos # (Auto) 0 (0-450) /uL Baso # (Auto) 100 (0-100) /uL PT 18.4 H (9.4-12.5) SECONDS INR 1.6 H (0.9-1.3) APTT 38 H (25.1-36.5) SECONDS Sodium 136 L (137-145) mmol/L Potassium 3.6 (3.4-5.1) mmol/L Chloride 101 (98-107) mmol/L Carbon Dioxide 28 (22-32) mmol/L BUN 13 (7-17) mg/dL Creatinine 0.58 (0.52-1.04) mg/dL Estimated GFR > 60 (>60) mL/min BUN/Creatinine Ratio 22.4 H (6-22) Glucose 129 H (70-99) mg/dL Calcium 9.5 (8.4-10.2) mg/dL Magnesium 2.1 (1.6-2.3) mg/dL Total Bilirubin 0.2 (0.2-1.3) mg/dL AST 28 (14-36) IU/L ALT 13 (<35) IU/L Alkaline Phosphatase 83 (38-126) U/L Total Creatine Kinase 26 L (30-135) U/L Troponin I < 0.012 (0.01-0.034) ng/mL NT-Pro-B Natriuret Pep 362 H (<125) pg/mL Total Protein 6.4 (6.3-8.2) g/dL Albumin 4.1 (3.5-5.0) g/dL Globulin 2.3 (1.7-4.1) g/dL Albumin/Globulin Ratio 1.8 (1.0-2.8) Lipase 59 (23-300) U/L Imaging Data Chest x-ray: Radiologist's Impresson: [address] [address] XRay Report Signed Patient: Jayla Trevino MR#: [id number] : 1950 Acct:[id number] Age/Sex: 74 / F Date of Service: 07/28/24 Loc: ED Accession Number: [id number] Procedure: XR chest 1V Ordering Provider: Shelli Madsen D.O. PROCEDURE: XR CHEST 1V INDICATIONS: Chest Pain TECHNIQUE: One view of the chest was acquired. COMPARISON: [facility], CR, XR CHEST 2V, 07/04/2024, 8:16. [facility], CR, XR CHEST 2V, 06/13/2024, 14:05. FINDINGS AND IMPRESSION: Cxra-af-spqfmcot interstitial thickening likely interstitial fibrotic changes, atypical infection, and/or edema. No dense airspace disease on this single view study. No pleural effusions. Normal heart size. Sternotomy wires. Degenerative osseous changes. Dictated by: Immanuel Reddy M.D. on 07/28/2024 at 19:14 Approved by: Immanuel Reddy M.D. on 07/28/2024 at 19:15 CT angiogram chest: Radiologist's Impresson: [address] [address] [address] Scan Report Signed Patient: Jayla Trevino MR#: [id number] : 1950 Acct:[id number] Age/Sex: 74 / F Date of Service: 07/28/24 Loc: ED Accession Number: [id number] Procedure: CT angio chest PE protocol Ordering Provider: Gustavo Wolfe MD PROCEDURE: CT ANGIO CHEST PE PROTOCOL INDICATIONS: chest pain, PE protocol TECHNIQUE: After the administration of intravenous contrast, 2 mm thick sections acquired from the pulmonary apices to the posterior costophrenic angles. 3-dimensional maximum intensity projection (MIP) coronal and sagittal reformats were then acquired through the thorax. For radiation dose reduction, the following was used: automated exposure control, adjustment of mA and/or kV according to patient size. COMPARISON: [facility], CT, CT ANGIO CHEST ABDOMEN PELVIS, 06/13/2024, 17:56. [facility], CR, XR CHEST 1V, 07/28/2024, 18:27. FINDINGS: Image quality: Diagnostic. Pulmonary arteries: Pulmonary arteries are normal in size, and demonstrate no intraluminal filling defects to suggest central pulmonary embolism. Lower Neck: No enlarged lymph nodes. Thyroid: Not visualized.. Axillae: No enlarged lymph nodes. Chest Wall: Unremarkable. Bones: Unremarkable. Lungs and Pleura: No pneumothorax or pleural effusions. Scattered multiple punctate nodules within the lungs bilaterally many and tree-in-bud deformity. There overall more prominent when compared to prior exam. Slight appearance of bronchiectasis within the bases. Heart: Heart size is normal. No pericardial effusion. Thoracic Vessels: Ascending thoracic aorta measures 3.6 cm. Mediastinum and Aydee: No enlarged lymph nodes. Esophagus: No wall thickening. Minimal hiatal hernia. Upper Abdomen: Nonobstructing left renal calcification. IMPRESSION: No pulmonary embolus. Interval worsening bilateral pulmonary nodule somewhat tree-in-bud appearance suggestive of infection/inflammation. Atypical etiology such as fungal or mycobacterial should be considered. Dictated by: Marjorie Hidalgo M.D. on 07/28/2024 at 20:57 Approved by: Marjorie Hidalgo M.D. on 07/28/2024 at 21:00 ECG Data Attestation: I personally reviewed and interpreted this ECG as follows: Interpretation: Sinus tachycardia with rate of 120. No obvious ST segment elevation or depression changes. RSR prime pattern V1 noted. NE 164, QRS 90, QTC 452. MDM Narrative Medical decision making narrative: 74-year-old female status post May 2024 aortic valve replacement surgery along with thoracic aortic aneurysmal repair [facility], ongoing cough, referred for CT angiography by PCP. Labs pending. Chest XRay some interstitial thickening, no lobar infiltrates described. See radiology report. Renal function adequate. CT angiogram chest ordered. CTA Chest. IMPRESSION: No pulmonary embolus.Interval worsening bilateral pulmonary nodule somewhat tree-in-bud appearance suggestive of infection/inflammation. Atypical etiology such as fungal or mycobacterial should be considered. Se radiology report. Consider further workup as an outpatient, might need bronchoscopy, sputum studies, consider pulmonary/ID consultation. Trial of oral doxycycline for now, patient seems interested in trial of oral antibacterials for now, oral dose now, prescription sent to her pharmacy. Follow up as an outpatient with PCP for now. Discharge Plan Departure Patient Disposition: Home Clinical Impression: Atypical pneumonia Activity Restrictions/Additional Instructions: History of May 2024 aortic valve surgery, with thoracic aneurysm repair, ongoing cough, referred for CT angiogram study. Chest x-ray screening study without obvious pneumonia changes, some interstitial thickening noted. CT angiogram of the chest showed lung nodule, possible changes consistent with atypical infection such as fungal or tuberculosis mycobacterial. We will start oral doxycycline antibiotic in case of atypical bacterial infection, though fungal/mycobacterial infection might later be diagnosed. Prescription sent further doxycycline antibiotic to your pharmacy. Recheck with your regular doctor later this week to coordinate pulmonology and/or infectious diseases consultations as needed. Consider wearing a mask to prevent further spread of respiratory infection to others. Further workup as an outpatient for now. Return earlier to this/nearest emergency department for any change worsening symptoms or any concerns prior. Prescriptions: New doxycycline hyclate 100 mg tablet 100 mg PO BID Qty: 20 0RF No Action levothyroxine 100 mcg tablet See Rx Instructions .ROUTE .COMPLEX Qty: 90 3RF Dose Instruction: TAKE ONE TABLET BY MOUTH ONE TIME DAILY Rx Instructions: TAKE ONE TABLET BY MOUTH ONE TIME DAILY warfarin 2 mg tablet See Rx Instructions PO DAILY Qty: 180 0RF Protocol: Dose Management Condition: Sunday Dose/Route: 5 mg Instruction: 2.5 x 2 mg tablets Condition: Sunday Dose/Route: 8 mg Instruction: 4 x 2 mg tablets Condition: Sunday Dose/Route: 5 mg Instruction: 2.5 x 2 mg tablets Condition: Sunday Dose/Route: 5 mg Instruction: 2.5 x 2 mg tablets Condition: Dose/Route: 5 mg Instruction: 2.5 x 2 mg tablets Condition: Sunday Dose/Route: 5 mg Instruction: 2.5 x 2 mg tablets Condition: Sunday Dose/Route: 5 mg Instruction: 2.5 x 2 mg tablets Protocol Text: Adjustment Start Date: Sunday07/28/24 INR Value: 1.5 INR Date: 07/28/24 Recheck Date: 08/04/24 Rx Instructions: Take 2 tablets each evening or as directed acetaminophen 500 mg tablet 1,000 mg PO Q6H PRN acyclovir 5 % ointment 1 applic topical ONCE PRN Flax Seed 1 tab PO DAILY Referrals: Kev Mckinley MD [Primary Care Provider, Family Practice] Stand Alone Forms: Patient Portal/API
[2024-07-29] VITALS: PULSE 107; RESP 27; O2SAT 95
[2024-07-29] MEDS: DOXYCYCLINE HYCLATE 100 MG TABLET PO (00:11)
[2024-07-29 00:14] VITALS: BP 118/76; PULSE 115; RESP 16; O2SAT 96
== END 2024-07-29 00:19 | disposition home or self-care (01) ==
PROVIDERS: Emergency Medicine; Emergency Provider Emergency Medicine; PCP Family Medicine
DX: J18.9 Pneumonia, unspecified organism (principal); Z98.890 Other specified postprocedural states; Z86.79 Personal history of other diseases of the circulatory system; Z79.01 Long term (current) use of anticoagulants; R00.0 Tachycardia, unspecified; E89.0 Postprocedural hypothyroidism; Z95.2 Presence of prosthetic heart valve
CPT/HCPCS: 36415; 71045; 71275; 80053; 82550; 83690; 83735; 83880; 84443; 84484; 85025; 85379; 85610; 85730; 93005; 93010; 99284; Q9967

== ENCOUNTER → 2024-08-21 08:30 | Outpatient (CLI) | payer MEDICARE, OTHER, SELFPAY ==
[2023-01-26 11:35] VITALS: BMI 22.1
[2024-08-21 09:00] LABS: Add Manual Diff / Slide Review NO; Hematocrit 40.1 % (36-46); Hemoglobin 13.2 g/dL (12.0-16.0); Lymphocytes Absolute Auto 1300 /uL (1100-4500); Mean Corpuscular HGB Conc 32.9 % (30-36); Mean Corpuscular Hemoglobin 29.7 PG (26-34); Mean Corpuscular Volume 90.4 fL (80-100); Platelet Count 266 X10^3/uL (150-400)
[2024-08-21 09:33] LABS: Alanine Aminotransferase 15 IU/L (<35); Albumin 3.9 g/dL (3.5-5.0); Albumin Globulin Ratio 2.0 (1.0-2.8); Alkaline Phosphatase 77 U/L (38-126); Blood Urea Nitrogen 10 mg/dL (7-17); Calcium 9.6 mg/dL (8.4-10.2); Carbon Dioxide 29 mmol/L (22-32); Chloride 104 mmol/L (98-107); Estimated Glomerular Filt Rate > 60 mL/min (>60); Globulin 2.0 g/dL (1.7-4.1); Glucose 88 mg/dL (70-99); HEMOLYSIS < 15 (0-50); Potassium 4.2 mmol/L (3.4-5.1); Sodium 139 mmol/L (137-145); Total Protein 5.9 g/dL (6.3-8.2)
[2024-08-21 10:02] LABS: TSH w/ Reflex to FT4 1.47 uIU/mL (0.47-4.68)
== END ==
PROVIDERS: PCP Family Medicine; Referring Provider Family Medicine; Visit Provider Family Medicine
DX: J21.9 Acute bronchiolitis, unspecified (principal); J98.4 Other disorders of lung; R50.9 Fever, unspecified
CPT/HCPCS: 36415; 80053; 84443; 85025

== ENCOUNTER 2024-08-22 06:40 | Day surgery (SDC) | payer MEDICARE, OTHER, SELFPAY ==
[2023-01-26 11:35] VITALS: BMI 22.1
[2024-08-22] VITALS (7 sets, daily range): BP systolic 91–112; BP diastolic 50–77; PULSE 97–110; RESP 16–30; TEMP 36.3–36.6; O2SAT 95–100
--- NOTE | 2024-08-22 | PATH_ITS ---
Note [facility] Accession Number: [id number] TESTS RESULT FLAG UNITS REF RANGE LAB Clinician Provided Cytology Information No. of containers..01 Other (Miscellaneous) Source: BRONCHIAL WASH DIAGNOSIS: BRONCHIAL WASH INADEQUATE, NO PIGMENTED MACROPHAGES IDENTIFIED FOR ADEQUACY. THIS INTERPRETATION INCLUDES EVALUATION OF A CELL BLOCK. Pathologist ICD10: J98.4 Signed out by: Zhanna Ambriz MD, Pathologist NPI- [id number] Performed by: Donnie Fuentes, Graduate Student ([facility]) Gross description: 01 5 CC, YELLOW, CLOUDY RECEIVED: FRESH IN BLUE CAP CONTAINER.VO /VDU 08/25/2024 0820 Local FLAG LEGEND: L-Low Normal,H-High Normal,LL-Alert Low,HH-Alert High <-Panic Low,>-Panic High,A-Abnormal,AA-Critical Abnormal Performed at: 01 =Z [facility] [address], [place] [address] Cecil Guevara MD, Performed at: [address] [facility] [address], [place], [place] [id number] MD Cecil Guevara MD Phone: [phone]
[2024-08-22] MEDS: LACTATED RINGERS 1,000 ML 42 ML IV (07:00)
--- NOTE | 2024-08-22 07:53 | PM.HP.IH.1 ---
History of Present Illness History of Present Illness Chief complaint: Bronchoscopy Narrative: ID&CC: Ms. Trevino is a 74 year old woman with chornic immune suppression and bronchiolitis. I reviewed previous H&P, made a paitent assessment. Patient is consented and is determined to be ready for procedure. [facility] Medical History (Updated 08/15/24 @ 13:39 by Isidro Faust MD) Aortic aneurysm Aortic stenosis Schwannoma of cranial nerve Bilateral nephrolithiasis Renal colic on right side Right ureteral calculus Osteoarthritis of right knee Cervicalgia Hypothyroidism Lower back pain Neck muscle spasm Hyperparathyroidism Surgical History (Updated 06/27/24 @ 09:33 by Felipe Yo LPN) Hx laparoscopic cholecystectomy Hx of cystoscopy (03/21/21) History of incision and drainage (01/30/23) History of thyroidectomy Family History Father Heart disease Family/Other Uterine cancer Social History marital status: household members: spouse occupational status: employed Smoking Status: Never smoker alcohol intake: current substance use type: does not use Meds Home Medications and Allergies Home Medications ?Medication ?Instructions ?Recorded ?Confirmed ?Type Flax Seed 1 tab PO DAILY 07/28/19 08/21/24 History Held on 06/19/24. Instructions: Until MD review. levothyroxine 100 mcg tablet See Rx Instructions .Route 11/27/23 08/22/24 Rx .COMPLEX #90 tabs acetaminophen 500 mg tablet 1,000 mg PO Q6H 06/19/24 08/22/24 History acyclovir 5 % topical ointment 1 applic topical ONCE PRN 06/19/24 08/21/24 History warfarin 2 mg tablet See Rx Instructions PO DAILY 07/01/24 08/22/24 Rx anticoagulation #180 tabs codeine 8 mg-guaifenesin 200 mg/5 5 ml PO .QHS PRN cough #473 mL 08/15/24 08/21/24 Rx mL oral liquid Allergies Allergy/AdvReac Type Severity Reaction Status Date / Time cinnamon Allergy Intermediate swelling, Uncoded 08/22/24 07:02 tingling, rash, burning kiwi Allergy Intermediate Swelling Uncoded 08/22/24 07:02 of Lip/Tongue/Throat Exam Vital Signs (past 8 hours): - 08/22/24 06:45 Temperature 97.9 F Pulse Rate 110 H Respiratory Rate 16 Blood Pressure 104/70 Pulse Oximetry 98 Oxygen Delivery Method Room Air Oxygen Delivery Method Room Air Assessment & Plan Time-Based Coding :: [TOTAL MINUTES] spent with patient and on the chart (including review of chart, obtaining history, exam, reviewing outside data, placing orders, documenting exam and treatment plan, and counseling patient) on [DATE]. 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
--- NOTE | 2024-08-22 08:15 | SUR.OPER ---
Supine on stretcher, head on pillow, arms resting at sides, legs uncrossed.
[2024-08-22] MEDS: LIDOCAINE VISCOUS 2% 15 ML SOLUTION PO (08:21)
--- NOTE | 2024-08-22 08:40 | P.PCN_ITS ---
Procedures Date/Time Date of procedure: 08/22/24 Time of procedure: 08:05 General Procedure description: Bronchoscopy with bronchoalveolar lavage Indication: Tree in bud nodules, bronchiolitis Consent: Obtained from patient. All risks and benefits of the procedure were explained in detail. Sedation: See anesthesia record Procedure details: The flexible fiberoptic bronchoscope was advanced into the endotracheal tube via adapter. The anterior anatomy of the trachea, main stew and segmental airways was grossly normal. There was moderate-copious thick tenacious opaque secretions which required serial suctioning for clearance. Secretions did not rapidly reaccumulate. The right middle lobe was wedged and lavaged with saline with return of cellular somewhat opaque fluid. Following lavage, additional suctioning was performed. Procedure stopped at that time as planned. There were no endobronchial lesions. There were no immediate complications. Specimens: To micro and cytology PROFEE Aerosol Supervisor Document charge(s): Yes
[2024-08-22] MEDS: BENZOCAINE/MENTHOL 1 LOZ PKT 1 EACH PO (08:44)
--- NOTE | 2024-08-22 09:10 | SUR.PHASEII ---
Pt states she had Rx sent to [facility] for yrlozac7lm/guafenesin 200 but they have been unable to fill despite her calling and requesting multiple times. Pt with intractible cough in PACU post-procedure. Called [facility] to clarify; tech states they have codeine 10mg/guafenesin 100mg in stock; Donna VIRAMONTES spoke w/Dr Faust who states he will send updated Rx to [facility] now, Pt updated.
== END 2024-08-22 09:44 | disposition home or self-care (01) ==
PROVIDERS: PCP Family Medicine; Referring Provider Internal Medicine Critical Care Medicine; Visit Provider Internal Medicine Critical Care Medicine
PROC: 0BJ08ZZ Inspection of Tracheobronchial Tree, Via Natural or Artificial Opening Endoscopic (ICD-10-PCS; CPT 31622; principal; 2024-08-22 07:45)
DX: J21.9 Acute bronchiolitis, unspecified (principal); J98.4 Other disorders of lung
CPT/HCPCS: 31622; 87070; 87102; 87116; 87205; 87206; J0330; J2405; J2704; J3010; J3490

== ENCOUNTER → 2024-09-08 07:40 | Outpatient (CLI) | payer MEDICARE, OTHER, SELFPAY ==
[2023-01-26 11:35] VITALS: BMI 22.1
--- NOTE | 2024-09-08 07:43 | DI.RAD.S_ITS ---
PROCEDURE: XR FOOT LT MIN 3V INDICATIONS: left foot pain TECHNIQUE: 3 views of the foot were acquired. COMPARISON: [facility], , XR FOOT LT MIN 3V, 01/25/2022, 12:46. FINDINGS: Bones: No fractures or dislocations. No suspicious bony lesions. Stable postsurgical changes of the 1st metatarsal. Soft tissues: No tibiotalar joint effusion. Achilles tendon appears normal. IMPRESSION: No acute bony abnormality. Stable postoperative appearance. If symptoms persist with conservative management, consider cross-sectional imaging such as CT or MRI. Approved by: Fiona Garcia M.D.,Ph.D. on 09/09/2024 at 16:08
== END ==
PROVIDERS: PCP Family Medicine; Referring Provider Nurse Practitioner Family; Visit Provider Nurse Practitioner Family
DX: M79.672 Pain in left foot (principal); Z98.890 Other specified postprocedural states
CPT/HCPCS: 73630

== ENCOUNTER 2024-11-13 10:15 | Outpatient (RCR) | payer MEDICARE, OTHER, SELFPAY ==
[2023-01-26 11:35] VITALS: BMI 22.1
== END 2024-11-13 12:15 ==
LOC: CAR 10:15
PROVIDERS: PCP Family Medicine
DX: Z95.2 Presence of prosthetic heart valve (principal)
CPT/HCPCS: 93798

== ENCOUNTER → 2024-12-09 12:50 | Outpatient (CLI) | payer MEDICARE, OTHER, SELFPAY ==
[2023-01-26 11:35] VITALS: BMI 22.1
--- NOTE | 2024-12-09 12:52 | DI.RAD.S_ITS ---
PROCEDURE: XR FINGER RT MIN 2V INDICATIONS: Rule out fracture TECHNIQUE: PA hand, 2 views of the 4th finger acquired. COMPARISON: None. FINDINGS: Bones: No acute fractures or dislocations. Suspected chronic posttraumatic deformity of the 5th metacarpal neck. No suspicious bony lesions. Soft tissues: No suspicious soft tissue calcifications. Mild soft tissue edema surrounding the fourth proximal interphalangeal joint. IMPRESSION: No acute osseous abnormality. If there is continued clinical concern or persistent symptoms, repeat radiographs or cross-sectional imaging (e.g. CT, MRI) may be helpful for further evaluation. Approved by: Lopez Sandoval M.D. on 12/09/2024 at 13:24
== END ==
PROVIDERS: PCP Family Medicine; Referring Provider Family Medicine; Visit Provider Family Medicine
DX: S63.634A Sprain of interphalangeal joint of right ring finger, initial encounter (principal); X58.XXXA Exposure to other specified factors, initial encounter
CPT/HCPCS: 73140

== ENCOUNTER → 2024-12-10 06:46 | Outpatient (CLI) | payer MEDICARE, OTHER, SELFPAY ==
[2023-01-26 11:35] VITALS: BMI 22.1
--- NOTE | 2024-12-10 07:02 | DI.CT.S_ITS ---
PROCEDURE: CT CHEST WO CON
== END ==
LOC: CT 06:47
PROVIDERS: PCP Family Medicine; Referring Provider Internal Medicine Critical Care Medicine; Visit Provider Internal Medicine Critical Care Medicine
DX: J18.9 Pneumonia, unspecified organism (principal); I25.10 Atherosclerotic heart disease of native coronary artery without angina pectoris; Z95.2 Presence of prosthetic heart valve
CPT/HCPCS: 71250

== ENCOUNTER 2025-01-19 18:43 | Emergency (ER) | payer MEDICARE, OTHER, SELFPAY ==
[2023-01-26 11:35] VITALS: BMI 22.1
[2025-01-19 19:26] VITALS: BP 106/62; PULSE 111; RESP 20; TEMP 37.1; O2SAT 95; BMI 18.3
== END 2025-01-20 01:34 | disposition left against medical advice (07) ==
PROVIDERS: Emergency Provider Emergency Medicine; PCP Family Medicine
DX: Z53.21 Procedure and treatment not carried out due to patient leaving prior to being seen by health care provider (principal)
CPT/HCPCS: 99281

== ENCOUNTER → 2025-01-21 07:15 | Outpatient (CLI) | payer MEDICARE, OTHER, SELFPAY ==
[2023-01-26 11:35] VITALS: BMI 22.1
--- NOTE | 2025-01-21 | DI.MRI.S_ITS ---
PROCEDURE: MR BRAIN (IAC) WWO CON INDICATIONS: VESTIBULAR SCHWANNOMA TECHNIQUE: Noncontrast sagittal T1 spin echo, axial FLAIR, axial gradient echo, axial diffusion and ADC through the brain. Axial thin-slice 3D CISS, coronal TruFISP, axial T1 spin echo with fat saturation through the internal auditory canals. After the administration of contrast, thin slice axial and coronal T1 spin echo with fat saturation through the internal auditory canals, and axial and coronal and sagittal T1 spin echo with fat saturation through the brain. COMPARISON: [facility], MR, MR IAC (BRAIN) WWO CON, 09/17/2023, 7:32. FINDINGS: Image quality: Excellent. Cerebellopontine angles: Status post resection of left vestibular schwannoma. Small focus of enhancement within the left internal auditory canal measuring approximately 3 mm is mildly less prominent than prior. Inner ear structures appear normally formed. No suspicious enhancement in the internal auditory canal or along the course of the 7th cranial nerve. CSF spaces: Ventricles are normal in size and shape. No extra-axial fluid collections. Basal cisterns are patent. Brain: No intracranial bleeds or mass effects. Cope-white matter interface is intact. No abnormal intracranial enhancement. Minimal chronic microvascular ischemic change. Diffusion weighted images demonstrate no acute ischemic insults. Brainstem appears normal. Normal intravascular flow voids are present. Skull and face: Left posterior fossa craniotomy. Calvarial marrow signal is normal. Orbits appear normal. Sinuses: Diffuse paranasal sinus disease with air-fluid levels in the right maxillary sinus and bilateral sphenoid sinuses. Small right mastoid fluid. IMPRESSION: Status post resection of left vestibular schwannoma. Small focus of enhancement within the left IAC measuring 3 mm is less pronounced than prior. Recommend follow-up imaging. Otherwise, no acute intracranial abnormalities or abnormal intracranial enhancement. Dictated by: Raz Flower M.D. on 01/22/2025 at 8:34 Approved by: Raz Flower M.D. on 01/22/2025 at 8:45
== END ==
PROVIDERS: PCP Family Medicine; Referring Provider Otolaryngology; Visit Provider Otolaryngology
DX: D33.3 Benign neoplasm of cranial nerves (principal); H90.42 Sensorineural hearing loss, unilateral, left ear, with unrestricted hearing on the contralateral side
CPT/HCPCS: 70553; A9579

== ENCOUNTER → 2025-01-23 07:18 | Outpatient (CLI) | payer MEDICARE, OTHER, SELFPAY ==
[2023-01-26 11:35] VITALS: BMI 22.1
--- NOTE | 2025-01-23 07:19 | DI.MRI.S_ITS ---
PROCEDURE: MR HAND RT WO CON INDICATIONS: Contusion of right ring finger TECHNIQUE: Noncontrast coronal T1 spin echo and T2 fast spin echo with fat saturation, axial proton density fast spin echo and T2 fast spin echo with fat saturation, sagittal T1 spin echo and STIR through the hand and fingers. COMPARISON: [facility], CR, XR FINGER RT MIN 2V, 12/09/2024, 12:52. FINDINGS: Image quality: Excellent. Bones: The bones are normally aligned. Marrow edema is noted throughout 5th distal phalanx with subtle cortical irregularity and linear hypointense signal involving 5th distal phalangeal base extending to involve 5th DIP joint. Mild to moderate osteoarthritic changes are noted throughout right hand and wrist joints . Subcortical T2 hyperintense area involving radial aspect of 2nd proximal phalangeal base. Similar subcortical T2 hyperintense area involving radial aspect of 3rd metacarpal head is also seen. Similar signal changes also seen involving distal portion of scaphoid, lunate, triquetrum and proximal to mid capitate. No evidence of avascular necrosis. Interphalangeal joint(s): The accessory and proper collateral ligaments appear intact. The volar plate demonstrates normal morphology. The extensor central slips appear intact on sagittal images. Metacarpophalangeal joint(s): The accessory and proper collateral ligaments appear intact, as well as the volar plate and adjacent deep transverse metacarpal ligaments. The sagittal bands of the extensor soto appear normal. Extensor apparatus: The central slips insert normally on the middle phalangeal base. The conjoint and terminal tendons insert normally on the distal phalangeal bases. More proximal portions of the extensor tendons also appear normal. Flexor apparatus: The flexor digitorum superficialis and profundus tendons both appear intact. All annular and cruciform pulleys appear intact, without adjacent soft tissue edema. Soft tissues: Visualized muscles demonstrate normal bulk and internal signal. No intramuscular masses identified. No ganglion cysts. IMPRESSION: 1. Finding is consistent with nondisplaced or incomplete intra-articular fracture involving 5th distal phalangeal base. 2. Osteoarthritic changes throughout right hand and wrist joints with subcortical T2 hyperintense signal areas scattered in multiple carpal bones, of 3rd metacarpal head and 2nd proximal phalangeal base which may represent subcortical cysts versus erosion secondary to inflammatory arthropathy suggest clinical correlation. 3. Extensor and flexor tendons of the right hand are intact. No evidence of collateral ligament rupture. No soft tissue mass or drainable fluid collection. Dictated by: Stefano Bucio M.D. on 01/23/2025 at 8:33 Approved by: Stefano Bucio M.D. on 01/23/2025 at 9:01
== END ==
LOC: MRI 07:19
PROVIDERS: PCP Family Medicine; Referring Provider Family Medicine; Visit Provider Family Medicine
DX: S60.041A Contusion of right ring finger without damage to nail, initial encounter (principal)
CPT/HCPCS: 73218

== ENCOUNTER → 2025-01-26 14:54 | Outpatient (CLI) | payer MEDICARE, OTHER, SELFPAY ==
[2023-01-26 11:35] VITALS: BMI 22.1
== END ==
PROVIDERS: PCP Family Medicine; Referring Provider Family Medicine; Visit Provider Family Medicine
DX: M79.644 Pain in right finger(s) (principal); M25.9 Joint disorder, unspecified; R93.6 Abnormal findings on diagnostic imaging of limbs
CPT/HCPCS: 36415; 85651; 86140; 86200; 86430